=== PATIENT | female | born 1965 | race Asian ===

== ENCOUNTER 2017-05-22 21:17 | Emergency (ER) | payer OTHER ==
--- NOTE | 2017-05-22 21:28 | PDOC ---
History of Present Illness <Silvia Negro - Last Filed: 05/23/17 00:03> - General History Source: Patient Exam Limitations: No Limitations - History of Present Illness Initial Comments: 05/22/17 22:01 51-year-old female with history of recurrent cervical cancer, status post ADIS/ BSO, status post partial colectomy with colostomy and urostomy presents to the ER with severe, constant, nonradiating, left-sided abdominal pain for the past several hours, 10 of 10, without alleviating or exacerbating factors, with several episodes of nonbloody, nonbilious vomiting. Patient reports decreased output via a colostomy. Normal output here urostomy. Patient denies fever/chills /melena/bright red blood per colostomy. REVIEW OF SYSTEMS CONSTITUTIONAL: No fever, no chills, no fatigue EYES: No visual changes ENT: No ear pain, no sore throat CARDIOVASCULAR: No chest pain, no palpitations RESPIRATORY: No cough, no SOB GI: + abdominal pain, no nausea, + vomiting, no constipation, no diarrhea GENITOURINARY: No dysuria, no frequency, no hematuria MUSKULOSKELETAL: No backpain, no joint pain, no myalgias SKIN: No rash NEURO: No headache EXAMINATION CONSTITUTIONAL: Awake and alert, in moderate distress HEAD: Normocephalic; atraumatic EYES: PERRL; EOM intact; no scleral icterus ENMT: External appears normal; mm-dry NECK: Supple; non-tender; no cervical lymphadenopathy CARD: Normal S1, S2; no murmurs, rubs, or gallops RESP: Normal chest excursion with respiration; breath sounds clear and equal bilaterally; no wheezes, rhonchi, or rales ABD: Soft, distended; tympanitic, + mild to moderate tender to palpation within the left lower quadrant; left lower quadrant colostomy is noted; right lower quadrant and urostomy is noted; no palpable organomegaly, no palpable hernias no CVA tenderness bilaterally;; EXT: Normal ROM in all four extremities; non-tender to palpation; distal pulses intact SKIN: Warm, dry, no rash NEURO: No focal neurological deficiencies. <Natan Terrazas - Last Filed: 05/23/17 00:40> <Daniela Godinez - Last Filed: 05/23/17 04:03> - General Stated Complaint: STOMACH PAIN Past History <Silvia Negro - Last Filed: 05/23/17 00:03> - Past Medical History Anemia: Yes Asthma: No Cancer: Yes (cervical, vaginal) Cardiac Disorders: No CVA: No COPD: No CHF: No Dementia: No Diabetes: No GI Disorders: No Disorders: No HTN: Yes Hypercholesterolemia: No Liver Disease: No Seizures: No Thyroid Disease: No - Surgical History Abdominal Surgery: Yes (hysterectomy 2014) Appendectomy: Yes Cardiac Surgery: No Cholecystectomy: No Lung Surgery: No Neurologic Surgery: No - Suicide/Smoking/Psychosocial Hx Smoking History: Never smoked Hx Alcohol Use: No Drug/Substance Use Hx: No Substance Use Type: None Hx Substance Use Treatment: No <Natan Terrazas - Last Filed: 05/23/17 00:40> <Daniela Godinez - Last Filed: 05/23/17 04:03> - Past Medical History Allergies/Adverse Reactions: Allergies Allergy/AdvReac Type Severity Reaction Status Date / Time cisplatin Allergy Severe rash and Verified 05/23/17 00:06 chest pain Home Medications: Ambulatory Orders Amlodipine Besylate [Norvasc -] 5 mg PO DAILY 03/05/16 Cetirizine HCl [Zyrtec -] 10 mg PO DAILY 03/05/16 Magnesium Oxide 800 mg PO BID 03/05/16 *Physical Exam - Vital Signs Last Vital Signs Temp Pulse Resp BP Pulse Ox 98.2 F 78 18 143/110 98 05/22/17 21:37 05/22/17 21:37 05/22/17 21:37 05/22/17 21:37 05/22/17 21:37 <Silvia Negro - Last Filed: 05/23/17 00:03> - Vital Signs Last Vital Signs Temp Pulse Resp BP Pulse Ox 98.2 F 78 18 143/110 98 05/22/17 21:37 05/22/17 21:37 05/22/17 21:37 05/22/17 21:37 05/22/17 21:37 <Daniela Godinez - Last Filed: 05/23/17 04:03> ED Treatment Course - LABORATORY CBC & Chemistry Diagram: 05/22/17 22:36 05/22/17 22:36 - ADDITIONAL ORDERS Additional order review: Laboratory Results 05/22/17 05/22/17 22:36 22:36 PT with INR 11.20 INR 0.99 Sodium Cancelled Potassium Cancelled Chloride Cancelled Carbon Dioxide Cancelled Anion Gap Cancelled BUN Cancelled Creatinine Cancelled Creat Clearance w eGFR Cancelled Random Glucose Cancelled Calcium Cancelled Total Bilirubin Cancelled AST Cancelled ALT Cancelled Alkaline Phosphatase Cancelled Total Protein Cancelled Albumin Cancelled 05/22/17 22:36 RBC 3.60 MCV 92.5 MCHC 33.7 RDW 12.9 D MPV 8.2 Neutrophils % 81.0 Lymphocytes % 11.2 Monocytes % 5.4 Eosinophils % 2.0 D Basophils % 0.4 - Medications Given in the ED: ED Medications Discontinued Medications Generic Name Dose Route Start Last Admin Trade Name Freq PRN Reason Stop Dose Admin Hydromorphone HCl 2 mg 05/22/17 21:41 05/22/17 22:35 Dilaudid Injection - IVPB 05/22/17 21:42 2 mg ONCE ONE Administration Sodium Chloride 500 mls @ 500 mls/hr 05/22/17 21:41 05/22/17 22:35 Normal Saline - IV 05/22/17 22:40 500 mls/hr ASDIR STA Administration Ondansetron HCl 8 mg 05/22/17 21:41 05/22/17 22:35 Zofran Injection IVPB 05/22/17 21:42 8 mg ONCE ONE Administration <Silvia Negro - Last Filed: 05/23/17 00:03> - LABORATORY CBC & Chemistry Diagram: 05/22/17 22:36 05/22/17 22:36 <Natan Terrazas - Last Filed: 05/23/17 00:40> - LABORATORY CBC & Chemistry Diagram: 05/22/17 22:36 05/23/17 00:02 - ADDITIONAL ORDERS Additional order review: Laboratory Results 05/23/17 05/23/17 05/22/17 00:02 00:02 22:36 PT with INR INR Sodium 142 Cancelled Potassium 3.4 L Cancelled Chloride 102 Cancelled Carbon Dioxide 27 Cancelled Anion Gap 13 Cancelled BUN 15 D Cancelled Creatinine 0.7 Cancelled Creat Clearance w eGFR > 60 Cancelled Random Glucose 137 H D Cancelled Calcium 8.4 L Cancelled Total Bilirubin 0.7 D Cancelled AST 28 D Cancelled ALT 61 D Cancelled Alkaline Phosphatase 65 D Cancelled Total Protein 7.6 D Cancelled Albumin 3.9 D Cancelled Blood Type O POSITIVE Antibody Screen Negative 05/22/17 22:36 PT with INR 11.20 INR 0.99 Sodium Potassium Chloride Carbon Dioxide Anion Gap BUN Creatinine Creat Clearance w eGFR Random Glucose Calcium Total Bilirubin AST ALT Alkaline Phosphatase Total Protein Albumin Blood Type Antibody Screen 05/22/17 22:36 RBC 3.60 MCV 92.5 MCHC 33.7 RDW 12.9 D MPV 8.2 Neutrophils % 81.0 Lymphocytes % 11.2 Monocytes % 5.4 Eosinophils % 2.0 D Basophils % 0.4 - Medications Given in the ED: ED Medications Discontinued Medications Generic Name Dose Route Start Last Admin Trade Name Freq PRN Reason Stop Dose Admin Hydromorphone HCl 2 mg 05/22/17 21:41 05/22/17 22:35 Dilaudid Injection - IVPB 05/22/17 21:42 2 mg ONCE ONE Administration Hydromorphone HCl 2 mg 05/23/17 01:41 05/23/17 01:42 Dilaudid Injection - IVPB 05/23/17 01:42 2 mg ONCE ONE Administration Sodium Chloride 500 mls @ 500 mls/hr 05/22/17 21:41 05/22/17 22:35 Normal Saline - IV 05/22/17 22:40 500 mls/hr ASDIR STA Administration Ondansetron HCl 8 mg 05/22/17 21:41 05/22/17 22:35 Zofran Injection IVPB 05/22/17 21:42 8 mg ONCE ONE Administration <Daniela Godinez - Last Filed: 05/23/17 04:03> Medical Decision Making - Medical Decision Making 05/22/17 23:41 EXAM: X-ray abdomen supine and erect view FINDINGS: Nonspecific bowel gas pattern. There is stool and gas throughout colon. There are some bowel loops with air-fluid levels in the pelvis. This is nonspecific for small bowel obstruction. If there is suspicion of bowel obstruction then CT is recommended. No appreciable free intraperitoneal air. Scoliosis. Read by: Troy Kimball MD 05/23/17 00:03 EXAM: XR CHEST FINDINGS: Tip of the right central venous line overlies the distal SVC. Heart size is normal. Lungs are clear. No pleural effusion. IMPRESSION: No acute pathology. Read by: Juan Jose Kincaid MD <Silvia Negro - Last Filed: 05/23/17 00:03> - Medical Decision Making 05/23/17 00:43 Patient is a 51-year-old female with history of locally invasive cervical cancer , status post ADIS/BSO, status post partial colectomy with colostomy and urostomy presents with atraumatic left-sided abdominal pain associated with nausea and vomiting. I suspect SBO. Abdominal series x-ray reveals large amount of retained stool and several air-fluid levels in the pelvis. Will obtain CT with by mouth contrast to rule out SBO. <Natan Terrazas - Last Filed: 05/23/17 00:40> - Medical Decision Making 05/23/17 04:03 Pt feels great and wants to go home. Belly is soft and NT ND. <Daniela Godinez - Last Filed: 05/23/17 04:03> *DC/Admit/Observation/Transfer - Attestations Scribe Attestion: 05/22/17 23:42 Documentation prepared by Silvia Negro, acting as medical charge entry specialist for Natan Terrazas MD. <Silvia Negro - Last Filed: 05/23/17 00:03> <Natan Terrazas - Last Filed: 05/23/17 00:40> - Discharge Dispostion Admit: No <Daniela Godinez - Last Filed: 05/23/17 04:03> Diagnosis at time of Disposition: Gas pain - Discharge Dispostion Disposition: HOME Condition at time of disposition: Stable - Referrals Referrals: Cipriano Parikh MD [Primary Care Provider] - - Patient Instructions
[2017-05-22] MEDS ORDERED: SODIUM CHLORIDE 500 ML IV STA (21:41)
[2017-05-22] MEDS ORDERED: HYDROmorphone HCL CARPU-JECT 2 MG/1 ML DISP.SYRIN IVPB ONE (21:41)
[2017-05-22] MEDS ORDERED: ONDANSETRON 4 MG/2 ML VIAL IVPB ONE (21:41)
[2017-05-22 21:43] VITALS: BP 143/110; PULSE 78; TEMP 98.2; BMI 32.9
[2017-05-22] MEDS ORDERED: ONDANSETRON 4 MG/2 ML VIAL ONE (22:11)
[2017-05-22] MEDS ORDERED: HYDROmorphone HCL CARPU-JECT 2 MG/1 ML DISP.SYRIN ONE (22:11)
[2017-05-22 22:44] LABS: BASO % 0.4 % (0-2.0); HEMATOCRIT 33.3 % (32.4-45.2); HEMOGLOBIN 11.2 GM/dL (10.7-15.3); LYMPH % 11.2 % (8-40); MCH 31.2 pg (25.7-33.7); MCHC 33.7 g/dl (32.0-36.0); MEAN CELL VOLUME 92.5 fl (80-96); MEAN PLT VOLUME 8.2 fl (7.5-11.1); MONO % 5.4 % (3.8-10.2); PLATELET COUNT 297 K/MM3 (134-434); RDW 12.9 % (11.6-15.6); WHITE BLOOD COUNT 7.5 K/mm3 (4.0-10.0)
[2017-05-22 23:01] LABS: INR 0.99 (0.82-1.09); PROTHROMBIN TIME (PATIENT) 11.2 SEC (9.98-11.88)
[2017-05-23 00:39] LABS: ALBUMIN 3.9 g/dl (3.4-5.0); ANION GAP 13 (8-16); BILIRUBIN,TOTAL 0.7 mg/dL (0.2-1.0); BLOOD UREA NITROGEN 15 mg/dL (7-18); CALCIUM 8.4 mg/dL (8.5-10.1); CHLORIDE 102 mmol/L (98-107); CO2 27 mmol/L (21-32); CREATININE 0.7 mg/dL (0.55-1.02); GLUCOSE,RANDOM 137 mg/dL (74-106); POTASSIUM 3.4 mmol/L (3.5-5.1); SGOT/AST 28 U/L (15-37); SGPT/ALT 61 U/L (12-78); SODIUM 142 mmol/L (136-145); TOT PROT 7.6 g/dl (6.4-8.2)
[2017-05-23 00:40] LABS: ALK PHOS 65 U/L (45-117)
[2017-05-23] MEDS ORDERED: HYDROmorphone HCL CARPU-JECT 2 MG/1 ML DISP.SYRIN ONE (00:52)
[2017-05-23] MEDS ORDERED: HYDROmorphone HCL CARPU-JECT 2 MG/1 ML DISP.SYRIN IVPB ONE (01:41)
== END 2017-05-23 04:12 | disposition home or self-care (01) ==
LOC: JER 21:17
PROC: 3E033NZ Introduction of Analgesics, Hypnotics, Sedatives into Peripheral Vein, Percutaneous Approach (ICD-10-PCS; principal; 2017-05-22)
PROC: 3E033NZ Introduction of Analgesics, Hypnotics, Sedatives into Peripheral Vein, Percutaneous Approach (ICD-10-PCS; 2017-05-22)
PROC: 3E033GC Introduction of Other Therapeutic Substance into Peripheral Vein, Percutaneous Approach (ICD-10-PCS; 2017-05-22)
DX: R14.1 Gas pain (principal); Z85.41 Personal history of malignant neoplasm of cervix uteri; Z93.3 Colostomy status; Z93.6 Other artificial openings of urinary tract status
CPT/HCPCS: 36415; 71010-TC; 74176-TC; 74190-TC; 80053; 85025; 85610; 86850; 86900; 86901; 99283-25

== ENCOUNTER 2017-06-12 14:16 | Emergency (ER) | payer OTHER ==
[2017-06-12 14:22] VITALS: BMI 33.5
--- NOTE | 2017-06-12 14:52 | PDOC ---
History of Present Illness - General History Source: Patient Exam Limitations: No Limitations - History of Present Illness Initial Comments: 06/12/17 16:41 Patient is a 52 year old female with a significant past medical history of HTN, Anxiety, cervical adenocarcinoma diagnosed 11/2014 after hysterectomy for vaginal bleeding , s/p chemo and radiation Rx, s/p multiple pelvic surgeries ( the latest 10/2015 in [place]), s/p VAC (removed 02/2016) who presents to the ED with complaints of left sided abdominal pain that began yesterday. Patient reports going to see PCP for constipation and was prescribed laxatives which she states she has not taken for 2 days. She reports experiencing left sided abdominal pain that she states is similar to the pain she experienced in April when she was constipated. She describes it as cramping in nature. Patient reports experiencing nausea and vomiting secondary to left sided abdominal pain. She states the last episode of vomiting was this afternoon at 1 :30pm. Patient states she has a colostomy bag and was last changed yesterday evening. She reports her last chemo treatment was February 20, which was her 13th treatment. She states she passed some gas this morning. Denies chest pain, SOB. Denies fevers, chills. Denies change in appetite. Denies contact with sick individuals, out of state travelling. Denies any other symptoms. Allergies: Cisplatin Social history: Lives with spouse. No smoking. No alcohol. No illicit drugs. Surgical history: Colectomy, Colostomy, Hysterectomy, Oophorectomy PMD: Dr. Parikh <Brent Chilel - Last Filed: 06/12/17 16:41> <Sánchez Thomas - Last Filed: 06/12/17 17:23> - General Chief Complaint: Pain Stated Complaint: SBO/ CA PT , ABDOMINAL PAIN Time Seen by Provider: 06/12/17 14:35 Past History <Brent Chilel - Last Filed: 06/12/17 16:41> - Past Medical History Anemia: Yes Asthma: No Cancer: Yes (cervical, vaginal) Cardiac Disorders: No CVA: No COPD: No CHF: No DVT: No Dementia: No Diabetes: No GI Disorders: Yes (SBO) Disorders: No HTN: Yes Hypercholesterolemia: No Liver Disease: No Seizures: No Thyroid Disease: No - Surgical History Abdominal Surgery: Yes (hysterectomy 2014) Appendectomy: Yes Cardiac Surgery: No Cholecystectomy: No Lung Surgery: No Neurologic Surgery: No - Suicide/Smoking/Psychosocial Hx Smoking History: Never smoked Information on smoking cessation initiated: No Hx Alcohol Use: No Drug/Substance Use Hx: No Substance Use Type: None Hx Substance Use Treatment: No <Sánchez Thomas - Last Filed: 06/12/17 17:23> - Past Medical History Allergies/Adverse Reactions: Allergies Allergy/AdvReac Type Severity Reaction Status Date / Time cisplatin Allergy Severe rash and Verified 06/12/17 14:18 chest pain Home Medications: Ambulatory Orders Amlodipine Besylate [Norvasc -] 5 mg PO DAILY 03/05/16 Cetirizine HCl [Zyrtec -] 10 mg PO DAILY 03/05/16 Magnesium Oxide 800 mg PO BID 03/05/16 Review of Systems - Review of Systems Able to Perform ROS?: Yes Comments:: 06/12/17 16:42 CONSTITUTIONAL: No reported: Fever, Chills, Diaphoresis, Generalized Weakness, Malaise, Loss of Appetite HEENT: No reported: Rhinorrhea, Nasal Congestion, Throat Pain, Throat Swelling, Difficulty Swallowing, Mouth Swelling, Ear Pain, Eye Pain, Visual Changes CARDIOVASCULAR: No reported: Chest Pain, Syncope, Palpitations, Irregular Heart Rate, Lightheadedness, Peripheral Edema RESPIRATORY: No reported: Cough, Shortness of Breath, SOB with Exertion, Orthopnea, Wheezing , Stridor, Hemoptysis GASTROINTESTINAL: +Left sided abdominal pain. +Nausea. +Vomiting. No reported: Abdominal pain, Abdominal Distension, Nausea, Vomiting, Diarrhea, Constipation, Melena, Hematochezia GENITOURINARY: No reported: Dysuria, Frequency, Urgency, Hesitancy, Flank Pain, Genital Pain MUSCULOSKELETAL: No reported: Myalgia, Arthralgia, Joint Swelling, Back pain, Neck Pain SKIN: No reported: Rash, Itching, Pallor HEMATOLOGIC/IMMUNOLOGIC: No reported: Easy Bleeding, Easy Bruising, Lymphadenopathy, Frequent infections ENDOCRINE: No reported: Unexplained Weight Gain, Unexplained Weight Loss, Heat Intolerance , Cold Intolerance NEUROLOGIC: No reported: Headache, Focal Weakness, Paresthesias, Vertigo, Lightheadedness, Unsteady Gait, Seizure, Mental Status Changes, Incontinence PSYCHIATRIC: No reported: Anxiety, Depression All Other Systems: Reviewed and Negative <Brent Chilel - Last Filed: 06/12/17 16:41> *Physical Exam - Vital Signs Last Vital Signs Temp Pulse Resp BP Pulse Ox 98.3 F 84 18 149/96 100 06/12/17 14:18 06/12/17 14:18 06/12/17 14:18 06/12/17 14:18 06/12/17 14:18 - Physical Exam Comments: 06/12/17 16:42 GENERAL: The patient is awake, alert, and fully oriented, Nontoxic - in no acute distress. HEAD: Normocephalic, atraumatic. EYES: extraocular movements intact, sclera anicteric, conjunctiva clear. ENT: Normal voice, Moist mucous membranes. NECK: Normal range of motion, supple LUNGS: Breath sounds equal, clear to auscultation bilaterally. No wheezes, no rhonchi, no rales. HEART: Regular rate and rhythm, normal S1 and S2 without murmur, rub or gallop. ABDOMEN: mild tenderness in the L abdomen, colostomy bag in place, urostomy bag in the RL abd , no rebound/guarding EXTREMITIES: Normal range of motion, no edema. No clubbing or cyanosis. No cords, erythema, or tenderness. NEUROLOGICAL: No facial assymetry, Normal speech, PSYCH: Normal mood, normal affect. SKIN: Warm, Dry, normal turgor, <Brent Chilel - Last Filed: 06/12/17 16:41> - Vital Signs Last Vital Signs Temp Pulse Resp BP Pulse Ox 98.3 F 84 18 149/96 100 06/12/17 14:18 06/12/17 14:18 06/12/17 14:18 06/12/17 14:18 06/12/17 14:18 <Sánchez Thomas - Last Filed: 06/12/17 17:23> ED Treatment Course - LABORATORY CBC & Chemistry Diagram: 06/12/17 15:20 06/12/17 15:20 - ADDITIONAL ORDERS Additional order review: Laboratory Results 06/12/17 06/12/17 06/12/17 15:20 15:20 15:20 PT with INR 11.60 INR 1.03 Sodium Potassium Chloride Carbon Dioxide Anion Gap BUN Creatinine Creat Clearance w eGFR Random Glucose Lactic Acid 0.9 Calcium Total Bilirubin AST ALT Alkaline Phosphatase Total Protein Albumin Blood Type O POSITIVE Antibody Screen Negative 06/12/17 15:20 PT with INR INR Sodium 150 H Potassium 3.4 L Chloride 110 H Carbon Dioxide 27 Anion Gap 13 BUN 27 H Creatinine 1.5 H Creat Clearance w eGFR 36.76 Random Glucose 100 Lactic Acid Calcium 8.1 L Total Bilirubin 0.8 AST 22 ALT 47 Alkaline Phosphatase 61 Total Protein 8.0 Albumin 4.4 Blood Type Antibody Screen 06/12/17 15:20 RBC 3.38 L MCV 90.5 MCHC 33.4 RDW 13.0 MPV 7.8 Neutrophils % 81.0 Lymphocytes % 12.2 Monocytes % 5.5 Eosinophils % 1.1 Basophils % 0.2 - Medications Given in the ED: ED Medications Discontinued Medications Generic Name Dose Route Start Last Admin Trade Name Estebanq PRN Reason Stop Dose Admin Hydromorphone HCl 0.5 mg 06/12/17 14:53 06/12/17 16:30 Dilaudid Injection - IVPUSH 06/12/17 14:54 0.5 mg ONCE ONE Administration Ondansetron HCl 4 mg 06/12/17 14:53 06/12/17 16:30 Zofran Injection IVPB 06/12/17 14:54 4 mg ONCE ONE Administration <Brent Chilel - Last Filed: 06/12/17 16:41> - LABORATORY CBC & Chemistry Diagram: 06/12/17 15:20 06/12/17 15:20 <Sánchez Thomas - Last Filed: 06/12/17 17:23> Medical Decision Making - Medical Decision Making 06/12/17 14:53 52y F hx of htn, ADIS/BSO, with complaint of L sideda bominal pain. Pain is crampy in nature, Pt complaints of vomiting, decreased bowel movements/output in her colostomy for the past day. No associated fever/chills. concern for obstction will start with abd xray as pt has had multiple CTs in the past month if suggestive of obstruction may need a CT will give subhashfran, pain meds 06/12/17 17:22 abd xry noted for gas, no signs of air fliud levels will give the pt some mag citrate pt signed out to dr. dee to reasess the patient anticipate dc after she feels better <Sánchez Thomas - Last Filed: 06/12/17 17:23> *DC/Admit/Observation/Transfer - Attestations Scribe Attestion: 06/12/17 16:42 Documentation prepared by Brent Chilel, acting as medical services manager for Sánchez Thomas MD, /DO. <Brent Chilel - Last Filed: 06/12/17 16:41> <Sánchez Thomas - Last Filed: 06/12/17 17:23> - Referrals Referrals: Cipriano Parikh MD [Primary Care Provider] - - Patient Instructions - Post Discharge Activity
[2017-06-12] MEDS ORDERED: HYDROmorphone HCL CARPU-JECT 2 MG/1 ML DISP.SYRIN IVPUSH ONE (14:53)
[2017-06-12] MEDS ORDERED: ONDANSETRON 4 MG/2 ML VIAL IVPB ONE (14:53)
[2017-06-12 15:42] LABS: BASO % 0.2 % (0-2.0); EOS % 1.1 % (0-4.5); HEMATOCRIT 30.6 % (32.4-45.2); HEMOGLOBIN 10.2 GM/dL (10.7-15.3); LYMPH % 12.2 % (8-40); MCH 30.2 pg (25.7-33.7); MCHC 33.4 g/dl (32.0-36.0); MEAN CELL VOLUME 90.5 fl (80-96); MEAN PLT VOLUME 7.8 fl (7.5-11.1); MONO % 5.5 % (3.8-10.2); PLATELET COUNT 296 K/MM3 (134-434); RBC 3.38 M/mm3 (3.60-5.2); WHITE BLOOD COUNT 4.7 K/mm3 (4.0-10.0)
[2017-06-12 15:54] LABS: INR 1.03 (0.82-1.09); PROTHROMBIN TIME (PATIENT) 11.6 SEC (9.98-11.88)
[2017-06-12 16:11] LABS: ALBUMIN 4.4 g/dl (3.4-5.0); ALK PHOS 61 U/L (45-117); ANION GAP 13 (8-16); BILIRUBIN,TOTAL 0.8 mg/dL (0.2-1.0); BLOOD UREA NITROGEN 27 mg/dL (7-18); CALCIUM 8.1 mg/dL (8.5-10.1); CHLORIDE 110 mmol/L (98-107); CO2 27 mmol/L (21-32); CREATININE 1.5 mg/dL (0.55-1.02); GLUCOSE,RANDOM 100 mg/dL (74-106); POTASSIUM 3.4 mmol/L (3.5-5.1); SGOT/AST 22 U/L (15-37); SGPT/ALT 47 U/L (12-78); SODIUM 150 mmol/L (136-145)
[2017-06-12] MEDS ORDERED: SODIUM CHLORIDE 1,000 ML IV ONE (16:13)
[2017-06-12] MEDS ORDERED: HYDROmorphone HCL CARPU-JECT 2 MG/1 ML DISP.SYRIN ONE (16:27)
[2017-06-12] MEDS ORDERED: ONDANSETRON 4 MG/2 ML VIAL ONE (16:27)
[2017-06-12 16:33] LABS: URINE APPEARANCE SLCLOUDY; URINE BILIRUBIN NEGATIVE (NEGATIVE); URINE BLOOD NEGATIVE (NEGATIVE); URINE COLOR YELLOW; URINE GLUCOSE (UA) NEGATIVE (NEGATIVE); URINE KETONE NEGATIVE (NEGATIVE); URINE LEUK ESTERASE TRACE (NEGATIVE); URINE NITRITE POSITIVE (NEGATIVE); URINE UROBILINOGEN NEGATIVE mg/dL (0.2-1.0)
[2017-06-12] MEDS ORDERED: MAGNESIUM CITRATE 300 ML BOTTLE PO ONE (16:42)
[2017-06-12 16:57] LABS: URINE PROTEIN 1+ (NEGATIVE)
[2017-06-12 16:58] LABS: URINE BACTERIA RARE /hpf (NONE SEEN); URINE MUCUS RARE
[2017-06-12] MEDS ORDERED: MAGNESIUM CITRATE 300 ML BOTTLE ONE (17:02)
--- NOTE | 2017-06-12 18:25 | PDOC ---
*Physical Exam - Vital Signs Last Vital Signs Temp Pulse Resp BP Pulse Ox 98.3 F 84 18 149/96 100 06/12/17 14:18 06/12/17 14:18 06/12/17 14:18 06/12/17 14:18 06/12/17 14:18 ED Treatment Course - LABORATORY CBC & Chemistry Diagram: 06/12/17 15:20 06/12/17 15:20 - ADDITIONAL ORDERS Additional order review: Laboratory Results 06/12/17 06/12/17 06/12/17 16:20 15:20 15:20 PT with INR 11.60 INR 1.03 Sodium Potassium Chloride Carbon Dioxide Anion Gap BUN Creatinine Creat Clearance w eGFR Random Glucose Lactic Acid Calcium Total Bilirubin AST ALT Alkaline Phosphatase Total Protein Albumin Urine Color Yellow Urine Appearance Slcloudy Urine pH 6.0 Ur Specific [place] 1.011 Urine Protein 1+ H Urine Glucose (UA) Negative Urine Ketones Negative Urine Blood Negative Urine Nitrite Positive Urine Bilirubin Negative Urine Urobilinogen Negative Ur Leukocyte Esterase Trace Urine WBC (Auto) 17 Urine RBC (Auto) 1 Urine Bacteria Rare Urine Mucus Rare Blood Type O POSITIVE Antibody Screen Negative 06/12/17 06/12/17 15:20 15:20 PT with INR INR Sodium 150 H Potassium 3.4 L Chloride 110 H Carbon Dioxide 27 Anion Gap 13 BUN 27 H Creatinine 1.5 H Creat Clearance w eGFR 36.76 Random Glucose 100 Lactic Acid 0.9 Calcium 8.1 L Total Bilirubin 0.8 AST 22 ALT 47 Alkaline Phosphatase 61 Total Protein 8.0 Albumin 4.4 Urine Color Urine Appearance Urine pH Ur Specific [place] Urine Protein Urine Glucose (UA) Urine Ketones Urine Blood Urine Nitrite Urine Bilirubin Urine Urobilinogen Ur Leukocyte Esterase Urine WBC (Auto) Urine RBC (Auto) Urine Bacteria Urine Mucus Blood Type Antibody Screen 06/12/17 15:20 RBC 3.38 L MCV 90.5 MCHC 33.4 RDW 13.0 MPV 7.8 Neutrophils % 81.0 Lymphocytes % 12.2 Monocytes % 5.5 Eosinophils % 1.1 Basophils % 0.2 - Medications Given in the ED: ED Medications Discontinued Medications Generic Name Dose Route Start Last Admin Trade Name Freq PRN Reason Stop Dose Admin Hydromorphone HCl 0.5 mg 06/12/17 14:53 06/12/17 16:30 Dilaudid Injection - IVPUSH 06/12/17 14:54 0.5 mg ONCE ONE Administration Sodium Chloride 1,000 mls @ 1,000 mls/hr 06/12/17 16:13 06/12/17 16:00 Normal Saline - IV 06/12/17 17:12 1,000 mls/hr .Q1H ONE Administration Magnesium Citrate 300 ml 06/12/17 16:42 06/12/17 17:10 Citroma - PO 06/12/17 16:43 300 ml ONCE ONE Administration Ondansetron HCl 4 mg 06/12/17 14:53 06/12/17 16:30 Zofran Injection IVPB 06/12/17 14:54 4 mg ONCE ONE Administration Medical Decision Making - Medical Decision Making 06/12/17 18:19 Sign-out received from outgoing Emergency Physician Dr. Thomas Pt interviewed and examined Ancillary studies reviewed Case discussed in detail with oncoming Emergency Physician including history, physical exam and ancillary studies. Vital Signs Temp Pulse Resp BP Pulse Ox 98.3 F 84 18 149/96 100 06/12/17 14:18 06/12/17 14:18 06/12/17 14:18 06/12/17 14:18 06/12/17 14:18 Abdominal radiograph on my review demonstrates gas and stool. No obstruction. Pt given magnesium citrate by Dr. Thomas. Pt now reports feeling significantly better. Likely constipation. Will d/c home with instructions to make miralax. Pt will go home with family. Pt has positive nitrates but pt reports that this wasn't a clean catch and that the urine often shows positive for urostomy. Pt informed of the results. Will hold off on antibiotics. I discussed the physical exam findings, ancillary test results and final diagnoses with the patient. I answered all of the patient's questions. The patient was satisfied with the care received and felt comfortable with the discharge plan and treatment plan. The patient will call their primary care physician within 24 hours to arrange follow-up and will return to the Emergency Department with any new, persistant or worsening symptoms. 06/12/17 18:26 *DC/Admit/Observation/Transfer Diagnosis at time of Disposition: Constipation Qualifiers: Constipation type: unspecified constipation type Qualified Code(s): K59.00 - Constipation, unspecified - Discharge Dispostion Disposition: HOME Condition at time of disposition: Improved Admit: No - Referrals Referrals: Cipriano Parikh MD [Primary Care Provider] - - Patient Instructions Printed Discharge Instructions: DI for Constipation Additional Instructions: Take 1 capful (17 grams) of miralax daily for 7 days. Drink plenty of fluids and rest. Follow up with your doctor. - Post Discharge Activity
[2017-06-12 18:57] VITALS: BP 131/90; PULSE 81; TEMP 98
== END 2017-06-12 18:57 | disposition home or self-care (01) ==
LOC: JER 14:16
PROC: 3E0337Z Introduction of Electrolytic and Water Balance Substance into Peripheral Vein, Percutaneous Approach (ICD-10-PCS; principal; 2017-06-12)
PROC: 3E033GC Introduction of Other Therapeutic Substance into Peripheral Vein, Percutaneous Approach (ICD-10-PCS; 2017-06-12)
PROC: 3E033NZ Introduction of Analgesics, Hypnotics, Sedatives into Peripheral Vein, Percutaneous Approach (ICD-10-PCS; 2017-06-12)
DX: K59.00 Constipation, unspecified (principal); I10 Essential (primary) hypertension; F41.9 Anxiety disorder, unspecified; Z93.3 Colostomy status; Z93.6 Other artificial openings of urinary tract status; Z85.41 Personal history of malignant neoplasm of cervix uteri; Z90.710 Acquired absence of both cervix and uterus
CPT/HCPCS: 36415; 74019-TC; 80053; 81003; 81015; 83605; 85025; 85610; 86850; 86900; 86901; 99283-25

== ENCOUNTER 2017-06-14 17:11 | Inpatient (IN) | payer OTHER ==
[2017-06-14] MEDS ORDERED: DEXTROSE 5%-0.45% SALINE 1,000 ML IV SCH (17:30)
--- NOTE | 2017-06-14 17:31 | HP ---
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 Cardiovascular: Yes: HTN Gastrointestinal: Yes: Other Heme/Onc: Yes: Anemia Psych: Yes: Anxiety - Past Surgical History Past Surgical History: Yes: Colectomy, Colostomy, Hysterectomy, Oopherectomy - Smoking History Smoking history: Never smoked - Alcohol/Substance Use Hx Alcohol Use: No - Social History History of Recent Travel: Yes (within [facility] ([place])) <Cipriano Parikh - Last Filed: 06/14/17 17:39> Home Medications <Cipriano Parikh - Last Filed: 06/14/17 17:39> <Evert Medina - Last Filed: 06/14/17 21:10> - Allergies Allergies/Adverse Reactions: Allergies Allergy/AdvReac Type Severity Reaction Status Date / Time cisplatin Allergy Severe rash and Verified 06/12/17 14:18 chest pain - Home Medications Home Medications: Ambulatory Orders Amlodipine Besylate [Norvasc -] 5 mg PO DAILY 03/05/16 Cetirizine HCl [Zyrtec -] 10 mg PO DAILY 03/05/16 Cetirizine HCl [Zyrtec -] 10 mg PO DAILY 06/14/17 Review of Systems - Review of Systems Eyes: reports: No Symptoms HENT: reports: No Symptoms Neck: reports: No Symptoms Cardiovascular: reports: No Symptoms <Cipriano Parikh - Last Filed: 06/14/17 17:39> Physical Examination Vital Signs: Vital Signs Temperature 98.6 F 06/14/17 17:33 Pulse Rate 72 06/14/17 17:33 Respiratory Rate 16 06/14/17 17:33 Blood Pressure 146/93 06/14/17 17:33 O2 Sat by Pulse Oximetry (%) 99 06/14/17 17:33 Labs: CBC, BMP 06/14/17 18:13 06/14/17 18:13 <Evert Medina - Last Filed: 06/14/17 21:10> Problem List - Problems (1) Constipation Code(s): K59.00 - CONSTIPATION, UNSPECIFIED QualifierTitle: Constipation type: unspecified constipation type Qualified Code(s): K59.00 - Constipation, unspecified (2) Gas pain Code(s): R14.1 - GAS PAIN (3) Status post chemotherapy Code(s): Z92.21 - PERSONAL HISTORY OF ANTINEOPLASTIC CHEMOTHERAPY (4) Small bowel obstruction due to adhesions Code(s): K56.50 - INTESTNL ADHESIONS, UNSP TO PARTIAL VERSUS COMPLETE OBST <Cipriano Parikh - Last Filed: 06/14/17 17:39> Assessment/Plan IMP- SMALL BOWEL OBSTRUCTION ACUTE KIDNEY INJURY/AZOTEMIA HYPERNATREMIA Na+ 150 HYPOKALEMIA 2/2 VOMITING AND DECREASED INTAKE PMHX H/O PELVIC CA, S/P SURGERY/CHEMO/RT, S/P PELVIC EXENTERATION L COLOSTOMY R ILEAL CONDUIT <Cipriano Parikh - Last Filed: 06/14/17 17:39>
[2017-06-14 18:18] VITALS: BMI 33.5
[2017-06-14] MEDS ORDERED: PORTA CATH FLUSH 10 ML IVPUSH ONE (18:51)
[2017-06-14 19:02] LABS: HEMATOCRIT 27.5 % (32.4-45.2); MCH 30.1 pg (25.7-33.7); MCHC 32.9 g/dl (32.0-36.0); MEAN CELL VOLUME 91.5 fl (80-96); MEAN PLT VOLUME 8.7 fl (7.5-11.1); PLATELET COUNT 279 K/MM3 (134-434); RBC 3.01 M/mm3 (3.60-5.2); RDW 12.1 % (11.6-15.6); WHITE BLOOD COUNT 3.3 K/mm3 (4.0-10.8)
[2017-06-14 19:08] LABS: ACTIVATED PTT 34.6 SECONDS (24.0-38.9)
[2017-06-14 19:12] LABS: ALBUMIN 4.2 g/dl (3.5-5.0); ALK PHOS 42 U/L (32-92); ANION GAP 11 (8-16); BILIRUBIN,TOTAL 0.8 mg/dl (0.2-1.0); BLOOD UREA NITROGEN 21 mg/dl (7-18); CALCIUM 8.5 mg/dl (8.4-10.2); CHLORIDE 94 mmol/L (98-107); CO2 33 mmol/L (22-28); CREATININE 1.2 mg/dl (0.6-1.3); GLUCOSE,RANDOM 94 mg/dl (74-106); INR 1.02 (0.82-1.09); PROTHROMBIN TIME (PATIENT) 11.4 SEC (10.2-13.0); SGOT/AST 25 U/L (10-42); SGPT/ALT 30 U/L (10-40); SODIUM 138 mmol/L (136-145); TOT PROT 6.9 g/dl (6.4-8.3)
[2017-06-14] MEDS: D5-1/2NS+20 MEQ KCL - 20 MEQ/1,000 ML INFUS.BAG IV SCH (19:16)
[2017-06-14 19:17] LABS: POTASSIUM 2.7 mmol/L (3.5-5.1)
[2017-06-14] MEDS: ONDANSETRON 4 MG/2 ML VIAL IVPB PRN (19:38)
[2017-06-14] MEDS: HYDROmorphone HCL CARPU-JECT 2 MG/1 ML DISP.SYRIN IVPB PRN (19:38)
[2017-06-14] MEDS: KCL 10 MEQ IVPB 10 MEQ/100 ML INFUS.BAG IVPB SCH ×3 (20:49→23:05)
[2017-06-14] MEDS: PANTOPRAZOLE SODIUM 40 MG VIAL IVPUSH SCH (20:49)
[2017-06-14 21:33] LABS: PH,URINE 7.5 (4.5-8); URINE APPEARANCE Clear; URINE BILIRUBIN Negative (NEGATIVE); URINE GLUCOSE (UA) Negative (NEGATIVE); URINE KETONE 1+ (NEGATIVE); URINE NITRITE Negative (NEGATIVE); URINE UROBILINOGEN 0.2 (0.2-1.0)
[2017-06-14 21:35] LABS: URINE BLOOD Trace-intact (NEGATIVE); URINE COLOR YELLOW; URINE PROTEIN 1+ (NEGATIVE)
[2017-06-14 21:44] LABS: URINE BACTERIA FEW /hpf (NEGATIVE)
[2017-06-14] MEDS ORDERED: KCL 20 MEQ PREMIX BAG 100 ML IVPB SCH (21:45)
[2017-06-14] MEDS ORDERED: POTASSIUM CHLORIDE TABS 20 MEQ TABLET.ER (FP) PO SCH (22:00)
[2017-06-14] MEDS: HEPARIN NA (PORCINE) 5,000 UNITS/ML 1ML VIAL SQ SCH (22:28)
[2017-06-14] MEDS: POTASSIUM CHLORIDE 10 MEQ in SODIUM CHLORIDE 100 ML IVPB SCH ×2 (22:46→23:51)
[2017-06-14] MEDS: POLYETHYLENE GLYCOL 3350 119 GM BTL PO SCH (22:46)
[2017-06-15] MEDS: POTASSIUM CHLORIDE 10 MEQ in SODIUM CHLORIDE 100 ML IVPB SCH ×2 (00:45→01:45)
[2017-06-15] MEDS: HYDROmorphone HCL CARPU-JECT 2 MG/1 ML DISP.SYRIN IVPB PRN ×2 (05:58→22:36)
--- NOTE | 2017-06-15 06:25 | CON.CARD ---
Consult Consult Specialty:: cardiology Reason for Consultation:: hypokalemia; dehydration; HTN - History of Present Illness History of Present Illness: h/o multiple abdominal surgeries; CA; HTN; now with vomiting and decreased PO intake x 2+ weeks assoc with moderate to severe abd pain and decreased bowel movements was seen in er 2 days ago and was given 1 bag of ivf, released from er same day. 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 Cardio/Vascular: Yes: HTN Gastrointestinal: Yes: Other Reproductive: Yes: Other (s/p hysterectomy, oophorectomy) ...LMP: 06/14/14 ...: No Heme/Onc: Yes: Anemia Psych: Yes: Anxiety - Past Surgical History Past Surgical History: Yes: Colectomy, Colostomy, Hysterectomy, Oopherectomy - Alcohol/Substance Use Hx Alcohol Use: No - Smoking History Smoking history: Never smoked Have you smoked in the past 12 months: No Aproximately how many cigarettes per day: 0 - Social History Usual Living Arrangement: With Spouse History of Recent Travel: Yes (within [facility] ([place])) Home Medications - Allergies Allergies/Adverse Reactions: Allergies Allergy/AdvReac Type Severity Reaction Status Date / Time cisplatin Allergy Severe rash and Verified 06/12/17 14:18 chest pain - Home Medications Home Medications: Ambulatory Orders RX: Amlodipine Besylate [Norvasc -] 5 mg PO DAILY 03/05/16 RX: Cetirizine HCl [Zyrtec -] 10 mg PO DAILY 03/05/16 Cetirizine HCl [Zyrtec -] 10 mg PO DAILY 06/14/17 Family Disease History - Family Disease History Family History: Denies Review of Systems - Review of Systems Constitutional: reports: Loss of Appetite Eyes: reports: No Symptoms HENT: reports: No Symptoms Neck: reports: No Symptoms Cardiovascular: denies: Chest Pain, Palpitations Respiratory: reports: No Symptoms Gastrointestinal: reports: Abdominal Pain, Bloating, Indigestion, Nausea, Vomiting Genitourinary: reports: No Symptoms Breasts: reports: No Symptoms Reported Musculoskeletal: reports: No Symptoms Integumentary: reports: No Symptoms Neurological: reports: No Symptoms Endocrine: reports: Increased Thirst Hematology/Lymphatic: reports: No Symptoms Psychiatric: reports: Anxiety - Risk Factors Known Risk Factors: Yes: Age, Other (hysterectomy/oophorectomy) Vital Signs: Vital Signs Temperature 98.6 F 06/15/17 04:00 Pulse Rate 72 06/15/17 04:00 Respiratory Rate 20 06/15/17 04:00 Blood Pressure 118/76 06/15/17 04:00 O2 Sat by Pulse Oximetry (%) 97 06/15/17 00:14 Constitutional: Yes: Anxious Eyes: Yes: WNL HENT: Yes: WNL Neck: Yes: WNL Respiratory: Yes: WNL Gastrointestinal: Yes: Soft, Other (colostomy bag site without pain/erythema/ discharge) Cardiovascular: Yes: Regular Rate and Rhythm JVD: No Carotid Bruit: No PMI: Non-Displaced Heart Sounds: Yes: S1, S2 Murmur: Yes: Systolic Murmur, Grade 1 Musculoskeletal: Yes: WNL Extremities: Yes: WNL Edema: No Peripheral Pulses WNL: Yes Integumentary: Yes: WNL Neurological: Yes: WNL ...Motor Strength: WNL Psychiatric: Yes: Other (anxiety) - Other Data Labs, Other Data: CBC, BMP 06/14/17 18:13 06/14/17 18:13 INR, PTT INR 1.02 (0.82-1.09) 06/14/17 18:13 Abnormal Lab Results 06/14/17 06/14/17 06/14/17 17:17 18:13 18:13 WBC 3.3 L RBC 3.01 L Hgb 9.0 L Hct 27.5 L Potassium 2.7 L* Chloride 94 L Carbon Dioxide 33 H BUN 21 H Urine Protein 1+ H Urine Ketones 1+ H Urine Blood Trace-intact H Ur Leukocyte Esterase Trace H Ejection Fraction %: LVEF > or = 40 % (2016 ECHO) Imaging - Results X-ray: Image Reviewed (abdominal xray: ?SBO) Ultrasound: Report Reviewed (ECHO 2016: normal LVEF; mild TR and MR) EKG: Image Reviewed (NSR; nonspecific T wave changes) Problem List - Problems (1) Hypokalemia Assessment/Plan: replete; follow all electrolytes (Mg level ordered). Code(s): E87.6 - HYPOKALEMIA (2) Small bowel obstruction due to adhesions Assessment/Plan: Abdominal Xray: possible small bowel obstruction. FLuids; f/u CT abdomen. Code(s): K56.50 - INTESTNL ADHESIONS, UNSP TO PARTIAL VERSUS COMPLETE OBST (3) Constipation Code(s): K59.00 - CONSTIPATION, UNSPECIFIED Qualifiers: Constipation type: unspecified constipation type Qualified Code(s): K59.00 - Constipation, unspecified (4) Gas pain Code(s): R14.1 - GAS PAIN (5) Status post chemotherapy Assessment/Plan: f/u with oncologist. Code(s): Z92.21 - PERSONAL HISTORY OF ANTINEOPLASTIC CHEMOTHERAPY (6) Chronic anemia Assessment/Plan: F/u Hb after fluid repletion. Code(s): D64.9 - ANEMIA, UNSPECIFIED
[2017-06-15 08:29] LABS: ALBUMIN 3.9 g/dl (3.5-5.0); ALK PHOS 40 U/L (32-92); ANION GAP 10 (8-16); BILIRUBIN,TOTAL 0.7 mg/dl (0.2-1.0); BLOOD UREA NITROGEN 19 mg/dl (7-18); CALCIUM 8.5 mg/dl (8.4-10.2); CHLORIDE 100 mmol/L (98-107); CO2 30 mmol/L (22-28); CREATININE 1.3 mg/dl (0.6-1.3); GLUCOSE,RANDOM 107 mg/dl (74-106); MAGNESIUM 2.1 mg/dL (1.8-2.4); POTASSIUM 3.4 mmol/L (3.5-5.1); SGOT/AST 25 U/L (10-42); SGPT/ALT 31 U/L (10-40); SODIUM 140 mmol/L (136-145); TOT PROT 6.5 g/dl (6.4-8.3)
[2017-06-15] MEDS ORDERED: PATIENT'S OWN MEDICATION (NON-FORMULARY) (Cetirizine Hcl 10 MG) PO SCH (10:00)
[2017-06-15] MEDS: amLODIPine BESYLATE 5 MG TABLET (FP) PO SCH (10:15)
[2017-06-15] MEDS: ESCITALOPRAM OXALATE 10 MG TABLET (FP) PO SCH (10:15)
[2017-06-15] MEDS: LORATADINE 10 MG TABLET PO SCH (10:15)
[2017-06-15] MEDS: HEPARIN NA (PORCINE) 5,000 UNITS/ML 1ML VIAL SQ SCH ×2 (10:16→22:35)
[2017-06-15] MEDS: PANTOPRAZOLE SODIUM 40 MG VIAL IVPUSH SCH (10:16)
[2017-06-15] MEDS: POLYETHYLENE GLYCOL 3350 119 GM BTL PO SCH ×2 (10:16→22:12)
[2017-06-15] MEDS: POTASSIUM CHLORIDE 20 MEQ PREMIX IVPB 100 ML IVPB SCH ×3 (12:05→16:56)
[2017-06-15] MEDS ORDERED: SODIUM PHOSPHATE/NA BIPHOS 133 ML ENEMA PR ONE (15:42)
--- NOTE | 2017-06-15 18:57 | EKG ---
Test Reason : Blood Pressure : / mmHG Vent. Rate : 077 BPM Atrial Rate : 077 BPM P-R Int : 172 ms QRS Dur : 080 ms QT Int : 402 ms P-R-T Axes : 036 -01 -30 degrees QTc Int : 454 ms NORMAL SINUS RHYTHM NONSPECIFIC ST AND T WAVE ABNORMALITY WHEN COMPARED WITH ECG OF 06-MAR-2016 08:46, NONSPECIFIC T WAVE ABNORMALITY NOW EVIDENT IN LATERAL LEADS Confirmed by ILDEFONSO BROWN, ALPA ([id number]) on 06/15/2017 6:57:07 PM Referred By: Cipriano Parikh Confirmed By:ALPA FREGOSO MD
[2017-06-15] MEDS: D5-1/2NS+20 MEQ KCL - 20 MEQ/1,000 ML INFUS.BAG IV SCH (19:00)
[2017-06-15] MEDS: ONDANSETRON 4 MG/2 ML VIAL IVPB PRN (22:10)
--- NOTE | 2017-06-15 22:53 | PN ---
Progress Note (short form) - Note Progress Note: recurrent vomiting recurrent partial small bowel obstruction h/o abd/intestinal surgeries Probable adhesions h/o pelvic/cervical ca HTN allergic rhinitis Current Medications Amlodipine Besylate (Norvasc -) [address] [facility] Last Admin: 06/15/17 10:15 Dose: 5 mg Escitalopram Oxalate (Lexapro -) [address] [facility] Last Admin: 06/15/17 10:15 Dose: 10 mg Heparin Sodium (Porcine) (Heparin -) 5,[address] [facility] Last Admin: 06/15/17 22:35 Dose: 5,000 unit Heparin Sodium (Porcine) (Hep-Lock -) 5 ml IVPUSH PRN PRN PRN Reason: WHEN NOT IN USE Hydromorphone HCl (Dilaudid Injection -) 2 mg IVPB Q4H PRN PRN Reason: MODERATE PAIN Last Admin: 06/15/17 22:36 Dose: 2 mg Potassium Chloride/Dextrose/Sod Cl (D5-1/2ns+20 Meq Kcl -) 20 meq in 1,000 mls @ 100 mls/hr IV ASDIR [facility] Last Admin: 06/14/17 19:16 Dose: 100 mls/hr Loratadine (Claritin -) [address] [facility] Last Admin: 06/15/17 10:15 Dose: 10 mg Ondansetron HCl (Zofran Injection) 8 mg IVPB Q8H PRN PRN Reason: NAUSEA Last Admin: 06/15/17 22:10 Dose: 8 mg Pantoprazole Sodium (Protonix Iv) [address] [facility] Last Admin: 06/15/17 10:16 Dose: 40 mg Polyethylene Glycol (Miralax (For Daily Use) -) [address] [facility] Last Admin: 06/15/17 22:12 Dose: Not Given Last Vital Signs Temp Pulse Resp BP Pulse Ox 98.6 F 72 20 118/76 97 06/15/17 12:00 06/15/17 12:00 06/15/17 17:00 06/15/17 12:00 06/15/17 17:00 CBC, BMP 06/14/17 18:13 06/15/17 07:45 IMP Hypokalemia 2/2 vomiting and poor intake Partial small bowel obstruction +/- ileus 2/2 pain and hypokalemia HTN- BPs low Anemia Leukopenia Prerenal azotemia Plan- hold amlodipine for low BP check orthostatic BPs and pulse Problem List - Problems (1) Constipation Code(s): K59.00 - CONSTIPATION, UNSPECIFIED Qualifiers: Constipation type: unspecified constipation type Qualified Code(s): K59.00 - Constipation, unspecified (2) Gas pain Code(s): R14.1 - GAS PAIN (3) Status post chemotherapy Code(s): Z92.21 - PERSONAL HISTORY OF ANTINEOPLASTIC CHEMOTHERAPY (4) Small bowel obstruction due to adhesions Code(s): K56.50 - INTESTNL ADHESIONS, UNSP TO PARTIAL VERSUS COMPLETE OBST
--- NOTE | 2017-06-16 01:12 | PN ---
Progress Note, Physician - Current Medication List Current Medications: Active Medications Amlodipine Besylate (Norvasc -) 5 mg PO DAILY [facility] Last Admin: 06/15/17 10:15 Dose: 5 mg Escitalopram Oxalate (Lexapro -) 10 mg PO DAILY [facility] Last Admin: 06/15/17 10:15 Dose: 10 mg Heparin Sodium (Porcine) (Heparin -) 5,000 unit SQ BID [facility] Last Admin: 06/15/17 22:35 Dose: 5,000 unit Heparin Sodium (Porcine) (Hep-Lock -) 5 ml IVPUSH PRN PRN PRN Reason: WHEN NOT IN USE Hydromorphone HCl (Dilaudid Injection -) 2 mg IVPB Q4H PRN PRN Reason: MODERATE PAIN Last Admin: 06/15/17 22:36 Dose: 2 mg Potassium Chloride/Dextrose/Sod Cl (D5-1/2ns+20 Meq Kcl -) 20 meq in 1,000 mls @ 100 mls/hr IV ASDIR [facility] Last Admin: 06/14/17 19:16 Dose: 100 mls/hr Loratadine (Claritin -) 10 mg PO DAILY [facility] Last Admin: 06/15/17 10:15 Dose: 10 mg Ondansetron HCl (Zofran Injection) 8 mg IVPB Q8H PRN PRN Reason: NAUSEA Last Admin: 06/15/17 22:10 Dose: 8 mg Pantoprazole Sodium (Protonix Iv) 40 mg IVPUSH DAILY [facility] Last Admin: 06/15/17 10:16 Dose: 40 mg Polyethylene Glycol (Miralax (For Daily Use) -) 17 gm PO BID [facility] Last Admin: 06/15/17 22:12 Dose: Not Given - Objective Vital Signs: Vital Signs Temperature 98.7 F 06/15/17 22:49 Pulse Rate 72 06/15/17 22:49 Respiratory Rate 18 06/15/17 22:49 Blood Pressure 139/88 06/15/17 22:49 O2 Sat by Pulse Oximetry (%) 98 06/15/17 22:50 Labs: CBC, BMP 06/14/17 18:13 06/15/17 07:45 INR, PTT INR 1.02 (0.82-1.09) 06/14/17 18:13 Problem List - Problems (1) Hypokalemia Assessment/Plan: repleted; f/u all electrolytes (Mg and Na+ normal). Code(s): E87.6 - HYPOKALEMIA (2) Small bowel obstruction due to adhesions Assessment/Plan: Abdominal Xray: possible small bowel obstruction. FLuids; f/u CT abdomen. Addendum: CT notes partial SBO, possible malignancy; enlarged lymph node; bilateral mod-severe hydronephrosis. For GI and oncology involvement. Code(s): K56.50 - INTESTNL ADHESIONS, UNSP TO PARTIAL VERSUS COMPLETE OBST (3) Constipation Code(s): K59.00 - CONSTIPATION, UNSPECIFIED Qualifiers: Constipation type: unspecified constipation type Qualified Code(s): K59.00 - Constipation, unspecified (4) Status post chemotherapy Assessment/Plan: f/u with oncologist. Code(s): Z92.21 - PERSONAL HISTORY OF ANTINEOPLASTIC CHEMOTHERAPY (5) Gas pain Code(s): R14.1 - GAS PAIN (6) Chronic anemia Assessment/Plan: F/u Hb after fluid repletion. Code(s): D64.9 - ANEMIA, UNSPECIFIED (7) Hypertension Assessment/Plan: On amlodipine. F/u orthostatic VS. Code(s): I10 - ESSENTIAL (PRIMARY) HYPERTENSION
[2017-06-16] MEDS ORDERED: PANTOPRAZOLE SODIUM 40 MG VIAL IVPUSH ONE (01:18)
[2017-06-16 06:57] LABS: BASO % 0.3 % (0-2.0); EOS % 2.9 % (0-4.5); HEMATOCRIT 24.2 % (32.4-45.2); LYMPH % 19.1 % (8-40); MCH 30.4 pg (25.7-33.7); MCHC 33.3 g/dl (32.0-36.0); MEAN CELL VOLUME 91.3 fl (80-96); MEAN PLT VOLUME 8.4 fl (7.5-11.1); MONO % 13.1 % (3.8-10.2); NEUT % 64.6 % (42.8-82.8); PLATELET COUNT 239 K/MM3 (134-434); RBC 2.65 M/mm3 (3.60-5.2); RDW 12.6 % (11.6-15.6); WHITE BLOOD COUNT 3.1 K/mm3 (4.0-10.0)
[2017-06-16 07:45] LABS: ALBUMIN 3.4 g/dl (3.4-5.0); ALK PHOS 50 U/L (45-117); ANION GAP 5 (8-16); BILIRUBIN,TOTAL 0.6 mg/dL (0.2-1.0); BLOOD UREA NITROGEN 12 mg/dL (7-18); CALCIUM 8.2 mg/dL (8.5-10.1); CHLORIDE 105 mmol/L (98-107); CO2 33 mmol/L (21-32); CREATININE 1.5 mg/dL (0.55-1.02); GLUCOSE,RANDOM 115 mg/dL (74-106); POTASSIUM 3.4 mmol/L (3.5-5.1); SGOT/AST 18 U/L (15-37); SGPT/ALT 38 U/L (12-78); SODIUM 143 mmol/L (136-145); TOT PROT 6.4 g/dl (6.4-8.2)
--- NOTE | 2017-06-16 08:02 | CONSULT ---
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 s/p hyster for fibroids and reportedly adenoCA detected. 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 s/p pelvic exenteration, colostomy. ileal conduit. s/p carbo/taxotere ([facility] [place]) thru 02/07. There is local recurrence and genomic results for directed tx is pend. Adm w partial SBO. Notes some flatus. No emesis for past 2d. Has mild anemia. Notes chronic anemia; h/o iron def in past w uterine bleeding. Transfused at time of pelvic surgery only. 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 Cardio/Vascular: Yes: HTN Gastrointestinal: Yes: Other ...LMP: 06/14/14 ...: No Psych: Yes: Anxiety - Past Surgical History Past Surgical History: Yes: Colectomy, Colostomy, Hysterectomy, Oopherectomy - Alcohol/Substance Use Hx Alcohol Use: No - Smoking History Smoking history: Never smoked Have you smoked in the past 12 months: No Aproximately how many cigarettes per day: 0 - Social History Usual Living Arrangement: With Spouse History of Recent Travel: Yes (within [facility] ([place])) Home Medications - Allergies Allergies/Adverse Reactions: Allergies Allergy/AdvReac Type Severity Reaction Status Date / Time cisplatin Allergy Severe rash and Verified 06/12/17 14:18 chest pain - Home Medications Home Medications: Ambulatory Orders Amlodipine Besylate [Norvasc -] 5 mg PO DAILY 03/05/16 Cetirizine HCl [Zyrtec -] 10 mg PO DAILY 03/05/16 Cetirizine HCl [Zyrtec -] 10 mg PO DAILY 06/14/17 Physical Exam Vital Signs: Vital Signs Temperature 97.9 F 06/16/17 06:44 Pulse Rate 65 06/16/17 06:44 Respiratory Rate 20 06/16/17 06:44 Blood Pressure 159/91 06/16/17 06:44 O2 Sat by Pulse Oximetry (%) 98 06/16/17 06:44 Constitutional: Yes: No Distress, Calm Eyes: Yes: WNL HENT: Yes: WNL Neck: Yes: Supple Cardiovascular: Yes: Regular Rate and Rhythm Respiratory: Yes: CTA Bilaterally Gastrointestinal: Yes: Other (mild distension; mild LQ tenderness; absent BS, soft, no stool in bag) Extremities: Yes: WNL Edema: No Labs: CBC, BMP 06/16/17 06:00 06/16/17 06:00 Assessment/Plan locally adv physical trainer malig adm w pSBO Chronic anemia in setting of malig, h/o chemotx, pelvic RT, poor intake Would send iron studies, B12, TFTs Monitor cbc would obtain GI eval
[2017-06-16] MEDS: ESCITALOPRAM OXALATE 10 MG TABLET (FP) PO SCH (09:24)
[2017-06-16] MEDS: HEPARIN NA (PORCINE) 5,000 UNITS/ML 1ML VIAL SQ SCH ×2 (09:24→21:57)
[2017-06-16] MEDS: PANTOPRAZOLE SODIUM 40 MG VIAL IVPUSH SCH (09:24)
[2017-06-16] MEDS: LORATADINE 10 MG TABLET PO SCH (09:24)
[2017-06-16] MEDS: amLODIPine BESYLATE 5 MG TABLET (FP) PO SCH (09:24)
[2017-06-16] MEDS: POLYETHYLENE GLYCOL 3350 119 GM BTL PO SCH ×2 (09:25→21:58)
--- NOTE | 2017-06-16 10:15 | PN ---
Progress Note (short form) - Note Progress Note: Patient seen and consult dictated. Patient with possible partial SBO (due to prior surgeries/RT) and worsened by low serum K/ Feels better today and is tolerating some PO liquids; states her abdominal distention is also improved. Will follow as needed; if further distention, N/V may need NG for decompression.
--- NOTE | 2017-06-16 10:32 | PN ---
Progress Note, Physician History of Present Illness: h/o multiple abdominal surgeries; CA; HTN; now with vomiting and decreased PO intake x 2+ weeks assoc with moderate to severe abd pain and decreased bowel movements was seen in er 2 days ago and was given 1 bag of ivf, released from er same day. labs in er showed azotemia, hypokalemia, hypernatremia abd xray shows early pattern of intestinal obstruction - Current Medication List Current Medications: Active Medications Amlodipine Besylate (Norvasc -) 5 mg PO DAILY [facility] Last Admin: 06/16/17 09:24 Dose: 5 mg Escitalopram Oxalate (Lexapro -) 10 mg PO DAILY [facility] Last Admin: 06/16/17 09:24 Dose: 10 mg Heparin Sodium (Porcine) (Heparin -) 5,000 unit SQ BID [facility] Last Admin: 06/16/17 09:24 Dose: 5,000 unit Heparin Sodium (Porcine) (Hep-Lock -) 5 ml IVPUSH PRN PRN PRN Reason: WHEN NOT IN USE Hydromorphone HCl (Dilaudid Injection -) 2 mg IVPB Q4H PRN PRN Reason: MODERATE PAIN Last Admin: 06/15/17 22:36 Dose: 2 mg Potassium Chloride/Dextrose/Sod Cl (D5-1/2ns+20 Meq Kcl -) 20 meq in 1,000 mls @ 100 mls/hr IV ASDIR [facility] Last Admin: 06/15/17 19:00 Dose: 100 mls/hr Loratadine (Claritin -) 10 mg PO DAILY [facility] Last Admin: 06/16/17 09:24 Dose: 10 mg Ondansetron HCl (Zofran Injection) 8 mg IVPB Q8H PRN PRN Reason: NAUSEA Last Admin: 06/15/17 22:10 Dose: 8 mg Pantoprazole Sodium (Protonix Iv) 40 mg IVPUSH DAILY [facility] Last Admin: 06/16/17 09:24 Dose: 40 mg Polyethylene Glycol (Miralax (For Daily Use) -) 17 gm PO BID [facility] Last Admin: 06/16/17 09:25 Dose: 17 gm - Objective Vital Signs: Vital Signs Temperature 97.9 F 06/16/17 06:44 Pulse Rate 65 06/16/17 06:44 Respiratory Rate 16 06/16/17 07:53 Blood Pressure 159/91 06/16/17 06:44 O2 Sat by Pulse Oximetry (%) 98 06/16/17 07:53 Eyes: Yes: WNL, Conjunctiva Clear, EOM Intact HENT: Yes: WNL, Atraumatic, Normocephalic Neck: Yes: WNL, Supple, Trachea Midline Cardiovascular: Yes: WNL, Regular Rate and Rhythm Respiratory: Yes: WNL, Regular, CTA Bilaterally Gastrointestinal: Yes: WNL, Normal Bowel Sounds Genitourinary: Yes: WNL Musculoskeletal: Yes: WNL Extremities: Yes: WNL Edema: No Integumentary: Yes: WNL Neurological: Yes: WNL, Alert, Oriented ...Motor Strength: WNL Psychiatric: Yes: WNL Labs: CBC, BMP 06/16/17 06:00 06/16/17 06:00 INR, PTT INR 1.02 (0.82-1.09) 06/14/17 18:13 Assessment/Plan Assessment/Plan: repleted; f/u all electrolytes (Mg and Na+ normal). Code(s): E87.6 - HYPOKALEMIA (2) Small bowel obstruction due to adhesions Assessment/Plan: Abdominal Xray: possible small bowel obstruction. FLuids; f/u CT abdomen. Addendum: CT notes partial SBO, possible malignancy; enlarged lymph node; bilateral mod-severe hydronephrosis. For GI and oncology involvement. Code(s): K56.50 - INTESTNL ADHESIONS, UNSP TO PARTIAL VERSUS COMPLETE OBST (3) Constipation Code(s): K59.00 - CONSTIPATION, UNSPECIFIED Qualifiers: Constipation type: unspecified constipation type Qualified Code(s): K59.00 - Constipation, unspecified (4) Status post chemotherapy Assessment/Plan: f/u with oncologist. Code(s): Z92.21 - PERSONAL HISTORY OF ANTINEOPLASTIC CHEMOTHERAPY (5) Gas pain Code(s): R14.1 - GAS PAIN (6) Chronic anemia Assessment/Plan: F/u Hb after fluid repletion. Code(s): D64.9 - ANEMIA, UNSPECIFIED (7) Hypertension Assessment/Plan: On amlodipine. F/u orthostatic VS. Code(s): I10 - ESSENTIAL (PRIMARY) HYPERTENSION
[2017-06-16] MEDS: HYDROmorphone HCL CARPU-JECT 2 MG/1 ML DISP.SYRIN IVPB PRN ×2 (11:43→19:38)
--- NOTE | 2017-06-16 13:32 | CONS ---
DATE OF CONSULTATION: 06/16/2017 Asked to evaluate this 52-year-old female with small bowel obstruction. Patient is a 52-year-old with adenocarcinoma of FIELD PRODUCER origin. The patient has been followed at [facility] and was initially found to have adenocarcinoma, after a hysterectomy for fibroids. She has had radiation therapy, vaginal cuff recurrence, surgery with pelvic exenteration and a subsequent colostomy, as well as ileal conduit. She has received chemotherapy and is currently being evaluated for local recurrence. The patient has recent complaints of nausea, vomiting, abdominal pain and was admitted with x-rays consistent with a partial small bowel obstruction. The patient is status post oophorectomy, hysterectomy, as well as the ileostomy and left-sided colostomy. Currently, she is resting in bed and is tolerating some p.o. liquids and states her abdominal distention has improved. She denies any prior history of small bowel obstruction. PHYSICAL EXAMINATION: General: On exam, the patient is a well-developed, well-nourished female alert and comfortable. Lungs: She has clear lungs. Cardiac: Regular rate and rhythm. Abdomen: Slightly distended, bowel sounds are present. There is slight fluid in the ileal conduit and no output in the ostomy currently. Her CAT scan of the abdomen and pelvis done yesterday shows dilated loops of small bowel in the left upper and left lower quadrants consistent with partial small bowel obstruction. There were several transition points as noted. Repeat x-ray today has not been done to-date. The abdominal x-ray from yesterday, June 15, was consistent with a partial small bowel obstruction. Her laboratory tests include a white count of 3.1, hemoglobin 8.0, hematocrit 24.2 and her chemistries are normal with the exception of a potassium of 3.4, which on admission was 2.7. Patient with possible recent partial small bowel obstruction and/or possible ileus, possibly related to her hypokalemia. Currently, patient feels better and is tolerating some p.o. liquids. No GI intervention recommended at the present time, but would follow clinically. JAVAD PHAN M.D. [id number]
--- NOTE | 2017-06-16 16:24 | PN ---
Progress Note (short form) - Note Progress Note: recurrent vomiting recurrent partial small bowel obstruction h/o abd/intestinal surgeries Probable adhesions h/o pelvic/cervical ca HTN allergic rhinitis Current Medications Amlodipine Besylate (Norvasc -) 5 mg PO DAILY COUNT [facility]CLUDES [facility] Last Admin: 06/16/17 09:24 Dose: 5 mg Escitalopram Oxalate (Lexapro -) 10 mg PO DAILY COUNT [facility]CLUDES [facility] Last Admin: 06/16/17 09:24 Dose: 10 mg Heparin Sodium (Porcine) (Heparin -) 5,000 unit SQ BID COUNT [facility]CLUDES [facility] Last Admin: 06/16/17 09:24 Dose: 5,000 unit Heparin Sodium (Porcine) (Hep-Lock -) 5 ml IVPUSH PRN PRN PRN Reason: WHEN NOT IN USE Hydromorphone HCl (Dilaudid Injection -) 2 mg IVPB Q4H PRN PRN Reason: MODERATE PAIN Last Admin: 06/16/17 11:43 Dose: 2 mg Potassium Chloride/Dextrose/Sod Cl (D5-1/2ns+20 Meq Kcl -) 20 meq in 1,000 mls @ 100 mls/hr IV ASDIR COUNT INCLUDES [facility] Last Admin: 06/15/17 19:00 Dose: 100 mls/hr Loratadine (Claritin -) 10 mg PO DAILY [facility] Last Admin: 06/16/17 09:24 Dose: 10 mg Ondansetron HCl (Zofran Injection) 8 mg IVPB Q8H PRN PRN Reason: NAUSEA Last Admin: 06/15/17 22:10 Dose: 8 mg Pantoprazole Sodium (Protonix Iv) 40 mg IVPUSH DAILY [facility] Last Admin: 06/16/17 09:24 Dose: 40 mg Polyethylene Glycol (Miralax (For Daily Use) -) 17 gm PO BID COUNT [facility]CLUDES [facility] Last Admin: 06/16/17 09:25 Dose: 17 gm Potassium Chloride (Potassium Chloride 20 Meq Premix Ivpb -) 20 meq IVPB Q60M COUNT INCLUDES [facility] Stop: 06/16/17 18:31 Last Vital Signs Temp Pulse Resp BP Pulse Ox 98.1 F 69 17 119/79 94 L 06/16/17 14:10 06/16/17 14:10 06/16/17 14:10 06/16/17 14:10 06/16/17 14:10 CBC, BMP 06/16/17 06:00 06/16/17 06:00 IMP Hypokalemia 2/2 vomiting and poor intake Partial small bowel obstruction +/- ileus 2/2 pain and hypokalemia HTN- BPs low Anemia Leukopenia Prerenal azotemia Plan- hold amlodipine for low BP check orthostatic BPs and pulse Problem List - Problems (1) Constipation Code(s): K59.00 - CONSTIPATION, UNSPECIFIED Qualifiers: Constipation type: unspecified constipation type Qualified Code(s): K59.00 - Constipation, unspecified (2) Gas pain Code(s): R14.1 - GAS PAIN (3) Status post chemotherapy Code(s): Z92.21 - PERSONAL HISTORY OF ANTINEOPLASTIC CHEMOTHERAPY (4) Small bowel obstruction due to adhesions Code(s): K56.50 - INTESTNL ADHESIONS, UNSP TO PARTIAL VERSUS COMPLETE OBST
[2017-06-16] MEDS ORDERED: POTASSIUM CHLORIDE 20 MEQ PREMIX IVPB 100 ML IVPB SCH (16:30)
[2017-06-16] MEDS: POTASSIUM CHLORIDE 20 MEQ PREMIX IVPB 100 ML IVPB SCH ×4 (18:00→23:27)
[2017-06-16] MEDS: D5-1/2NS+20 MEQ KCL - 20 MEQ/1,000 ML INFUS.BAG IV SCH (19:07)
[2017-06-17] MEDS: HYDROmorphone HCL CARPU-JECT 2 MG/1 ML DISP.SYRIN IVPB PRN ×2 (06:31→13:02)
[2017-06-17 08:38] LABS: ALBUMIN 4.1 g/dl (3.5-5.0); ALK PHOS 46 U/L (32-92); ANION GAP 6 (8-16); BILIRUBIN,TOTAL 0.7 mg/dl (0.2-1.0); BLOOD UREA NITROGEN 10 mg/dl (7-18); CALCIUM 8.9 mg/dl (8.4-10.2); CHLORIDE 105 mmol/L (98-107); CO2 27 mmol/L (22-28); CREATININE 1.9 mg/dl (0.6-1.3); GLUCOSE,RANDOM 126 mg/dl (74-106); POTASSIUM 4.2 mmol/L (3.5-5.1); SGOT/AST 28 U/L (10-42); SGPT/ALT 34 U/L (10-40); SODIUM 138 mmol/L (136-145); TOT PROT 6.7 g/dl (6.4-8.3)
[2017-06-17] MEDS: PANTOPRAZOLE SODIUM 40 MG VIAL IVPUSH SCH (09:17)
[2017-06-17] MEDS: amLODIPine BESYLATE 5 MG TABLET (FP) PO SCH (09:17)
[2017-06-17] MEDS: ESCITALOPRAM OXALATE 10 MG TABLET (FP) PO SCH (09:18)
[2017-06-17] MEDS: HEPARIN NA (PORCINE) 5,000 UNITS/ML 1ML VIAL SQ SCH ×2 (09:18→21:47)
[2017-06-17] MEDS: LORATADINE 10 MG TABLET PO SCH (09:18)
[2017-06-17] MEDS: POLYETHYLENE GLYCOL 3350 119 GM BTL PO SCH ×2 (10:00→21:45)
--- NOTE | 2017-06-17 10:02 | PN ---
Progress Note (short form) - Note Progress Note: Patient appears comfortable but had some bilious vomiting earlier;also reports taking some PO liquids as well. No output from colostomy (ileal conduit functioning) Denies abdominal pain or cramps but has mild distention. May still have partial SBO (?adhesions) and would repeat AXR. Would request Surgery opinion if symptoms persist. Please recall if I can be of assistance.
--- NOTE | 2017-06-17 12:05 | PN ---
Progress Note, Physician Chief Complaint: Pt A&Ox3; still with occasional nausea and vomitin, especially about 2 hours after having liquids.No chest pain or dyspnea; slept well last night (after pain meds). History of Present Illness: h/o multiple abdominal surgeries; CA; HTN; now with vomiting and decreased PO intake x 2+ weeks assoc with moderate to severe abd pain and decreased bowel movements was seen in er 2 days ago and was given 1 bag of ivf, released from er same day. labs in er showed azotemia, hypokalemia, hypernatremia abd xray shows early pattern of intestinal obstruction - Current Medication List Current Medications: Active Medications Amlodipine Besylate (Norvasc -) 5 mg PO DAILY [facility] Last Admin: 06/17/17 09:17 Dose: 5 mg Escitalopram Oxalate (Lexapro -) 10 mg PO DAILY [facility] Last Admin: 06/17/17 09:18 Dose: 10 mg Heparin Sodium (Porcine) (Heparin -) 5,000 unit SQ BID [facility] Last Admin: 06/17/17 09:18 Dose: 5,000 unit Heparin Sodium (Porcine) (Hep-Lock -) 5 ml IVPUSH PRN PRN PRN Reason: WHEN NOT IN USE Hydromorphone HCl (Dilaudid Injection -) 2 mg IVPB Q4H PRN PRN Reason: MODERATE PAIN Last Admin: 06/17/17 06:31 Dose: 2 mg Potassium Chloride/Dextrose/Sod Cl (D5-1/2ns+20 Meq Kcl -) 20 meq in 1,000 mls @ 100 mls/hr IV ASDIR [facility] Last Admin: 06/16/17 19:07 Dose: 100 mls/hr Loratadine (Claritin -) 10 mg PO DAILY [facility] Last Admin: 06/17/17 09:18 Dose: 10 mg Ondansetron HCl (Zofran Injection) 8 mg IVPB Q8H PRN PRN Reason: NAUSEA Last Admin: 06/15/17 22:10 Dose: 8 mg Pantoprazole Sodium (Protonix Iv) 40 mg IVPUSH DAILY [facility] Last Admin: 06/17/17 09:17 Dose: 40 mg Polyethylene Glycol (Miralax (For Daily Use) -) 17 gm PO BID [facility] Last Admin: 06/17/17 10:00 Dose: 17 gm - Objective Vital Signs: Vital Signs Temperature 98.2 F 06/17/17 05:34 Pulse Rate 72 06/17/17 09:19 Respiratory Rate 18 06/17/17 09:19 Blood Pressure 116/91 06/17/17 09:19 O2 Sat by Pulse Oximetry (%) 99 06/17/17 09:19 Constitutional: Yes: Anxious Eyes: Yes: WNL HENT: Yes: WNL Neck: Yes: WNL Respiratory: Yes: WNL Gastrointestinal: Yes: Soft ...Rectal Exam: Yes: Other (colostomy) Genitourinary: No: Anuria Breast(s): Yes: WNL Musculoskeletal: Yes: Muscle Weakness Extremities: Yes: WNL Edema: No Peripheral Pulses WNL: Yes Integumentary: Yes: Other Neurological: Yes: WNL Psychiatric: Yes: WNL Labs: CBC, BMP 06/16/17 06:00 06/17/17 07:30 INR, PTT INR 1.02 (0.82-1.09) 06/14/17 18:13 Abnormal Lab Results 06/17/17 07:30 Anion Gap 6 L Creatinine 1.9 H D Random Glucose 126 H Problem List - Problems (1) Hypokalemia Assessment/Plan: repleted; f/u all electrolytes (Mg and Na+ normal). Code(s): E87.6 - HYPOKALEMIA (2) Small bowel obstruction due to adhesions Assessment/Plan: Continued intermittent nausea, vomiting, abdominal pain. CT abdomen: partial small bowel obstruction. Repeat abominal XRay pending. T notes partial SBO, possible malignancy; enlarged lymph node; bilateral mod- severe hydronephrosis. Worsening Cr. Low threshold for Gi surgical and urologic consults.Discussed with Dr. Parikh; will follow closely. Code(s): K56.50 - INTESTNL ADHESIONS, UNSP TO PARTIAL VERSUS COMPLETE OBST (3) Constipation Code(s): K59.00 - CONSTIPATION, UNSPECIFIED Qualifiers: Constipation type: unspecified constipation type Qualified Code(s): K59.00 - Constipation, unspecified (4) Status post chemotherapy Assessment/Plan: f/u with oncologist. Code(s): Z92.21 - PERSONAL HISTORY OF ANTINEOPLASTIC CHEMOTHERAPY (5) Chronic anemia Code(s): D64.9 - ANEMIA, UNSPECIFIED (6) Hypertension Assessment/Plan: On amlodipine. F/u orthostatic VS. Code(s): I10 - ESSENTIAL (PRIMARY) HYPERTENSION (7) Renal dysfunction Assessment/Plan: AbD CT: moderately severe hydronephrosis (increased on left). Increasing Cr to 1.9 (BUN 10).. Close f/u with nephology/urologist.. Code(s): N28.9 - DISORDER OF KIDNEY AND URETER, UNSPECIFIED
[2017-06-17] MEDS: ONDANSETRON 4 MG/2 ML VIAL IVPB PRN ×2 (13:02→21:47)
--- NOTE | 2017-06-17 21:02 | PN ---
Progress Note (short form) - Note Progress Note: feels about the same. Few episodes emesis after drinking clears No BM Ambulating PE NAD lungs - CTA CVS-reg S1S2 abd- +BS upper Q, soft, hypoactive lower Q ext-no edema Imp- pSBO, h/o pelvic malig, s/p extensive surg awaiting return of bowel fxn anemia - > progressive. NO obvious bleeding. Monitor h/h. f/u iron studies. May require xfusion if continues to worsen
--- NOTE | 2017-06-17 21:21 | PN ---
Progress Note (short form) - Note Progress Note: recurrent vomiting recurrent partial small bowel obstruction h/o abd/intestinal surgeries Probable adhesions h/o pelvic/cervical ca HTN allergic rhinitis Current Medications Amlodipine Besylate (Norvasc -) 5 mg PO DAILY [facility] Last Admin: 06/17/17 09:17 Dose: 5 mg Escitalopram Oxalate (Lexapro -) 10 mg PO DAILY [facility] Last Admin: 06/17/17 09:18 Dose: 10 mg Heparin Sodium (Porcine) (Heparin -) 5,000 unit SQ BID [facility] Last Admin: 06/17/17 09:18 Dose: 5,000 unit Heparin Sodium (Porcine) (Hep-Lock -) 5 ml IVPUSH PRN PRN PRN Reason: WHEN NOT IN USE Potassium Chloride/Dextrose/Sod Cl (D5-1/2ns+20 Meq Kcl -) 20 meq in 1,000 mls @ 100 mls/hr IV ASDIR [facility] Last Admin: 06/16/17 19:07 Dose: 100 mls/hr Loratadine (Claritin -) 10 mg PO DAILY [facility] Last Admin: 06/17/17 09:18 Dose: 10 mg Ondansetron HCl (Zofran Injection) 8 mg IVPB Q8H PRN PRN Reason: NAUSEA Last Admin: 06/17/17 13:02 Dose: 8 mg Pantoprazole Sodium (Protonix Iv) 40 mg IVPUSH DAILY [facility] Last Admin: 06/17/17 09:17 Dose: 40 mg Polyethylene Glycol (Miralax (For Daily Use) -) 17 gm PO BID [facility] Last Admin: 06/17/17 10:00 Dose: 17 gm Last Vital Signs Temp Pulse Resp BP Pulse Ox 98.2 F 74 18 135/79 99 06/17/17 05:34 06/17/17 14:54 06/17/17 16:00 06/17/17 14:54 06/17/17 16:00 CBC, BMP 06/16/17 06:00 06/17/17 07:30 06/14/17 06/15/17 06/16/17 18:13 07:45 06:00 WBC 3.3 L 3.1 L D Hgb 9.0 L 8.0 L D Hct 27.5 L 24.2 L D Sodium 140 Potassium 3.4 L D BUN 19 H Creatinine 1.3 06/16/17 06/17/17 06:00 07:30 WBC Hgb Hct Sodium 143 Potassium 3.4 L BUN 12 10 D Creatinine 1.5 H 1.9 H D IMP- acute renal failure probably from obstructive Hypokalemia resolved Partial small bowel obstruction +/- ileus 2/2 pain and hypokalemia which is resolving HTN- BPs low at times, not orthostatic Anemia - worsening, not evidence of bleeding, may be partly due to hemodilution (prerenal pattern and contraction alkalosis have resolved) Leukopenia Plan- renal scan with diuretic to eval laterality of obstructive uropathy -type and cross 2 units of prbc for possible transfusion -start PPN if not resolving tomorrow Problem List - Problems (1) Constipation Code(s): K59.00 - CONSTIPATION, UNSPECIFIED Qualifiers: Constipation type: unspecified constipation type Qualified Code(s): K59.00 - Constipation, unspecified (2) Status post chemotherapy Code(s): Z92.21 - PERSONAL HISTORY OF ANTINEOPLASTIC CHEMOTHERAPY (3) Small bowel obstruction due to adhesions Code(s): K56.50 - INTESTNL ADHESIONS, UNSP TO PARTIAL VERSUS COMPLETE OBST
[2017-06-17] MEDS ORDERED: DEXTROSE IV SCH (22:30)
[2017-06-17] MEDS ORDERED: AMINO ACIDS IV SCH (22:30)
[2017-06-17] MEDS ORDERED: MULTIVITAMIN IV SCH (22:30)
[2017-06-18 07:49] LABS: ALBUMIN 3.4 g/dl (3.5-5.0); ALK PHOS 39 U/L (32-92); ANION GAP 5 (8-16); BILIRUBIN,TOTAL 0.7 mg/dl (0.2-1.0); BLOOD UREA NITROGEN 11 mg/dl (7-18); CALCIUM 8.3 mg/dl (8.4-10.2); CHLORIDE 106 mmol/L (98-107); CO2 26 mmol/L (22-28); CREATININE 2.6 mg/dl (0.6-1.3); GLUCOSE,RANDOM 109 mg/dl (74-106); MAGNESIUM 1.5 mg/dL (1.8-2.4); PHOSPHOROUS 3.5 mg/dl (2.5-4.6); POTASSIUM 3.9 mmol/L (3.5-5.1); SGOT/AST 24 U/L (10-42); SGPT/ALT 28 U/L (10-40); SODIUM 137 mmol/L (136-145); TOT PROT 5.8 g/dl (6.4-8.3)
[2017-06-18 08:07] LABS: HEMATOCRIT 23.1 % (32.4-45.2); HEMOGLOBIN 7.8 GM/dl (10.7-15.3); MCHC 33.6 g/dl (32.0-36.0); MEAN CELL VOLUME 92.4 fl (80-96); MEAN PLT VOLUME 8.6 fl (7.5-11.1); PLATELET COUNT 250 K/MM3 (134-434); RBC 2.51 M/mm3 (3.60-5.2); RDW 12.2 % (11.6-15.6); WHITE BLOOD COUNT 3.7 K/mm3 (4.0-10.8)
[2017-06-18] MEDS: HYDROmorphone HCL CARPU-JECT 2 MG/1 ML DISP.SYRIN IVPB PRN ×2 (09:03→17:35)
[2017-06-18] MEDS: LORATADINE 10 MG TABLET PO SCH (09:08)
[2017-06-18] MEDS: PANTOPRAZOLE SODIUM 40 MG VIAL IVPUSH SCH (09:08)
[2017-06-18] MEDS: ESCITALOPRAM OXALATE 10 MG TABLET (FP) PO SCH (09:08)
[2017-06-18] MEDS: amLODIPine BESYLATE 5 MG TABLET (FP) PO SCH (09:08)
[2017-06-18] MEDS: HEPARIN NA (PORCINE) 5,000 UNITS/ML 1ML VIAL SQ SCH ×2 (09:09→21:37)
[2017-06-18] MEDS: POLYETHYLENE GLYCOL 3350 119 GM BTL PO SCH ×2 (09:10→22:00)
[2017-06-18] MEDS ORDERED: AMINO ACIDS 4.25%/D5W 1,000 ML with POTASSIUM CHLORIDE 20 MEQ IV SCH (12:00)
[2017-06-18] MEDS ORDERED: PORTA CATH FLUSH 10 ML IVPUSH ONE (12:20)
--- NOTE | 2017-06-18 14:50 | CON.GU ---
Consult Consult Specialty:: Referred by:: Jl Reason for Consultation:: Hydronephrosis and renal failure - History of Present Illness Chief Complaint: abdominal pain, nausea History of Present Illness: 52 year old female with a history of cervical cancer who underwent a total pelvic exenteration in 2016 at [facility]. Over the last few days she has been having pain and nausea and a rising creatinine. The creatinine has improved with hydration initally though it is now rising again to 2.6. She has had no problems with the conduit. CT scan shows suspicion for SBO and bilateral hydronephrosis. - History Source History Provided By: Patient, Medical Record Limitations to Obtaining History: No Limitations - Past Medical History [employer]: Yes: Other Cardio/Vascular: Yes: HTN Gastrointestinal: Yes: Other Renal/: Yes: Other (urinary diversion. ) Reproductive: Yes: Other (cervical cancer with pelvic exenteration in 2016 ) ...LMP: 06/14/14 ...: No Psych: Yes: Anxiety - Past Surgical History Past Surgical History: Yes: Colectomy, Colostomy, Hysterectomy, Oopherectomy - Alcohol/Substance Use Hx Alcohol Use: No - Smoking History Smoking history: Never smoked Have you smoked in the past 12 months: No Aproximately how many cigarettes per day: 0 - Social History Usual Living Arrangement: With Spouse History of Recent Travel: Yes (within [facility] Home Medications - Allergies Allergies/Adverse Reactions: Allergies Allergy/AdvReac Type Severity Reaction Status Date / Time cisplatin Allergy Severe rash and Verified 06/12/17 14:18 chest pain - Home Medications Home Medications: Ambulatory Orders Amlodipine Besylate [Norvasc -] 5 mg PO DAILY 03/05/16 Cetirizine HCl [Zyrtec -] 10 mg PO DAILY 03/05/16 Cetirizine HCl [Zyrtec -] 10 mg PO DAILY 06/14/17 Review of Systems - Review of Systems Constitutional: reports: Loss of Appetite, Malaise, Weakness. denies: Chills, Fever Gastrointestinal: reports: Abdominal Pain, Nausea, Vomiting Genitourinary: denies: Frequency, Hematuria, Incontinence Physical Exam- Vital Signs: Vital Signs Temperature 98.0 F 06/18/17 14:13 Pulse Rate 87 06/18/17 14:13 Respiratory Rate 20 06/18/17 14:13 Blood Pressure 155/85 06/18/17 14:13 O2 Sat by Pulse Oximetry (%) 98 06/18/17 08:00 Constitutional: Yes: Well Nourished, Calm Gastrointestinal: Yes: Soft, Other (ileal conduit draining clear urine and appears healthy on the right. colostomy healthy on the left) Labs: CBC, BMP 06/18/17 06:00 06/18/17 06:00 Imaging - Results Cat Scan: Report Reviewed Other: Other (nuclear renal scan done 4 hours ago. Awaiting reading. Radiology desk called three times.) Problem List - Problems (1) Hydronephrosis Assessment/Plan: 52 year old female with ileal conduit and hydronephrosis with SALVADOR. Hydronephrosis is typical after ileal conduit and may not be the result of obstruction and the SALVADOR may be related to prerenal causes, however a renal scan was ordered and any surgical management will be based on those findings. Code(s): N13.30 - UNSPECIFIED HYDRONEPHROSIS
[2017-06-18] MEDS: ONDANSETRON 4 MG/2 ML VIAL IVPB PRN (14:54)
[2017-06-18] MEDS: MULTIVIT INJ. ADULT COMBO WITH VIT K 1 COMBO 10 ML VIAL IV SCH (14:55)
--- NOTE | 2017-06-18 19:34 | PN ---
Progress Note (short form) - Note Progress Note: Renal scan results reviewed. Results likely most consistent with prerenal causes. complete obstruction not likely as patient is making good volumes of urine. Problem List - Problems (1) Hydronephrosis Code(s): N13.30 - UNSPECIFIED HYDRONEPHROSIS
--- NOTE | 2017-06-18 19:40 | PN ---
Progress Note, Physician Chief Complaint: Pt A&Ox3; had nausea and vomiting overnight. Pt has now been sent to [facility] for renal scan. 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 labs in er showed azotemia, hypokalemia, hypernatremia abd xray shows early pattern of intestinal obstruction - Current Medication List Current Medications: Active Medications Amlodipine Besylate (Norvasc -) 5 mg PO DAILY [facility] Last Admin: 06/18/17 09:08 Dose: 5 mg Escitalopram Oxalate (Lexapro -) 10 mg PO DAILY [facility] Last Admin: 06/18/17 09:08 Dose: 10 mg Heparin Sodium (Porcine) (Heparin -) 5,000 unit SQ BID [facility] Last Admin: 06/18/17 09:09 Dose: 5,000 unit Heparin Sodium (Porcine) (Hep-Lock -) 5 ml IVPUSH PRN PRN PRN Reason: WHEN NOT IN USE Hydromorphone HCl (Dilaudid Injection -) 2 mg IVPB Q4H PRN PRN Reason: PAIN Last Admin: 06/18/17 17:35 Dose: 2 mg Potassium Chloride 20 meq/ (Amino Acids) 1,010 mls @ 84 mls/hr IV Q12H [facility] Last Admin: 06/18/17 14:54 Dose: 84 mls/hr Loratadine (Claritin -) 10 mg PO DAILY [facility] Last Admin: 06/18/17 09:08 Dose: 10 mg Multivitamins/Minerals (Infuvite Adult -) 10 ml IV DAILY@1200 [facility] Last Admin: 06/18/17 14:55 Dose: 10 ml Ondansetron HCl (Zofran Injection) 8 mg IVPB Q8H PRN PRN Reason: NAUSEA Last Admin: 06/18/17 14:54 Dose: 8 mg Pantoprazole Sodium (Protonix Iv) 40 mg IVPUSH DAILY [facility] Last Admin: 06/18/17 09:08 Dose: 40 mg Polyethylene Glycol (Miralax (For Daily Use) -) 17 gm PO BID [facility] Last Admin: 06/18/17 09:10 Dose: 17 gm - Objective Vital Signs: Vital Signs Temperature 98.0 F 06/18/17 14:13 Pulse Rate 87 06/18/17 14:13 Respiratory Rate 20 06/18/17 16:00 Blood Pressure 155/85 06/18/17 14:13 O2 Sat by Pulse Oximetry (%) 98 06/18/17 16:00 Constitutional: Yes: Calm Eyes: Yes: WNL HENT: Yes: WNL Neck: Yes: WNL Cardiovascular: Yes: Regular Rate and Rhythm Respiratory: Yes: WNL Gastrointestinal: Yes: Soft, Hypoactive Bowel Sounds ...Rectal Exam: Yes: Other Genitourinary: No: Anuria Breast(s): Yes: WNL Musculoskeletal: Yes: WNL Extremities: Yes: WNL Edema: No Peripheral Pulses WNL: Yes Neurological: Yes: WNL Psychiatric: Yes: Other Labs: CBC, BMP 06/18/17 06:00 06/18/17 06:00 INR, PTT INR 1.02 (0.82-1.09) 06/14/17 18:13 Abnormal Lab Results 06/17/17 06/18/17 06/18/17 07:30 06:00 06:00 WBC 3.7 L RBC 2.51 L Hgb 7.8 L D Hct 23.1 L D Anion Gap 5 L Creatinine 2.6 H D Random Glucose 109 H Calcium 8.3 L Magnesium 1.5 L Total Protein 5.8 L Albumin 3.4 L Free T4 1.51 H - ....Imaging Other: Pending (renal scan) Problem List - Problems (1) Hypokalemia Assessment/Plan: repleted. Mg2+ is low today; keep 2-2.3. Code(s): E87.6 - HYPOKALEMIA (2) Small bowel obstruction due to adhesions Assessment/Plan: F/u with GI. Addendum: pt passed stool for the first time in several days this afternoon. Code(s): K56.50 - INTESTNL ADHESIONS, UNSP TO PARTIAL VERSUS COMPLETE OBST (3) Status post chemotherapy Assessment/Plan: f/u with hem/oncologist. Code(s): Z92.21 - PERSONAL HISTORY OF ANTINEOPLASTIC CHEMOTHERAPY (4) Chronic anemia Assessment/Plan: f/u for possible need of PRBCs. Code(s): D64.9 - ANEMIA, UNSPECIFIED (5) Hypertension Assessment/Plan: On amlodipine. No orthostatic changs. Serial checks (may be elevated partially due to continual stress). Code(s): I10 - ESSENTIAL (PRIMARY) HYPERTENSION (6) Renal dysfunction Assessment/Plan: AbD CT: moderately severe hydronephrosis (increased on left). Await results of renal scan; urology w/u in progress. Code(s): N28.9 - DISORDER OF KIDNEY AND URETER, UNSPECIFIED
[2017-06-18] MEDS ORDERED: MAGNESIUM SULF 50% (8.12 MEQ/2 ML-1 GM VIAL) IVPB ONE (20:14)
--- NOTE | 2017-06-18 21:28 | PN ---
Progress Note (short form) - Note Progress Note: recurrent vomiting recurrent partial small bowel obstruction h/o abd/intestinal surgeries Probable adhesions h/o pelvic/cervical ca HTN allergic rhinitis s/p vomiting last night less vomiting (x1) today she had a small amount of stool earlier she was able to consume some porridge from home earlier- no vomiting some abd pain when she vomits Current Medications Amlodipine Besylate (Norvasc -) 5 mg PO DAILY [facility] Last Admin: 06/18/17 09:08 Dose: 5 mg Escitalopram Oxalate (Lexapro -) 10 mg PO DAILY [facility] Last Admin: 06/18/17 09:08 Dose: 10 mg Heparin Sodium (Porcine) (Heparin -) 5,000 unit SQ BID [facility] Last Admin: 06/18/17 09:09 Dose: 5,000 unit Heparin Sodium (Porcine) (Hep-Lock -) 5 ml IVPUSH PRN PRN PRN Reason: WHEN NOT IN USE Hydromorphone HCl (Dilaudid Injection -) 2 mg IVPB Q4H PRN PRN Reason: PAIN Last Admin: 06/18/17 17:35 Dose: 2 mg Potassium Chloride 20 meq/ (Amino Acids) 1,010 mls @ 100 mls/hr IV Q12H [facility] Loratadine (Claritin -) 10 mg PO DAILY [facility] Last Admin: 06/18/17 09:08 Dose: 10 mg Multivitamins/Minerals (Infuvite Adult -) 10 ml IV DAILY@1200 [facility] Last Admin: 06/18/17 14:55 Dose: 10 ml Ondansetron HCl (Zofran Injection) 8 mg IVPB Q8H PRN PRN Reason: NAUSEA Last Admin: 06/18/17 14:54 Dose: 8 mg Pantoprazole Sodium (Protonix Iv) 40 mg IVPUSH DAILY [facility] Last Admin: 06/18/17 09:08 Dose: 40 mg Polyethylene Glycol (Miralax (For Daily Use) -) 17 gm PO BID [facility] Last Admin: 06/18/17 09:10 Dose: 17 gm Last Vital Signs Temp Pulse Resp BP Pulse Ox 98.0 F 87 20 155/85 98 06/18/17 14:13 06/18/17 14:13 06/18/17 16:00 06/18/17 14:13 06/18/17 16:00 Abd- bowel sounds present, more active today than in past 2 days afte one minute listening CBC, BMP 06/18/17 06:00 06/18/17 06:00 IMP- acute renal failure - ATN s/p renal scan- there is uptake of tracer in both kidneys, no appearance of tracer in the ureters c/w ATN vs complete bilateral ureteral obstruction however obstruction is less likely since she has good urine output Vital signs were reviewed and she has 2 or 3 brief documented episodes of relatively low BP 118/72 probably from obstructive she was started on PPI on admission but the is no evidence of AIN, will repeat U/A r/o wbcs Hypokalemia resolved, k being replaced and levels being monitored Partial small bowel obstruction +/- ileus 2/2 pain and hypokalemia which is very slowlresolving HTN- BPs low at times, not orthostatic now, will d/c furtther monitoring Anemia - worsening, not evidence of bleeding, may be partly due to hemodilution (prerenal pattern and contraction alkalosis have resolved) not dizzy on standing and walking Leukopenia stable Plan- hold off blood transfusion in view of asymptomatic course and possible hemodilution and her reticence to receive prbc continue PPN with k supplement replace magnesium monitor serum K and lytes increase PPN tp 100 cc per hour Problem List - Problems (1) Constipation Code(s): K59.00 - CONSTIPATION, UNSPECIFIED Qualifiers: Qualified Code(s): K59.00 - Constipation, unspecified (2) Status post chemotherapy Code(s): Z92.21 - PERSONAL HISTORY OF ANTINEOPLASTIC CHEMOTHERAPY (3) Small bowel obstruction due to adhesions Code(s): K56.50 - INTESTNL ADHESIONS, UNSP TO PARTIAL VERSUS COMPLETE OBST
[2017-06-18] MEDS: AMINO ACIDS 4.25%/D5W 1,000 ML with POTASSIUM CHLORIDE 20 MEQ IV SCH (21:37)
[2017-06-19 07:21] LABS: ANION GAP 8 (8-16); CALCIUM 8.7 mg/dl (8.4-10.2); CHLORIDE 100 mmol/L (98-107); CO2 26 mmol/L (22-28); GLUCOSE,RANDOM 112 mg/dl (74-106); POTASSIUM 3.9 mmol/L (3.5-5.1); SODIUM 134 mmol/L (136-145)
[2017-06-19 07:24] LABS: HEMATOCRIT 26.5 % (32.4-45.2); HEMOGLOBIN 8.7 GM/dl (10.7-15.3); MCH 30.4 pg (25.7-33.7); MCHC 32.7 g/dl (32.0-36.0); MEAN PLT VOLUME 8.4 fl (7.5-11.1); PLATELET COUNT 283 K/MM3 (134-434); RBC 2.85 M/mm3 (3.60-5.2); RDW 12.4 % (11.6-15.6); WHITE BLOOD COUNT 4.2 K/mm3 (4.0-10.8)
[2017-06-19] MEDS: HYDROmorphone HCL CARPU-JECT 2 MG/1 ML DISP.SYRIN IVPB PRN ×3 (07:53→21:39)
[2017-06-19] MEDS: ONDANSETRON 4 MG/2 ML VIAL IVPB PRN ×2 (07:53→20:15)
[2017-06-19 08:12] LABS: ALBUMIN 3.7 g/dl (3.5-5.0); ALK PHOS 47 U/L (32-92); BILIRUBIN,TOTAL 0.5 mg/dl (0.2-1.0); BLOOD UREA NITROGEN 24 mg/dl (7-18); CREATININE 3.8 mg/dl (0.6-1.3); MAGNESIUM 1.8 mg/dL (1.8-2.4); SGOT/AST 27 U/L (10-42); SGPT/ALT 31 U/L (10-40); TOT PROT 6.4 g/dl (6.4-8.3)
[2017-06-19 08:21] LABS: URINE BILIRUBIN Negative (NEGATIVE); URINE GLUCOSE (UA) Negative (NEGATIVE); URINE KETONE Negative (NEGATIVE); URINE LEUK ESTERASE Negative (NEGATIVE); URINE NITRITE Positive (NEGATIVE); URINE PROTEIN Negative (NEGATIVE); URINE UROBILINOGEN 0.2 (0.2-1.0)
[2017-06-19 08:22] LABS: URINE APPEARANCE SL CLOUDY; URINE BLOOD Trace-intact (NEGATIVE); URINE COLOR YELLOW
[2017-06-19 09:24] LABS: EPI CELLS FEW /HPF; URINE RBC 0-3 /hpf (0-3); URINE WBC 0-3 (0-5)
[2017-06-19 09:25] LABS: URINE BACTERIA MODERATE /hpf (NEGATIVE)
[2017-06-19] MEDS: LORATADINE 10 MG TABLET PO SCH (10:07)
[2017-06-19] MEDS: HEPARIN NA (PORCINE) 5,000 UNITS/ML 1ML VIAL SQ SCH ×2 (10:08→21:38)
[2017-06-19] MEDS: POLYETHYLENE GLYCOL 3350 119 GM BTL PO SCH ×2 (10:08→21:43)
[2017-06-19] MEDS: ESCITALOPRAM OXALATE 10 MG TABLET (FP) PO SCH (10:08)
[2017-06-19] MEDS: amLODIPine BESYLATE 5 MG TABLET (FP) PO SCH (10:08)
[2017-06-19] MEDS: PANTOPRAZOLE SODIUM 40 MG VIAL IVPUSH SCH (10:22)
[2017-06-19] MEDS: MULTIVIT INJ. ADULT COMBO WITH VIT K 1 COMBO 10 ML VIAL IV SCH (11:37)
[2017-06-19] MEDS: AMINO ACIDS 4.25%/D5W 1,000 ML with POTASSIUM CHLORIDE 20 MEQ IV SCH ×2 (11:37→21:38)
--- NOTE | 2017-06-19 13:58 | PN ---
Progress Note (short form) - Note Progress Note: Dehydration/Hypernatremia/SALVADOR r/o obstructive uropathy presented with recurrent vomiting persistent x 2 weeks 2/2 recurrent partial small bowel obstruction came to ER 06/12 whe serum Na 150 and s creatinine 1.5 was given IVF NS one liter and released admitted on 06/15 h/o abd/intestinal surgeries Probable adhesions h/o pelvic/cervical ca HTN allergic rhinitis Active Medications Amlodipine Besylate (Norvasc -) 5 mg PO DAILY [facility] Last Admin: 06/19/17 10:08 Dose: 5 mg Escitalopram Oxalate (Lexapro -) 10 mg PO DAILY [facility] Last Admin: 06/19/17 10:08 Dose: 10 mg Heparin Sodium (Porcine) (Heparin -) 5,000 unit SQ BID [facility] Last Admin: 06/19/17 10:08 Dose: 5,000 unit Heparin Sodium (Porcine) (Hep-Lock -) 5 ml IVPUSH PRN PRN PRN Reason: WHEN NOT IN USE Hydromorphone HCl (Dilaudid Injection -) 2 mg IVPB Q4H PRN PRN Reason: PAIN Last Admin: 06/19/17 07:53 Dose: 2 mg Potassium Chloride 20 meq/ (Amino Acids) 1,010 mls @ 100 mls/hr IV Q12H [facility] Last Admin: 06/19/17 11:37 Dose: 100 mls/hr Loratadine (Claritin -) 10 mg PO DAILY [facility] Last Admin: 06/19/17 10:07 Dose: 10 mg Multivitamins/Minerals (Infuvite Adult -) 10 ml IV DAILY@1200 [facility] Last Admin: 06/19/17 11:37 Dose: 10 ml Ondansetron HCl (Zofran Injection) 8 mg IVPB Q8H PRN PRN Reason: NAUSEA Last Admin: 06/19/17 07:53 Dose: 8 mg Pantoprazole Sodium (Protonix Iv) 40 mg IVPUSH DAILY [facility] Last Admin: 06/19/17 10:22 Dose: 40 mg Polyethylene Glycol (Miralax (For Daily Use) -) 17 gm PO BID [facility] Last Admin: 06/19/17 10:08 Dose: 17 gm Last Vital Signs Temp Pulse Resp BP Pulse Ox 97.9 F 82 20 145/98 97 06/19/17 07:47 06/19/17 07:47 06/19/17 07:47 06/19/17 07:47 06/19/17 07:44 Abd- bowel sounds present, more active today than in past 2 days afte one minute listening CBC, BMP 06/19/17 06:00 06/19/17 06:00 CBC, BMP 06/18/17 06:00 06/18/17 06:00 IMP- acute renal failure - ATN s creatinine did not plateau yet renal scan- there is uptake of tracer in both kidneys, no appearance of tracer in the ureters c/w ATN vs complete bilateral ureteral obstruction (unlikely since she has good urine output) SALVADOR 2/2 dehydration, hypotension (not all documented) PPI (pantoprazole) was given on admission but the is no evidence of AIN, U/A is completely clear Tendency to Hypokalemia- k being replaced and levels being monitored Partial small bowel obstruction +/- ileus 2/2 pain and hypokalemia which is very slowl resolving HTN- BPs low at times, not orthostatic now, will d/c furtther monitoring Anemia - improved h/h, may be partly due to hemodilution (prerenal pattern and contraction alkalosis have resolved) not dizzy on standing and walking Leukopenia stable Plan- hold off blood transfusion continue fluid and electrolyte replacement monitor and replace magnesium, serum K increase PPN tp 100 cc per hour Problem List - Problems (1) Status post chemotherapy Code(s): Z92.21 - PERSONAL HISTORY OF ANTINEOPLASTIC CHEMOTHERAPY (2) Small bowel obstruction due to adhesions Code(s): K56.50 - INTESTNL ADHESIONS, UNSP TO PARTIAL VERSUS COMPLETE OBST
[2017-06-20] MEDS: ONDANSETRON 4 MG/2 ML VIAL IVPB PRN ×2 (07:02→23:29)
[2017-06-20 08:59] LABS: HEMATOCRIT 29.3 % (32.4-45.2); HEMOGLOBIN 9.4 GM/dl (10.7-15.3); MCH 29.5 pg (25.7-33.7); MEAN CELL VOLUME 92.3 fl (80-96); MEAN PLT VOLUME 8.4 fl (7.5-11.1); PLATELET COUNT 325 K/MM3 (134-434); RBC 3.17 M/mm3 (3.60-5.2); RDW 12.5 % (11.6-15.6); WHITE BLOOD COUNT 5.4 K/mm3 (4.0-10.8)
[2017-06-20 09:16] LABS: BASO % 0.2 % (0-2.0); EOS % 2.3 % (0-4.5); LYMPH % 25.2 % (8-40); MONO % 9.4 % (3.8-10.2); NEUT % 62.9 % (42.8-82.8)
[2017-06-20] MEDS: ESCITALOPRAM OXALATE 10 MG TABLET (FP) PO SCH (09:18)
[2017-06-20] MEDS: HEPARIN NA (PORCINE) 5,000 UNITS/ML 1ML VIAL SQ SCH ×2 (09:18→23:34)
[2017-06-20] MEDS: AMINO ACIDS 4.25%/D5W 1,000 ML with POTASSIUM CHLORIDE 20 MEQ IV SCH (09:18)
[2017-06-20] MEDS: LORATADINE 10 MG TABLET PO SCH (09:18)
[2017-06-20] MEDS: amLODIPine BESYLATE 5 MG TABLET (FP) PO SCH (09:18)
[2017-06-20] MEDS: POLYETHYLENE GLYCOL 3350 119 GM BTL PO SCH ×2 (09:18→23:35)
[2017-06-20 10:12] LABS: ALBUMIN 4.1 g/dl (3.5-5.0); ALK PHOS 51 U/L (32-92); ANION GAP 13 (8-16); BLOOD UREA NITROGEN 51 mg/dl (7-18); CHLORIDE 96 mmol/L (98-107); CO2 21 mmol/L (22-28); CREATININE 4.3 mg/dl (0.6-1.3); GLUCOSE,RANDOM 94 mg/dl (74-106); MAGNESIUM 1.6 mg/dL (1.8-2.4); PHOSPHOROUS 4.1 mg/dl (2.5-4.6); POTASSIUM 3.5 mmol/L (3.5-5.1); SGOT/AST 25 U/L (10-42); SGPT/ALT 31 U/L (10-40); SODIUM 130 mmol/L (136-145); TOT PROT 7.1 g/dl (6.4-8.3)
[2017-06-20] MEDS ORDERED: MAGNESIUM SULF 50% (8.12 MEQ/2 ML-1 GM VIAL) IVPB ONE (10:50)
--- NOTE | 2017-06-20 10:50 | PN ---
Progress Note (short form) - Note Progress Note: Renal Follow up Coverage for Dr. Parikh Chart reviewed pt seen and examined at the bedside awake and alert continues to have mild abdominal discomfort no sob, chest pain on IVF making urine via ostomy no LE swelling no rash + NSAID use prior to admission Vital Signs Temperature 98.9 F 06/20/17 07:44 Pulse Rate 82 06/20/17 07:44 Respiratory Rate 20 06/20/17 07:44 Blood Pressure 153/92 06/20/17 07:44 O2 Sat by Pulse Oximetry (%) 98 06/20/17 07:40 Intake & Output 06/17/17 06/18/17 06/19/17 06/20/17 23:59 23:59 23:59 23:59 Intake Total 1920 1750 2465 450 Output Total 900 2100 2100 500 Balance 1020 -350 365 -50 Weight 80.371 kg 80.484 kg NAD awake and alert RRR + abd distension no LE edmea ostomies in place CBC, BMP 06/20/17 07:30 06/20/17 07:30 Current Medications Amlodipine Besylate (Norvasc -) 5 mg PO DAILY [facility] Last Admin: 06/20/17 09:18 Dose: 5 mg Escitalopram Oxalate (Lexapro -) 10 mg PO DAILY [facility] Last Admin: 06/20/17 09:18 Dose: 10 mg Heparin Sodium (Porcine) (Heparin -) 5,000 unit SQ BID [facility] Last Admin: 06/20/17 09:18 Dose: 5,000 unit Heparin Sodium (Porcine) (Hep-Lock -) 5 ml IVPUSH PRN PRN PRN Reason: WHEN NOT IN USE Hydromorphone HCl (Dilaudid Injection -) 2 mg IVPB Q4H PRN PRN Reason: PAIN Last Admin: 06/19/17 21:39 Dose: 2 mg Potassium Chloride 20 meq/ (Amino Acids) 1,010 mls @ 100 mls/hr IV Q12H [facility] Last Admin: 06/20/17 09:18 Dose: 100 mls/hr Loratadine (Claritin -) 10 mg PO DAILY [facility] Last Admin: 06/20/17 09:18 Dose: 10 mg Multivitamins/Minerals (Infuvite Adult -) 10 ml IV DAILY@1200 [facility] Last Admin: 06/19/17 11:37 Dose: 10 ml Ondansetron HCl (Zofran Injection) 8 mg IVPB Q8H PRN PRN Reason: NAUSEA Last Admin: 06/20/17 07:02 Dose: 8 mg Polyethylene Glycol (Miralax (For Daily Use) -) 17 gm PO BID [facility] Last Admin: 06/20/17 09:18 Dose: 17 gm This is a 52 year old woman with PMhx of FOAM FAB[employer]IC[employer] adenocarcinoma s/p pelvic exenteration who presented with N/V and abd distesnion with SALVADOR. #SALVADOR on CKD etiology appears to be obstruction vs. ATN Urine studies show high FeNa suggestive of tubular injury No eosinphila/rash to suggest AIN at this time UA, and UPCR w/o overt proteinuria or hematuria CT of Abd/Renal Us and renal scan reviewed in setting of progressive renal failure will plan for possible IR nephrostomy tube placement to alevaiate any obsturction if present if no improvement in renal function following nephrostomy likely etiology is ATN (pt was on ibuprofen prior to admission) continue continue gentle IVF dose all meds for CrCl less then 10 no acute inidication for [employer] if improvement in renal function seen tomorrow can consider deferment of nephrosotomy tube placement. Thank you Chase Meeks DO
[2017-06-20] MEDS: HYDROmorphone HCL CARPU-JECT 2 MG/1 ML DISP.SYRIN IVPB PRN ×2 (11:38→15:48)
--- NOTE | 2017-06-20 12:00 | PN ---
Progress Note, Physician Chief Complaint: Pt A&Ox3; no abdominal pain. Depressed regarding renal dysfunction. 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 labs in er showed azotemia, hypokalemia, hypernatremia abd xray shows early pattern of intestinal obstruction - Current Medication List Current Medications: Active Medications Amlodipine Besylate (Norvasc -) 5 mg PO DAILY [facility] Last Admin: 06/20/17 09:18 Dose: 5 mg Escitalopram Oxalate (Lexapro -) 10 mg PO DAILY [facility] Last Admin: 06/20/17 09:18 Dose: 10 mg Heparin Sodium (Porcine) (Heparin -) 5,000 unit SQ BID [facility] Last Admin: 06/20/17 09:18 Dose: 5,000 unit Heparin Sodium (Porcine) (Hep-Lock -) 5 ml IVPUSH PRN PRN PRN Reason: WHEN NOT IN USE Hydromorphone HCl (Dilaudid Injection -) 2 mg IVPB Q4H PRN PRN Reason: PAIN Last Admin: 06/20/17 11:38 Dose: 2 mg Potassium Chloride 20 meq/ (Amino Acids) 1,010 mls @ 100 mls/hr IV Q12H [facility] Last Admin: 06/20/17 09:18 Dose: 100 mls/hr Loratadine (Claritin -) 10 mg PO DAILY [facility] Last Admin: 06/20/17 09:18 Dose: 10 mg Multivitamins/Minerals (Infuvite Adult -) 10 ml IV DAILY@1200 [facility] Last Admin: 06/19/17 11:37 Dose: 10 ml Ondansetron HCl (Zofran Injection) 8 mg IVPB Q8H PRN PRN Reason: NAUSEA Last Admin: 06/20/17 07:02 Dose: 8 mg Polyethylene Glycol (Miralax (For Daily Use) -) 17 gm PO BID [facility] Last Admin: 06/20/17 09:18 Dose: 17 gm - Objective Vital Signs: Vital Signs Temperature 98.9 F 06/20/17 11:00 Pulse Rate 82 06/20/17 11:00 Respiratory Rate 20 06/20/17 11:00 Blood Pressure 128/74 06/20/17 11:00 O2 Sat by Pulse Oximetry (%) 98 06/20/17 07:40 Constitutional: Yes: Anxious, Mild Distress Eyes: Yes: WNL HENT: Yes: WNL Neck: Yes: WNL Cardiovascular: Yes: Regular Rate and Rhythm Respiratory: Yes: WNL Gastrointestinal: Yes: Soft Genitourinary: No: Anuria Musculoskeletal: Yes: Back Pain Extremities: Yes: WNL Edema: No Peripheral Pulses WNL: Yes Neurological: Yes: WNL Psychiatric: Yes: Other (anxeity) Labs: CBC, BMP 06/20/17 07:30 06/20/17 07:30 INR, PTT INR 1.02 (0.82-1.09) 06/14/17 18:13 Problem List - Problems (1) Hypokalemia Assessment/Plan: repleted. Mg2+ is low today; keep 2-2.3. Code(s): E87.6 - HYPOKALEMIA (2) Small bowel obstruction due to adhesions Assessment/Plan: F/u with GI. Addendum: pt passed stool for the first time in several days this afternoon. Code(s): K56.50 - INTESTNL ADHESIONS, UNSP TO PARTIAL VERSUS COMPLETE OBST (3) Status post chemotherapy Assessment/Plan: f/u with hem/oncologist. Code(s): Z92.21 - PERSONAL HISTORY OF ANTINEOPLASTIC CHEMOTHERAPY (4) Chronic anemia Assessment/Plan: f/u for possible need of PRBCs. Code(s): D64.9 - ANEMIA, UNSPECIFIED (5) Hypertension Assessment/Plan: On amlodipine. No orthostatic changs. Serial checks (may be elevated partially due to continual stress). Code(s): I10 - ESSENTIAL (PRIMARY) HYPERTENSION (6) Renal dysfunction Assessment/Plan: AbD CT: moderately severe hydronephrosis (increased on left). Renal scan: cannot r/o obstruction (vs ATN). For transfer to [facility]. As noted by environmental quality analyst. will likely require nephrostomies if renal function does not improve on its own. Code(s): N28.9 - DISORDER OF KIDNEY AND URETER, UNSPECIFIED
[2017-06-20] MEDS: MULTIVIT INJ. ADULT COMBO WITH VIT K 1 COMBO 10 ML VIAL IV SCH (14:35)
[2017-06-20] MEDS: D5-NS + 20 MEQ KCL - 20 MEQ/1,000 ML INFUS.BAG IV SCH (23:28)
[2017-06-21] MEDS: HYDROmorphone HCL CARPU-JECT 2 MG/1 ML DISP.SYRIN IVPB PRN ×4 (00:07→20:14)
[2017-06-21 08:13] LABS: BASO % 0.3 % (0-2.0); EOS % 1.5 % (0-4.5); HEMATOCRIT 26.5 % (32.4-45.2); HEMOGLOBIN 8.7 GM/dL (10.7-15.3); LYMPH % 21.8 % (8-40); MCH 29.9 pg (25.7-33.7); MEAN CELL VOLUME 90.5 fl (80-96); MEAN PLT VOLUME 7.9 fl (7.5-11.1); MONO % 9.8 % (3.8-10.2); NEUT % 66.6 % (42.8-82.8); PLATELET COUNT 288 K/MM3 (134-434); RBC 2.92 M/mm3 (3.60-5.2); RDW 13.1 % (11.6-15.6); WHITE BLOOD COUNT 4.5 K/mm3 (4.0-10.0)
[2017-06-21 08:14] LABS: INR 0.91 (0.82-1.09); PROTHROMBIN TIME (PATIENT) 10.3 SEC (9.98-11.88)
[2017-06-21 08:16] LABS: ACTIVATED PTT 40.1 SECONDS (26.9-34.4)
[2017-06-21 08:57] LABS: BLOOD UREA NITROGEN 56 mg/dl (7-18); CREATININE 4.7 mg/dl (0.6-1.3); GLUCOSE,RANDOM 117 mg/dl (74-106); SODIUM 136 mmol/L (136-145)
[2017-06-21 08:58] LABS: ANION GAP 12 (8-16); CALCIUM 8.4 mg/dl (8.4-10.2); CHLORIDE 104 mmol/L (98-107); CO2 20 mmol/L (22-28); PHOSPHOROUS 4.2 mg/dl (2.5-4.6); POTASSIUM 3.9 mmol/L (3.5-5.1)
[2017-06-21] MEDS: MULTIVIT INJ. ADULT COMBO WITH VIT K 1 COMBO 10 ML VIAL IV SCH (10:00)
[2017-06-21] MEDS: HEPARIN NA (PORCINE) 5,000 UNITS/ML 1ML VIAL SQ SCH ×2 (10:01→21:33)
[2017-06-21] MEDS: D5-NS + 20 MEQ KCL - 20 MEQ/1,000 ML INFUS.BAG IV SCH ×3 (10:10→21:33)
--- NOTE | 2017-06-21 12:31 | PN ---
Progress Note, Physician History of Present Illness: h/o multiple abdominal surgeries; CA; HTN; now with vomiting and decreased PO intake x 2+ weeks assoc with moderate to severe abd pain and decreased bowel movements was seen in er 2 days ago and was given 1 bag of ivf, released from er same day. labs in er showed azotemia, hypokalemia, hypernatremia abd xray shows early pattern of intestinal obstruction - Current Medication List Current Medications: Active Medications Amlodipine Besylate (Norvasc -) 5 mg PO DAILY [facility] Last Admin: 06/20/17 09:18 Dose: 5 mg Escitalopram Oxalate (Lexapro -) 10 mg PO DAILY [facility] Last Admin: 06/20/17 09:18 Dose: 10 mg Heparin Sodium (Porcine) (Hep-Lock -) 5 ml IVPUSH PRN PRN PRN Reason: WHEN NOT IN USE Heparin Sodium (Porcine) (Heparin -) 5,000 unit SQ BID [facility] Last Admin: 06/21/17 10:01 Dose: Not Given Hydromorphone HCl (Dilaudid Injection -) 2 mg IVPB Q4H PRN PRN Reason: PAIN Last Admin: 06/21/17 11:51 Dose: 2 mg Dextrose/Sodium Chloride (Dextrose 5%-Normal Saline+20 Meq Kcl -) 20 meq in 1, 000 mls @ 100 mls/hr IV ASDIR [facility] Last Admin: 06/21/17 10:10 Dose: 100 mls/hr Loratadine (Claritin -) 10 mg PO DAILY [facility] Last Admin: 06/20/17 09:18 Dose: 10 mg Multivitamins/Minerals (Infuvite Adult -) 10 ml IV DAILY [facility] Ondansetron HCl (Zofran Injection) 8 mg IVPB Q8H PRN PRN Reason: NAUSEA Last Admin: 06/20/17 23:29 Dose: 8 mg Polyethylene Glycol (Miralax (For Daily Use) -) 17 gm PO BID [facility] Last Admin: 06/20/17 23:35 Dose: 17 gm - Objective Vital Signs: Vital Signs Temperature 98 F 06/21/17 10:00 Pulse Rate 76 06/21/17 10:00 Respiratory Rate 20 06/21/17 10:00 Blood Pressure 142/91 06/21/17 10:00 O2 Sat by Pulse Oximetry (%) 98 06/21/17 04:00 Eyes: Yes: WNL, Conjunctiva Clear, EOM Intact HENT: Yes: WNL, Atraumatic, Normocephalic Neck: Yes: WNL, Supple, Trachea Midline Cardiovascular: Yes: WNL, Regular Rate and Rhythm Respiratory: Yes: WNL, Regular, CTA Bilaterally Gastrointestinal: Yes: WNL, Normal Bowel Sounds Genitourinary: Yes: WNL Musculoskeletal: Yes: WNL Extremities: Yes: WNL Edema: No Integumentary: Yes: WNL Neurological: Yes: WNL, Alert, Oriented ...Motor Strength: WNL Psychiatric: Yes: WNL Labs: CBC, BMP 06/21/17 06:00 06/21/17 06:00 INR, PTT INR 0.91 (0.82-1.09) 06/21/17 06:00 Assessment/Plan Assessment/Plan: repleted; f/u all electrolytes (Mg and Na+ normal). Code(s): E87.6 - HYPOKALEMIA arf cr up to 4.7 ? obstructive renal fx vs atn awaiting renal and f/u (2) Small bowel obstruction due to adhesions Assessment/Plan: Abdominal Xray: possible small bowel obstruction. FLuids; f/u CT abdomen. Addendum: CT notes partial SBO, possible malignancy; enlarged lymph node; bilateral mod-severe hydronephrosis. For GI and oncology involvement. Code(s): K56.50 - INTESTNL ADHESIONS, UNSP TO PARTIAL VERSUS COMPLETE OBST (3) Constipation Code(s): K59.00 - CONSTIPATION, UNSPECIFIED Qualifiers: Constipation type: unspecified constipation type Qualified Code(s): K59.00 - Constipation, unspecified (4) Status post chemotherapy Assessment/Plan: f/u with oncologist. Code(s): Z92.21 - PERSONAL HISTORY OF ANTINEOPLASTIC CHEMOTHERAPY (5) Gas pain Code(s): R14.1 - GAS PAIN (6) Chronic anemia Assessment/Plan: F/u Hb after fluid repletion. Code(s): D64.9 - ANEMIA, UNSPECIFIED (7) Hypertension Assessment/Plan: On amlodipine. F/u orthostatic VS. Code(s): I10 - ESSENTIAL (PRIMARY) HYPERTENSION
[2017-06-21] MEDS: LORATADINE 10 MG TABLET PO SCH (15:25)
[2017-06-21] MEDS: amLODIPine BESYLATE 5 MG TABLET (FP) PO SCH (15:26)
[2017-06-21] MEDS: ESCITALOPRAM OXALATE 10 MG TABLET (FP) PO SCH (15:26)
[2017-06-21] MEDS: POLYETHYLENE GLYCOL 3350 119 GM BTL PO SCH ×2 (18:58→21:28)
[2017-06-21 20:47] LABS: ANION GAP 10 (8-16); BLOOD UREA NITROGEN 46 mg/dL (7-18); CALCIUM 8.6 mg/dL (8.5-10.1); CHLORIDE 106 mmol/L (98-107); CO2 24 mmol/L (21-32); CREATININE 3.7 mg/dL (0.55-1.02); GLUCOSE,RANDOM 116 mg/dL (74-106); POTASSIUM 4.2 mmol/L (3.5-5.1); SODIUM 140 mmol/L (136-145)
[2017-06-21] MEDS: AMINO ACIDS 4.25%/D5W 1,000 ML with POTASSIUM CHLORIDE 20 MEQ IV SCH (20:57)
[2017-06-21] MEDS ORDERED: D5-NS + 20 MEQ KCL - 20 MEQ/1,000 ML INFUS.BAG IV SCH (22:34)
--- NOTE | 2017-06-21 22:42 | PN ---
Progress Note (short form) - Note Progress Note: Dehydration/Hypernatremia/SALVADOR r/o obstructive uropathy presented with recurrent vomiting persistent x 2 weeks 2/2 recurrent partial small bowel obstruction came to ER 06/12 whe serum Na 150 and s creatinine 1.5 was given IVF NS one liter and released admitted on 06/15 h/o abd/intestinal surgeries Probable adhesions h/o pelvic/cervical ca HTN allergic rhinitis s/p perc nephrostomy and diuresing profusely no nausea thirsty and drinking a lot no vomiting passing stool more consistently Current Medications Amlodipine Besylate (Norvasc -) 5 mg PO DAILY [facility] Last Admin: 06/21/17 15:26 Dose: 5 mg Escitalopram Oxalate (Lexapro -) 10 mg PO DAILY [facility] Last Admin: 06/21/17 15:26 Dose: 10 mg Heparin Sodium (Porcine) (Hep-Lock -) 5 ml IVPUSH PRN PRN PRN Reason: WHEN NOT IN USE Heparin Sodium (Porcine) (Heparin -) 5,000 unit SQ BID [facility] Last Admin: 06/21/17 21:33 Dose: 5,000 unit Hydromorphone HCl (Dilaudid Injection -) 2 mg IVPB Q4H PRN PRN Reason: PAIN Last Admin: 06/21/17 20:14 Dose: 2 mg Dextrose/Sodium Chloride (Dextrose 5%-Normal Saline+20 Meq Kcl -) 20 meq in 1, 000 mls @ 200 mls/hr IV ASDIR [facility] Loratadine (Claritin -) 10 mg PO DAILY [facility] Last Admin: 06/21/17 15:25 Dose: 10 mg Multivitamins/Minerals (Infuvite Adult -) 10 ml IV DAILY [facility] Last Admin: 06/21/17 10:00 Dose: 10 ml Ondansetron HCl (Zofran Injection) 8 mg IVPB Q8H PRN PRN Reason: NAUSEA Last Admin: 06/20/17 23:29 Dose: 8 mg Polyethylene Glycol (Miralax (For Daily Use) -) 17 gm PO BID [facility] Last Admin: 06/21/17 21:28 Dose: Not Given Last Vital Signs Temp Pulse Resp BP Pulse Ox 98.3 F 79 20 147/95 92 L 06/21/17 20:21 06/21/17 20:21 06/21/17 20:21 01/29/18 20:21 06/21/17 20:22 CBC, BMP 06/21/17 06:00 06/21/17 17:30 IMP- s/p padmini percutaneous nephrostomy appears to be effective, urinating profusely, probably now with post obstructive diuresis acute renal failure - renal scan- there is uptake of tracer in both kidneys, no appearance of tracer in the ureters per renal scan c/w ATN vs complete bilateral ureteral obstruction (unlikely since she has good urine output) SALVADOR 2/2 dehydration, hypotension (not all documented) PPI (pantoprazole) was given on admission but the is no evidence of AIN, U/A is completely clear Tendency to Hypokalemia- resolved partial small bowel obstruction +/- ileus 2/2 pain and hypokalemia which is very slowl resolving HTN- BPs low at times, not orthostatic now, will d/c furtther monitoring Anemia - improved h/h, may be partly due to hemodilution (prerenal pattern and contraction alkalosis have resolved) not dizzy on standing and walking Leukopenia stable Plan- INCREASE IVF TO 200CC PER HOUR FOR TWO HRS RE-EVAL IN TWO HRS Problem List - Problems (1) Status post chemotherapy Code(s): Z92.21 - PERSONAL HISTORY OF ANTINEOPLASTIC CHEMOTHERAPY (2) Small bowel obstruction due to adhesions Code(s): K56.50 - INTESTNL ADHESIONS, UNSP TO PARTIAL VERSUS COMPLETE OBST
[2017-06-22] MEDS: ONDANSETRON 4 MG/2 ML VIAL IVPB PRN ×3 (02:05→21:54)
[2017-06-22] MEDS: HYDROmorphone HCL CARPU-JECT 2 MG/1 ML DISP.SYRIN IVPB PRN ×3 (02:48→21:17)
[2017-06-22 07:47] LABS: HEMATOCRIT 23.9 % (32.4-45.2); HEMOGLOBIN 8.1 GM/dL (10.7-15.3); MCH 30.3 pg (25.7-33.7); MCHC 33.8 g/dl (32.0-36.0); MEAN CELL VOLUME 89.6 fl (80-96); PLATELET COUNT 276 K/MM3 (134-434); RBC 2.67 M/mm3 (3.60-5.2); RDW 13.2 % (11.6-15.6)
[2017-06-22] MEDS ORDERED: D5-NS + 20 MEQ KCL - 20 MEQ/1,000 ML INFUS.BAG IV SCH (08:00)
[2017-06-22 08:44] LABS: ALBUMIN 3.6 g/dl (3.4-5.0); ALK PHOS 55 U/L (45-117); ANION GAP 6 (8-16); BILIRUBIN,TOTAL 0.6 mg/dL (0.2-1.0); BLOOD UREA NITROGEN 33 mg/dL (7-18); CALCIUM 7.8 mg/dL (8.5-10.1); CHLORIDE 108 mmol/L (98-107); CO2 26 mmol/L (21-32); CREATININE 2.8 mg/dL (0.55-1.02); GLUCOSE,RANDOM 142 mg/dL (74-106); POTASSIUM 3.9 mmol/L (3.5-5.1); SGOT/AST 15 U/L (15-37); SGPT/ALT 37 U/L (12-78); SODIUM 140 mmol/L (136-145); TOT PROT 6.8 g/dl (6.4-8.2)
[2017-06-22] MEDS: ESCITALOPRAM OXALATE 10 MG TABLET (FP) PO SCH (11:39)
[2017-06-22] MEDS: HEPARIN NA (PORCINE) 5,000 UNITS/ML 1ML VIAL SQ SCH ×2 (11:39→21:16)
[2017-06-22] MEDS: LORATADINE 10 MG TABLET PO SCH (11:39)
[2017-06-22] MEDS: amLODIPine BESYLATE 5 MG TABLET (FP) PO SCH (11:39)
[2017-06-22] MEDS: POLYETHYLENE GLYCOL 3350 119 GM BTL PO SCH ×2 (11:40→23:07)
[2017-06-22] MEDS: LIDOCAINE 5% TOPICAL PATCH TP SCH (11:40)
--- NOTE | 2017-06-22 12:34 | PN ---
Progress Note (short form) - Note Progress Note: Dehydration/Hypernatremia/SALVADOR r/o obstructive uropathy presented with recurrent vomiting persistent x 2 weeks 2/2 recurrent partial small bowel obstruction came to ER 06/12 whe serum Na 150 and s creatinine 1.5 was given IVF NS one liter and released admitted on 06/15 h/o abd/intestinal surgeries Probable adhesions h/o pelvic/cervical ca HTN allergic rhinitis s/p perc nephrostomy and diuresing profusely no nausea thirsty and drinking a lot no vomiting passing stool more consistently Active Medications Amlodipine Besylate (Norvasc -) 5 mg PO DAILY [facility] Last Admin: 06/22/17 11:39 Dose: 5 mg Escitalopram Oxalate (Lexapro -) 10 mg PO DAILY [facility] Last Admin: 06/22/17 11:39 Dose: 10 mg Heparin Sodium (Porcine) (Hep-Lock -) 5 ml IVPUSH PRN PRN PRN Reason: WHEN NOT IN USE Heparin Sodium (Porcine) (Heparin -) 5,000 unit SQ BID [facility] Last Admin: 06/22/17 11:39 Dose: 5,000 unit Hydromorphone HCl (Dilaudid Injection -) 2 mg IVPB Q4H PRN PRN Reason: PAIN Last Admin: 06/22/17 02:48 Dose: 2 mg Dextrose/Sodium Chloride (Dextrose 5%-Normal Saline+20 Meq Kcl -) 20 meq in 1, 000 mls @ 100 mls/hr IV ASDIR [facility] Lidocaine (Lidoderm Patch -) 1 patch TP DAILY [facility] Last Admin: 06/22/17 11:40 Dose: 1 patch Loratadine (Claritin -) 10 mg PO DAILY [facility] Last Admin: 06/22/17 11:39 Dose: 10 mg Miscellaneous (Lidoderm Patch Removal) 1 each MC DAILY@2200 [facility] Multivitamins/Minerals (Infuvite Adult -) 10 ml IV DAILY [facility] Last Admin: 06/21/17 10:00 Dose: 10 ml Ondansetron HCl (Zofran Injection) 8 mg IVPB Q8H PRN PRN Reason: NAUSEA Last Admin: 06/22/17 11:41 Dose: 8 mg Polyethylene Glycol (Miralax (For Daily Use) -) 17 gm PO BID [facility] Last Admin: 06/22/17 11:40 Dose: 17 gm Last Vital Signs Temp Pulse Resp BP Pulse Ox 98.6 F 72 18 137/87 92 L 06/22/17 06:00 06/22/17 06:00 06/22/17 06:00 06/22/17 06:00 06/21/17 20:22 Intake & Output 06/21/17 06/22/17 06/22/17 23:59 07:59 15:59 Intake Total 240 900 Output Total 3350 1300 500 Balance -3110 -400 -500 Weight 175 lb 12.8 oz Intake: IV 900 DEXTROSE 5%-NORMAL SALINE 900 +20 MEQ KCL - 20 meq In 1 ,000 ml @ 200 mls/hr IV ASDIR [facility] Rx#:[id number] Oral 240 Output: Urine 3350 1300 500 Left Nephrostomy 1600 650 200 Right Nephrostomy 1750 650 300 Other: Voiding Method Ileal Conduit (Right) Ileal Conduit (Right) Bowel Movement No Weight Measurement Method Chair Scale CBC, BMP 06/22/17 06:00 06/22/17 06:00 CBC, BMP 06/21/17 06:00 06/21/17 17:30 IMP- discussed with IR, waiting for numbers to get better plan is for ureteral stents percutaneous still with nausea and vomiting hedache- no visual disturbance IVF 100cc s/p padmini percutaneous nephrostomy appears to be effective, urinating profusely, probably now with post obstructive diuresis acute renal failure - renal scan- there is uptake of tracer in both kidneys, no appearance of tracer in the ureters per renal scan c/w ATN vs complete bilateral ureteral obstruction (unlikely since she has good urine output) SALVADOR 2/2 dehydration, hypotension (not all documented) PPI (pantoprazole) was given on admission but the is no evidence of AIN, U/A is completely clear Tendency to Hypokalemia- resolved partial small bowel obstruction +/- ileus 2/2 pain and hypokalemia which is very slowl resolving HTN- BPs low at times, not orthostatic now, will d/c furtther monitoring Anemia - improved h/h, may be partly due to hemodilution (prerenal pattern and contraction alkalosis have resolved) not dizzy on standing and walking Leukopenia stable Plan- INCREASE IVF TO 200CC PER HOUR FOR TWO HRS RE-EVAL IN TWO HRS Problem List - Problems (1) Status post chemotherapy Code(s): Z92.21 - PERSONAL HISTORY OF ANTINEOPLASTIC CHEMOTHERAPY (2) Small bowel obstruction due to adhesions Code(s): K56.50 - INTESTNL ADHESIONS, UNSP TO PARTIAL VERSUS COMPLETE OBST
--- NOTE | 2017-06-22 12:37 | PN ---
Progress Note, Physician Chief Complaint: Pt A&Ox3; at bedside. Pt has intermittent nausea and abdominal pain, with renewed distention; now with headache. [place] ildly short of breath early this morning, which she attributes to anxiety. 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 labs in er showed azotemia, hypokalemia, hypernatremia abd xray shows early pattern of intestinal obstruction - Current Medication List Current Medications: Active Medications Amlodipine Besylate (Norvasc -) 5 mg PO DAILY [facility] Last Admin: 06/22/17 11:39 Dose: 5 mg Escitalopram Oxalate (Lexapro -) 10 mg PO DAILY [facility] Last Admin: 06/22/17 11:39 Dose: 10 mg Heparin Sodium (Porcine) (Hep-Lock -) 5 ml IVPUSH PRN PRN PRN Reason: WHEN NOT IN USE Heparin Sodium (Porcine) (Heparin -) 5,000 unit SQ BID [facility] Last Admin: 06/22/17 11:39 Dose: 5,000 unit Hydromorphone HCl (Dilaudid Injection -) 2 mg IVPB Q4H PRN PRN Reason: PAIN Last Admin: 06/22/17 02:48 Dose: 2 mg Dextrose/Sodium Chloride (Dextrose 5%-Normal Saline+20 Meq Kcl -) 20 meq in 1, 000 mls @ 100 mls/hr IV ASDIR [facility] Lidocaine (Lidoderm Patch -) 1 patch TP DAILY [facility] Last Admin: 06/22/17 11:40 Dose: 1 patch Loratadine (Claritin -) 10 mg PO DAILY [facility] Last Admin: 06/22/17 11:39 Dose: 10 mg Miscellaneous (Lidoderm Patch Removal) 1 each MC DAILY@2200 [facility] Multivitamins/Minerals (Infuvite Adult -) 10 ml IV DAILY [facility] Last Admin: 06/21/17 10:00 Dose: 10 ml Ondansetron HCl (Zofran Injection) 8 mg IVPB Q8H PRN PRN Reason: NAUSEA Last Admin: 01/30/18 11:41 Dose: 8 mg Polyethylene Glycol (Miralax (For Daily Use) -) 17 gm PO BID [facility] Last Admin: 06/22/17 11:40 Dose: 17 gm - Objective Vital Signs: Vital Signs Temperature 98.6 F 06/22/17 06:00 Pulse Rate 72 06/22/17 06:00 Respiratory Rate 18 06/22/17 06:00 Blood Pressure 137/87 06/22/17 06:00 O2 Sat by Pulse Oximetry (%) 92 L 06/21/17 20:22 Constitutional: Yes: Anxious Eyes: Yes: WNL HENT: Yes: WNL Neck: Yes: WNL Cardiovascular: Yes: WNL Respiratory: Yes: WNL Gastrointestinal: Yes: Soft, Distention (mild). No: Tenderness Genitourinary: No: Anuria Extremities: Yes: WNL Edema: No Peripheral Pulses WNL: Yes Integumentary: Yes: WNL Neurological: Yes: WNL Psychiatric: Yes: WNL Labs: CBC, BMP 06/22/17 06:00 06/22/17 06:00 INR, PTT INR 0.91 (0.82-1.09) 06/21/17 06:00 Abnormal Lab Results 06/21/17 06/22/17 06/22/17 17:30 06:00 06:00 RBC 2.67 L Hgb 8.1 L Hct 23.9 L Chloride 108 H Anion Gap 6 L BUN 46 H D 33 H Creatinine 3.7 H 2.8 H Random Glucose 116 H 142 H Calcium 7.8 L Problem List - Problems (1) Small bowel obstruction due to adhesions Assessment/Plan: Small BM today. Continue intermittent nausea, vomiting, abdominal distentio. F/u with GI. Code(s): K56.50 - INTESTNL ADHESIONS, UNSP TO PARTIAL VERSUS COMPLETE OBST (2) Status post chemotherapy Assessment/Plan: f/u with hem/oncologist. ECHO 02/2016: normal LVEF; mild MR and TR. Repeat ECHO for LVEF, chamber sizes, wall motion, valve status. Code(s): Z92.21 - PERSONAL HISTORY OF ANTINEOPLASTIC CHEMOTHERAPY (3) Chronic anemia Assessment/Plan: f/u with hem/onc. Code(s): D64.9 - ANEMIA, UNSPECIFIED (4) Hypertension Assessment/Plan: On amlodipine. No orthostatic changs. Code(s): I10 - ESSENTIAL (PRIMARY) HYPERTENSION (5) Renal dysfunction Assessment/Plan: AbD CT: moderately severe hydronephrosis (increased on left). Renal scan: cannot r/o obstruction (vs ATN. Improving Cr post-nephrostomy tubes. F/u Is and Os. F/u with nephrology/. May require ureteral stents. Code(s): N28.9 - DISORDER OF KIDNEY AND URETER, UNSPECIFIED (6) Cervical adenocarcinoma Assessment/Plan: Now with headache; occasional tingling in LE. (pt says this occurred before when undergoing chemotherapy). F/u with hem/oncologist. Code(s): C53.9 - MALIGNANT NEOPLASM OF CERVIX UTERI, UNSPECIFIED (7) Electrolyte abnormality Assessment/Plan: f/u Mg; keep 2-2.3. Keep PO4 2.5-3.5. Keep Na 135-145 Keep K 4-4.5. Code(s): E87.8 - OTH DISORDERS OF ELECTROLYTE AND FLUID BALANCE, NEC (8) Anxiety and depression Code(s): F41.8 - OTHER SPECIFIED ANXIETY DISORDERS
[2017-06-22] MEDS: MULTIVIT INJ. ADULT COMBO WITH VIT K 1 COMBO 10 ML VIAL IV SCH ×2 (13:07)
--- NOTE | 2017-06-22 13:51 | PN ---
Progress Note (short form) - Note Progress Note: serum creatinine is improving after nephrostomies. still with some nausea IMP: ATN vs. ureteral obstruction once creatinine has returned to normal recommend antegrade nephrostogram and antegrade ureteral stent placement. (Can be done as outpatient) Problem List - Problems (1) Hydronephrosis Code(s): N13.30 - UNSPECIFIED HYDRONEPHROSIS
[2017-06-22] MEDS: D5-NS + 20 MEQ KCL - 20 MEQ/1,000 ML INFUS.BAG IV SCH (16:15)
[2017-06-22 18:06] LABS: ANION GAP 9 (8-16); BLOOD UREA NITROGEN 27 mg/dL (7-18); CHLORIDE 106 mmol/L (98-107); CO2 24 mmol/L (21-32); CREATININE 2.5 mg/dL (0.55-1.02); GLUCOSE,RANDOM 119 mg/dL (74-106); POTASSIUM 3.8 mmol/L (3.5-5.1); SODIUM 139 mmol/L (136-145)
--- NOTE | 2017-06-22 18:14 | CON.GI ---
Consult Consult Specialty:: Gastroenterology Referred by:: Dr Parikh Reason for Consultation:: Bowel obstruction - History of Present Illness Chief Complaint: Abdominal pain, nausea, constipation. History of Present Illness: 5OF is admited with bloating, decerased colostomy output, colicky abdominal pain and renal failure. Her initial CT revealed several transition zones within the small bowel through which contrast did pass but loop segments dilated as much as 4.2cm and failure of the contrast to reach the colon. After MIralax and the CT contrast her colostomy output increased. She had a set back a day ago when she developed bilious vomiting but this coincided with worsening uremia in the face of bilateral hydronephrosis. Her vomiting has subsided in association with improvement of renal function after bilateral nephrostomy insertions yesterday. She has no pain, bloating or nausea today and she had a large colostomy output yesterday however she remains anorectic. She was discovered to have a non-HPV associated adenocarcinoma of the cervix after TAHBSO for vaginal bleeding at [facility] in 2014. She underwent a course of RT and cisplatinum at [facility]. Despite this and a negative PET scan she was found to have residual tumor at her vaginal cuff. A pelvic exenteration was advised. She sought a 2nd opinion at [facility] where they suggested the same but gave a course of Taxol when she opted against surgery. When this failed she underwent pelvic exenteration at [facility] in 11/06 with LLQ colostomy and ileal conduit creations. She spent the rest of the year using a wound vac and bariatric after wound dehiscence. She had a robotic exploration that revealed recurrence in the left pelvis during this time. She underwent chemotherapy ending in 02/07. She is awaiting to hear whether or not she is a candidate for immunotherapy. She last had a colonoscopy on 11/15/07 with ky which revealed only hemorrhoids. Her father of colon cancer. Her sister and mother have HPV related cervical cancers. EGD on 11/22/07 revealed NERD. 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 ) ...LMP: 06/14/14 ...: No Heme/Onc: Yes: Cancer (advanced aggressive non-HPV cervical adenocarcinoma s/p surgeries, RT and chemorx) Psych: Yes: Anxiety - Past Surgical History Past Surgical History: Yes: Appendectomy (during pelvic exenteration 11/06), Colectomy, Colonoscopy, Colostomy, , Cystectomy, Hysterectomy (TAHBSO 2014 revealing adenocarcinoma of cervix), Ileal Conduit, Oopherectomy, Upper Endoscopy Additional Surgical History: Pelvic exenteration including appendectomy, ileal conduit and LLQ colostomy creations - Alcohol/Substance Use Hx Alcohol Use: Yes (rare) - Smoking History Smoking history: Never smoked Have you smoked in the past 12 months: No Aproximately how many cigarettes per day: 0 - Social History Usual Living Arrangement: With Spouse ADL: Family Assistance 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 (year[place] age 24 History of Recent Travel: Yes ([place] 05/09) Home Medications - Allergies Allergies/Adverse Reactions: Allergies Allergy/AdvReac Type Severity Reaction Status Date / Time cisplatin Allergy Severe rash and Verified 06/12/17 14:18 chest pain - Home Medications Home Medications: Ambulatory Orders Amlodipine Besylate [Norvasc -] 5 mg PO DAILY 03/05/16 Cetirizine HCl [Zyrtec -] 10 mg PO DAILY 03/05/16 Cetirizine HCl [Zyrtec -] 10 mg PO DAILY 06/14/17 Family Disease History - Family Disease History Family Disease History: CA: Father ( colon cancer age 62), Mother (HPV cervical cancer survivor ), Sister (HPV cervical cancer survivor ) Review of Systems - Review of Systems Constitutional: reports: Loss of Appetite, Unintentional Wgt. Loss Eyes: reports: No Symptoms HENT: reports: No Symptoms Neck: reports: No Symptoms Cardiovascular: reports: No Symptoms Respiratory: reports: No Symptoms Gastrointestinal: reports: Abdominal Pain, Bloating, Constipation Genitourinary: reports: Other (obstruction requiring bilateral nephrostomies) Neurological: reports: Numbness, Parasthesia Physical Exam-GI Vital Signs: Vital Signs Temperature 98.6 F 06/22/17 14:01 Pulse Rate 79 06/22/17 14:01 Respiratory Rate 18 06/22/17 14:01 Blood Pressure 140/85 06/22/17 14:01 O2 Sat by Pulse Oximetry (%) 92 L 06/21/17 20:22 CBC,CMP WBC 4.0 K/mm3 (4.0-10.0) 06/22/17 06:00 RBC 2.67 M/mm3 (3.60-5.2) L 06/22/17 06:00 Hgb 8.1 GM/dL (10.7-15.3) L 06/22/17 06:00 Hct 23.9 % (32.4-45.2) L 06/22/17 06:00 MCV 89.6 fl (80-96) 06/22/17 06:00 MCH 30.3 pg (25.7-33.7) 06/22/17 06:00 MCHC 33.8 g/dl (32.0-36.0) 06/22/17 06:00 RDW 13.2 % (11.6-15.6) 06/22/17 06:00 Plt Count 276 K/MM3 (134-434) 06/22/17 06:00 MPV 8.0 fl (7.5-11.1) 06/22/17 06:00 Neutrophils % 66.6 % (42.8-82.8) 06/21/17 06:00 Lymphocytes % 21.8 % (8-40) 06/21/17 06:00 Monocytes % 9.8 % (3.8-10.2) 06/21/17 06:00 Eosinophils % 1.5 % (0-4.5) 06/21/17 06:00 Basophils % 0.3 % (0-2.0) 06/21/17 06:00 Sodium 139 mmol/L (136-145) 06/22/17 16:00 Potassium 3.8 mmol/L (3.5-5.1) 06/22/17 16:00 Chloride 106 mmol/L (98-107) 06/22/17 16:00 Carbon Dioxide 24 mmol/L (21-32) 06/22/17 16:00 Anion Gap 9 (8-16) 06/22/17 16:00 BUN 27 mg/dL (7-18) H 06/22/17 16:00 Creatinine 2.5 mg/dL (0.55-1.02) H 06/22/17 16:00 Creat Clearance w eGFR 17.89 (>60) 06/22/17 06:00 Random Glucose 119 mg/dL (74-106) H 06/22/17 16:00 Calcium 8.0 mg/dL (8.5-10.1) L 06/22/17 16:00 Phosphorus 5.0 mg/dL (2.5-4.9) H 06/22/17 16:00 Magnesium 2.0 mg/dL (1.8-2.4) 06/21/17 06:00 Iron 41 ug/dL (27-159) 06/17/17 07:30 Ferritin 314.600 ng/ml (6.9-282.5) H 06/18/17 06:00 Total Bilirubin 0.6 mg/dL (0.2-1.0) 06/22/17 06:00 AST 15 U/L (15-37) 06/22/17 06:00 ALT 37 U/L (12-78) 06/22/17 06:00 Alkaline Phosphatase 55 U/L (45-117) 06/22/17 06:00 Total Protein 6.8 g/dl (6.4-8.2) 06/22/17 06:00 Albumin 3.6 g/dl (3.4-5.0) 06/22/17 06:00 Vitamin B12 1298 pg/ml (180-914) H 06/21/17 06:00 Serum Folate 16 ng/ml (3.1-17.5) 06/21/17 06:00 TSH 1.95 uIU/ml (0.358-3.74) 06/17/17 07:30 Free T4 1.51 ng/dl (0.76-1.46) H 06/17/17 07:30 Free T3 2.5 pg/ml (2.0-4.4) 06/17/17 07:30 Current Medications Generic Name Dose Route Start Last Admin Trade Name Freq PRN Reason Stop Dose Admin Amlodipine Besylate 5 mg 06/15/17 10:00 06/22/17 11:39 Norvasc - PO 5 mg DAILY [facility] Administration Escitalopram Oxalate 10 mg 06/15/17 10:00 06/22/17 11:39 Lexapro - PO 10 mg DAILY [facility] Administration Heparin Sodium (Porcine) 5 ml 06/14/17 18:13 Hep-Lock - IVPUSH PRN PRN WHEN NOT IN USE Heparin Sodium (Porcine) 5,000 unit 06/20/17 22:00 06/22/17 11:39 Heparin - SQ 5,000 unit BID [facility] Administration Hydromorphone HCl 2 mg 06/17/17 21:46 06/22/17 13:07 Dilaudid Injection - IVPB 2 mg Q4H PRN Administration PAIN Dextrose/Sodium Chloride 20 meq in 1,000 mls @ 150 mls/hr 06/22/17 13:13 16:15 Dextrose 5%-Normal Saline+20 Meq Kcl - IV 150 mls/hr ASDIR [facility] Administration Lidocaine 1 patch 06/22/17 10:00 06/22/17 11:40 Lidoderm Patch - TP 1 patch DAILY [facility] Administration Loratadine 10 mg 06/15/17 10:00 06/22/17 11:39 Claritin - PO 10 mg DAILY [facility] Administration Miscellaneous 1 each 06/22/17 22:00 Lidoderm Patch Removal MC DAILY@2200 [facility] Multivitamins/Minerals 10 ml 06/21/17 10:00 06/22/17 13:07 Infuvite Adult - IV 10 ml DAILY [facility] Administration Ondansetron HCl 8 mg 06/14/17 18:00 06/22/17 11:41 Zofran Injection IVPB 8 mg Q8H PRN Administration NAUSEA Polyethylene Glycol 17 gm 06/14/17 22:00 06/22/17 11:40 Miralax (For Daily Use) - PO 17 gm BID [facility] Administration Constitutional: Yes: Calm Eyes: Yes: Conjunctiva Clear HENT: Yes: Atraumatic Neck: Yes: Supple Cardiovascular: Yes: Regular Rate and Rhythm, Other (right chest chemo port) Respiratory: Yes: CTA Bilaterally Gastrointestinal Inspection: Yes: Scars, Other (deformed vertical suprapubic and Pfannensteil incisions, laparoscopic incisions functioning RLQ ileal conduit and LLQ colostomy) ...Auscultate: Yes: Hypoactive Bowel Sounds ...Palpate: Yes: Soft, Other (nontender) ...Rectal Exam: Yes: Deferred (closed) Labs: CBC, BMP 06/22/17 06:00 INR, PTT INR 0.91 (0.82-1.09) 06/21/17 06:00 Imaging - Results Cat Scan: Report Reviewed (Riya Laws Name: [facility] DEPARTMENT OF RADIOLOGY Phys: Natan Terrazas MD : 1965 Age: 51 Sex: F [facility] Acct: [id number] Loc: [address] Exam Date: 05/23/17 Status: [place] [address] Unit Number: [id number] EXAM#: TYPE/EXAM: RESULT: [id number] CT/ABDOMEN PELVIS CT W/O CONTR HISTORY PROVIDED: Rule out small bowel obstruction TECHNIQUE: Sequential axial images were obtained from the domes of the diaphragm through the symphysis pubis following the administration of oral contrast material. The study is limited without the use of intravenous contrast. The lung bases are clear. There are interstitial changes most marked within the left lower lobe. These most likely are chronic in nature. The patient is S/P hysterectomy, partial colectomy and cystectomy. There is a colostomy within the left lower quadrant and ileostomy within the right lower quadrant. There is a ventral hernia within the lower anterior abdominal wall. There are dilated small bowel loops in this location suggesting a partial SBO. Air and stool is noted within the colon. The liver is normal in size. There is a faint hyperdensity within the posterior segment of the right lobe. This could represent a metastatic lesion, however, that these of intravenous contrast this cannot be accurately determined. There is moderate, bilateral hydronephrosis. This could be related to the ileal conduit. Clinical correlation is advised. The spleen, pancreas and adrenal glands demonstrate no significant abnormalities. The gallbladder is clear. There is no evidence of pneumoperitoneum, bowel obstruction or intra-abdominal abscess. There is no evidence of bony metastases or acute abnormalities. IMPRESSION: 1. S/P hysterectomy, partial colectomy and cystectomy. 2. Ventral hernia lower anterior abdominal wall containing dilated small bowel loops. Low-grade partial SBO suggested. 3. Hypodense mass within the right lobe of the liver, possible metastatic lesion. Limited study as described above. Reported By: Freddy Conway MD 05/23/17835 Natan Terrazas Technologist: Mireya Cruz Transcribed Date/Time: 05/23/17835 Hot Die Press Feeder: Freddy Conway Printed Date/Time: By: Signed by: Freddy Conway Signed on: 23-May-2017 08:37) Problem List - Problems (1) Small bowel obstruction due to adhesions Assessment/Plan: [place] GI symptoms appear to be the result of multiple foci of small bowel obstructions likely related to adhesions as well as decreased motility related to radiation and chemotherapy related bowel injury and mesenteric neuropathy. Would therefore continue miralax indefinitely. The obstruction appears relieved at present and her recent set back was more likely uremia induced vomiting than the obstruction. NO GI diagnostic or other interventions called for at present. Will add dietary supplements to increase her caloric intake. Code(s): K56.50 - INTESTNL ADHESIONS, UNSP TO PARTIAL VERSUS COMPLETE OBST (2) Cervical adenocarcinoma Code(s): C53.9 - MALIGNANT NEOPLASM OF CERVIX UTERI, UNSPECIFIED (3) History of ileal conduit Code(s): Z98.890 - OTHER SPECIFIED POSTPROCEDURAL STATES (4) Colostomy in place Code(s): Z93.3 - COLOSTOMY STATUS (6) Peripheral neuropathy due to chemotherapy Code(s): G62.0 - DRUG-INDUCED POLYNEUROPATHY; T45.1X5A - ADVERSE EFFECT OF ANTINEOPLASTIC AND IMMUNOSUP DRUGS, INIT (7) Family history of colon cancer in father Code(s): Z80.0 - FAMILY HISTORY OF MALIGNANT NEOPLASM OF DIGESTIVE ORGANS (8) Family history of cervical cancer Code(s): Z80.49 - FAMILY HISTORY OF MALIGNANT NEOPLASM OF OTHER GENITAL ORGANS (9) Radiation enteritis Code(s): K52.0 - GASTROENTERITIS AND COLITIS DUE TO RADIATION (10) Constipation by delayed colonic transit Code(s): K59.01 - SLOW TRANSIT CONSTIPATION (11) Hydronephrosis Code(s): N13.30 - UNSPECIFIED HYDRONEPHROSIS Assessment/Plan Continue Miralax Ensure Case discussed iw Dr Guillen.
--- NOTE | 2017-06-22 19:08 | PN ---
Progress Note (short form) - Note Progress Note: Patient is seen and examined. Feels better by the day. Constitutional: Yes: No Distress, Calm Eyes: Yes: WNL HENT: Yes: WNL Neck: Yes: Supple Cardiovascular: Yes: Regular Rate and Rhythm Respiratory: Yes: CTA Bilaterally Gastrointestinal: Yes: Other +stool in bag Extremities: Yes: WNL Edema: No Last Vital Signs Temp Pulse Resp BP Pulse Ox 98.4 F 77 18 146/94 92 L 06/22/17 18:29 06/22/17 18:29 06/22/17 18:29 06/22/17 18:29 06/21/17 20:22 CBC, BMP 06/22/17 06:00 06/22/17 16:00 Current Medications Generic Name Dose Route Start Last Admin Trade Name Freq PRN Reason Stop Dose Admin Amlodipine Besylate 5 mg 06/15/17 10:00 06/22/17 11:39 Norvasc - PO 5 mg DAILY [facility] Administration Escitalopram Oxalate 10 mg 06/15/17 10:00 06/22/17 11:39 Lexapro - PO 10 mg DAILY [facility] Administration Heparin Sodium (Porcine) 5 ml 06/14/17 18:13 Hep-Lock - IVPUSH PRN PRN WHEN NOT IN USE Heparin Sodium (Porcine) 5,000 unit 06/20/17 22:00 06/22/17 11:39 Heparin - SQ 5,000 unit BID [facility] Administration Hydromorphone HCl 2 mg 06/17/17 21:46 06/22/17 13:07 Dilaudid Injection - IVPB 2 mg Q4H PRN Administration PAIN Dextrose/Sodium Chloride 20 meq in 1,000 mls @ 150 mls/hr 06/22/17 13:13 16:15 Dextrose 5%-Normal Saline+20 Meq Kcl - IV 150 mls/hr ASDIR [facility] Administration Lactobacillus Acidophilus 1 tab 06/23/17 10:00 Bacid - PO DAILY [facility] Lidocaine 1 patch 06/22/17 10:00 06/22/17 11:40 Lidoderm Patch - TP 1 patch DAILY [facility] Administration Loratadine 10 mg 06/15/17 10:00 06/22/17 11:39 Claritin - PO 10 mg DAILY [facility] Administration Miscellaneous 1 each 06/22/17 22:00 Lidoderm Patch Removal MC DAILY@2200 [facility] Multivitamins/Minerals 10 ml 06/21/17 10:00 06/22/17 13:07 Infuvite Adult - IV 10 ml DAILY [facility] Administration Ondansetron HCl 8 mg 06/14/17 18:00 06/22/17 11:41 Zofran Injection IVPB 8 mg Q8H PRN Administration NAUSEA Pantoprazole Sodium 40 mg 06/23/17 10:00 Protonix - PO DAILY [facility] Polyethylene Glycol 17 gm 06/14/17 22:00 06/22/17 11:40 Miralax (For Daily Use) - PO 17 gm BID [facility] Administration Recurrent Cervical ADENO carcinoma -Rx thus far over a period of two years: ADIS, Cis/RT, then recurrence, carbo/ taxol/avastin, pelvic exenteration, then carbo/taxotere. Now with new recent recurrence. -seeing now , awaiting NexGen sequencing. -encouraged her to follow up with once stabilized and discharged from here. Anemia: -ACD/ACI -monitor for now and transfuse prn SALVADOR: -new onset obstructive nephropathy -will need OP images,?malignant SBO -due to the past surgeries -now getting better -appreciate GI c/s , reviewed recs d/w pt in detail.
[2017-06-22] MEDS: LIDOCAINE PATCH REMOVAL MC SCH (21:16)
[2017-06-22] MEDS ORDERED: MAGNESIUM SULF 50% (8.12 MEQ/2 ML-1 GM VIAL) IVPB ONE (21:47)
[2017-06-23] MEDS: HYDROmorphone HCL CARPU-JECT 2 MG/1 ML DISP.SYRIN IVPB PRN ×3 (05:20→16:46)
[2017-06-23 07:32] LABS: HEMATOCRIT 23.7 % (32.4-45.2); MCH 30.3 pg (25.7-33.7); MCHC 33.7 g/dl (32.0-36.0); MEAN CELL VOLUME 89.9 fl (80-96); MEAN PLT VOLUME 7.5 fl (7.5-11.1); PLATELET COUNT 284 K/MM3 (134-434); RBC 2.63 M/mm3 (3.60-5.2); RDW 13.3 % (11.6-15.6)
[2017-06-23 08:30] LABS: CHLORIDE 103 mmol/L (98-107); POTASSIUM 3.3 mmol/L (3.5-5.1); SODIUM 139 mmol/L (136-145)
[2017-06-23 08:52] LABS: ALBUMIN 3.6 g/dl (3.4-5.0); ALK PHOS 62 U/L (45-117); ANION GAP 11 (8-16); BILIRUBIN,TOTAL 0.8 mg/dL (0.2-1.0); BLOOD UREA NITROGEN 19 mg/dL (7-18); CALCIUM 7.9 mg/dL (8.5-10.1); CO2 25 mmol/L (21-32); GLUCOSE,RANDOM 115 mg/dL (74-106); MAGNESIUM 1.9 mg/dL (1.8-2.4); PHOSPHOROUS 4.3 mg/dL (2.5-4.9); SGOT/AST 24 U/L (15-37); SGPT/ALT 46 U/L (12-78); TOT PROT 7.1 g/dl (6.4-8.2)
[2017-06-23] MEDS ORDERED: PT OWN MED DRAWER 7, Y5N ONE (09:21)
[2017-06-23] MEDS: D5-NS + 20 MEQ KCL - 20 MEQ/1,000 ML INFUS.BAG IV SCH ×3 (09:24→16:46)
[2017-06-23] MEDS: MULTIVIT INJ. ADULT COMBO WITH VIT K 1 COMBO 10 ML VIAL IV SCH (09:25)
[2017-06-23] MEDS: PANTOPRAZOLE 40 MG TABLET (FP) PO SCH (09:25)
[2017-06-23] MEDS: ESCITALOPRAM OXALATE 10 MG TABLET (FP) PO SCH (09:25)
[2017-06-23] MEDS: HEPARIN NA (PORCINE) 5,000 UNITS/ML 1ML VIAL SQ SCH ×2 (09:25→21:45)
[2017-06-23] MEDS: LACTOBACILLUS ACIDOPHILUS 1 EACH TAB (FP) PO SCH (09:25)
[2017-06-23] MEDS: LORATADINE 10 MG TABLET PO SCH (09:25)
[2017-06-23] MEDS: amLODIPine BESYLATE 5 MG TABLET (FP) PO SCH (09:25)
[2017-06-23] MEDS: POLYETHYLENE GLYCOL 3350 119 GM BTL PO SCH ×2 (09:26→21:45)
[2017-06-23] MEDS: LIDOCAINE 5% TOPICAL PATCH TP SCH (09:26)
[2017-06-23] MEDS: ONDANSETRON 4 MG/2 ML VIAL IVPB PRN (11:28)
--- NOTE | 2017-06-23 13:23 | PN ---
Progress Note (short form) - Note Progress Note: problems: Dehydration/Hypernatremia/SALVADOR - obstructive uropathy presented with recurrent vomiting persistent x 2 weeks 2/2 recurrent partial small bowel obstruction came to ER 06/12 whe serum Na 150 and s creatinine 1.5 was given IVF NS one liter and released admitted on 06/15 h/o abd/intestinal surgeries Probable adhesions h/o pelvic/cervical ca HTN allergic rhinitis s/p perc nephrostomy and diuresing profusely no nausea thirsty and drinking a lot no vomiting passing stool more consistently Current Medications Amlodipine Besylate (Norvasc -) 5 mg PO DAILY [facility] Last Admin: 06/23/17 09:25 Dose: 5 mg Escitalopram Oxalate (Lexapro -) 10 mg PO DAILY [facility] Last Admin: 06/23/17 09:25 Dose: 10 mg Heparin Sodium (Porcine) (Hep-Lock -) 5 ml IVPUSH PRN PRN PRN Reason: WHEN NOT IN USE Heparin Sodium (Porcine) (Heparin -) 5,000 unit SQ BID [facility] Last Admin: 06/23/17 09:25 Dose: 5,000 unit Hydromorphone HCl (Dilaudid Injection -) 2 mg IVPB Q4H PRN PRN Reason: PAIN Last Admin: 06/23/17 11:28 Dose: 2 mg Dextrose/Sodium Chloride (Dextrose 5%-Normal Saline+20 Meq Kcl -) 20 meq in 1, 000 mls @ 150 mls/hr IV ASDIR [facility] Last Admin: 06/23/17 09:24 Dose: 150 mls/hr Lactobacillus Acidophilus (Bacid -) 1 tab PO DAILY [facility] Last Admin: 06/23/17 09:25 Dose: 1 tab Lidocaine (Lidoderm Patch -) 1 patch TP DAILY [facility] Last Admin: 06/23/17 09:26 Dose: 1 patch Loratadine (Claritin -) 10 mg PO DAILY [facility] Last Admin: 06/23/17 09:25 Dose: 10 mg Miscellaneous (Lidoderm Patch Removal) 1 each MC DAILY@2200 [facility] Last Admin: 06/22/17 21:16 Dose: 1 each Multivitamins/Minerals (Infuvite Adult -) 10 ml IV DAILY [facility] Last Admin: 06/23/17 09:25 Dose: 10 ml Ondansetron HCl (Zofran Injection) 8 mg IVPB Q8H PRN PRN Reason: NAUSEA Last Admin: 06/23/17 11:28 Dose: 8 mg Pantoprazole Sodium (Protonix -) 40 mg PO DAILY [facility] Last Admin: 06/23/17 09:25 Dose: 40 mg Polyethylene Glycol (Miralax (For Daily Use) -) 17 gm PO BID [facility] Last Admin: 06/23/17 09:26 Dose: 17 gm Last Vital Signs Temp Pulse Resp BP Pulse Ox 98.4 F 88 20 135/90 97 06/23/17 10:00 06/23/17 10:00 06/23/17 10:00 06/23/17 10:00 06/23/17 10:00 Intake & Output 06/20/17 06/21/17 06/22/17 06/23/17 23:59 23:59 23:59 23:59 Intake Total 436 1379 170 3462 Output Total 1800 6250 3500 1600 Balance -1364 -4780 -2600 -50 Weight 177 lb 7 oz 179 lb 4.8 oz 175 lb 12.8 oz 176 lb 06/22/17 06/22/17 06/23/17 16:00 16:00 06:00 Potassium 3.8 3.3 L BUN 27 H 19 H Creatinine 2.5 H 2.0 H Magnesium 1.2 L 1.9 CBC, BMP 06/22/17 06:00 06/22/17 06:00 CBC, BMP 06/21/17 06:00 06/21/17 17:30 IMP- discussed with IR, waiting for numbers to get better plan is for ureteral stents percutaneous still with nausea and vomiting hedache- no visual disturbance IVF 100cc s/p padmini percutaneous nephrostomy appears to be effective, urinating profusely, probably now with post obstructive diuresis acute renal failure - renal scan- there is uptake of tracer in both kidneys, no appearance of tracer in the ureters per renal scan c/w ATN vs complete bilateral ureteral obstruction (unlikely since she has good urine output) SALVADOR 2/2 dehydration, hypotension (not all documented) PPI (pantoprazole) was given on admission but the is no evidence of AIN, U/A is completely clear Tendency to Hypokalemia- hypocalcemia- corrected calcium 8.2 partial small bowel obstruction +/- ileus 2/2 pain and hypokalemia which is very slowl resolving HTN- BPs low at times, not orthostatic now, will d/c furtther monitoring Anemia - improved h/h, may be partly due to hemodilution (prerenal pattern and contraction alkalosis have resolved) not dizzy on standing and walking Leukopenia stable Plan- INCREASE IVF TO 200CC PER HOUR FOR TWO HRS RE-EVAL IN TWO HRS Problem List - Problems (1) Status post chemotherapy Code(s): Z92.21 - PERSONAL HISTORY OF ANTINEOPLASTIC CHEMOTHERAPY (2) Small bowel obstruction due to adhesions Code(s): K56.50 - INTESTNL ADHESIONS, UNSP TO PARTIAL VERSUS COMPLETE OBST
[2017-06-23] MEDS ORDERED: CALCIUM GLUCONATE 10% - 1,000 MG/10 ML VIAL IVPB ONE (14:45)
[2017-06-23] MEDS ORDERED: SODIUM CHLORIDE 100 ML with POTASSIUM CHLORIDE 10 MEQ IVPB SCH (16:30)
[2017-06-23] MEDS: POTASSIUM CHLORIDE 20 MEQ PREMIX IVPB 100 ML IVPB SCH (16:57)
[2017-06-23] MEDS: POTASSIUM CHLORIDE 10 MEQ in SODIUM CHLORIDE 100 ML IVPB SCH ×4 (18:20→23:05)
[2017-06-23] MEDS: ONDANSETRON 4 MG/2 ML VIAL IVPUSH PRN ×2 (18:27→23:04)
[2017-06-23] MEDS: POTASSIUM CHLORIDE 10 MEQ in SODIUM CHLORIDE 100 ML IVPB ONE ×2 (19:30→23:08)
[2017-06-23] MEDS: LIDOCAINE PATCH REMOVAL MC SCH (21:45)
[2017-06-24] MEDS: HYDROmorphone HCL CARPU-JECT 2 MG/1 ML DISP.SYRIN IVPB PRN ×4 (00:03→17:38)
[2017-06-24 02:35] LABS: ANION GAP 10 (8-16); BLOOD UREA NITROGEN 12 mg/dL (7-18); CHLORIDE 101 mmol/L (98-107); CO2 29 mmol/L (21-32); CREATININE 1.7 mg/dL (0.55-1.02); GLUCOSE,RANDOM 134 mg/dL (74-106); POTASSIUM 3.4 mmol/L (3.5-5.1); SODIUM 140 mmol/L (136-145)
[2017-06-24] MEDS: D5-NS + 20 MEQ KCL - 20 MEQ/1,000 ML INFUS.BAG IV SCH ×2 (06:35→10:21)
[2017-06-24 07:35] LABS: HEMATOCRIT 25.2 % (32.4-45.2); HEMOGLOBIN 8.4 GM/dL (10.7-15.3); MCH 30.1 pg (25.7-33.7); MCHC 33.3 g/dl (32.0-36.0); MEAN CELL VOLUME 90.4 fl (80-96); PLATELET COUNT 327 K/MM3 (134-434); RBC 2.79 M/mm3 (3.60-5.2); RDW 13.1 % (11.6-15.6); WHITE BLOOD COUNT 5.7 K/mm3 (4.0-10.0)
--- NOTE | 2017-06-24 08:43 | PN ---
Progress Note, Physician Chief Complaint: Pt A&Ox3; still with abdominal discomfort. 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 labs in er showed azotemia, hypokalemia, hypernatremia abd xray shows early pattern of intestinal obstruction - Current Medication List Current Medications: Active Medications Amlodipine Besylate (Norvasc -) 5 mg PO DAILY [facility] Last Admin: 06/23/17 09:25 Dose: 5 mg Escitalopram Oxalate (Lexapro -) 10 mg PO DAILY [facility] Last Admin: 06/23/17 09:25 Dose: 10 mg Heparin Sodium (Porcine) (Hep-Lock -) 5 ml IVPUSH PRN PRN PRN Reason: WHEN NOT IN USE Heparin Sodium (Porcine) (Heparin -) 5,000 unit SQ BID [facility] Last Admin: 06/23/17 21:45 Dose: 5,000 unit Hydromorphone HCl (Dilaudid Injection -) 2 mg IVPB Q4H PRN PRN Reason: PAIN Last Admin: 06/24/17 05:36 Dose: 2 mg Dextrose/Sodium Chloride (Dextrose 5%-Normal Saline+20 Meq Kcl -) 20 meq in 1, 000 mls @ 150 mls/hr IV ASDIR [facility] Last Admin: 06/24/17 06:35 Dose: 150 mls/hr Lactobacillus Acidophilus (Bacid -) 1 tab PO DAILY [facility] Last Admin: 06/23/17 09:25 Dose: 1 tab Lidocaine (Lidoderm Patch -) 1 patch TP DAILY [facility] Last Admin: 06/23/17 09:26 Dose: 1 patch Loratadine (Claritin -) 10 mg PO DAILY [facility] Last Admin: 06/23/17 09:25 Dose: 10 mg Miscellaneous (Lidoderm Patch Removal) 1 each MC DAILY@2200 [facility] Last Admin: 06/23/17 21:45 Dose: 1 each Multivitamins/Minerals (Infuvite Adult -) 10 ml IV DAILY [facility] Last Admin: 06/23/17 09:25 Dose: 10 ml Ondansetron HCl (Zofran Injection) 8 mg IVPUSH Q4H PRN PRN Reason: NAUSEA Last Admin: 06/23/17 23:04 Dose: 8 mg Pantoprazole Sodium (Protonix -) 40 mg PO DAILY [facility] Last Admin: 06/23/17 09:25 Dose: 40 mg Polyethylene Glycol (Miralax (For Daily Use) -) 17 gm PO BID [facility] Last Admin: 06/23/17 21:45 Dose: Not Given - Objective Vital Signs: Vital Signs Temperature 98.7 F 06/24/17 07:00 Pulse Rate 79 06/24/17 07:00 Respiratory Rate 20 06/24/17 07:00 Blood Pressure 125/90 06/24/17 07:00 O2 Sat by Pulse Oximetry (%) 98 06/23/17 23:28 Constitutional: Yes: Anxious Eyes: Yes: WNL HENT: Yes: WNL Neck: Yes: WNL Cardiovascular: Yes: Regular Rate and Rhythm Respiratory: Yes: WNL Gastrointestinal: Yes: Soft, Distention Genitourinary: No: Anuria Breast(s): Yes: WNL Musculoskeletal: Yes: Back Pain Extremities: Yes: WNL Edema: No Peripheral Pulses WNL: Yes Integumentary: Yes: WNL Neurological: Yes: WNL Psychiatric: Yes: WNL Labs: CBC, BMP 06/24/17 06:00 06/24/17 02:00 INR, PTT INR 0.91 (0.82-1.09) 06/21/17 06:00 Problem List - Problems (1) Small bowel obstruction due to adhesions Assessment/Plan: F/u with GI. Code(s): K56.50 - INTESTNL ADHESIONS, UNSP TO PARTIAL VERSUS COMPLETE OBST (2) Status post chemotherapy Assessment/Plan: f/u with hem/oncologist. ECHO 02/2016: normal LVEF; mild MR and TR. Repeat ECHO for LVEF, chamber sizes, wall motion, valve status. Code(s): Z92.21 - PERSONAL HISTORY OF ANTINEOPLASTIC CHEMOTHERAPY (3) Chronic anemia Assessment/Plan: f/u with hem/onc. Code(s): D64.9 - ANEMIA, UNSPECIFIED (4) Hypertension Assessment/Plan: On amlodipine. No orthostatic changes. Code(s): I10 - ESSENTIAL (PRIMARY) HYPERTENSION (5) Renal dysfunction Assessment/Plan: AbD CT: moderately severe hydronephrosis (increased on left). Renal scan: cannot r/o obstruction (vs ATN. Improving Cr post-nephrostomy tubes. F/u Is and Os. F/u with nephrology/. May require ureteral stents as outpatient. Code(s): N28.9 - DISORDER OF KIDNEY AND URETER, UNSPECIFIED (6) Cervical adenocarcinoma Assessment/Plan: Now with headache; occasional tingling in LE. (pt says this occurred before when undergoing chemotherapy). F/u with hem/oncologist. For CT of head. Code(s): C53.9 - MALIGNANT NEOPLASM OF CERVIX UTERI, UNSPECIFIED (7) Electrolyte abnormality Code(s): E87.8 - OTH DISORDERS OF ELECTROLYTE AND FLUID BALANCE, NEC (8) Anxiety and depression Code(s): F41.8 - OTHER SPECIFIED ANXIETY DISORDERS
[2017-06-24] MEDS ORDERED: FUROSEMIDE 40 MG/4 ML INJECTABLE VIAL IVPUSH ONE (10:00)
[2017-06-24] MEDS ORDERED: KCL 10 MEQ IVPB 10 MEQ/100 ML INFUS.BAG IVPB SCH ×2 (10:15→21:15)
[2017-06-24] MEDS: LORATADINE 10 MG TABLET PO SCH (10:21)
[2017-06-24] MEDS: PANTOPRAZOLE 40 MG TABLET (FP) PO SCH (10:21)
[2017-06-24] MEDS: amLODIPine BESYLATE 5 MG TABLET (FP) PO SCH (10:21)
[2017-06-24] MEDS: LACTOBACILLUS ACIDOPHILUS 1 EACH TAB (FP) PO SCH (10:21)
[2017-06-24] MEDS: ESCITALOPRAM OXALATE 10 MG TABLET (FP) PO SCH (10:21)
[2017-06-24] MEDS: LIDOCAINE 5% TOPICAL PATCH TP SCH (10:21)
[2017-06-24] MEDS: HEPARIN NA (PORCINE) 5,000 UNITS/ML 1ML VIAL SQ SCH ×2 (10:22→22:17)
[2017-06-24] MEDS: MULTIVIT INJ. ADULT COMBO WITH VIT K 1 COMBO 10 ML VIAL IV SCH (10:22)
[2017-06-24] MEDS: POLYETHYLENE GLYCOL 3350 119 GM BTL PO SCH ×2 (10:22→22:20)
[2017-06-24] MEDS: ONDANSETRON 4 MG/2 ML VIAL IVPUSH PRN (10:39)
--- NOTE | 2017-06-24 12:14 | PN ---
Progress Note (short form) - Note Progress Note: Patient is seen and examined. Feels n/v on and off headache Constitutional: Yes: No Distress, Calm Eyes: Yes: WNL HENT: Yes: WNL Neck: Yes: Supple Cardiovascular: Yes: Regular Rate and Rhythm Respiratory: Yes: CTA Bilaterally Gastrointestinal: Yes: Other +stool in bag Extremities: Yes: WNL Edema: No Last Vital Signs Temp Pulse Resp BP Pulse Ox 98.4 F 77 18 146/94 92 L 06/22/17 18:29 06/22/17 18:29 06/22/17 18:29 06/22/17 18:29 06/21/17 20:22 CBC, BMP 06/22/17 06:00 06/22/17 16:00 Current Medications Generic Name Dose Route Start Last Admin Trade Name Freq PRN Reason Stop Dose Admin Amlodipine Besylate 5 mg 06/15/17 10:00 06/22/17 11:39 Norvasc - PO 5 mg DAILY [facility] Administration Escitalopram Oxalate 10 mg 06/15/17 10:00 06/22/17 11:39 Lexapro - PO 10 mg DAILY [facility] Administration Heparin Sodium (Porcine) 5 ml 06/14/17 18:13 Hep-Lock - IVPUSH PRN PRN WHEN NOT IN USE Heparin Sodium (Porcine) 5,000 unit 06/20/17 22:00 06/22/17 11:39 Heparin - SQ 5,000 unit BID [facility] Administration Hydromorphone HCl 2 mg 06/17/17 21:46 06/22/17 13:07 Dilaudid Injection - IVPB 2 mg Q4H PRN Administration PAIN Dextrose/Sodium Chloride 20 meq in 1,000 mls @ 150 mls/hr 06/22/17 13:13 16:15 Dextrose 5%-Normal Saline+20 Meq Kcl - IV 150 mls/hr ASDIR [facility] Administration Lactobacillus Acidophilus 1 tab 06/23/17 10:00 Bacid - PO DAILY [facility] Lidocaine 1 patch 06/22/17 10:00 06/22/17 11:40 Lidoderm Patch - TP 1 patch DAILY [facility] Administration Loratadine 10 mg 06/15/17 10:00 06/22/17 11:39 Claritin - PO 10 mg DAILY [facility] Administration Miscellaneous 1 each 06/22/17 22:00 Lidoderm Patch Removal MC DAILY@2200 [facility] Multivitamins/Minerals 10 ml 06/21/17 10:00 06/22/17 13:07 Infuvite Adult - IV 10 ml DAILY [facility] Administration Ondansetron HCl 8 mg 06/14/17 18:00 06/22/17 11:41 Zofran Injection IVPB 8 mg Q8H PRN Administration NAUSEA Pantoprazole Sodium 40 mg 06/23/17 10:00 Protonix - PO DAILY [facility] Polyethylene Glycol 17 gm 06/14/17 22:00 06/22/17 11:40 Miralax (For Daily Use) - PO 17 gm BID [facility] Administration Recurrent Cervical ADENO carcinoma -Rx thus far over a period of two years: ADIS, Cis/RT, then recurrence, carbo/ taxol/avastin, pelvic exenteration, then carbo/taxotere. Now with new recent recurrence. -seeing now , awaiting NexGen sequencing. -encouraged her to follow up with once stabilized and discharged from here. Anemia: -ACD/ACI -monitor for now and transfuse prn SALVADOR: -improving SBO -due to the past surgeries -now getting better -appreciate GI c/s , reviewed recs Headache intermittent/N/V CTH
[2017-06-24] MEDS: POTASSIUM CHLORIDE 10 MEQ in SODIUM CHLORIDE 100 ML IVPB SCH ×6 (12:32→23:21)
--- NOTE | 2017-06-24 14:17 | PN ---
Progress Note (short form) - Note Progress Note: continues to have vomiting during the day yesterday and overnight she has abd pain when she vomits she has continuous nausea headache is resolved no visual disturbance unable to tolerate IVF at 150 cc s/p one dose of lasix earlier problems: Dehydration/Hypernatremia/SALVADOR - obstructive uropathy presented with recurrent vomiting persistent x 2 weeks 2/2 recurrent partial small bowel obstruction came to ER 06/12 whe serum Na 150 and s creatinine 1.5 was given IVF NS one liter and released admitted on 06/15 h/o abd/intestinal surgeries Probable adhesions h/o pelvic/cervical ca HTN allergic rhinitis s/p perc nephrostomy and diuresing profusely no nausea thirsty and drinking a lot no vomiting passing stool more consistently Current Medications Amlodipine Besylate (Norvasc -) 5 mg PO DAILY [facility] Last Admin: 06/24/17 10:21 Dose: 5 mg Escitalopram Oxalate (Lexapro -) 10 mg PO DAILY [facility] Last Admin: 06/24/17 10:21 Dose: 10 mg Heparin Sodium (Porcine) (Hep-Lock -) 5 ml IVPUSH PRN PRN PRN Reason: WHEN NOT IN USE Heparin Sodium (Porcine) (Heparin -) 5,000 unit SQ BID [facility] Last Admin: 06/24/17 10:22 Dose: 5,000 unit Hydromorphone HCl (Dilaudid Injection -) 2 mg IVPB Q4H PRN PRN Reason: PAIN Last Admin: 06/24/17 11:09 Dose: 2 mg Dextrose/Sodium Chloride (Dextrose 5%-Normal Saline+20 Meq Kcl -) 20 meq in 1, 000 mls @ 100 mls/hr IV ASDIR [facility] Last Admin: 06/24/17 10:21 Dose: 100 mls/hr Potassium Chloride 10 meq/ (Sodium Chloride) 105 mls @ 105 mls/hr IVPB Q1H [facility] Stop: 06/24/17 15:44 Last Admin: 06/24/17 13:44 Dose: 105 mls/hr Lactobacillus Acidophilus (Bacid -) 1 tab PO DAILY [facility] Last Admin: 06/24/17 10:21 Dose: 1 tab Lidocaine (Lidoderm Patch -) 1 patch TP DAILY [facility] Last Admin: 06/24/17 10:21 Dose: 1 patch Loratadine (Claritin -) 10 mg PO DAILY [facility] Last Admin: 06/24/17 10:21 Dose: 10 mg Miscellaneous (Lidoderm Patch Removal) 1 each MC DAILY@2200 [facility] Last Admin: 06/23/17 21:45 Dose: 1 each Multivitamins/Minerals (Infuvite Adult -) 10 ml IV DAILY [facility] Last Admin: 06/24/17 10:22 Dose: 10 ml Ondansetron HCl (Zofran Injection) 8 mg IVPUSH Q4H PRN PRN Reason: NAUSEA Last Admin: 06/24/17 10:39 Dose: 8 mg Pantoprazole Sodium (Protonix -) 40 mg PO DAILY [facility] Last Admin: 06/24/17 10:21 Dose: 40 mg Polyethylene Glycol (Miralax (For Daily Use) -) 17 gm PO BID [facility] Last Admin: 06/24/17 10:22 Dose: 17 gm Last Vital Signs Temp Pulse Resp BP Pulse Ox 98.4 F 90 20 139/93 95 06/24/17 09:00 06/24/17 09:00 06/24/17 09:00 06/24/17 09:00 06/24/17 09:00 CBC, BMP 06/24/17 06:00 06/24/17 02:00 CBC, BMP 06/22/17 06:00 06/22/17 06:00 CBC, BMP 06/21/17 06:00 06/21/17 17:30 IMP- discussed with IR, waiting for numbers to get better plan is for ureteral stents percutaneous if she can be discharged, follow up with IR will be arranged as outpatient Persistent nausea and vomiting s/p hedache- no visual disturbance IVF 100cc Obstructive Uropathy s/p padmini percutaneous nephrostomy urinating profusely, s/p acute renal failure - renal scan- there is uptake of tracer in both kidneys, no appearance of tracer in the ureters per renal scan c/w ATN vs complete bilateral ureteral obstruction (unlikely since she has good urine output) SALVADOR 2/2 dehydration, hypotension (not all documented) PPI (pantoprazole) was given on admission but the is no evidence of AIN, U/A is completely clear Perisitent Hypokalemia- persistent hypocalcemia- corrected calcium 8.2 , s/p replacement (of K and Mag) will f/u today partial small bowel obstruction +/- ileus 2/2 pain and hypokalemia which is very slowl resolving HTN- BPs low at times, not orthostatic now, routine monitoring Anemia - improved h/h, may be partly due to hemodilution (prerenal pattern and contraction alkalosis have resolved) not dizzy on standing and walking Leukopenia stable Plan- IVF 100 per hour plus piggyback riders Problem List - Problems (1) Status post chemotherapy Code(s): Z92.21 - PERSONAL HISTORY OF ANTINEOPLASTIC CHEMOTHERAPY (2) Small bowel obstruction due to adhesions Code(s): K56.50 - INTESTNL ADHESIONS, UNSP TO PARTIAL VERSUS COMPLETE OBST
[2017-06-24 18:55] LABS: ALBUMIN 3.8 g/dl (3.4-5.0); ANION GAP 6 (8-16); BLOOD UREA NITROGEN 10 mg/dL (7-18); CALCIUM 7.8 mg/dL (8.5-10.1); CHLORIDE 98 mmol/L (98-107); CO2 33 mmol/L (21-32); CREATININE 1.7 mg/dL (0.55-1.02); GLUCOSE,RANDOM 111 mg/dL (74-106); POTASSIUM 3.4 mmol/L (3.5-5.1); SGOT/AST 30 U/L (15-37); SGPT/ALT 67 U/L (12-78); SODIUM 137 mmol/L (136-145)
[2017-06-24 18:57] LABS: ALK PHOS 77 U/L (45-117); BILIRUBIN,TOTAL 0.9 mg/dL (0.2-1.0); TOT PROT 7.4 g/dl (6.4-8.2)
[2017-06-24] MEDS ORDERED: SODIUM CHLORIDE 100 ML with POTASSIUM CHLORIDE 10 MEQ IVPB SCH (21:30)
[2017-06-24] MEDS: LIDOCAINE PATCH REMOVAL MC SCH (22:18)
[2017-06-25] MEDS: POTASSIUM CHLORIDE 10 MEQ in SODIUM CHLORIDE 100 ML IVPB SCH ×3 (00:12→04:18)
[2017-06-25] MEDS: HYDROmorphone HCL CARPU-JECT 2 MG/1 ML DISP.SYRIN IVPB PRN ×3 (00:37→18:56)
[2017-06-25] MEDS: D5-NS + 20 MEQ KCL - 20 MEQ/1,000 ML INFUS.BAG IV SCH ×3 (05:18→14:35)
[2017-06-25 08:02] LABS: ALBUMIN 3.5 g/dl (3.4-5.0); ANION GAP 9 (8-16); BLOOD UREA NITROGEN 12 mg/dL (7-18); CALCIUM 7.8 mg/dL (8.5-10.1); CHLORIDE 99 mmol/L (98-107); CO2 32 mmol/L (21-32); GLUCOSE,RANDOM 111 mg/dL (74-106); POTASSIUM 3.6 mmol/L (3.5-5.1); SODIUM 140 mmol/L (136-145)
[2017-06-25 08:07] LABS: ALK PHOS 72 U/L (45-117); BILIRUBIN,TOTAL 0.7 mg/dL (0.2-1.0); CREATININE 1.5 mg/dL (0.55-1.02); PHOSPHOROUS 3.5 mg/dL (2.5-4.9); SGOT/AST 27 U/L (15-37); SGPT/ALT 62 U/L (12-78); TOT PROT 7.1 g/dl (6.4-8.2)
[2017-06-25] MEDS ORDERED: METOCLOPRAMIDE HCL INJECTION 10 MG/2 ML VIAL IVPUSH ONE (08:15)
[2017-06-25] MEDS: MULTIVIT INJ. ADULT COMBO WITH VIT K 1 COMBO 10 ML VIAL IV SCH (10:00)
[2017-06-25] MEDS: LORATADINE 10 MG TABLET PO SCH (10:09)
[2017-06-25] MEDS: POLYETHYLENE GLYCOL 3350 119 GM BTL PO SCH ×2 (10:09→21:53)
[2017-06-25] MEDS: LIDOCAINE 5% TOPICAL PATCH TP SCH (10:09)
[2017-06-25] MEDS: HEPARIN NA (PORCINE) 5,000 UNITS/ML 1ML VIAL SQ SCH ×2 (10:09→21:53)
[2017-06-25] MEDS: PANTOPRAZOLE 40 MG TABLET (FP) PO SCH (10:09)
[2017-06-25] MEDS: LACTOBACILLUS ACIDOPHILUS 1 EACH TAB (FP) PO SCH (10:09)
[2017-06-25] MEDS: ESCITALOPRAM OXALATE 10 MG TABLET (FP) PO SCH (10:09)
[2017-06-25] MEDS: amLODIPine BESYLATE 5 MG TABLET (FP) PO SCH (10:09)
[2017-06-25] MEDS ORDERED: MAGNESIUM 4GM/H20 - 4 GM/100 ML IVPB IVPB ONE (10:34)
--- NOTE | 2017-06-25 11:59 | PN ---
Progress Note (short form) - Note Progress Note: Patient is seen and examined. feels better than yesterday. CTH negative. Able to tolerate Constitutional: Yes: No Distress, Calm Eyes: Yes: WNL HENT: Yes: WNL Neck: Yes: Supple Cardiovascular: Yes: Regular Rate and Rhythm Respiratory: Yes: CTA Bilaterally Gastrointestinal: Yes: Other +stool in bag Extremities: Yes: WNL Edema: No Last Vital Signs Temp Pulse Resp BP Pulse Ox 98.1 F 83 16 122/81 95 06/25/17 09:26 06/25/17 09:26 06/25/17 09:26 06/25/17 09:26 06/25/17 09:00 CBC, BMP 06/24/17 06:00 06/25/17 06:30 Current Medications Generic Name Dose Route Start Last Admin Trade Name Freq PRN Reason Stop Dose Admin Amlodipine Besylate 5 mg 06/15/17 10:00 06/25/17 10:09 Norvasc - PO 5 mg DAILY [facility] Administration Escitalopram Oxalate 10 mg 06/15/17 10:00 06/25/17 10:09 Lexapro - PO 10 mg DAILY [facility] Administration Heparin Sodium (Porcine) 5 ml 06/14/17 18:13 Hep-Lock - IVPUSH PRN PRN WHEN NOT IN USE Heparin Sodium (Porcine) 5,000 unit 06/20/17 22:00 06/25/17 10:09 Heparin - SQ 5,000 unit BID [facility] Administration Hydromorphone HCl 2 mg 06/17/17 21:46 06/25/17 07:08 Dilaudid Injection - IVPB 2 mg Q4H PRN Administration PAIN Dextrose/Sodium Chloride 20 meq in 1,000 mls @ 100 mls/hr 06/24/17 10:15 07/11 10:19 Dextrose 5%-Normal Saline+20 Meq Kcl - IV Not Given ASDIR [facility] Lactobacillus Acidophilus 1 tab 06/23/17 10:00 06/25/17 10:09 Bacid - PO 1 tab DAILY [facility] Administration Lidocaine 1 patch 06/22/17 10:00 06/25/17 10:09 Lidoderm Patch - TP 1 patch DAILY [facility] Administration Loratadine 10 mg 06/15/17 10:00 06/25/17 10:09 Claritin - PO 10 mg DAILY [facility] Administration Metoclopramide HCl 5 mg 06/25/17 13:24 Reglan Injection - IVPUSH Q6H PRN NAUSEA AND/OR VOMITING Miscellaneous 1 each 06/22/17 22:00 06/24/17 22:18 Lidoderm Patch Removal MC 1 each DAILY@2200 [facility] Administration Multivitamins/Minerals 10 ml 06/21/17 10:00 06/25/17 10:00 Infuvite Adult - IV 10 ml DAILY [facility] Administration Ondansetron HCl 8 mg 06/23/17 18:24 06/24/17 10:39 Zofran Injection IVPUSH 8 mg Q4H PRN Administration NAUSEA Pantoprazole Sodium 40 mg 06/23/17 10:00 06/25/17 10:09 Protonix - PO 40 mg DAILY [facility] Administration Polyethylene Glycol 17 gm 06/14/17 22:00 06/25/17 10:09 Miralax (For Daily Use) - PO 17 gm BID [facility] Administration Recurrent Cervical ADENO carcinoma -Rx thus far over a period of two years: ADIS, Cis/RT, then recurrence, carbo/ taxol/avastin, pelvic exenteration, then carbo/taxotere. Now with new recent recurrence. -seeing now , foundation one reviewed ( was sent by her G[facility]NONC at [place], [place]-- MS status not determined, advised her to follow-up on this. -encouraged her to follow up with once stabilized and discharged from here. Anemia: -ACD/ACI -monitor for now and transfuse prn SALVADOR: -improving SBO -resolved N/V Symptomatic management Headache resolved, CTH negative
[2017-06-25] MEDS ORDERED: MAGNESIUM SULF 50% (8.12 MEQ/2 ML-1 GM VIAL) IVPB ONE (12:38)
--- NOTE | 2017-06-25 12:51 | PN ---
Progress Note (short form) - Note Progress Note: s/p vomiting 700 cc earlier this morning serum K 3.6 serum mag 1.0- being replaced trying reglan instead of zofran She had good response using it in the past problems: Dehydration/Hypernatremia/SALVADOR - obstructive uropathy presented with recurrent vomiting persistent x 2 weeks 2/2 recurrent partial small bowel obstruction came to ER 06/12 whe serum Na 150 and s creatinine 1.5 was given IVF NS one liter and released admitted on 06/15 h/o abd/intestinal surgeries Probable adhesions h/o pelvic/cervical ca HTN allergic rhinitis s/p perc nephrostomy and diuresing profusely no nausea thirsty and drinking a lot no vomiting passing stool more consistently Last Vital Signs Temp Pulse Resp BP Pulse Ox 98.1 F 83 16 122/81 95 06/25/17 09:26 06/25/17 09:26 06/25/17 09:26 06/25/17 09:26 06/24/17 20:50 she was examined at bedside CBC, BMP 06/24/17 06:00 06/25/17 06:30 CBC, BMP 06/24/17 06:00 06/24/17 02:00 CBC, BMP 06/22/17 06:00 06/22/17 06:00 IMP- discussed with IR, waiting for numbers to get better plan is for ureteral stents percutaneous if she can be discharged, follow up with IR will be arranged as outpatient Persistent nausea and vomiting s/p hedache- no visual disturbance IVF 100cc Obstructive Uropathy s/p padmini percutaneous nephrostomy urinating profusely, s/p acute renal failure - renal scan- there is uptake of tracer in both kidneys, no appearance of tracer in the ureters per renal scan c/w ATN vs complete bilateral ureteral obstruction (unlikely since she has good urine output) SALVADOR 2/2 dehydration, hypotension (not all documented) PPI (pantoprazole) was given on admission but the is no evidence of AIN, U/A is completely clear Perisitent Hypokalemia- persistent hypocalcemia- corrected calcium 8.2 , s/p replacement (of K and Mag) will f/u today partial small bowel obstruction +/- ileus 2/2 pain and hypokalemia which is very slowl resolving HTN- BPs low at times, not orthostatic now, routine monitoring Anemia - improved h/h, may be partly due to hemodilution (prerenal pattern and contraction alkalosis have resolved) not dizzy on standing and walking Leukopenia stable Plan- IVF 100 per hour plus piggyback riders Problem List - Problems (1) Status post chemotherapy Code(s): Z92.21 - PERSONAL HISTORY OF ANTINEOPLASTIC CHEMOTHERAPY (2) Small bowel obstruction due to adhesions Code(s): K56.50 - INTESTNL ADHESIONS, UNSP TO PARTIAL VERSUS COMPLETE OBST
[2017-06-25] MEDS ORDERED: METOCLOPRAMIDE HCL INJECTION 10 MG/2 ML VIAL IVPUSH PRN (13:24)
--- NOTE | 2017-06-25 16:54 | PN ---
GI Progress Note Subjective: GI NOte: Still vomiting daily and eating minimally. Had 2 episodes of vomiting crankcase oil type contents reaching about a liter in volume. No vomiting in th past 2 hours. Has no nausea or bloating at present. No colicky pain. - Objective Vital Signs: Vital Signs Temperature 97.9 F 06/25/17 14:32 Pulse Rate 79 06/25/17 14:32 Respiratory Rate 20 06/25/17 14:32 Blood Pressure 140/97 06/25/17 14:32 O2 Sat by Pulse Oximetry (%) 95 06/25/17 09:00 Laboratory Tests 06/20/17 06/21/17 06/22/17 07:30 06:00 06:00 Hgb Potassium BUN 51 H D 33 H Creatinine 4.3 H 2.8 H Total Bilirubin 0.6 AST 15 ALT 37 Alkaline Phosphatase 55 Albumin 3.6 Vitamin B12 1298 H Serum Folate 16 06/24/17 06/25/17 06:00 06:30 Hgb 8.4 L Potassium 3.6 BUN 12 Creatinine 1.5 H Total Bilirubin AST ALT Alkaline Phosphatase Albumin Vitamin B12 Serum Folate Constitutional: Calm Gastrointestinal Inspection: Yes: Distention ...Auscultate: Yes: Hypoactive Bowel Sounds ...Palpate: Yes: Soft, Other (nontender) Labs: CBC, BMP 06/24/17 06:00 06/25/17 06:30 INR, PTT INR 0.91 (0.82-1.09) 06/21/17 06:00 Problem List - Problems (1) Small bowel obstruction due to adhesions Assessment/Plan: The bowel sounds are more suggestive of ileus than bowel obstruction but believe that she has a component of both with uremia playing a role. I will order an FUA for the AM. I will increase the Reglan to 10mg q6h. Continue miralax. Dr Valencia will be covering this weekend. 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
[2017-06-25] MEDS: METOCLOPRAMIDE HCL INJECTION 10 MG/2 ML VIAL IVPUSH SCH ×2 (17:29→22:00)
[2017-06-25] MEDS: LIDOCAINE PATCH REMOVAL MC SCH (21:53)
--- NOTE | 2017-06-26 01:03 | PN ---
Progress Note, Physician Chief Complaint: Pt A&Ox3; felt better overnight, but then had projectile and copious vomiting in early am. Mg is very low; she feels as if she is back in the time when she had to undergo multiple surgeries: her electrolytes were "always up and down". 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 labs in er showed azotemia, hypokalemia, hypernatremia abd xray shows early pattern of intestinal obstruction - Current Medication List Current Medications: Active Medications Amlodipine Besylate (Norvasc -) 5 mg PO DAILY [facility] Last Admin: 06/25/17 10:09 Dose: 5 mg Escitalopram Oxalate (Lexapro -) 10 mg PO DAILY [facility] Last Admin: 06/25/17 10:09 Dose: 10 mg Heparin Sodium (Porcine) (Hep-Lock -) 5 ml IVPUSH PRN PRN PRN Reason: WHEN NOT IN USE Heparin Sodium (Porcine) (Heparin -) 5,000 unit SQ BID [facility] Last Admin: 06/25/17 21:53 Dose: 5,000 unit Hydromorphone HCl (Dilaudid Injection -) 2 mg IVPB Q4H PRN PRN Reason: PAIN Last Admin: 06/25/17 18:56 Dose: 2 mg Dextrose/Sodium Chloride (Dextrose 5%-Normal Saline+20 Meq Kcl -) 20 meq in 1, 000 mls @ 100 mls/hr IV ASDIR [facility] Last Admin: 06/25/17 14:35 Dose: 100 mls/hr Lactobacillus Acidophilus (Bacid -) 1 tab PO DAILY [facility] Last Admin: 06/25/17 10:09 Dose: 1 tab Lidocaine (Lidoderm Patch -) 1 patch TP DAILY [facility] Last Admin: 06/25/17 10:09 Dose: 1 patch Loratadine (Claritin -) 10 mg PO DAILY [facility] Last Admin: 06/25/17 10:09 Dose: 10 mg Metoclopramide HCl (Reglan Injection -) 10 mg IVPUSH Q6H [facility] Last Admin: 06/25/17 22:00 Dose: 10 mg Miscellaneous (Lidoderm Patch Removal) 1 each MC DAILY@2200 [facility] Last Admin: 06/25/17 21:53 Dose: 1 each Multivitamins/Minerals (Infuvite Adult -) 10 ml IV DAILY [facility] Last Admin: 06/25/17 10:00 Dose: 10 ml Ondansetron HCl (Zofran Injection) 8 mg IVPUSH Q4H PRN PRN Reason: NAUSEA Last Admin: 06/24/17 10:39 Dose: 8 mg Pantoprazole Sodium (Protonix -) 40 mg PO DAILY [facility] Last Admin: 06/25/17 10:09 Dose: 40 mg Polyethylene Glycol (Miralax (For Daily Use) -) 17 gm PO BID [facility] Last Admin: 06/25/17 21:53 Dose: 17 gm - Objective Vital Signs: Vital Signs Temperature 98.3 F 06/25/17 22:00 Pulse Rate 75 06/25/17 22:00 Respiratory Rate 20 06/25/17 22:00 Blood Pressure 130/89 06/25/17 22:00 O2 Sat by Pulse Oximetry (%) 96 06/25/17 21:00 Constitutional: Yes: Anxious Eyes: Yes: WNL HENT: Yes: WNL, Pharyngeal Erythema Cardiovascular: Yes: WNL Respiratory: Yes: WNL Gastrointestinal: Yes: Soft, Distention Genitourinary: No: Anuria Breast(s): Yes: WNL Musculoskeletal: Yes: Muscle Weakness Extremities: Yes: WNL Edema: No Peripheral Pulses WNL: Yes Integumentary: Yes: WNL Neurological: Yes: WNL Psychiatric: Yes: WNL Labs: CBC, BMP 06/24/17 06:00 06/25/17 06:30 INR, PTT INR 0.91 (0.82-1.09) 06/21/17 06:00 Abnormal Lab Results 06/25/17 06/25/17 06:30 14:45 Creatinine 1.5 H Random Glucose 111 H Calcium 7.8 L Magnesium 1.0 L 2.8 H - ....Imaging Cat Scan: Image Reviewed (no acute IC pathology) Problem List - Problems (1) Small bowel obstruction due to adhesions Assessment/Plan: F/u with GI.May require further imaging studies. Code(s): K56.50 - INTESTNL ADHESIONS, UNSP TO PARTIAL VERSUS COMPLETE OBST (2) Status post chemotherapy Assessment/Plan: f/u with hem/oncologist. ECHO 06/23/2017: normal LVEF; normal chamber sizes. Code(s): Z92.21 - PERSONAL HISTORY OF ANTINEOPLASTIC CHEMOTHERAPY (3) Hypertension Assessment/Plan: On amlodipine. No orthostatic changes. Code(s): I10 - ESSENTIAL (PRIMARY) HYPERTENSION (4) Renal dysfunction Assessment/Plan: AbD CT: moderately severe hydronephrosis (increased on left). Renal scan: cannot r/o obstruction (vs ATN. Improving Cr post-nephrostomy tubes. Replete electrolytes. F/u Is and Os. F/u with nephrology/. May require ureteral stents as outpatient. Code(s): N28.9 - DISORDER OF KIDNEY AND URETER, UNSPECIFIED (5) Cervical adenocarcinoma Assessment/Plan: Now with headache; occasional tingling in LE. (pt says this occurred before when undergoing chemotherapy). CT head unremarkable; may have MRI to r/o metastases. Code(s): C53.9 - MALIGNANT NEOPLASM OF CERVIX UTERI, UNSPECIFIED (6) Electrolyte abnormality Assessment/Plan: Mg 1.0; will give 4 g Magnesium sulfate IVPB. Keep PO4 2.5-3.5. Keep Na 135-145 Keep K 4-4.5. Code(s): E87.8 - OTH DISORDERS OF ELECTROLYTE AND FLUID BALANCE, NEC (7) Anxiety and depression Code(s): F41.8 - OTHER SPECIFIED ANXIETY DISORDERS
[2017-06-26] MEDS: HYDROmorphone HCL CARPU-JECT 2 MG/1 ML DISP.SYRIN IVPB PRN ×3 (01:31→21:31)
[2017-06-26] MEDS: D5-NS + 20 MEQ KCL - 20 MEQ/1,000 ML INFUS.BAG IV SCH ×2 (01:35→10:41)
[2017-06-26] MEDS: METOCLOPRAMIDE HCL INJECTION 10 MG/2 ML VIAL IVPUSH SCH ×4 (05:38→23:32)
[2017-06-26 07:55] LABS: BASO % 0.4 % (0-2.0); EOS % 2.5 % (0-4.5); HEMATOCRIT 23.6 % (32.4-45.2); HEMOGLOBIN 7.9 GM/dL (10.7-15.3); LYMPH % 19.2 % (8-40); MCH 30.2 pg (25.7-33.7); MCHC 33.5 g/dl (32.0-36.0); MEAN CELL VOLUME 90.3 fl (80-96); MEAN PLT VOLUME 7.7 fl (7.5-11.1); MONO % 7.8 % (3.8-10.2); NEUT % 70.1 % (42.8-82.8); PLATELET COUNT 339 K/MM3 (134-434); RBC 2.61 M/mm3 (3.60-5.2); RDW 13.1 % (11.6-15.6); WHITE BLOOD COUNT 4.9 K/mm3 (4.0-10.0)
[2017-06-26 08:10] LABS: CHLORIDE 99 mmol/L (98-107); POTASSIUM 3.2 mmol/L (3.5-5.1); SODIUM 138 mmol/L (136-145)
[2017-06-26 08:15] LABS: ALBUMIN 3.6 g/dl (3.4-5.0); ALK PHOS 68 U/L (45-117); ANION GAP 4 (8-16); BILIRUBIN,TOTAL 0.9 mg/dL (0.2-1.0); BLOOD UREA NITROGEN 8 mg/dL (7-18); CALCIUM 7.7 mg/dL (8.5-10.1); CO2 35 mmol/L (21-32); CREATININE 1.1 mg/dL (0.55-1.02); GLUCOSE,RANDOM 95 mg/dL (74-106); MAGNESIUM 1.7 mg/dL (1.8-2.4); PHOSPHOROUS 3.4 mg/dL (2.5-4.9); SGOT/AST 29 U/L (15-37); SGPT/ALT 59 U/L (12-78); TOT PROT 6.9 g/dl (6.4-8.2)
[2017-06-26] MEDS: LACTOBACILLUS ACIDOPHILUS 1 EACH TAB (FP) PO SCH (09:57)
[2017-06-26] MEDS: PANTOPRAZOLE 40 MG TABLET (FP) PO SCH (09:57)
[2017-06-26] MEDS: ESCITALOPRAM OXALATE 10 MG TABLET (FP) PO SCH (09:57)
[2017-06-26] MEDS: MULTIVIT INJ. ADULT COMBO WITH VIT K 1 COMBO 10 ML VIAL IV SCH (09:57)
[2017-06-26] MEDS: HEPARIN NA (PORCINE) 5,000 UNITS/ML 1ML VIAL SQ SCH ×2 (09:57→21:30)
[2017-06-26] MEDS: LORATADINE 10 MG TABLET PO SCH (09:57)
[2017-06-26] MEDS: amLODIPine BESYLATE 5 MG TABLET (FP) PO SCH (09:57)
[2017-06-26] MEDS: LIDOCAINE 5% TOPICAL PATCH TP SCH (09:58)
[2017-06-26] MEDS: POLYETHYLENE GLYCOL 3350 119 GM BTL PO SCH ×2 (09:59→21:30)
[2017-06-26] MEDS ORDERED: POTASSIUM ACETATE 10 MEQ in SODIUM CHLORIDE 100 ML IVPB SCH (10:00)
[2017-06-26] MEDS: POTASSIUM CHLORIDE 10 MEQ in SODIUM CHLORIDE 100 ML IVPB SCH ×4 (10:39→13:44)
--- NOTE | 2017-06-26 12:12 | PN ---
Progress Note, Physician History of Present Illness: Covering for Dr. Renae, who will return on Wednesday Had an episode of colicky abdominal pain followed by vomiting ~ 600 cc this am. At the time of this encounter, asymptomatic, not in distress, or discomfort. States Reglan helps. Tolerating current diet. Has stool in colostomy. AXR negative for SBO, ileus. BUN, Cr better. Mild, mid-abd. tenderness w/o guarding on exam. - Current Medication List Current Medications: Active Medications Amlodipine Besylate (Norvasc -) 5 mg PO DAILY [facility] Last Admin: 06/26/17 09:57 Dose: 5 mg Escitalopram Oxalate (Lexapro -) 10 mg PO DAILY [facility] Last Admin: 06/26/17 09:57 Dose: 10 mg Heparin Sodium (Porcine) (Hep-Lock -) 5 ml IVPUSH PRN PRN PRN Reason: WHEN NOT IN USE Heparin Sodium (Porcine) (Heparin -) 5,000 unit SQ BID [facility] Last Admin: 06/26/17 09:57 Dose: 5,000 unit Hydromorphone HCl (Dilaudid Injection -) 2 mg IVPB Q4H PRN PRN Reason: PAIN Last Admin: 06/26/17 07:52 Dose: 2 mg Dextrose/Sodium Chloride (Dextrose 5%-Normal Saline+20 Meq Kcl -) 20 meq in 1, 000 mls @ 100 mls/hr IV ASDIR [facility] Last Admin: 06/26/17 10:41 Dose: Not Given Potassium Chloride 10 meq/ (Sodium Chloride) 105 mls @ 105 mls/hr IVPB Q1H [facility] Stop: 06/26/17 13:29 Last Admin: 06/26/17 11:40 Dose: 105 mls/hr Lactobacillus Acidophilus (Bacid -) 1 tab PO DAILY [facility] Last Admin: 06/26/17 09:57 Dose: 1 tab Lidocaine (Lidoderm Patch -) 1 patch TP DAILY [facility] Last Admin: 06/26/17 09:58 Dose: 1 patch Loratadine (Claritin -) 10 mg PO DAILY [facility] Last Admin: 06/26/17 09:57 Dose: 10 mg Metoclopramide HCl (Reglan Injection -) 10 mg IVPUSH Q6H [facility] Last Admin: 06/26/17 11:18 Dose: 10 mg Miscellaneous (Lidoderm Patch Removal) 1 each MC DAILY@2200 [facility] Last Admin: 06/25/17 21:53 Dose: 1 each Multivitamins/Minerals (Infuvite Adult -) 10 ml IV DAILY [facility] Last Admin: 06/26/17 09:57 Dose: 10 ml Ondansetron HCl (Zofran Injection) 8 mg IVPUSH Q4H PRN PRN Reason: NAUSEA Last Admin: 06/24/17 10:39 Dose: 8 mg Pantoprazole Sodium (Protonix -) 40 mg PO DAILY [facility] Last Admin: 06/26/17 09:57 Dose: 40 mg Polyethylene Glycol (Miralax (For Daily Use) -) 17 gm PO BID [facility] Last Admin: 06/26/17 09:59 Dose: Not Given - Objective Vital Signs: Vital Signs Temperature 98.1 F 06/26/17 05:59 Pulse Rate 74 06/26/17 05:59 Respiratory Rate 20 06/26/17 05:59 Blood Pressure 142/80 06/26/17 05:59 O2 Sat by Pulse Oximetry (%) 96 06/25/17 21:00 Labs: CBC, BMP 06/26/17 06:30 06/26/17 06:30 INR, PTT INR 0.91 (0.82-1.09) 06/21/17 06:00 Assessment/Plan Continue current management including diet Reglan 30 min ac meals discussed with the pt's nurse Trial of antispasmodic may be an option, if continues to experience spasmodic/ colicky abdominal pain, as long as there is no ileus, or bowel obstruction Will follow Dr. Renae will resume coverage Wednesday
[2017-06-26] MEDS ORDERED: MAGNESIUM SULF 50% (8.12 MEQ/2 ML-1 GM VIAL) IVPB ONE (14:33)
[2017-06-26] MEDS ORDERED: MAGNESIUM SULFATE IN WATER 2 GM/50 ML IVPB IVPB ONE (14:45)
[2017-06-26] MEDS ORDERED: HYDROmorphone HCL CARPU-JECT 2 MG/1 ML DISP.SYRIN IVPB ONE (16:15)
[2017-06-26 16:42] LABS: ALBUMIN 3.5 g/dl (3.4-5.0); ALK PHOS 64 U/L (45-117); ANION GAP 6 (8-16); BILIRUBIN,TOTAL 0.5 mg/dL (0.2-1.0); BLOOD UREA NITROGEN 8 mg/dL (7-18); CALCIUM 7.4 mg/dL (8.5-10.1); CHLORIDE 102 mmol/L (98-107); CO2 30 mmol/L (21-32); CREATININE 1.1 mg/dL (0.55-1.02); GLUCOSE,RANDOM 108 mg/dL (74-106); MAGNESIUM 1.3 mg/dL (1.8-2.4); POTASSIUM 3.5 mmol/L (3.5-5.1); SGOT/AST 25 U/L (15-37); SGPT/ALT 54 U/L (12-78); SODIUM 138 mmol/L (136-145); TOT PROT 6.6 g/dl (6.4-8.2)
--- NOTE | 2017-06-26 17:19 | PN ---
Progress Note (short form) - Note Progress Note: PAtient seen and examined Feels OK . Denies any complaints Last Vital Signs Temp Pulse Resp BP Pulse Ox 98.3 F 82 20 131/79 98 06/26/17 14:37 06/26/17 14:37 06/26/17 14:37 06/26/17 14:37 06/26/17 09:00 Cor: RSR, No murmurs, No gallops Lungs: Clear to P&A Abd: Soft, Normal bowel sounds,+ colostomy/ileal conduit, PCNs Ext:No significant edema Abnormal Lab Results 06/26/17 06/26/17 06/26/17 06:30 06:30 15:30 RBC 2.61 L Hgb 7.9 L Hct 23.6 L Potassium 3.2 L Carbon Dioxide 35 H Anion Gap 4 L 6 L Creatinine 1.1 H 1.1 H Random Glucose 108 H Calcium 7.7 L 7.4 L Magnesium 1.7 L 1.3 L Active Medications Generic Name Dose Route Start Last Admin Trade Name Freq PRN Reason Stop Dose Admin Amlodipine Besylate 5 mg 06/15/17 10:00 06/26/17 09:57 Norvasc - PO 5 mg DAILY [facility] Administration Escitalopram Oxalate 10 mg 06/15/17 10:00 06/26/17 09:57 Lexapro - PO 10 mg DAILY [facility] Administration Heparin Sodium (Porcine) 5 ml 06/14/17 18:13 Hep-Lock - IVPUSH PRN PRN WHEN NOT IN USE Heparin Sodium (Porcine) 5,000 unit 06/20/17 22:00 06/26/17 09:57 Heparin - SQ 5,000 unit BID [facility] Administration Dextrose/Sodium Chloride 20 meq in 1,000 mls @ 100 mls/hr 06/24/17 10:15 08/08 10:41 Dextrose 5%-Normal Saline+20 Meq Kcl - IV Not Given ASDIR [facility] Lactobacillus Acidophilus 1 tab 06/23/17 10:00 06/26/17 09:57 Bacid - PO 1 tab DAILY [facility] Administration Lidocaine 1 patch 06/22/17 10:00 06/26/17 09:58 Lidoderm Patch - TP 1 patch DAILY [facility] Administration Loratadine 10 mg 06/15/17 10:00 06/26/17 09:57 Claritin - PO 10 mg DAILY [facility] Administration Metoclopramide HCl 10 mg 06/25/17 17:00 06/26/17 16:58 Reglan Injection - IVPUSH 10 mg Q6H [facility] Administration Miscellaneous 1 each 06/22/17 22:00 06/25/17 21:53 Lidoderm Patch Removal MC 1 each DAILY@2200 [facility] Administration Multivitamins/Minerals 10 ml 06/21/17 10:00 06/26/17 09:57 Infuvite Adult - IV 10 ml DAILY [facility] Administration Ondansetron HCl 8 mg 06/23/17 18:24 06/24/17 10:39 Zofran Injection IVPUSH 8 mg Q4H PRN Administration NAUSEA Pantoprazole Sodium 40 mg 06/23/17 10:00 06/26/17 09:57 Protonix - PO 40 mg DAILY [facility] Administration Polyethylene Glycol 17 gm 06/14/17 22:00 06/26/17 09:59 Miralax (For Daily Use) - PO Not Given BID [facility] A/P 52 y/o patient with Recurrent Cervical ADENO carcinoma -Rx thus far over a period of two years: ADIS, Cis/RT, then recurrence, carbo/ taxol/avastin, pelvic exenteration, then carbo/taxotere. Now with new recent recurrence. Anemia: -ACD/ACI -monitor for now and transfuse if hgb <7 SALVADOR: -improving SBO -resolved N/V Symptomatic management Headache resolved, CTH negative
--- NOTE | 2017-06-26 19:54 | PN ---
Progress Note (short form) - Note Progress Note: vomited 600cc today rest of the day uneventful k 3.2 earlier, replaced mag 1.7 replacing problems: Dehydration/Hypernatremia/SALVADOR - obstructive uropathy presented with recurrent vomiting persistent x 2 weeks 2/2 recurrent partial small bowel obstruction came to ER 06/12 whe serum Na 150 and s creatinine 1.5 was given IVF NS one liter and released admitted on 06/15 h/o abd/intestinal surgeries Probable adhesions h/o pelvic/cervical ca HTN allergic rhinitis s/p perc nephrostomy and diuresing profusely no nausea thirsty and drinking a lot no vomiting still passing stool more consistently she was examined at bedside CBC, BMP 06/26/17 06:30 06/26/17 15:30 CBC, BMP 06/24/17 06:00 06/24/17 02:00 IMP- partial small bowel obstruction- vomiting on ivf constipation - passing stool anemia- holding off prbc transfusion electrolyte abnormalities (hypomagnesemia, hypokalemia) discussed with IR, waiting for numbers to get better plan is for ureteral stents percutaneous if she can be discharged, follow up with IR will be arranged as outpatient Persistent nausea and vomiting s/p hedache- no visual disturbance IVF 100cc Obstructive Uropathy s/p padmini percutaneous nephrostomy urinating profusely, s/p acute renal failure - renal scan- there is uptake of tracer in both kidneys, no appearance of tracer in the ureters per renal scan c/w ATN vs complete bilateral ureteral obstruction (unlikely since she has good urine output) SALVADOR 2/2 dehydration, hypotension (not all documented) PPI (pantoprazole) was given on admission but the is no evidence of AIN, U/A is completely clear Perisitent Hypokalemia- persistent hypocalcemia- corrected calcium 8.2 , s/p replacement (of K and Mag) will f/u today partial small bowel obstruction +/- ileus 2/2 pain and hypokalemia which is very slowl resolving HTN- BPs low at times, not orthostatic now, routine monitoring Anemia - improved h/h, may be partly due to hemodilution (prerenal pattern and contraction alkalosis have resolved) not dizzy on standing and walking Leukopenia stable Plan- IVF 100 per hour plus piggyback riders Problem List - Problems (1) Status post chemotherapy Code(s): Z92.21 - PERSONAL HISTORY OF ANTINEOPLASTIC CHEMOTHERAPY (2) Small bowel obstruction due to adhesions Code(s): K56.50 - INTESTNL ADHESIONS, UNSP TO PARTIAL VERSUS COMPLETE OBST
[2017-06-26] MEDS: LIDOCAINE PATCH REMOVAL MC SCH (21:30)
[2017-06-27] MEDS: HYDROmorphone HCL CARPU-JECT 2 MG/1 ML DISP.SYRIN IVPB PRN ×4 (04:07→23:34)
[2017-06-27] MEDS: METOCLOPRAMIDE HCL INJECTION 10 MG/2 ML VIAL IVPUSH SCH ×4 (05:45→22:50)
[2017-06-27] MEDS: D5-NS + 20 MEQ KCL - 20 MEQ/1,000 ML INFUS.BAG IV SCH ×3 (06:18→17:39)
[2017-06-27 08:01] LABS: BASO % 0.4 % (0-2.0); EOS % 1.4 % (0-4.5); HEMATOCRIT 22.9 % (32.4-45.2); HEMOGLOBIN 7.6 GM/dL (10.7-15.3); LYMPH % 13.7 % (8-40); MCH 29.9 pg (25.7-33.7); MCHC 33.1 g/dl (32.0-36.0); MEAN CELL VOLUME 90.3 fl (80-96); MEAN PLT VOLUME 7.9 fl (7.5-11.1); MONO % 7.1 % (3.8-10.2); NEUT % 77.4 % (42.8-82.8); PLATELET COUNT 329 K/MM3 (134-434); RBC 2.53 M/mm3 (3.60-5.2); RDW 13.1 % (11.6-15.6); WHITE BLOOD COUNT 5.5 K/mm3 (4.0-10.0)
[2017-06-27 08:05] LABS: CHLORIDE 102 mmol/L (98-107); POTASSIUM 4.1 mmol/L (3.5-5.1); SODIUM 140 mmol/L (136-145)
[2017-06-27 08:34] LABS: ALBUMIN 3.4 g/dl (3.4-5.0); ALK PHOS 67 U/L (45-117); ANION GAP 11 (8-16); BILIRUBIN,TOTAL 0.7 mg/dL (0.2-1.0); BLOOD UREA NITROGEN 5 mg/dL (7-18); CALCIUM 8.1 mg/dL (8.5-10.1); CO2 27 mmol/L (21-32); CREATININE 1.1 mg/dL (0.55-1.02); GLUCOSE,RANDOM 115 mg/dL (74-106); MAGNESIUM 1.6 mg/dL (1.8-2.4); PHOSPHOROUS 3.4 mg/dL (2.5-4.9); SGOT/AST 28 U/L (15-37); SGPT/ALT 56 U/L (12-78)
[2017-06-27] MEDS: MULTIVIT INJ. ADULT COMBO WITH VIT K 1 COMBO 10 ML VIAL IV SCH (10:03)
[2017-06-27] MEDS: PANTOPRAZOLE 40 MG TABLET (FP) PO SCH (10:03)
[2017-06-27] MEDS: LORATADINE 10 MG TABLET PO SCH (10:03)
[2017-06-27] MEDS: ESCITALOPRAM OXALATE 10 MG TABLET (FP) PO SCH (10:03)
[2017-06-27] MEDS: LACTOBACILLUS ACIDOPHILUS 1 EACH TAB (FP) PO SCH (10:03)
[2017-06-27] MEDS: amLODIPine BESYLATE 5 MG TABLET (FP) PO SCH (10:04)
[2017-06-27] MEDS: LIDOCAINE 5% TOPICAL PATCH TP SCH (10:04)
[2017-06-27] MEDS: POLYETHYLENE GLYCOL 3350 119 GM BTL PO SCH (10:04)
[2017-06-27] MEDS: HEPARIN NA (PORCINE) 5,000 UNITS/ML 1ML VIAL SQ SCH ×2 (10:04→22:50)
[2017-06-27] MEDS ORDERED: MAGNESIUM 2GM/50ML STERILE WATER IVPB IVPB ONE (12:15)
--- NOTE | 2017-06-27 13:35 | PN ---
Progress Note, Physician History of Present Illness: Covering for Dr. Renae, who will return on Wednesday Had an episode of postprandial vomiting this am. Mild nausea present. Tolerates diet with slow po intake - Current Medication List Current Medications: Active Medications Amlodipine Besylate (Norvasc -) 5 mg PO DAILY [facility] Last Admin: 06/27/17 10:04 Dose: 5 mg Escitalopram Oxalate (Lexapro -) 10 mg PO DAILY [facility] Last Admin: 06/27/17 10:03 Dose: 10 mg Heparin Sodium (Porcine) (Hep-Lock -) 5 ml IVPUSH PRN PRN PRN Reason: WHEN NOT IN USE Heparin Sodium (Porcine) (Heparin -) 5,000 unit SQ BID [facility] Last Admin: 06/27/17 10:04 Dose: 5,000 unit Hydromorphone HCl (Dilaudid Injection -) 2 mg IVPB Q4H PRN PRN Reason: PAIN Last Admin: 06/27/17 10:04 Dose: 2 mg Dextrose/Sodium Chloride (Dextrose 5%-Normal Saline+20 Meq Kcl -) 20 meq in 1, 000 mls @ 100 mls/hr IV ASDIR [facility] Last Admin: 06/27/17 10:53 Dose: Not Given Lactobacillus Acidophilus (Bacid -) 1 tab PO DAILY [facility] Last Admin: 06/27/17 10:03 Dose: 1 tab Lidocaine (Lidoderm Patch -) 1 patch TP DAILY [facility] Last Admin: 06/27/17 10:04 Dose: 1 patch Loratadine (Claritin -) 10 mg PO DAILY [facility] Last Admin: 06/27/17 10:03 Dose: 10 mg Metoclopramide HCl (Reglan Injection -) 10 mg IVPUSH Q6H [facility] Last Admin: 06/27/17 10:03 Dose: 10 mg Miscellaneous (Lidoderm Patch Removal) 1 each MC DAILY@2200 [facility] Last Admin: 06/26/17 21:30 Dose: 1 each Multivitamins/Minerals (Infuvite Adult -) 10 ml IV DAILY [facility] Last Admin: 06/27/17 10:03 Dose: 10 ml Ondansetron HCl (Zofran Injection) 8 mg IVPUSH Q4H PRN PRN Reason: NAUSEA Last Admin: 06/24/17 10:39 Dose: 8 mg Pantoprazole Sodium (Protonix -) 40 mg PO DAILY [facility] Last Admin: 06/27/17 10:03 Dose: 40 mg Polyethylene Glycol (Miralax (For Daily Use) -) 17 gm PO BID [facility] Last Admin: 06/27/17 10:04 Dose: 17 gm - Objective Vital Signs: Vital Signs Temperature 98.5 F 06/27/17 09:00 Pulse Rate 83 06/27/17 09:00 Respiratory Rate 18 06/27/17 09:00 Blood Pressure 143/89 06/27/17 09:00 O2 Sat by Pulse Oximetry (%) 96 06/27/17 09:00 Constitutional: Yes: No Distress, Calm Eyes: Yes: Conjunctiva Clear HENT: Yes: Atraumatic Neck: Yes: Supple Gastrointestinal: Yes: Soft Labs: CBC, BMP 06/27/17 06:25 06/27/17 06:25 INR, PTT INR 0.91 (0.82-1.09) 06/21/17 06:00 CBCD WBC 5.5 K/mm3 (4.0-10.0) 06/27/17 06:25 RBC 2.53 M/mm3 (3.60-5.2) L 06/27/17 06:25 Hgb 7.6 GM/dL (10.7-15.3) L 06/27/17 06:25 Hct 22.9 % (32.4-45.2) L 06/27/17 06:25 MCV 90.3 fl (80-96) 06/27/17 06:25 MCHC 33.1 g/dl (32.0-36.0) 06/27/17 06:25 RDW 13.1 % (11.6-15.6) 06/27/17 06:25 Plt Count 329 K/MM3 (134-434) 06/27/17 06:25 MPV 7.9 fl (7.5-11.1) 06/27/17 06:25 CMP Sodium 140 mmol/L (136-145) 06/27/17 06:25 Potassium 4.1 mmol/L (3.5-5.1) 06/27/17 06:25 Chloride 102 mmol/L (98-107) 06/27/17 06:25 Carbon Dioxide 27 mmol/L (21-32) 06/27/17 06:25 Anion Gap 11 (8-16) 06/27/17 06:25 BUN 5 mg/dL (7-18) L 06/27/17 06:25 Creatinine 1.1 mg/dL (0.55-1.02) H 06/27/17 06:25 Creat Clearance w eGFR 52.58 (>60) 06/27/17 06:25 Calcium 8.1 mg/dL (8.5-10.1) L 06/27/17 06:25 Total Bilirubin 0.7 mg/dL (0.2-1.0) D 06/27/17 06:25 AST 28 U/L (15-37) 06/27/17 06:25 ALT 56 U/L (12-78) 06/27/17 06:25 Alkaline Phosphatase 67 U/L (45-117) 06/27/17 06:25 Total Protein 7.0 g/dl (6.4-8.2) 06/27/17 06:25 Albumin 3.4 g/dl (3.4-5.0) 06/27/17 06:25 Problem List - Problems (1) Postprandial abdominal bloating Code(s): R14.0 - ABDOMINAL DISTENSION (GASEOUS) (2) Cervical adenocarcinoma Code(s): C53.9 - MALIGNANT NEOPLASM OF CERVIX UTERI, UNSPECIFIED (3) Colostomy in place Code(s): Z93.3 - COLOSTOMY STATUS (4) History of ileal conduit Code(s): Z98.890 - OTHER SPECIFIED POSTPROCEDURAL STATES Assessment/Plan Continue current management including the diet. Slow intake, small, frequent meals Reglan 30 min ac meals Trial of antispasmodic may be an option, if continues to experience spasmodic/ colicky abdominal pain, as long as there is no ileus, or bowel obstruction Will follow Dr. Renae will resume coverage Tomorrow
--- NOTE | 2017-06-27 14:22 | PN ---
Progress Note (short form) - Note Progress Note: s/p vomiting 700 cc this morning undigested food unclear if dialudid contributes to vomiting and nausea "I eat, then I get pain in abdomen (up to a level 8/10 ) then I vomit " labs reviewed and patient examined problems: Dehydration/Hypernatremia/SALVADOR - obstructive uropathy presented with recurrent vomiting persistent x 2 weeks 2/2 recurrent partial small bowel obstruction came to ER 06/12 whe serum Na 150 and s creatinine 1.5 was given IVF NS one liter and released admitted on 06/15 h/o abd/intestinal surgeries Probable adhesions h/o pelvic/cervical ca HTN allergic rhinitis s/p perc nephrostomy and diuresing profusely no nausea thirsty and drinking a lot no vomiting still passing stool more consistently Active Medications Amlodipine Besylate (Norvasc -) 5 mg PO DAILY [facility] Last Admin: 06/27/17 10:04 Dose: 5 mg Escitalopram Oxalate (Lexapro -) 10 mg PO DAILY [facility] Last Admin: 06/27/17 10:03 Dose: 10 mg Heparin Sodium (Porcine) (Hep-Lock -) 5 ml IVPUSH PRN PRN PRN Reason: WHEN NOT IN USE Heparin Sodium (Porcine) (Heparin -) 5,000 unit SQ BID [facility] Last Admin: 06/27/17 10:04 Dose: 5,000 unit Hydromorphone HCl (Dilaudid Injection -) 2 mg IVPB Q4H PRN PRN Reason: PAIN Last Admin: 06/27/17 10:04 Dose: 2 mg Dextrose/Sodium Chloride (Dextrose 5%-Normal Saline+20 Meq Kcl -) 20 meq in 1, 000 mls @ 100 mls/hr IV ASDIR [facility] Last Admin: 06/27/17 10:53 Dose: Not Given Lactobacillus Acidophilus (Bacid -) 1 tab PO DAILY [facility] Last Admin: 06/27/17 10:03 Dose: 1 tab Lidocaine (Lidoderm Patch -) 1 patch TP DAILY [facility] Last Admin: 06/27/17 10:04 Dose: 1 patch Loratadine (Claritin -) 10 mg PO DAILY [facility] Last Admin: 06/27/17 10:03 Dose: 10 mg Metoclopramide HCl (Reglan Injection -) 10 mg IVPUSH Q6H [facility] Last Admin: 06/27/17 10:03 Dose: 10 mg Miscellaneous (Lidoderm Patch Removal) 1 each MC DAILY@2200 [facility] Last Admin: 06/26/17 21:30 Dose: 1 each Multivitamins/Minerals (Infuvite Adult -) 10 ml IV DAILY [facility] Last Admin: 06/27/17 10:03 Dose: 10 ml Ondansetron HCl (Zofran Injection) 8 mg IVPUSH Q4H PRN PRN Reason: NAUSEA Last Admin: 06/24/17 10:39 Dose: 8 mg Pantoprazole Sodium (Protonix -) 40 mg PO DAILY [facility] Last Admin: 06/27/17 10:03 Dose: 40 mg Polyethylene Glycol (Miralax (For Daily Use) -) 17 gm PO BID [facility] Last Admin: 06/27/17 10:04 Dose: 17 gm Last Vital Signs Temp Pulse Resp BP Pulse Ox 98.5 F 83 18 143/89 96 06/27/17 09:00 06/27/17 09:00 06/27/17 09:00 06/27/17 09:00 06/27/17 09:00 she was examined at bedside More energetic Lungs clear Heart reg Abd soft Ext no edema CBC, BMP 06/27/17 06:25 06/27/17 06:25 CBC, BMP 06/26/17 06:30 06/26/17 15:30 CBC, BMP 06/24/17 06:00 06/24/17 02:00 IMP- Abd Pain after meals raises question of intestinal ischemia/angina? K is better but may come down from vomiting Mg++ was low- replaced anemia- no sob no lightheadedness, holding off transfusion for now, last week: discussed with IR, waiting for numbers to get better plan is for ureteral stents percutaneous if she can be discharged, follow up with IR will be arranged as outpatient Persistent nausea and vomiting s/p hedache- no visual disturbance Obstructive Uropathy s/p padmini percutaneous nephrostomy urinating profusely, s/p acute renal failure - renal scan- there is uptake of tracer in both kidneys, no appearance of tracer in the ureters per renal scan c/w ATN vs complete bilateral ureteral obstruction (unlikely since she has good urine output) SALVADOR 2/2 dehydration, hypotension (not all documented) PPI (pantoprazole) was given on admission but the is no evidence of AIN, U/A is completely clear Perisitent Hypokalemia- persistent hypocalcemia- corrected calcium 8.2 , s/p replacement (of K and Mag) will f/u today partial small bowel obstruction +/- ileus 2/2 pain and hypokalemia which is very slowl resolving HTN- BPs low at times, not orthostatic now, routine monitoring Anemia - improved h/h, may be partly due to hemodilution (prerenal pattern and contraction alkalosis have resolved) not dizzy on standing and walking Leukopenia stable Plan- decrease IVF to 75cc/hr follow up with IR tomorrow for antegrade stents check bmp and mag this evening to monitor levels Problem List - Problems (1) Status post chemotherapy Code(s): Z92.21 - PERSONAL HISTORY OF ANTINEOPLASTIC CHEMOTHERAPY (2) Small bowel obstruction due to adhesions Code(s): K56.50 - INTESTNL ADHESIONS, UNSP TO PARTIAL VERSUS COMPLETE OBST
[2017-06-27] MEDS ORDERED: ACETAMINOPHEN 1000 MG/100 ML VIAL (NON FORMULARY) IVPB PRN (17:28)
[2017-06-27 20:21] LABS: ANION GAP 6 (8-16); BLOOD UREA NITROGEN 5 mg/dL (7-18); CALCIUM 7.7 mg/dL (8.5-10.1); CHLORIDE 102 mmol/L (98-107); CO2 30 mmol/L (21-32); CREATININE 1.1 mg/dL (0.55-1.02); GLUCOSE,RANDOM 109 mg/dL (74-106); MAGNESIUM 1.8 mg/dL (1.8-2.4); POTASSIUM 3.6 mmol/L (3.5-5.1); SODIUM 138 mmol/L (136-145)
[2017-06-27] MEDS ORDERED: ACETAMINOPHEN 325 MG TABLET (FP) PO ONE (21:15)
[2017-06-27] MEDS ORDERED: oxyCODONE HCL 5 MG TABLET PO ONE (21:15)
[2017-06-27] MEDS: LIDOCAINE PATCH REMOVAL MC SCH (22:50)
[2017-06-28] MEDS: POLYETHYLENE GLYCOL 3350 119 GM BTL PO SCH ×3 (00:16→22:04)
[2017-06-28] MEDS: D5-NS + 20 MEQ KCL - 20 MEQ/1,000 ML INFUS.BAG IV SCH ×2 (05:34→20:42)
[2017-06-28] MEDS: METOCLOPRAMIDE HCL INJECTION 10 MG/2 ML VIAL IVPUSH SCH ×4 (05:34→22:05)
[2017-06-28 07:20] LABS: ALBUMIN 3.4 g/dl (3.4-5.0); ANION GAP 7 (8-16); BILIRUBIN,TOTAL 0.7 mg/dL (0.2-1.0); BLOOD UREA NITROGEN 6 mg/dL (7-18); CALCIUM 7.8 mg/dL (8.5-10.1); CHLORIDE 101 mmol/L (98-107); CO2 31 mmol/L (21-32); CREATININE 1.1 mg/dL (0.55-1.02); GLUCOSE,RANDOM 110 mg/dL (74-106); MAGNESIUM 1.3 mg/dL (1.8-2.4); PHOSPHOROUS 3.3 mg/dL (2.5-4.9); POTASSIUM 3.5 mmol/L (3.5-5.1); SGOT/AST 20 U/L (15-37); SGPT/ALT 47 U/L (12-78); SODIUM 139 mmol/L (136-145); TOT PROT 6.6 g/dl (6.4-8.2)
[2017-06-28 07:21] LABS: ALK PHOS 69 U/L (45-117)
[2017-06-28] MEDS: HYDROmorphone HCL CARPU-JECT 2 MG/1 ML DISP.SYRIN IVPB PRN (08:35)
[2017-06-28] MEDS: amLODIPine BESYLATE 5 MG TABLET (FP) PO SCH (10:17)
[2017-06-28] MEDS: LORATADINE 10 MG TABLET PO SCH (10:17)
[2017-06-28] MEDS: LIDOCAINE 5% TOPICAL PATCH TP SCH (10:17)
[2017-06-28] MEDS: LACTOBACILLUS ACIDOPHILUS 1 EACH TAB (FP) PO SCH (10:18)
[2017-06-28] MEDS: PANTOPRAZOLE 40 MG TABLET (FP) PO SCH (10:18)
[2017-06-28] MEDS: ESCITALOPRAM OXALATE 10 MG TABLET (FP) PO SCH (10:18)
[2017-06-28] MEDS: HEPARIN NA (PORCINE) 5,000 UNITS/ML 1ML VIAL SQ SCH ×2 (10:18→22:01)
--- NOTE | 2017-06-28 10:20 | PN ---
GI Progress Note Subjective: GI NOte: Continues to vomit postprandially. I have advised a CT enterography to assess the severity of foci of partial small bowel obstructions and for the need for surgery. Will try Relistor to block the GI effects of the narcotics. - Objective Vital Signs: Vital Signs Temperature 98.1 F 06/28/17 10:12 Pulse Rate 84 06/28/17 10:12 Respiratory Rate 18 06/28/17 10:12 Blood Pressure 151/88 06/28/17 10:12 O2 Sat by Pulse Oximetry (%) 97 06/27/17 21:00 Labs: CBC, BMP 06/27/17 06:25 06/28/17 06:30 INR, PTT INR 0.91 (0.82-1.09) 06/21/17 06:00 Assessment/Plan CT enterography Problem List - Problems (1) Small bowel obstruction due to adhesions Code(s): K56.50 - INTESTNL ADHESIONS, UNSP TO PARTIAL VERSUS COMPLETE OBST (2) Cervical adenocarcinoma Code(s): C53.9 - MALIGNANT NEOPLASM OF CERVIX UTERI, UNSPECIFIED (3) History of ileal conduit Code(s): Z98.890 - OTHER SPECIFIED POSTPROCEDURAL STATES (4) Colostomy in place Code(s): Z93.3 - COLOSTOMY STATUS (6) Peripheral neuropathy due to chemotherapy Code(s): G62.0 - DRUG-INDUCED POLYNEUROPATHY; T45.1X5A - ADVERSE EFFECT OF ANTINEOPLASTIC AND IMMUNOSUP DRUGS, INIT (7) Family history of colon cancer in father Code(s): Z80.0 - FAMILY HISTORY OF MALIGNANT NEOPLASM OF DIGESTIVE ORGANS (8) Family history of cervical cancer Code(s): Z80.49 - FAMILY HISTORY OF MALIGNANT NEOPLASM OF OTHER GENITAL ORGANS (9) Radiation enteritis Code(s): K52.0 - GASTROENTERITIS AND COLITIS DUE TO RADIATION (10) Constipation by delayed colonic transit Code(s): K59.01 - SLOW TRANSIT CONSTIPATION (11) Hydronephrosis Code(s): N13.30 - UNSPECIFIED HYDRONEPHROSIS
--- NOTE | 2017-06-28 11:53 | PN ---
Progress Note (short form) - Note Progress Note: s/p vomiting GI f/u appreciated relistor for blocking effects of narcotics pending ct scan enterography other problems: Dehydration/Hypernatremia/SALVADOR - obstructive uropathy presented with recurrent vomiting persistent x 2 weeks 2/2 recurrent partial small bowel obstruction came to ER 06/12 whe serum Na 150 and s creatinine 1.5 was given IVF NS one liter and released admitted on 06/15 h/o abd/intestinal surgeries Probable adhesions h/o pelvic/cervical ca HTN allergic rhinitis s/p perc nephrostomy and diuresing profusely no nausea thirsty and drinking a lot no vomiting still passing stool more consistently Active Medications Acetaminophen (Ofirmev Injection -) 1,000 mg IVPB Q6H PRN PRN Reason: PAIN Amlodipine Besylate (Norvasc -) 5 mg PO DAILY [facility] Last Admin: 06/28/17 10:17 Dose: 5 mg Escitalopram Oxalate (Lexapro -) 10 mg PO DAILY [facility] Last Admin: 06/28/17 10:18 Dose: 10 mg Heparin Sodium (Porcine) (Hep-Lock -) 5 ml IVPUSH PRN PRN PRN Reason: WHEN NOT IN USE Heparin Sodium (Porcine) (Heparin -) 5,000 unit SQ BID [facility] Last Admin: 06/28/17 22:01 Dose: 5,000 unit Hydromorphone HCl (Dilaudid Injection -) 2 mg IVPB Q4H PRN PRN Reason: PAIN Last Admin: 06/28/17 20:37 Dose: 2 mg Dextrose/Sodium Chloride (Dextrose 5%-Normal Saline+20 Meq Kcl -) 20 meq in 1, 000 mls @ 75 mls/hr IV ASDIR [facility] Last Admin: 06/28/17 20:42 Dose: 75 mls/hr Lactobacillus Acidophilus (Bacid -) 1 tab PO DAILY [facility] Last Admin: 06/28/17 10:18 Dose: 1 tab Lidocaine (Lidoderm Patch -) 1 patch TP DAILY [facility] Last Admin: 06/28/17 10:17 Dose: 1 patch Loratadine (Claritin -) 10 mg PO DAILY [facility] Last Admin: 06/28/17 10:17 Dose: 10 mg Methylnaltrexone [place] (Relistor -) 8 mg SQ DAILY [facility] Last Admin: 06/28/17 12:47 Dose: 8 mg Metoclopramide HCl (Reglan Injection -) 10 mg IVPUSH Q6H [facility] Last Admin: 06/28/17 22:05 Dose: 10 mg Miscellaneous (Lidoderm Patch Removal) 1 each MC DAILY@2200 [facility] Last Admin: 06/28/17 22:04 Dose: 1 each Multivitamins/Minerals (Infuvite Adult -) 10 ml IV DAILY [facility] Last Admin: 06/28/17 12:47 Dose: 10 ml Ondansetron HCl (Zofran Injection) 8 mg IVPUSH Q4H PRN PRN Reason: NAUSEA Last Admin: 06/24/17 10:39 Dose: 8 mg Pantoprazole Sodium (Protonix -) 40 mg PO DAILY [facility] Last Admin: 06/28/17 10:18 Dose: 40 mg Polyethylene Glycol (Miralax (For Daily Use) -) 17 gm PO BID [facility] Last Admin: 06/28/17 22:04 Dose: Not Given Last Vital Signs Temp Pulse Resp BP Pulse Ox 98.1 F 84 18 151/88 97 06/28/17 10:12 06/28/17 10:12 06/28/17 10:12 06/28/17 10:12 06/27/17 21:00 she was examined at bedside More energetic Lungs clear Heart reg Abd soft Ext no edema CBC, BMP 06/27/17 06:25 06/28/17 06:30 CBC, BMP 06/27/17 06:25 06/27/17 06:25 CBC, BMP 06/26/17 06:30 06/26/17 15:30 CBC, BMP 06/24/17 06:00 06/24/17 02:00 IMP- Left sciatica r/o malignant involvement of spinal nerve agree with ct scan enterography Abd Pain after meals raises question of intestinal ischemia/angina? K is better but may come down from vomiting Mg++ was low- replaced anemia- no sob no lightheadedness, holding off transfusion for now, today- discussed with IR, waiting for numbers to get better plan is for ureteral stents percutaneous if she can be discharged, follow up with IR will be arranged as outpatient Persistent nausea and vomiting s/p hedache- no visual disturbance head ct scan normal Obstructive Uropathy s/p padmini percutaneous nephrostomy draining urine profusely, s/p acute renal failure - renal scan- there is uptake of tracer in both kidneys, no appearance of tracer in the ureters per renal scan c/w ATN vs complete bilateral ureteral obstruction (unlikely since she has good urine output) SALVADOR 2/2 dehydration, hypotension (not all documented) PPI (pantoprazole) was given on admission but the is no evidence of AIN, U/A is completely clear Perisitent Hypokalemia- persistent hypocalcemia- corrected calcium 8.2 , s/p replacement (of K and Mag) will f/u today partial small bowel obstruction +/- ileus 2/2 pain and hypokalemia which is very slowl resolving HTN- BPs low at times, not orthostatic now, routine monitoring Anemia - improved h/h, may be partly due to hemodilution (prerenal pattern and contraction alkalosis have resolved) not dizzy on standing and walking Leukopenia stable Plan- decrease IVF to 75cc/hr follow up with IR tomorrow for antegrade stents check bmp and mag this evening to monitor levels Problem List - Problems (1) Status post chemotherapy Code(s): Z92.21 - PERSONAL HISTORY OF ANTINEOPLASTIC CHEMOTHERAPY (2) Small bowel obstruction due to adhesions Code(s): K56.50 - INTESTNL ADHESIONS, UNSP TO PARTIAL VERSUS COMPLETE OBST
[2017-06-28] MEDS ORDERED: MAGNESIUM SULF 50% (8.12 MEQ/2 ML-1 GM VIAL) IVPB ONE (12:29)
--- NOTE | 2017-06-28 12:37 | PN ---
Progress Note, Physician History of Present Illness: h/o multiple abdominal surgeries; CA; HTN; now with vomiting and decreased PO intake x 2+ weeks assoc with moderate to severe abd pain and decreased bowel movements was seen in er 2 days ago and was given 1 bag of ivf, released from er same day. labs in er showed azotemia, hypokalemia, hypernatremia abd xray shows early pattern of intestinal obstruction - Current Medication List Current Medications: Active Medications Acetaminophen (Ofirmev Injection -) 1,000 mg IVPB Q6H PRN PRN Reason: PAIN Amlodipine Besylate (Norvasc -) 5 mg PO DAILY [facility] Last Admin: 06/28/17 10:17 Dose: 5 mg Escitalopram Oxalate (Lexapro -) 10 mg PO DAILY [facility] Last Admin: 06/28/17 10:18 Dose: 10 mg Heparin Sodium (Porcine) (Hep-Lock -) 5 ml IVPUSH PRN PRN PRN Reason: WHEN NOT IN USE Heparin Sodium (Porcine) (Heparin -) 5,000 unit SQ BID [facility] Last Admin: 06/28/17 10:18 Dose: 5,000 unit Hydromorphone HCl (Dilaudid Injection -) 2 mg IVPB Q4H PRN PRN Reason: PAIN Last Admin: 06/28/17 08:35 Dose: 2 mg Dextrose/Sodium Chloride (Dextrose 5%-Normal Saline+20 Meq Kcl -) 20 meq in 1, 000 mls @ 75 mls/hr IV ASDIR [facility] Last Admin: 06/28/17 05:34 Dose: 75 mls/hr MAGNESIUM SULFATE IN WATER (Magnesium Sulf 2 G/50 Ml Bag) 2 gm in 50 mls @ 50 mls/hr IVPB ONCE ONE Stop: 06/28/17 13:59 Lactobacillus Acidophilus (Bacid -) 1 tab PO DAILY [facility] Last Admin: 06/28/17 10:18 Dose: 1 tab Lidocaine (Lidoderm Patch -) 1 patch TP DAILY [facility] Last Admin: 06/28/17 10:17 Dose: 1 patch Loratadine (Claritin -) 10 mg PO DAILY [facility] Last Admin: 06/28/17 10:17 Dose: 10 mg Methylnaltrexone [place] (Relistor -) 8 mg SQ DAILY [facility] Metoclopramide HCl (Reglan Injection -) 10 mg IVPUSH Q6H [facility] Last Admin: 06/28/17 10:55 Dose: 10 mg Miscellaneous (Lidoderm Patch Removal) 1 each MC DAILY@2200 [facility] Last Admin: 06/27/17 22:50 Dose: 1 each Multivitamins/Minerals (Infuvite Adult -) 10 ml IV DAILY [facility] Last Admin: 06/27/17 10:03 Dose: 10 ml Ondansetron HCl (Zofran Injection) 8 mg IVPUSH Q4H PRN PRN Reason: NAUSEA Last Admin: 06/24/17 10:39 Dose: 8 mg Pantoprazole Sodium (Protonix -) 40 mg PO DAILY [facility] Last Admin: 06/28/17 10:18 Dose: 40 mg Polyethylene Glycol (Miralax (For Daily Use) -) 17 gm PO BID [facility] Last Admin: 06/28/17 10:18 Dose: 17 gm - Objective Vital Signs: Vital Signs Temperature 98.1 F 06/28/17 10:12 Pulse Rate 84 06/28/17 10:12 Respiratory Rate 18 06/28/17 10:12 Blood Pressure 151/88 06/28/17 10:12 O2 Sat by Pulse Oximetry (%) 97 06/27/17 21:00 Eyes: Yes: WNL, Conjunctiva Clear, EOM Intact HENT: Yes: WNL, Atraumatic, Normocephalic Neck: Yes: WNL, Supple, Trachea Midline Cardiovascular: Yes: WNL, Regular Rate and Rhythm Respiratory: Yes: WNL, Regular, CTA Bilaterally Gastrointestinal: Yes: WNL, Normal Bowel Sounds Genitourinary: Yes: WNL Musculoskeletal: Yes: WNL Extremities: Yes: WNL Edema: No Integumentary: Yes: WNL Neurological: Yes: WNL, Alert, Oriented ...Motor Strength: WNL Psychiatric: Yes: WNL Labs: CBC, BMP 06/27/17 06:25 06/28/17 06:30 INR, PTT INR 0.91 (0.82-1.09) 06/21/17 06:00 Assessment/Plan - Problems (1) Small bowel obstruction due to adhesions Assessment/Plan: F/u with GI.May require further imaging studies. Code(s): K56.50 - INTESTNL ADHESIONS, UNSP TO PARTIAL VERSUS COMPLETE OBST (2) Status post chemotherapy Assessment/Plan: f/u with hem/oncologist. ECHO 06/23/2017: normal LVEF; normal chamber sizes. Code(s): Z92.21 - PERSONAL HISTORY OF ANTINEOPLASTIC CHEMOTHERAPY (3) Hypertension Assessment/Plan: On amlodipine. No orthostatic changes. Code(s): I10 - ESSENTIAL (PRIMARY) HYPERTENSION (4) Renal dysfunction Assessment/Plan: AbD CT: moderately severe hydronephrosis (increased on left). Renal scan: cannot r/o obstruction (vs ATN. Improving Cr post-nephrostomy tubes. Replete electrolytes. F/u Is and Os. F/u with nephrology/. May require ureteral stents as outpatient. Code(s): N28.9 - DISORDER OF KIDNEY AND URETER, UNSPECIFIED (5) Cervical adenocarcinoma Assessment/Plan: Now with headache; occasional tingling in LE. (pt says this occurred before when undergoing chemotherapy). CT head unremarkable; may have MRI to r/o metastases. Code(s): C53.9 - MALIGNANT NEOPLASM OF CERVIX UTERI, UNSPECIFIED (6) Electrolyte abnormality Assessment/Plan: Mg 1.0; will give 4 g Magnesium sulfate IVPB. Keep PO4 2.5-3.5. Keep Na 135-145 Keep K 4-4.5. Code(s): E87.8 - OTH DISORDERS OF ELECTROLYTE AND FLUID BALANCE, NEC (7) Anxiety and depression Code(s): F41.8 - OTHER SPECIFIED ANXIETY DISORDERS anemia - f/u hct transfuse as needed
[2017-06-28] MEDS: Methylnaltrexone Bromide 12 MG/0.6 ML KIT SQ SCH (12:47)
[2017-06-28] MEDS: MULTIVIT INJ. ADULT COMBO WITH VIT K 1 COMBO 10 ML VIAL IV SCH (12:47)
[2017-06-28] MEDS ORDERED: MAGNESIUM SULFATE IN WATER 2 GM/50 ML IVPB IVPB ONE (13:00)
[2017-06-28] MEDS: HYDROmorphone HCL CARPU-JECT 1 MG/1 ML DISP.SYRIN IVPB PRN ×2 (13:00→20:37)
[2017-06-28] MEDS ORDERED: MAGNESIUM SULF 50% (8.12 MEQ/2 ML-1 GM VIAL) ONE (13:41)
--- NOTE | 2017-06-28 17:22 | CON.NEURO ---
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 s/p hyster for fibroids and reportedly adenoCA detected. 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 s/p pelvic exenteration, colostomy. ileal conduit. s/p carbo/taxotere ([facility] thru 02/07, + recurrent adenoaCa. developed ARF--found to have Obstructive Uropathy s/p padmini percutaneous nephrostomy, urinating profusely, pain in the left leg-- as per PMD , appear to be more than to be expected even with recent surgical interventions. She reports pain that radiates down the left leg to foot. HX of neuropathy and numbness of both feet. denies weakness. MRI pelvis -- 04/09 reviewed. 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 ) ...LMP: 06/14/14 ...: No Psych: Yes: Anxiety - Past Surgical History Past Surgical History: Yes: Appendectomy (during pelvic exenteration 11/06), Colectomy, Colonoscopy, Colostomy, , Cystectomy, Hysterectomy ([facility] 2014 revealing adenocarcinoma of cervix), Ileal Conduit, Oopherectomy, Upper Endoscopy Additional Surgical History: Pelvic exenteration including appendectomy, ileal conduit and LLQ colostomy creations - Alcohol/Substance Use Hx Alcohol Use: Yes (rare) - Smoking History Smoking history: Never smoked Have you smoked in the past 12 months: No Aproximately how many cigarettes per day: 0 - Social History Usual Living Arrangement: With Spouse ADL: Family Assistance 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 History of Recent Travel: Yes ([place] 05/09) Home Medications - Allergies Allergies/Adverse Reactions: Allergies Allergy/AdvReac Type Severity Reaction Status Date / Time cisplatin Allergy Severe rash and Verified 06/12/17 14:18 chest pain - Home Medications Home Medications: Ambulatory Orders Amlodipine Besylate [Norvasc -] 5 mg PO DAILY 03/05/16 Cetirizine HCl [Zyrtec -] 10 mg PO DAILY 03/05/16 Cetirizine HCl [Zyrtec -] 10 mg PO DAILY 06/14/17 Family Disease History - Family Disease History Family Disease History: CA: Father ( colon cancer age 62), Mother (HPV cervical cancer survivor ), Sister (HPV cervical cancer survivor ) Physical Exam-Neuro Vital Signs: Vital Signs Temperature 98.2 F 06/28/17 14:21 Pulse Rate 85 06/28/17 14:21 Respiratory Rate 20 06/28/17 14:21 Blood Pressure 144/83 06/28/17 14:21 O2 Sat by Pulse Oximetry (%) 97 06/28/17 09:00 Constitutional: Yes: Well Nourished Labs: CBC, BMP 06/27/17 06:25 06/28/17 06:30 INR, PTT INR 0.91 (0.82-1.09) 06/21/17 06:00 - Neuro Exam Level Of Consciousness: Yes: Alert, Oriented to Person, Oriented to Place Eyes: Yes: PERRLA Cranial Nerves II-XII Intact: Yes DTR's: 1+ Left Achilles, 1+ Right Achilles Babinski: Absent (5/5 UE and LE strength (includes L TA, ham, quad, IP inversion /eversion, SLR + 45 degrees L, Achilles 1+ , patellar 3+ , UE 2+3, no level) Motor Strength: 5/5: Left Arm, Right Arm, Left Leg, Right Leg Imaging - Results MRI: Report Reviewed, Image Reviewed Problem List - Problems (1) Obstructive uropathy Code(s): N13.9 - OBSTRUCTIVE AND REFLUX UROPATHY, UNSPECIFIED (2) Sciatica of left side Code(s): M54.32 - SCIATICA, LEFT SIDE (3) Cervical adenocarcinoma Code(s): C53.9 - MALIGNANT NEOPLASM OF CERVIX UTERI, UNSPECIFIED (4) Colostomy in place Code(s): Z93.3 - COLOSTOMY STATUS Assessment/Plan 52 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 s/p hyster for fibroids and reportedly adenoCA detected. 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 s/p pelvic exenteration, colostomy. ileal conduit. s/p carbo/taxotere ([facility]) thru 02/07, + recurrent adenoaCa. developed ARF--found to have Obstructive Uropathy s/p padmini percutaneous nephrostomy, urinating profusely, pain in the left leg-- as per PMD , appear to be more than to be expected even with recent surgical interventions. She reports pain that radiates down the left leg to foot. HX of neuropathy and numbness of both feet. denies weakness. MRI pelvis -- 04/09 reviewed. possible exacerbation of underlying radiculopathy, though priro scans suggest reoccuring soft tissue malignancy ion th left pelvic wall-- r/o infiltrative lesion S1 check MRI LS SPINE with DORYS if possible if no enhancing infiltrative pathology, consider epidural left S1 when she is more stable she defers starting any new rx for pain Dr Clay
--- NOTE | 2017-06-28 18:57 | ED.PROV ---
Physicial Exam I saw and examined the patient. This is a transfer note written on a progress noted on 06/20/2016 at 1250. Asked to see patient s/p fall. Patient feels fine No SOB, CPor LOC. - Vital Signs Last Vital Signs Temp Pulse Resp BP Pulse Ox 98.2 F 85 20 144/83 97 06/28/17 14:21 06/28/17 14:21 06/28/17 14:21 06/28/17 14:21 06/28/17 09:00 06/28/17 18:52 VS stable - Physical Exam Reason for Response: 06/28/17 18:56 Pt was being transported to another hospital for a procedure and slipped. Asked to see patient before transfer. Patient denied headache, LOC, dizziness. Feels fine. Exam WNL. Recommend to continue monitoring and neuro checks. Pt in agreement with plan. General Appearance: Yes: Nourished HEENT: positive: EOMI, [place], Normal ENT Inspection, Pale Conjunctivae Neck: positive: Trachea midline, Normal Thyroid, Supple (no spinous process tenderness, full ROM) Respiratory/Chest: positive: Lungs Clear, Normal Breath Sounds. negative: Crackles, Rales, Wheezing Cardiovascular: positive: Regular Rhythm, Regular Rate, S1, S2. negative: Murmur Vascular Pulses: Femoral (R): 4+, Femoral (L): 4+, Carotid (R): 4+, Carotid (L) : 4+, Dorsalis-Pedis (R): 4+, Doralis-Pedis (L): 4+ Gastrointestinal/Abdominal: positive: Normal Bowel Sounds, Flat, Soft, Other ( whalen in place). negative: Organomegaly Lymphatic: negative: Adenopathy, Tenderness, Other Musculoskeletal: positive: Normal Inspection. negative: CVA Tenderness Extremity: positive: Normal Capillary Refill, Normal Inspection, Normal Range of Motion, Pelvis Stable. negative: Tender, Pedal Edema, Calf Tenderness Integumentary: positive: Normal Color, Dry, Warm. negative: Erythema, Ecchymosis Neurologic: positive: fireperson II-XII NML intact, Fully Oriented, Alert, Normal Mood/ Affect, Normal Response, Motor Strength 5/5
--- NOTE | 2017-06-28 21:01 | PN ---
Progress Note (short form) - Note Progress Note: PAtient seen and examined Had an episode of emesis today feels weak/tired Last Vital Signs Temp Pulse Resp BP Pulse Ox 98.5 F 84 18 117/75 97 06/28/17 19:09 06/28/17 19:09 06/28/17 19:09 06/28/17 19:09 06/28/17 09:00 Cor: RSR, No murmurs, No gallops Lungs: Clear to P&A Abd: Soft, Normal bowel sounds,+ colostomy/ileal conduit, PCNs Ext:No significant edema Abnormal Lab Results 06/28/17 06:30 Anion Gap 7 L BUN 6 L Creatinine 1.1 H Random Glucose 110 H Calcium 7.8 L Magnesium 1.3 L Active Medications Acetaminophen (Ofirmev Injection -) 1,000 mg IVPB Q6H PRN PRN Reason: PAIN Amlodipine Besylate (Norvasc -) 5 mg PO DAILY [facility] Last Admin: 06/28/17 10:17 Dose: 5 mg Escitalopram Oxalate (Lexapro -) 10 mg PO DAILY [facility] Last Admin: 06/28/17 10:18 Dose: 10 mg Heparin Sodium (Porcine) (Hep-Lock -) 5 ml IVPUSH PRN PRN PRN Reason: WHEN NOT IN USE Heparin Sodium (Porcine) (Heparin -) 5,000 unit SQ BID [facility] Last Admin: 06/28/17 10:18 Dose: 5,000 unit Hydromorphone HCl (Dilaudid Injection -) 2 mg IVPB Q4H PRN PRN Reason: PAIN Last Admin: 06/28/17 20:37 Dose: 2 mg Dextrose/Sodium Chloride (Dextrose 5%-Normal Saline+20 Meq Kcl -) 20 meq in 1, 000 mls @ 75 mls/hr IV ASDIR [facility] Last Admin: 06/28/17 20:42 Dose: 75 mls/hr Lactobacillus Acidophilus (Bacid -) 1 tab PO DAILY [facility] Last Admin: 06/28/17 10:18 Dose: 1 tab Lidocaine (Lidoderm Patch -) 1 patch TP DAILY [facility] Last Admin: 06/28/17 10:17 Dose: 1 patch Loratadine (Claritin -) 10 mg PO DAILY [facility] Last Admin: 06/28/17 10:17 Dose: 10 mg Methylnaltrexone [place] (Relistor -) 8 mg SQ DAILY [facility] Last Admin: 02/05/18 12:47 Dose: 8 mg Metoclopramide HCl (Reglan Injection -) 10 mg IVPUSH Q6H [facility] Last Admin: 06/28/17 17:18 Dose: 10 mg Miscellaneous (Lidoderm Patch Removal) 1 each MC DAILY@2200 [facility] Last Admin: 06/27/17 22:50 Dose: 1 each Multivitamins/Minerals (Infuvite Adult -) 10 ml IV DAILY [facility] Last Admin: 06/28/17 12:47 Dose: 10 ml Ondansetron HCl (Zofran Injection) 8 mg IVPUSH Q4H PRN PRN Reason: NAUSEA Last Admin: 06/24/17 10:39 Dose: 8 mg Pantoprazole Sodium (Protonix -) 40 mg PO DAILY [facility] Last Admin: 06/28/17 10:18 Dose: 40 mg Polyethylene Glycol (Miralax (For Daily Use) -) 17 gm PO BID [facility] Last Admin: 06/28/17 10:18 Dose: 17 gm A/P 52 y/o patient with Recurrent Cervical ADENO carcinoma -Rx thus far over a period of two years: ADIS, Cis/RT, then recurrence, carbo/ taxol/avastin, pelvic exenteration, then carbo/taxotere. Now with new recent recurrence. Anemia: -ACD/ACI transfuse 1 unit PRBCs SALVADOR: -improving SBO --for CT enterography today --to f/u s/p relistor S1 radiculopathy--? check MRI LS spine
[2017-06-28] MEDS: LIDOCAINE PATCH REMOVAL MC SCH (22:04)
[2017-06-29] MEDS: METOCLOPRAMIDE HCL INJECTION 10 MG/2 ML VIAL IVPUSH SCH ×2 (05:40→12:23)
[2017-06-29] MEDS: HYDROmorphone HCL CARPU-JECT 1 MG/1 ML DISP.SYRIN IVPB PRN ×3 (05:42→20:31)
[2017-06-29 07:50] LABS: ALBUMIN 3.6 g/dl (3.4-5.0); ANION GAP 8 (8-16); BLOOD UREA NITROGEN 7 mg/dL (7-18); CALCIUM 8.1 mg/dL (8.5-10.1); CHLORIDE 97 mmol/L (98-107); CO2 31 mmol/L (21-32); GLUCOSE,RANDOM 107 mg/dL (74-106); MAGNESIUM 1.4 mg/dL (1.8-2.4); PHOSPHOROUS 3.9 mg/dL (2.5-4.9); POTASSIUM 3.7 mmol/L (3.5-5.1); SODIUM 136 mmol/L (136-145)
[2017-06-29 07:52] LABS: ALK PHOS 67 U/L (45-117); BILIRUBIN,TOTAL 0.9 mg/dL (0.2-1.0); CREATININE 1.1 mg/dL (0.55-1.02); SGOT/AST 21 U/L (15-37); SGPT/ALT 43 U/L (12-78); TOT PROT 6.8 g/dl (6.4-8.2)
[2017-06-29 08:10] LABS: HEMATOCRIT 24.8 % (32.4-45.2); HEMOGLOBIN 8.6 GM/dL (10.7-15.3); MCH 30.9 pg (25.7-33.7); MCHC 34.5 g/dl (32.0-36.0); MEAN CELL VOLUME 89.5 fl (80-96); MEAN PLT VOLUME 8.1 fl (7.5-11.1); PLATELET COUNT 333 K/MM3 (134-434); RBC 2.77 M/mm3 (3.60-5.2); RDW 13.3 % (11.6-15.6); WHITE BLOOD COUNT 5.8 K/mm3 (4.0-10.0)
[2017-06-29] MEDS: HEPARIN NA (PORCINE) 5,000 UNITS/ML 1ML VIAL SQ SCH ×2 (09:59→21:37)
[2017-06-29] MEDS: LIDOCAINE 5% TOPICAL PATCH TP SCH (10:00)
[2017-06-29] MEDS: Methylnaltrexone Bromide 12 MG/0.6 ML KIT SQ SCH ×2 (10:00→10:06)
[2017-06-29] MEDS: MULTIVIT INJ. ADULT COMBO WITH VIT K 1 COMBO 10 ML VIAL IV SCH (10:00)
[2017-06-29] MEDS: ESCITALOPRAM OXALATE 10 MG TABLET (FP) PO SCH (10:13)
[2017-06-29] MEDS: amLODIPine BESYLATE 5 MG TABLET (FP) PO SCH (10:13)
[2017-06-29] MEDS: LACTOBACILLUS ACIDOPHILUS 1 EACH TAB (FP) PO SCH (10:13)
[2017-06-29] MEDS: LORATADINE 10 MG TABLET PO SCH (10:13)
[2017-06-29] MEDS: POLYETHYLENE GLYCOL 3350 119 GM BTL PO SCH (10:13)
[2017-06-29] MEDS: PANTOPRAZOLE 40 MG TABLET (FP) PO SCH (10:14)
--- NOTE | 2017-06-29 11:00 | PN ---
<Michael Rodriguez - Last Filed: 06/29/17 15:49> Physical Exam: SUBJECTIVE: Patient seen and examined at bedside. No overnight events. No new complaints. No vomiting. Abdominal pain well controlled. NPO for now. Denies CP, ALVARADO, SOB, palpitations, fever, N/V. OBJECTIVE: Vital Signs Period Temp Pulse Resp BP Sys/Rosa Pulse Ox Last 24 Hr 98.1 F-98.5 F 84-87 16-20 117-144/66-87 96 GENERAL: AAOx3, NAD ENT: moist mucous membranes. LUNGS: CTAB, No wheezing or rales. HEART: RRR, NL S1S2, No M/G/R ABDOMEN: Soft, NT, mildly distended. Colostomy with ileal conduit. EXTREMITIES: no edema. Laboratory Results - last 24 hr 06/26/17 06/29/17 06/29/17 15:30 06:45 06:45 WBC 5.8 RBC 2.77 L Hgb 8.6 L D Hct 24.8 L MCV 89.5 MCH 30.9 MCHC 34.5 RDW 13.3 Plt Count 333 MPV 8.1 Sodium 136 Potassium 3.7 Chloride 97 L Carbon Dioxide 31 Anion Gap 8 BUN 7 Creatinine 1.1 H Creat Clearance w eGFR 52.58 Random Glucose 107 H Calcium 8.1 L Phosphorus 3.9 Magnesium 1.4 L Total Bilirubin 0.9 D AST 21 ALT 43 Alkaline Phosphatase 67 Total Protein 6.8 Albumin 3.6 Blood Type O POSITIVE Antibody Screen Negative Crossmatch See Detail Active Medications Generic Name Dose Route Start Last Admin Trade Name Freq PRN Reason Stop Dose Admin Acetaminophen 1,000 mg 06/27/17 17:28 Ofirmev Injection - IVPB Q6H PRN PAIN Amlodipine Besylate 5 mg 06/15/17 10:00 06/29/17 10:13 Norvasc - PO Not Given DAILY LINNETTE Escitalopram Oxalate 10 mg 06/15/17 10:00 06/29/17 10:13 Lexapro - PO Not Given DAILY [facility] Heparin Sodium (Porcine) 5 ml 06/14/17 18:13 Hep-Lock - IVPUSH PRN PRN WHEN NOT IN USE Heparin Sodium (Porcine) 5,000 unit 06/20/17 22:00 06/29/17 09:59 Heparin - SQ 5,000 unit BID [facility]NETTE Administration Hydromorphone HCl 2 mg 06/28/17 12:51 06/29/17 05:42 Dilaudid Injection - IVPB 2 mg Q4H PRN Administration PAIN Dextrose/Sodium Chloride 20 meq in 1,000 mls @ 75 mls/hr 06/27/17 17:26 06/28 20:42 Dextrose 5%-Normal Saline+20 Meq Kcl - IV 75 mls/hr ASDIR [facility] Administration Lactobacillus Acidophilus 1 tab 06/23/17 10:00 06/29/17 10:13 Bacid - PO Not Given DAILY [facility] Lidocaine 1 patch 06/22/17 10:00 06/29/17 10:00 Lidoderm Patch - TP 1 patch DAILY [facility] Administration Loratadine 10 mg 06/15/17 10:00 06/29/17 10:13 Claritin - PO Not Given DAILY [facility] Methylnaltrexone [place] 8 mg 06/28/17 11:00 06/29/17 10:06 Relistor - SQ Not Given DAILY [facility] Metoclopramide HCl 10 mg 06/25/17 17:00 06/29/17 05:40 Reglan Injection - IVPUSH Not Given Q6H LINNETTE Miscellaneous 1 each 06/22/17 22:00 06/28/17 22:04 Lidoderm Patch Removal MC 1 each DAILY@2200 [facility] Administration Multivitamins/Minerals 10 ml 06/21/17 10:00 06/29/17 10:00 Infuvite Adult - IV 10 ml DAILY [facility] Administration Ondansetron HCl 8 mg 06/23/17 18:24 06/24/17 10:39 Zofran Injection IVPUSH 8 mg Q4H PRN Administration NAUSEA Pantoprazole Sodium 40 mg 06/23/17 10:00 06/29/17 10:14 Protonix - PO Not Given DAILY [facility] Polyethylene Glycol 17 gm 06/14/17 22:00 06/29/17 10:13 Miralax (For Daily Use) - PO Not Given BID LINNET[facility] ASSESSMENT: 52 yo F h/o of metastatic cervical cancer s/p colostomy and b/l nephrostomy with worsening SBO. PLAN: * Will send for FUA this morning to f/u SBO * NG tube PRN for nausea or distention. * NPO for now . * Primary team to set up transfer to [facility] for possible surgery. * continue miralax and reglan. Visit type - Emergency Visit Emergency Visit: Yes ED Registration Date: 06/15/17 Care time: The patient presented to the Emergency Department on the above date and was hospitalized for further evaluation of their emergent condition. - New Patient This patient is new to me today: Yes Date on this admission: 06/29/17 - Critical Care Critical Care patient: No <Kathryn Renae - Last Filed: 06/29/17 16:04> Physical Exam: SUBJECTIVE: Patient seen and examined OBJECTIVE: Vital Signs Period Temp Pulse Resp BP Sys/Rosa Pulse Ox Last 24 Hr 98.1 F-98.7 F 81-87 16-20 117-143/66-87 96 GENERAL: The patient is awake, alert, and fully oriented, in no acute distress. HEAD: Normal with no signs of trauma. EYES: PERRL, extraocular movements intact, sclera anicteric, conjunctiva clear. No ptosis. ENT: Ears normal, nares patent, oropharynx clear without exudates, moist mucous membranes. NECK: Trachea midline, full range of motion, supple. LUNGS: Breath sounds equal, clear to auscultation bilaterally, no wheezes, no crackles, no accessory muscle use. HEART: Regular rate and rhythm, S1, S2 without murmur, rub or gallop. ABDOMEN: Soft, nontender, nondistended, normoactive bowel sounds, no guarding, no rebound, no hepatosplenomegaly, no masses. EXTREMITIES: 2+ pulses, warm, well-perfused, no edema. NEUROLOGICAL: Cranial nerves II through XII grossly intact. Normal speech, gait not observed. PSYCH: Normal mood, normal affect. SKIN: Warm, dry, normal turgor, no rashes or lesions noted Laboratory Results - last 24 hr 06/26/17 06/29/17 06/29/17 15:30 06:45 06:45 WBC 5.8 RBC 2.77 L Hgb 8.6 L D Hct 24.8 L MCV 89.5 MCH 30.9 MCHC 34.5 RDW 13.3 Plt Count 333 MPV 8.1 Sodium 136 Potassium 3.7 Chloride 97 L Carbon Dioxide 31 Anion Gap 8 BUN 7 Creatinine 1.1 H Creat Clearance w eGFR 52.58 Random Glucose 107 H Calcium 8.1 L Phosphorus 3.9 Magnesium 1.4 L Total Bilirubin 0.9 D AST 21 ALT 43 Alkaline Phosphatase 67 Total Protein 6.8 Albumin 3.6 Blood Type O POSITIVE Antibody Screen Negative Crossmatch See Detail Active Medications Generic Name Dose Route Start Last Admin Trade Name Freq PRN Reason Stop Dose Admin Acetaminophen 1,000 mg 06/27/17 17:28 Ofirmev Injection - IVPB Q6H PRN PAIN Amlodipine Besylate 5 mg 06/15/17 10:00 06/29/17 10:13 Norvasc - PO Not Given DAILY [facility] Escitalopram Oxalate 10 mg 06/15/17 10:00 06/29/17 10:13 Lexapro - PO Not Given DAILY [facility] Heparin Sodium (Porcine) 5 ml 06/14/17 18:13 Hep-Lock - IVPUSH PRN PRN WHEN NOT IN USE Heparin Sodium (Porcine) 5,000 unit 06/20/17 22:00 06/29/17 09:59 Heparin - SQ 5,000 unit BID [facility] Administration Hydromorphone HCl 2 mg 06/28/17 12:51 06/29/17 14:08 Dilaudid Injection - IVPB 2 mg Q4H PRN Administration PAIN Dextrose/Sodium Chloride 20 meq in 1,000 mls @ 75 mls/hr 06/27/17 17:26 06/28 20:42 Dextrose 5%-Normal Saline+20 Meq Kcl - IV 75 mls/hr ASDIR [facility] Administration Lactobacillus Acidophilus 1 tab 06/23/17 10:00 06/29/17 10:13 Bacid - PO Not Given DAILY [facility] Lidocaine 1 patch 06/22/17 10:00 06/29/17 10:00 Lidoderm Patch - TP 1 patch DAILY [facility] Administration Loratadine 10 mg 06/15/17 10:00 06/29/17 10:13 Claritin - PO Not Given DAILY [facility] Methylnaltrexone [place] 8 mg 06/28/17 11:00 06/29/17 10:06 Relistor - SQ Not Given DAILY [facility] Miscellaneous 1 each 06/22/17 22:00 06/28/17 22:04 Lidoderm Patch Removal MC 1 each DAILY@2200 [facility] Administration Multivitamins/Minerals 10 ml 06/21/17 10:00 06/29/17 10:00 Infuvite Adult - IV 10 ml DAILY [facility] Administration Ondansetron HCl 8 mg 06/23/17 18:24 06/24/17 10:39 Zofran Injection IVPUSH 8 mg Q4H PRN Administration NAUSEA Pantoprazole Sodium 40 mg 06/23/17 10:00 06/29/17 10:14 Protonix - PO Not Given DAILY [facility] Polyethylene Glycol 17 gm 06/30/17 10:00 Miralax (For Daily Use) - PO DAILY [facility] ASSESSMENT/PLAN: Please see my separate progress note. Case discussed and reviewed with . Problem List - Problems (1) Small bowel obstruction due to adhesions Code(s): K56.50 - INTESTNL ADHESIONS, UNSP TO PARTIAL VERSUS COMPLETE OBST (2) Cervical adenocarcinoma Code(s): C53.9 - MALIGNANT NEOPLASM OF CERVIX UTERI, UNSPECIFIED (3) History of ileal conduit Code(s): Z98.890 - OTHER SPECIFIED POSTPROCEDURAL STATES (4) Colostomy in place Code(s): Z93.3 - COLOSTOMY STATUS (6) Peripheral neuropathy due to chemotherapy Code(s): G62.0 - DRUG-INDUCED POLYNEUROPATHY; T45.1X5A - ADVERSE EFFECT OF ANTINEOPLASTIC AND IMMUNOSUP DRUGS, INIT (7) Family history of colon cancer in father Code(s): Z80.0 - FAMILY HISTORY OF MALIGNANT NEOPLASM OF DIGESTIVE ORGANS (8) Family history of cervical cancer Code(s): Z80.49 - FAMILY HISTORY OF MALIGNANT NEOPLASM OF OTHER GENITAL ORGANS (9) Radiation enteritis Code(s): K52.0 - GASTROENTERITIS AND COLITIS DUE TO RADIATION (10) Constipation by delayed colonic transit Code(s): K59.01 - SLOW TRANSIT CONSTIPATION (11) Hydronephrosis Code(s): N13.30 - UNSPECIFIED HYDRONEPHROSIS
--- NOTE | 2017-06-29 11:25 | PN ---
Progress Note, Physician Chief Complaint: Pt A&Ox3; since being NPO, pt has had no abdominal discomfort. She felt weak and "very pale", but feels better since receiving PRBCs for anemia. Pt's daughter, Shelley, is at bedside. 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 labs in er showed azotemia, hypokalemia, hypernatremia abd xray shows early pattern of intestinal obstruction - Current Medication List Current Medications: Active Medications Acetaminophen (Ofirmev Injection -) 1,000 mg IVPB Q6H PRN PRN Reason: PAIN Amlodipine Besylate (Norvasc -) 5 mg PO DAILY [facility] Last Admin: 06/29/17 10:13 Dose: Not Given Escitalopram Oxalate (Lexapro -) 10 mg PO DAILY [facility] Last Admin: 06/29/17 10:13 Dose: Not Given Heparin Sodium (Porcine) (Hep-Lock -) 5 ml IVPUSH PRN PRN PRN Reason: WHEN NOT IN USE Heparin Sodium (Porcine) (Heparin -) 5,000 unit SQ BID [facility] Last Admin: 06/29/17 09:59 Dose: 5,000 unit Hydromorphone HCl (Dilaudid Injection -) 2 mg IVPB Q4H PRN PRN Reason: PAIN Last Admin: 06/29/17 05:42 Dose: 2 mg Dextrose/Sodium Chloride (Dextrose 5%-Normal Saline+20 Meq Kcl -) 20 meq in 1, 000 mls @ 75 mls/hr IV ASDIR [facility] Last Admin: 06/28/17 20:42 Dose: 75 mls/hr Lactobacillus Acidophilus (Bacid -) 1 tab PO DAILY [facility] Last Admin: 06/29/17 10:13 Dose: Not Given Lidocaine (Lidoderm Patch -) 1 patch TP DAILY [facility] Last Admin: 06/29/17 10:00 Dose: 1 patch Loratadine (Claritin -) 10 mg PO DAILY [facility] Last Admin: 06/29/17 10:13 Dose: Not Given Methylnaltrexone [place] (Relistor -) 8 mg SQ DAILY [facility] Last Admin: 06/29/17 10:06 Dose: Not Given Metoclopramide HCl (Reglan Injection -) 10 mg IVPUSH Q6H [facility] Last Admin: 06/29/17 05:40 Dose: Not Given Miscellaneous (Lidoderm Patch Removal) 1 each MC DAILY@2200 [facility] Last Admin: 06/28/17 22:04 Dose: 1 each Multivitamins/Minerals (Infuvite Adult -) 10 ml IV DAILY [facility] Last Admin: 06/29/17 10:00 Dose: 10 ml Ondansetron HCl (Zofran Injection) 8 mg IVPUSH Q4H PRN PRN Reason: NAUSEA Last Admin: 06/24/17 10:39 Dose: 8 mg Pantoprazole Sodium (Protonix -) 40 mg PO DAILY [facility] Last Admin: 06/29/17 10:14 Dose: Not Given Polyethylene Glycol (Miralax (For Daily Use) -) 17 gm PO BID [facility] Last Admin: 06/29/17 10:13 Dose: Not Given - Objective Vital Signs: Vital Signs Temperature 98.5 F 06/29/17 10:00 Pulse Rate 84 06/29/17 10:00 Respiratory Rate 16 06/29/17 10:00 Blood Pressure 117/66 06/29/17 10:00 O2 Sat by Pulse Oximetry (%) 96 06/28/17 21:00 Constitutional: Yes: Calm Eyes: Yes: WNL Labs: CBC, BMP 06/29/17 06:45 06/29/17 06:45 INR, PTT INR 0.91 (0.82-1.09) 06/21/17 06:00 Problem List - Problems (1) Small bowel obstruction due to adhesions Assessment/Plan: ?worsening of obstruction. For surgical consult; planning for transfer to [facility] ([facility]). Code(s): K56.50 - INTESTNL ADHESIONS, UNSP TO PARTIAL VERSUS COMPLETE OBST (2) Status post chemotherapy Assessment/Plan: f/u with hem/oncologist. ECHO 06/23/2017: normal LVEF; normal chamber sizes. Code(s): Z92.21 - PERSONAL HISTORY OF ANTINEOPLASTIC CHEMOTHERAPY (3) Hypertension Assessment/Plan: On amlodipine. No orthostatic changes. Code(s): I10 - ESSENTIAL (PRIMARY) HYPERTENSION (4) Renal dysfunction Assessment/Plan: Great improvement since undergoing nephrostomies. . Code(s): N28.9 - DISORDER OF KIDNEY AND URETER, UNSPECIFIED (5) Cervical adenocarcinoma Assessment/Plan: Now with headache; occasional tingling in LE. (pt says this occurred before when undergoing chemotherapy). CT head unremarkable; may have MRI to r/o metastases. Code(s): C53.9 - MALIGNANT NEOPLASM OF CERVIX UTERI, UNSPECIFIED (6) Electrolyte abnormality Assessment/Plan: Mg again low; will give 2 g Magnesium sulfate IVPB. Keep PO4 2.5-3.5. Keep Na 135-145 Keep K 4-4.5. Code(s): E87.8 - OTH DISORDERS OF ELECTROLYTE AND FLUID BALANCE, NEC (7) Anxiety and depression Code(s): F41.8 - OTHER SPECIFIED ANXIETY DISORDERS
[2017-06-29] MEDS ORDERED: MAGNESIUM 2GM/50ML STERILE WATER IVPB IVPB ONE (11:27)
--- NOTE | 2017-06-29 13:24 | PN ---
Progress Note (short form) - Note Progress Note: Patient is seen and examined. events noted now back to NPO CT reviewed Neuro consulted and note reviewed LE numbness persists. Constitutional: Yes: No Distress, Calm Eyes: Yes: WNL HENT: Yes: WNL Neck: Yes: Supple Cardiovascular: Yes: Regular Rate and Rhythm Respiratory: Yes: CTA Bilaterally Gastrointestinal: Yes: Other +stool in bag Extremities: Yes: WNL Edema: No Last Vital Signs Temp Pulse Resp BP Pulse Ox 98.5 F 84 16 117/66 96 06/29/17 10:00 06/29/17 10:00 06/29/17 10:00 06/29/17 10:00 06/28/17 21:00 CBC, BMP 06/29/17 06:45 06/29/17 06:45 Current Medications Generic Name Dose Route Start Last Admin Trade Name Freq PRN Reason Stop Dose Admin Acetaminophen 1,000 mg 06/27/17 17:28 Ofirmev Injection - IVPB Q6H PRN PAIN Amlodipine Besylate 5 mg 06/15/17 10:00 06/29/17 10:13 Norvasc - PO Not Given DAILY [facility] Escitalopram Oxalate 10 mg 06/15/17 10:00 06/29/17 10:13 Lexapro - PO Not Given DAILY [facility] Heparin Sodium (Porcine) 5 ml 06/14/17 18:13 Hep-Lock - IVPUSH PRN PRN WHEN NOT IN USE Heparin Sodium (Porcine) 5,000 unit 06/20/17 22:00 06/29/17 09:59 Heparin - SQ 5,000 unit BID [facility] Administration Hydromorphone HCl 2 mg 06/28/17 12:51 06/29/17 05:42 Dilaudid Injection - IVPB 2 mg Q4H PRN Administration PAIN Dextrose/Sodium Chloride 20 meq in 1,000 mls @ 75 mls/hr 06/27/17 17:26 06/28 20:42 Dextrose 5%-Normal Saline+20 Meq Kcl - IV 75 mls/hr ASDIR [facility] Administration Lactobacillus Acidophilus 1 tab 06/23/17 10:00 06/29/17 10:13 Bacid - PO Not Given DAILY [facility] Lidocaine 1 patch 06/22/17 10:00 06/29/17 10:00 Lidoderm Patch - TP 1 patch DAILY [facility] Administration Loratadine 10 mg 06/15/17 10:00 06/29/17 10:13 Claritin - PO Not Given DAILY [facility] Methylnaltrexone [place] 8 mg 06/28/17 11:00 06/29/17 10:06 Relistor - SQ Not Given DAILY [facility] Metoclopramide HCl 10 mg 06/25/17 17:00 06/29/17 12:23 Reglan Injection - IVPUSH Not Given Q6H [facility] Miscellaneous 1 each 06/22/17 22:00 06/28/17 22:04 Lidoderm Patch Removal MC 1 each DAILY@2200 [facility] Administration Multivitamins/Minerals 10 ml 06/21/17 10:00 06/29/17 10:00 Infuvite Adult - IV 10 ml DAILY [facility] Administration Ondansetron HCl 8 mg 06/23/17 18:24 06/24/17 10:39 Zofran Injection IVPUSH 8 mg Q4H PRN Administration NAUSEA Pantoprazole Sodium 40 mg 06/23/17 10:00 06/29/17 10:14 Protonix - PO Not Given DAILY [facility] Polyethylene Glycol 17 gm 06/14/17 22:00 06/29/17 10:13 Miralax (For Daily Use) - PO Not Given BID [facility] Recurrent Cervical ADENO carcinoma -Rx thus far over a period of two years: ADIS, Cis/RT, then recurrence, carbo/ taxol/avastin, pelvic exenteration, then carbo/taxotere. Now with new recent recurrence. -for OP f/u with her GYNONC/MedOnc Anemia: -ACD/ACI -feels better post PRBCs SALVADOR: -obstructive uropathy -improved SBO -recurrent -as per pt for ,teritiary care eval -GI f.u appreciated N/V Symptomatic management
--- NOTE | 2017-06-29 15:59 | PN ---
GI Progress Note Subjective: GI NOte: Notified by Dr Hughes last night that Mica's SBO has progressed significantly with loops now dilated to 6cm. The obstructive focus appears to be in the ileum. She feels better since being kept NPO. Communicated with DR Parikh this morning who is making arrangements for transfer to [facility]. - Objective Vital Signs: Vital Signs Temperature 98.7 F 06/29/17 14:22 Pulse Rate 81 06/29/17 14:22 Respiratory Rate 20 06/29/17 14:22 Blood Pressure 131/81 06/29/17 14:22 O2 Sat by Pulse Oximetry (%) 96 06/28/17 21:00 Constitutional: No Distress ...Auscultate: Yes: Normoactive Bowel Sounds ...Palpate: Yes: Soft, Other (nontender) Labs: CBC, BMP 06/29/17 06:45 06/29/17 06:45 INR, PTT INR 0.91 (0.82-1.09) 06/21/17 06:00 Problem List - Problems (1) Small bowel obstruction due to adhesions Assessment/Plan: CT enterography reveals progressing SBO. Will stop Reglan. Await transfer to [facility]. 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
[2017-06-29] MEDS: D5-NS + 20 MEQ KCL - 20 MEQ/1,000 ML INFUS.BAG IV SCH ×2 (17:47→20:33)
--- NOTE | 2017-06-29 20:10 | PN ---
Progress Note (short form) - Note Progress Note: ct enterography shows high grade obstruction arranging transfer to [facility] at patient's request for surgical eval and further management npo today no vomiting so far waiting for mri of s spine she feels thirsty GI f/u appreciated relistor for blocking effects of narcotics pending ct scan enterography other problems: Dehydration/Hypernatremia/SALVADOR - obstructive uropathy presented with recurrent vomiting persistent x 2 weeks 2/2 recurrent partial small bowel obstruction came to ER 06/12 whe serum Na 150 and s creatinine 1.5 was given IVF NS one liter and released admitted on 06/15 h/o abd/intestinal surgeries Probable adhesions h/o pelvic/cervical ca HTN allergic rhinitis s/p perc nephrostomy and diuresing profusely no nausea thirsty and drinking a lot no vomiting still passing stool more consistently Current Medications Acetaminophen (Ofirmev Injection -) 1,000 mg IVPB Q6H PRN PRN Reason: PAIN Amlodipine Besylate (Norvasc -) 5 mg PO DAILY [facility] Last Admin: 06/29/17 10:13 Dose: Not Given Escitalopram Oxalate (Lexapro -) 10 mg PO DAILY [facility] Last Admin: 06/29/17 10:13 Dose: Not Given Heparin Sodium (Porcine) (Hep-Lock -) 5 ml IVPUSH PRN PRN PRN Reason: WHEN NOT IN USE Heparin Sodium (Porcine) (Heparin -) 5,000 unit SQ BID [facility] Last Admin: 06/29/17 09:59 Dose: 5,000 unit Hydromorphone HCl (Dilaudid Injection -) 2 mg IVPB Q4H PRN PRN Reason: PAIN Last Admin: 06/29/17 14:08 Dose: 2 mg Dextrose/Sodium Chloride (Dextrose 5%-Normal Saline+20 Meq Kcl -) 20 meq in 1, 000 mls @ 75 mls/hr IV ASDIR [facility] Last Admin: 06/29/17 17:47 Dose: 75 mls/hr Lactobacillus Acidophilus (Bacid -) 1 tab PO DAILY [facility] Last Admin: 06/29/17 10:13 Dose: Not Given Lidocaine (Lidoderm Patch -) 1 patch TP DAILY [facility] Last Admin: 06/29/17 10:00 Dose: 1 patch Loratadine (Claritin -) 10 mg PO DAILY [facility] Last Admin: 06/29/17 10:13 Dose: Not Given Methylnaltrexone [place] (Relistor -) 8 mg SQ DAILY [facility] Last Admin: 06/29/17 10:06 Dose: Not Given Miscellaneous (Lidoderm Patch Removal) 1 each MC DAILY@2200 [facility] Last Admin: 06/28/17 22:04 Dose: 1 each Multivitamins/Minerals (Infuvite Adult -) 10 ml IV DAILY [facility] Last Admin: 06/29/17 10:00 Dose: 10 ml Ondansetron HCl (Zofran Injection) 8 mg IVPUSH Q4H PRN PRN Reason: NAUSEA Last Admin: 06/24/17 10:39 Dose: 8 mg Pantoprazole Sodium (Protonix -) 40 mg PO DAILY [facility] Last Admin: 06/29/17 10:14 Dose: Not Given Polyethylene Glycol (Miralax (For Daily Use) -) 17 gm PO DAILY [facility] Last Vital Signs Temp Pulse Resp BP Pulse Ox 98.2 F 78 20 118/82 96 06/29/17 17:45 06/29/17 17:45 06/29/17 17:45 06/29/17 17:45 06/29/17 09:00 she was examined at bedside More energetic after blood transfusion Lungs clear Heart reg Abd soft Ext no edema CBC, BMP 06/29/17 06:45 06/29/17 06:45 CBC, BMP 06/28/17 06:30 CBC, BMP 06/27/17 06:25 06/27/17 06:25 CBC, BMP 06/26/17 06:30 06/26/17 15:30 CBC, BMP 06/24/17 06:00 06/24/17 02:00 IMP- Left sciatica r/o malignant involvement of spinal nerve agree with ct scan enterography Abd Pain after meals raises question of intestinal ischemia/angina? K is better but may come down from vomiting Mg++ was low- replaced anemia- no sob no lightheadedness, holding off transfusion for now, today- discussed with IR, waiting for numbers to get better plan is for ureteral stents percutaneous if she can be discharged, follow up with IR will be arranged as outpatient Persistent nausea and vomiting s/p hedache- no visual disturbance head ct scan normal Obstructive Uropathy s/p padmini percutaneous nephrostomy draining urine profusely, s/p acute renal failure - renal scan- there is uptake of tracer in both kidneys, no appearance of tracer in the ureters per renal scan c/w ATN vs complete bilateral ureteral obstruction (unlikely since she has good urine output) SALVADOR 2/2 dehydration, hypotension (not all documented) PPI (pantoprazole) was given on admission but the is no evidence of AIN, U/A is completely clear Perisitent Hypokalemia- persistent hypocalcemia- corrected calcium 8.2 , s/p replacement (of K and Mag) will f/u today partial small bowel obstruction +/- ileus 2/2 pain and hypokalemia which is very slowl resolving HTN- BPs low at times, not orthostatic now, routine monitoring Anemia - improved h/h, may be partly due to hemodilution (prerenal pattern and contraction alkalosis have resolved) not dizzy on standing and walking Leukopenia stable Plan- decrease IVF to 75cc/hr follow up with IR tomorrow for antegrade stents check bmp and mag this evening to monitor levels Problem List - Problems (1) Status post chemotherapy Code(s): Z92.21 - PERSONAL HISTORY OF ANTINEOPLASTIC CHEMOTHERAPY (2) Small bowel obstruction due to adhesions Code(s): K56.50 - INTESTNL ADHESIONS, UNSP TO PARTIAL VERSUS COMPLETE OBST
[2017-06-29] MEDS: LIDOCAINE PATCH REMOVAL MC SCH (21:37)
[2017-06-30] MEDS: HYDROmorphone HCL CARPU-JECT 1 MG/1 ML DISP.SYRIN IVPB PRN ×4 (01:13→20:46)
[2017-06-30] MEDS: D5-NS + 20 MEQ KCL - 20 MEQ/1,000 ML INFUS.BAG IV SCH ×3 (05:16→19:00)
[2017-06-30 08:18] LABS: HEMOGLOBIN 8.3 GM/dL (10.7-15.3); MCHC 33.4 g/dl (32.0-36.0); MEAN CELL VOLUME 89.8 fl (80-96); MEAN PLT VOLUME 7.8 fl (7.5-11.1); PLATELET COUNT 326 K/MM3 (134-434); RBC 2.78 M/mm3 (3.60-5.2); RDW 13.5 % (11.6-15.6); WHITE BLOOD COUNT 4.8 K/mm3 (4.0-10.0)
[2017-06-30 08:21] LABS: CHLORIDE 102 mmol/L (98-107); SODIUM 140 mmol/L (136-145)
[2017-06-30 08:29] LABS: ALBUMIN 3.4 g/dl (3.4-5.0); ALK PHOS 63 U/L (45-117); ANION GAP 7 (8-16); BILIRUBIN,TOTAL 0.9 mg/dL (0.2-1.0); BLOOD UREA NITROGEN 9 mg/dL (7-18); CALCIUM 8.5 mg/dL (8.5-10.1); CO2 31 mmol/L (21-32); CREATININE 1.1 mg/dL (0.55-1.02); GLUCOSE,RANDOM 101 mg/dL (74-106); MAGNESIUM 1.6 mg/dL (1.8-2.4); PHOSPHOROUS 3.8 mg/dL (2.5-4.9); SGOT/AST 21 U/L (15-37); SGPT/ALT 41 U/L (12-78); TOT PROT 6.7 g/dl (6.4-8.2)
[2017-06-30] MEDS: ESCITALOPRAM OXALATE 10 MG TABLET (FP) PO SCH (09:32)
[2017-06-30] MEDS: LACTOBACILLUS ACIDOPHILUS 1 EACH TAB (FP) PO SCH (09:32)
[2017-06-30] MEDS: LORATADINE 10 MG TABLET PO SCH (09:32)
[2017-06-30] MEDS: PANTOPRAZOLE 40 MG TABLET (FP) PO SCH (09:33)
[2017-06-30] MEDS: amLODIPine BESYLATE 5 MG TABLET (FP) PO SCH (09:33)
--- NOTE | 2017-06-30 09:59 | PN ---
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 s/p hyster for fibroids and reportedly adenoCA detected. 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 s/p pelvic exenteration, colostomy. ileal conduit. s/p carbo/taxotere ([facility] [place]) thru 02/07, + recurrent adenoaCa. developed ARF--found to have Obstructive Uropathy s/p padmini percutaneous nephrostomy, urinating profusely, pain in the left leg-- as per PMD , appear to be more than to be expected even with recent surgical interventions. She reports pain that radiates down the left leg to foot. HX of neuropathy and numbness of both feet. denies weakness. MRI pelvis -- 04/09 reviewed. 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 ) ...LMP: 06/14/14 ...: No Psych: Yes: Anxiety - Past Surgical History Past Surgical History: Yes: Appendectomy (during pelvic exenteration 11/06), Colectomy, Colonoscopy, Colostomy, , Cystectomy, Hysterectomy (TAHBSO 2014 revealing adenocarcinoma of cervix), Ileal Conduit, Oopherectomy, Upper Endoscopy Additional Surgical History: Pelvic exenteration including appendectomy, ileal conduit and LLQ colostomy creations - Alcohol/Substance Use Hx Alcohol Use: Yes (rare) - Smoking History Smoking history: Never smoked Have you smoked in the past 12 months: No Aproximately how many cigarettes per day: 0 - Social History Usual Living Arrangement: With Spouse ADL: Family Assistance 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 History of Recent Travel: Yes ([place] 05/09) Home Medications - Allergies Allergies/Adverse Reactions: Allergies Allergy/AdvReac Type Severity Reaction Status Date / Time cisplatin Allergy Severe rash and Verified 06/12/17 14:18 chest pain - Home Medications Home Medications: Ambulatory Orders Amlodipine Besylate [Norvasc -] 5 mg PO DAILY 03/05/16 Cetirizine HCl [Zyrtec -] 10 mg PO DAILY 03/05/16 Cetirizine HCl [Zyrtec -] 10 mg PO DAILY 06/14/17 Family Disease History - Family Disease History Family Disease History: CA: Father ( colon cancer age 62), Mother (HPV cervical cancer survivor ), Sister (HPV cervical cancer survivor ) Physical Exam-Neuro Vital Signs: Vital Signs Temperature 98.1 F 06/30/17 05:00 Pulse Rate 81 06/30/17 05:00 Respiratory Rate 20 06/30/17 05:00 Blood Pressure 135/79 06/30/17 05:00 O2 Sat by Pulse Oximetry (%) 97 06/29/17 21:00 Constitutional: Yes: Well Nourished Labs: CBCD WBC 4.8 K/mm3 (4.0-10.0) 06/30/17 06:00 RBC 2.78 M/mm3 (3.60-5.2) L 06/30/17 06:00 Hgb 8.3 GM/dL (10.7-15.3) L 06/30/17 06:00 Hct 25.0 % (32.4-45.2) L 06/30/17 06:00 MCV 89.8 fl (80-96) 06/30/17 06:00 MCHC 33.4 g/dl (32.0-36.0) 06/30/17 06:00 RDW 13.5 % (11.6-15.6) 06/30/17 06:00 Plt Count 326 K/MM3 (134-434) 06/30/17 06:00 MPV 7.8 fl (7.5-11.1) 06/30/17 06:00 CMP Sodium 140 mmol/L (136-145) 06/30/17 06:00 Potassium 4.0 mmol/L (3.5-5.1) 06/30/17 06:00 Chloride 102 mmol/L (98-107) 06/30/17 06:00 Carbon Dioxide 31 mmol/L (21-32) 06/30/17 06:00 Anion Gap 7 (8-16) L 06/30/17 06:00 BUN 9 mg/dL (7-18) 06/30/17 06:00 Creatinine 1.1 mg/dL (0.55-1.02) H 06/30/17 06:00 Creat Clearance w eGFR 52.58 (>60) 06/30/17 06:00 Calcium 8.5 mg/dL (8.5-10.1) 06/30/17 06:00 Total Bilirubin 0.9 mg/dL (0.2-1.0) 06/30/17 06:00 AST 21 U/L (15-37) 06/30/17 06:00 ALT 41 U/L (12-78) 06/30/17 06:00 Alkaline Phosphatase 63 U/L (45-117) 06/30/17 06:00 Total Protein 6.7 g/dl (6.4-8.2) 06/30/17 06:00 Albumin 3.4 g/dl (3.4-5.0) 06/30/17 06:00 - Neuro Exam Level Of Consciousness: Yes: Alert, Oriented to Person, Oriented to Place Eyes: Yes: PERRLA Cranial Nerves II-XII Intact: Yes DTR's: 1+ Left Achilles, 1+ Right Achilles Babinski: Absent (5/5 UE and LE strength (includes L TA, ham, quad, IP inversion /eversion, SLR + 45 degrees L, Achilles 1+ , patellar 3+ , UE 2+3, no level) Motor Strength: 5/5: Left Arm, Right Arm, Left Leg, Right Leg Imaging - Results MRI: Report Reviewed, Image Reviewed Problem List - Problems (1) Obstructive uropathy Code(s): N13.9 - OBSTRUCTIVE AND REFLUX UROPATHY, UNSPECIFIED (2) Sciatica of left side Code(s): M54.32 - SCIATICA, LEFT SIDE (3) Cervical adenocarcinoma Code(s): C53.9 - MALIGNANT NEOPLASM OF CERVIX UTERI, UNSPECIFIED (4) Colostomy in place Code(s): Z93.3 - COLOSTOMY STATUS Assessment/Plan 52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 s/p hyster for fibroids and reportedly adenoCA detected. 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 s/p pelvic exenteration, colostomy. ileal conduit. s/p carbo/taxotere ([facility] [place]) thru 02/07, + recurrent adenoaCa. developed ARF--found to have Obstructive Uropathy s/p padmini percutaneous nephrostomy, urinating profusely, pain in the left leg-- as per PMD , appear to be more than to be expected even with recent surgical interventions. She reports pain that radiates down the left leg to foot. HX of neuropathy and numbness of both feet. denies weakness. MRI pelvis -- 04/09 reviewed. possible exacerbation of underlying radiculopathy, though priro scans suggest reoccuring soft tissue malignancy ion th left pelvic wall-- r/o infiltrative lesion S1 check MRI LS SPINE with DORYS if possible if no enhancing infiltrative pathology, consider epidural left S1 when she is more stable she defers starting any new rx for pain Dr Clay Problem List - Problems (1) Obstructive uropathy Code(s): N13.9 - OBSTRUCTIVE AND REFLUX UROPATHY, UNSPECIFIED (2) Sciatica of left side Code(s): M54.32 - SCIATICA, LEFT SIDE (3) Cervical adenocarcinoma Code(s): C53.9 - MALIGNANT NEOPLASM OF CERVIX UTERI, UNSPECIFIED (4) Colostomy in place Code(s): Z93.3 - COLOSTOMY STATUS
[2017-06-30] MEDS ORDERED: POLYETHYLENE GLYCOL 3350 119 GM BTL PO SCH (10:00)
--- NOTE | 2017-06-30 12:18 | PN ---
Progress Note, Physician History of Present Illness: h/o multiple abdominal surgeries; CA; HTN; now with vomiting and decreased PO intake x 2+ weeks assoc with moderate to severe abd pain and decreased bowel movements was seen in er 2 days ago and was given 1 bag of ivf, released from er same day. labs in er showed azotemia, hypokalemia, hypernatremia abd xray shows early pattern of intestinal obstruction - Current Medication List Current Medications: Active Medications Acetaminophen (Ofirmev Injection -) 1,000 mg IVPB Q6H PRN PRN Reason: PAIN Amlodipine Besylate (Norvasc -) 5 mg PO DAILY [facility] Last Admin: 06/30/17 09:33 Dose: Not Given Escitalopram Oxalate (Lexapro -) 10 mg PO DAILY [facility] Last Admin: 06/30/17 09:32 Dose: Not Given Heparin Sodium (Porcine) (Hep-Lock -) 5 ml IVPUSH PRN PRN PRN Reason: WHEN NOT IN USE Heparin Sodium (Porcine) (Heparin -) 5,000 unit SQ BID [facility] Last Admin: 06/29/17 21:37 Dose: 5,000 unit Hydromorphone HCl (Dilaudid Injection -) 2 mg IVPB Q4H PRN PRN Reason: PAIN Last Admin: 06/30/17 09:46 Dose: 2 mg Dextrose/Sodium Chloride (Dextrose 5%-Normal Saline+20 Meq Kcl -) 20 meq in 1, 000 mls @ 100 mls/hr IV ASDIR [facility] Last Admin: 06/30/17 05:16 Dose: 100 mls/hr Lactobacillus Acidophilus (Bacid -) 1 tab PO DAILY [facility] Last Admin: 06/30/17 09:32 Dose: Not Given Lidocaine (Lidoderm Patch -) 1 patch TP DAILY [facility] Last Admin: 06/29/17 10:00 Dose: 1 patch Loratadine (Claritin -) 10 mg PO DAILY [facility] Last Admin: 06/30/17 09:32 Dose: Not Given Methylnaltrexone [place] (Relistor -) 8 mg SQ DAILY [facility] Last Admin: 06/29/17 10:06 Dose: Not Given Miscellaneous (Lidoderm Patch Removal) 1 each MC DAILY@2200 [facility] Last Admin: 06/29/17 21:37 Dose: 1 each Multivitamins/Minerals (Infuvite Adult -) 10 ml IV DAILY [facility] Last Admin: 06/29/17 10:00 Dose: 10 ml Ondansetron HCl (Zofran Injection) 8 mg IVPUSH Q4H PRN PRN Reason: NAUSEA Last Admin: 06/24/17 10:39 Dose: 8 mg Pantoprazole Sodium (Protonix -) 40 mg PO DAILY [facility] Last Admin: 06/30/17 09:33 Dose: Not Given Polyethylene Glycol (Miralax (For Daily Use) -) 17 gm PO DAILY [facility] Last Admin: 06/30/17 09:33 Dose: Not Given - Objective Vital Signs: Vital Signs Temperature 98.1 F 06/30/17 05:00 Pulse Rate 81 06/30/17 05:00 Respiratory Rate 20 06/30/17 05:00 Blood Pressure 135/79 06/30/17 05:00 O2 Sat by Pulse Oximetry (%) 97 06/29/17 21:00 Eyes: Yes: WNL, Conjunctiva Clear, EOM Intact HENT: Yes: WNL, Atraumatic, Normocephalic Neck: Yes: WNL, Supple, Trachea Midline Cardiovascular: Yes: WNL, Regular Rate and Rhythm Respiratory: Yes: WNL, Regular, CTA Bilaterally Gastrointestinal: Yes: WNL, Normal Bowel Sounds Genitourinary: Yes: WNL Musculoskeletal: Yes: WNL Extremities: Yes: WNL Edema: No Integumentary: Yes: WNL Neurological: Yes: WNL, Alert, Oriented ...Motor Strength: WNL Psychiatric: Yes: WNL Labs: CBC, BMP 06/30/17 06:00 06/30/17 06:00 INR, PTT INR 0.91 (0.82-1.09) 06/21/17 06:00 Assessment/Plan - Problems (1) Small bowel obstruction due to adhesions Assessment/Plan: ?worsening of obstruction. For surgical consult; planning for transfer to tertiary center ([facility]) . Code(s): K56.50 - INTESTNL ADHESIONS, UNSP TO PARTIAL VERSUS COMPLETE OBST (2) Status post chemotherapy Assessment/Plan: f/u with hem/oncologist. ECHO 06/23/2017: normal LVEF; normal chamber sizes. Code(s): Z92.21 - PERSONAL HISTORY OF ANTINEOPLASTIC CHEMOTHERAPY (3) Hypertension Assessment/Plan: On amlodipine. No orthostatic changes. Code(s): I10 - ESSENTIAL (PRIMARY) HYPERTENSION (4) Renal dysfunction Assessment/Plan: Great improvement since undergoing nephrostomies. . Code(s): N28.9 - DISORDER OF KIDNEY AND URETER, UNSPECIFIED (5) Cervical adenocarcinoma Assessment/Plan: Now with headache; occasional tingling in LE. (pt says this occurred before when undergoing chemotherapy). CT head unremarkable; may have MRI to r/o metastases. Code(s): C53.9 - MALIGNANT NEOPLASM OF CERVIX UTERI, UNSPECIFIED (6) Electrolyte abnormality Assessment/Plan: Mg again low; will give 2 g Magnesium sulfate IVPB. Keep PO4 2.5-3.5. Keep Na 135-145 Keep K 4-4.5. Code(s): E87.8 - OTH DISORDERS OF ELECTROLYTE AND FLUID BALANCE, NEC (7) Anxiety and depression Code(s): F41.8 - OTHER SPECIFIED ANXIETY DISORDERS neurologic input appreciated
[2017-06-30] MEDS ORDERED: MAGNESIUM SULF 50% (8.12 MEQ/2 ML-1 GM VIAL) IVPB ONE (13:13)
[2017-06-30] MEDS: HEPARIN NA (PORCINE) 5,000 UNITS/ML 1ML VIAL SQ SCH ×2 (13:13→21:57)
--- NOTE | 2017-06-30 13:13 | PN ---
Progress Note (short form) - Note Progress Note: s/p mri of spine ct enterography shows high grade obstruction arranging [place] [facility] [place]'s [place] for surgical eval and further management npo today no vomiting so far waiting for mri of s spine she feels thirsty GI f/u appreciated relistor for blocking effects of narcotics pending ct scan enterography other problems: Dehydration/Hypernatremia/SALVADOR - obstructive uropathy presented with recurrent vomiting persistent x 2 weeks 2/2 recurrent partial small bowel obstruction came to ER 06/12 whe serum Na 150 and s creatinine 1.5 was given IVF NS one liter and released admitted on 06/15 h/o abd/intestinal surgeries Probable adhesions h/o pelvic/cervical ca HTN allergic rhinitis s/p perc nephrostomy and diuresing profusely no nausea thirsty and drinking a lot no vomiting still passing stool more consistently Current Medications Acetaminophen (Ofirmev Injection -) 1,000 mg IVPB Q6H PRN PRN Reason: PAIN Amlodipine Besylate (Norvasc -) 5 mg PO DAILY [facility] Last Admin: 06/30/17 09:33 Dose: Not Given Escitalopram Oxalate (Lexapro -) 10 mg PO DAILY [facility] Last Admin: 06/30/17 09:32 Dose: Not Given Heparin Sodium (Porcine) (Hep-Lock -) 5 ml IVPUSH PRN PRN PRN Reason: WHEN NOT IN USE Heparin Sodium (Porcine) (Heparin -) 5,000 unit SQ BID [facility] Last Admin: 06/29/17 21:37 Dose: 5,000 unit Hydromorphone HCl (Dilaudid Injection -) 2 mg IVPB Q4H PRN PRN Reason: PAIN Last Admin: 06/30/17 09:46 Dose: 2 mg Dextrose/Sodium Chloride (Dextrose 5%-Normal Saline+20 Meq Kcl -) 20 meq in 1, 000 mls @ 100 mls/hr IV ASDIR [facility] Last Admin: 06/30/17 05:16 Dose: 100 mls/hr Lactobacillus Acidophilus (Bacid -) 1 tab PO DAILY [facility] Last Admin: 06/30/17 09:32 Dose: Not Given Lidocaine (Lidoderm Patch -) 1 patch TP DAILY [facility] Last Admin: 06/29/17 10:00 Dose: 1 patch Loratadine (Claritin -) 10 mg PO DAILY [facility] Last Admin: 06/30/17 09:32 Dose: Not Given Methylnaltrexone [place] (Relistor -) 8 mg SQ DAILY [facility] Last Admin: 06/29/17 10:06 Dose: Not Given Miscellaneous (Lidoderm Patch Removal) 1 each MC DAILY@2200 [facility] Last Admin: 06/29/17 21:37 Dose: 1 each Multivitamins/Minerals (Infuvite Adult -) 10 ml IV DAILY [facility] Last Admin: 06/29/17 10:00 Dose: 10 ml Ondansetron HCl (Zofran Injection) 8 mg IVPUSH Q4H PRN PRN Reason: NAUSEA Last Admin: 06/24/17 10:39 Dose: 8 mg Pantoprazole Sodium (Protonix -) 40 mg PO DAILY [facility] Last Admin: 06/30/17 09:33 Dose: Not Given Polyethylene Glycol (Miralax (For Daily Use) -) 17 gm PO DAILY [facility] Last Admin: 06/30/17 09:33 Dose: Not Given Last Vital Signs Temp Pulse Resp BP Pulse Ox 98.1 F 81 20 135/79 97 06/30/17 05:00 06/30/17 05:00 06/30/17 05:00 06/30/17 05:00 06/29/17 21:00 she was examined at bedside More energetic after blood transfusion Lungs clear Heart reg Abd soft Ext no edema CBC, [facility] 06/30/17 06:00 06/30/17 06:00 CBC, BMP 06/29/17 06:45 06/29/17 06:45 CBC, [facility] 06/28/17 06:30 IMP- Left sciatica r/o malignant involvement of spinal nerve agree with ct scan enterography Abd Pain after meals raises question of intestinal ischemia/angina? K is better but may come down from vomiting Mg++ was low- replaced anemia- no sob no lightheadedness, holding off transfusion for now, today- discussed with IR, waiting for numbers to get better plan is for ureteral stents percutaneous if she can be discharged, follow up with IR will be arranged as outpatient Persistent nausea and vomiting s/p hedache- no visual disturbance head ct scan normal Obstructive Uropathy s/p padmini percutaneous nephrostomy draining urine profusely, s/p acute renal failure - renal scan- there is uptake of tracer in both kidneys, no appearance of tracer in the ureters per renal scan c/w ATN vs complete bilateral ureteral obstruction (unlikely since she has good urine output) SALVADOR 2/2 dehydration, hypotension (not all documented) PPI (pantoprazole) was given on admission but the is no evidence of AIN, U/A is completely clear Perisitent Hypokalemia- persistent hypocalcemia- corrected calcium 8.2 , s/p replacement (of K and Mag) will f/u today partial small bowel obstruction +/- ileus 2/2 pain and hypokalemia which is very slowl resolving HTN- BPs low at times, not orthostatic now, routine monitoring Anemia - improved h/h, may be partly due to hemodilution (prerenal pattern and contraction alkalosis have resolved) not dizzy on standing and walking Leukopenia stable Plan- decrease IVF to 75cc/hr follow up with IR tomorrow for antegrade stents check bmp and mag this evening to monitor levels Problem List - Problems (1) Status post chemotherapy Code(s): Z92.21 - PERSONAL HISTORY OF ANTINEOPLASTIC CHEMOTHERAPY (2) Small bowel obstruction due to adhesions Code(s): K56.50 - INTESTNL ADHESIONS, UNSP TO PARTIAL VERSUS COMPLETE OBST
[2017-06-30] MEDS ORDERED: PT OWN MED DRAWER 7, Y5N ONE (14:26)
[2017-06-30] MEDS: Methylnaltrexone Bromide 12 MG/0.6 ML KIT SQ SCH (14:30)
[2017-06-30] MEDS: LIDOCAINE 5% TOPICAL PATCH TP SCH (14:31)
[2017-06-30] MEDS ORDERED: MAGNESIUM SULFATE IN WATER 2 GM/50 ML IVPB IVPB ONE (15:00)
[2017-06-30] MEDS: MULTIVIT INJ. ADULT COMBO WITH VIT K 1 COMBO 10 ML VIAL IV SCH (18:59)
[2017-06-30] MEDS: LIDOCAINE PATCH REMOVAL MC SCH (21:58)
[2017-07-01 00:23] VITALS: BP 132/89; PULSE 88; TEMP 98.8
== END 2017-07-01 01:06 | disposition short-term general hospital (02) | DRG 388 ==
LOC: FM/S 17:11 → OBSVTOIN 06-15 14:17 → J7W 06-20 14:10
PROVIDERS: ADMIT Internal Medicine Nephrology; ATTEND Internal Medicine Nephrology
PROC: 0T9330Z Drainage of Right Kidney Pelvis with Drainage Device, Percutaneous Approach (ICD-10-PCS; principal; 2017-06-21)
PROC: 0T9430Z Drainage of Left Kidney Pelvis with Drainage Device, Percutaneous Approach (ICD-10-PCS; 2017-06-21)
PROC: BT04YZZ Plain Radiography of Kidneys, Ureters and Bladder using Other Contrast (ICD-10-PCS; 2017-06-21)
PROC: 30233N1 Transfusion of Nonautologous Red Blood Cells into Peripheral Vein, Percutaneous Approach (ICD-10-PCS; 2017-06-28)
DX: K56.50 Intestinal adhesions [bands], unspecified as to partial versus complete obstruction (principal); N17.0 Acute kidney failure with tubular necrosis; E87.0 Hyperosmolality and hypernatremia; N13.39 Other hydronephrosis; N13.8 Other obstructive and reflux uropathy; K52.0 Gastroenteritis and colitis due to radiation; E87.6 Hypokalemia; R14.1 Gas pain; C53.9 Malignant neoplasm of cervix uteri, unspecified; E87.8 Other disorders of electrolyte and fluid balance, not elsewhere classified; D64.9 Anemia, unspecified; I10 Essential (primary) hypertension; D72.818 Other decreased white blood cell count; J31.0 Chronic rhinitis; E86.0 Dehydration; G62.89 Other specified polyneuropathies; K76.0 Fatty (change of) liver, not elsewhere classified; N28.9 Disorder of kidney and ureter, unspecified; K59.01 Slow transit constipation; R51 Headache; M54.32 Sciatica, left side; R11.2 Nausea with vomiting, unspecified; E83.51 Hypocalcemia; G62.0 Drug-induced polyneuropathy; T45.1X5A Adverse effect of antineoplastic and immunosuppressive drugs, initial encounter; Z93.3 Colostomy status; Z98.890 Other specified postprocedural states; Z92.21 Personal history of antineoplastic chemotherapy; Z80.0 Family history of malignant neoplasm of digestive organs
CPT/HCPCS: 36415; 36430; 50432; 70450-TC; 72149-TC; 74018-TC-FY; 74019-TC-FY; 74021-TC-FY; 74176-TC; 74177-TC; 76000-TC-FY; 76098-TC-FY; 76775-TC; 76998-TC; 78708-TC; 80048; 80053; 81003; 81015; 82570; 82607; 82728; 82746; 83540; 83735; 84100; 84156; 84300; 84439; 84443; 84481; 84540; 85025; 85027; 85610; 85730; 86850; 86900; 86901; 86922; 87086; 87899; 93005; 93306-TC; 94010; A4358; A9562; C1729; C1769; C1887; G0378; J1644; P9038; P9058

== ENCOUNTER → 2017-08-25 | Day surgery (SDC) | payer OTHER | END | disposition home or self-care (01) | LOC: JRADIR 09:14 | PROVIDERS: ATTEND Internal Medicine Nephrology | PROC: 0T25X0Z Change Drainage Device in Kidney, External Approach (ICD-10-PCS; principal; 2017-08-25) | DX: Z43.6 Encounter for attention to other artificial openings of urinary tract (principal); C53.9 Malignant neoplasm of cervix uteri, unspecified; N28.89 Other specified disorders of kidney and ureter | CPT/HCPCS: 50435; 75984-TC-RT-FY; A4358; C1729; C1769 ==

== ENCOUNTER 2017-09-09 16:10 | Inpatient (IN) | payer OTHER ==
--- NOTE | 2017-09-09 16:17 | PDOC ---
Rapid Medical Evaluation Time Seen by Provider: 09/09/17 16:15 Medical Evaluation: Allergies Allergy/AdvReac Type Severity Reaction Status Date / Time cisplatin Allergy Severe rash and Verified 06/12/17 14:18 chest pain 09/09/17 16:15 I have performed a brief in-person evaluation of this patient. The patient presents with a chief complaint of: SBO in may, "didn't really resolve", last BM a week ago, vomited 6x today, had chemo two days ago for cervical cancer Pertinent physical exam findings: pale, uncomfortable appearing,tachy to 114, tenderness to LLQ I have ordered the following: labs, x-ray The patient will proceed to the ED for further evaluation. Discharge Disposition - Diagnosis Abdominal pain - Referrals - Patient Instructions - Post Discharge Activity
--- NOTE | 2017-09-09 16:27 | PDOC ---
History of Present Illness - General Chief Complaint: Pain Stated Complaint: NAUSEA/VOMITING Time Seen by Provider: 09/09/17 16:15 - History of Present Illness Initial Comments: 09/09/17 18:31 The patient is a 52 year old female with a history of HTN, Cervical Cancer s/o multiple pelvic surgeries, SBO who presents for evaluation of abdominal pain, nausea, vomiting. The patient reports a 1 week history of worsening abdominal pain and distension associated with nausea and multiple episodes of bilious vomiting with 6 episodes of vomiting today prompting her presentation to the ED for evaluation. She states that she has not noted any stool in her colostomy bag for 1 week as well. She otherwise denies fevers, chills, SOB, or chest pain. Past History - Past Medical History Allergies/Adverse Reactions: Allergies Allergy/AdvReac Type Severity Reaction Status Date / Time cisplatin Allergy Severe rash and Verified 09/09/17 16:21 chest pain trastuzumab [From Herceptin] AdvReac Severe Verified 09/10/17 14:21 Home Medications: Ambulatory Orders Amlodipine Besylate [Norvasc -] 5 mg PO DAILY 03/05/16 Cetirizine HCl [Zyrtec -] 10 mg PO DAILY 03/05/16 Cetirizine HCl [Zyrtec -] 10 mg PO DAILY 06/14/17 Anemia: Yes Asthma: No Cancer: Yes (cervical, vaginal) Cardiac Disorders: No CVA: No COPD: No CHF: No DVT: No Dementia: No Diabetes: No GI Disorders: Yes (SBO) Disorders: No HTN: Yes Hypercholesterolemia: No Liver Disease: No Seizures: No Thyroid Disease: No - Surgical History Abdominal Surgery: Yes (hysterectomy 2014,Total Pelvic Exent.) Appendectomy: Yes Cardiac Surgery: No Cholecystectomy: No Lung Surgery: No Neurologic Surgery: No - Suicide/Smoking/Psychosocial Hx Smoking History: Never smoked Have you smoked in the past 12 months: No Number of Cigarettes Smoked Daily: 0 Information on smoking cessation initiated: No Hx Alcohol Use: No Drug/Substance Use Hx: No Substance Use Type: None Hx Substance Use Treatment: No Review of Systems - Review of Systems Comments:: 09/09/17 18:37 Constitutional: No fevers, chills, fatigue, malaise HEENT: No Rhinorrhea, nasal congestion, visual changes Cardiovascular: No chest pain, syncope, palpitations, lightheadedness Respiratory: No Cough, SOB, Hemoptysis, Gastrointestinal: Abdominal pain, nausea, vomiting. No Diarrhea, Melena Genitourinary: No Dysuria, Frequency, Urgency, Hesitancy, Hematuria, Flank pain Musculoskeletal: No Myalgia, arthralgia Skin: No rashes, itching, bruising, Neurologic: No Headache, Dizziness, Numbness, Weakness, or Tingling Psychiatric: No Hallucinations. No SI or HI *Physical Exam - Vital Signs Last Vital Signs Temp Pulse Resp BP Pulse Ox 98.1 F 114 H 18 127/98 97 09/09/17 16:16 09/09/17 16:16 09/09/17 16:16 09/09/17 16:16 09/09/17 16:16 - Physical Exam Comments: 09/09/17 18:45 General Appearance: Nourished. In Moderate Apparent Distress HEENT: EOMI, [place]. No Pharyngeal Erythema, Tonsillar Exudate, Tonsillar Erythema Neck: No Cervical Lymphadenopathy Respiratory/Chest: Lungs Clear, Normal Breath Sounds. No Crackles, Rales, Rhonchi, Wheezing Cardiovascular: Regular Rhythm, Regular Rate. No Murmur, Gallops, Rubs Gastrointestinal/Abdominal: Hypoactive bowel sounds. Distended abdomen with diffuse tenderness to palpation. Colostomy bag in place. No Guarding, Rebound, Musculoskeletal: No CVA Tenderness Extremity: Normal Capillary Refill Integumentary: Pallor noted on exam. Normal Dry, Warm Neurologic: Fully Oriented, Alert, Normal Mood/Affect, Normal Response, 09/09/17 19:04 ED Treatment Course - LABORATORY CBC & Chemistry Diagram: 09/11/17 06:00 09/11/17 06:00 Medical Decision Making - Medical Decision Making 09/09/17 18:47 The patient is a 52 year old female with a history of HTN, Cervical Cancer s/o multiple pelvic surgeries, SBO who presents for evaluation of abdominal pain, nausea, vomiting. Differential includes but is not limited to: Obstruction, Gastritis, Metastasis, infectious, metabolic derangement. Given the patient's history and physical exam, it is likely her symptoms are due to an obstruction. We will obtain a cbc, cmp, lipase, lactate and abdominal CT to evaluate further for possible etiologies. We will treat with iv fluids, zofran, and morphine in the meantime and continue to monitor and reassess. 09/09/17 20:27 CBC demonstrates an elevated wbc. CMP, lipase, lactate are unremarkable. Abdominal CT is consistent with a high grade SBO as read by our radiologist. The patient will require admission for further management of her symptoms. We have placed an NG tube with constant drainage of brown gastric contents since placement and patient relief. We will continue iv fluid hydration and keep the patient NPO. We discussed the case with Dr. Parikh who accepted the patient for admission. We discussed the case with Dr. Valencia who is aware of the patient's case and would like surgery consultation. The patient requests surgery consultation with Dr. Lynne. We discussed the case with Dr. Hinojosa who is covering for Dr. Lynne who has been made aware of the case. *DC/Admit/Observation/Transfer Diagnosis at time of Disposition: Abdominal pain Qualifiers: Abdominal location: left lower quadrant Qualified Code(s): R10.32 - Left lower quadrant pain - Referrals - Patient Instructions - Post Discharge Activity
[2017-09-09] MEDS ORDERED: morphine CARPU-JECT 4 MG/1 ML DISP.SYRIN IVPUSH ONE ×2 (16:46→20:36)
[2017-09-09] MEDS ORDERED: ONDANSETRON 4 MG/2 ML VIAL IVPUSH ONE ×2 (16:46→20:36)
[2017-09-09] MEDS ORDERED: SODIUM CHLORIDE 1,000 ML IV STA (16:46)
--- NOTE | 2017-09-09 16:55 | PDOC ---
Attending Attestation - HPI HPI: 09/09/17 19:47 The patient is 52 year old female with past medical history of HTN, SBO, Cervical cancer is brought to the emergency department complaining of abdominal pain. The patient states feeling nauseous all week but last night she vomited ( nonbloody or nonbilious). The patient states she had chemo 2 days ago and reports she had a adverse reaction to the medication, chills, shaking, SOB, mild fever and was given benadryl for the reaction.The patient states she hasn' t had a bowel movement for a week now. The patient reports the current pain is similar to the pain she had when she was obstructed. The patient reports she tries to drink fluids but ends up vomiting. Allergies: Cisplatin Surgical History: Hysterectomy (total pelvic extent) and appendectomy. Social History: None reported PCP: Dr. Stack 09/09/17 19:49 - Physicial Exam PE: 09/09/17 19:47 GENERAL: Awake, alert, and fully oriented, in no acute distress HEAD: No signs of trauma EYES: PERRLA, EOMI, sclera anicteric, conjunctiva clear ENT: Auricles normal inspection, hearing grossly normal, nares patent, oropharynx clear without exudates. Dry mucous membrane NECK: Normal ROM, supple, no lymphadenopathy, JVD, or masses LUNGS: Breath sounds equal, clear to auscultation bilaterally. No wheezes, and no crackles HEART: (+) Tachycardia.normal S1 and S2, no murmurs, rubs or gallops ABDOMEN: (+)Bilateral PCN (covered urostomy and colostomy) without drainage. Hypoactive bowel sounds. Soft, nontender. No guarding, no rebound. No masses EXTREMITIES: Normal range of motion, no edema. No clubbing or cyanosis. No cords, erythema, or tenderness NEUROLOGICAL: Cranial nerves II through XII grossly intact. Normal speech, normal gait SKIN: Warm, Dry, normal turgor, no rashes or lesions noted. - Medical Decision Making 09/09/17 19:49 Documentation prepared by Batool Jarquin, acting as remote medical coder for Shirin Koroma DO. <Batool Jarquin - Last Filed: 09/09/17 19:47> - Resident Resident Name: Marcus Brooks - ED Attending Attestation I have performed the following: I have examined & evaluated the patient, The case was reviewed & discussed with the resident, I agree w/resident's findings & plan, Exceptions are as noted - Medical Decision Making 09/09/17 16:55 I, Dr. Shirin Koroma, DO, attest that this document has been prepared under my direction and personally reviewed by me in its entirety. I further attest, that it accurately reflects all work, treatment, procedures and medical decision -making performed by me. 09/09/17 17:50 a/p: 52yo female with n/v - no flatus or bm x 1 week -increasing vomiting -now with brown vomitus - feels similar to when she was obstructed -last chemo 2 days ago -has a port in chest- dual chamber -no f/c. -decreased urine output from nephrostomy tubes, no use of urostomy at this time -dehydrated on exam -concern for obstruction, dehydration in active chemo patient -will obtain labs, cultures, ct abd/pelvis -will give ivf hydration, zofran, pain control 09/09/17 19:23 ct scan shows SBO - call placed to Dr. Cipriano Parikh - PMD recommends consult to dr. renae admission to oncology floor will place NGT 09/09/17 20:[address] Valencia (covering Dr. Renae) who agrees with NGT recommends surgical eval discussed with the patient who requests call to Dr. Lynne call placed to Dr. Lynne <Shirin Koroma - Last Filed: 09/09/17 21:35> Heart Score/ECG Review - ECG Intrepretation Comment:: 09/09/17 21:35 sinus tach at 104, low voltage ekg, nl axis, t wave inversions III which are nonspecific, q waves anterior that are age indeterminate, abnl ekg <Shirin Koroma - Last Filed: 09/09/17 21:35>
[2017-09-09] MEDS ORDERED: morphine SULFATE 4 MG/ML VIAL ONE ×3 (17:55→21:15)
[2017-09-09] MEDS ORDERED: ONDANSETRON 4 MG/2 ML VIAL ONE ×3 (17:55→21:15)
[2017-09-09 17:56] LABS: BASO % 0.3 % (0-2.0); EOS % 0.8 % (0-4.5); HEMATOCRIT 25.4 % (32.4-45.2); HEMOGLOBIN 8.8 GM/dL (10.7-15.3); LYMPH % 10.3 % (8-40); MCH 31.6 pg (25.7-33.7); MCHC 34.7 g/dl (32.0-36.0); MEAN PLT VOLUME 8.2 fl (7.5-11.1); MONO % 9.8 % (3.8-10.2); NEUT % 78.8 % (42.8-82.8); PLATELET COUNT 474 K/MM3 (134-434); RBC 2.79 M/mm3 (3.60-5.2); RDW 14.8 % (11.6-15.6); WHITE BLOOD COUNT 4.3 K/mm3 (4.0-10.0)
[2017-09-09 18:21] LABS: INR 1.11 (0.82-1.09); PROTHROMBIN TIME (PATIENT) 12.5 SEC (9.98-11.88)
[2017-09-09 18:32] LABS: URINE APPEARANCE CLOUDY; URINE BILIRUBIN NEGATIVE (<2.0 mg/dL); URINE BLOOD 1+ (NEGATIVE); URINE COLOR DKYELLOW; URINE GLUCOSE (UA) NEGATIVE (NEGATIVE); URINE KETONE 1+ (NEGATIVE); URINE NITRITE NEGATIVE (NEGATIVE)
[2017-09-09 18:34] LABS: URINE LEUK ESTERASE 3+ (NEGATIVE); URINE PROTEIN 2+ (NEGATIVE)
[2017-09-09 18:35] LABS: URINE BACTERIA RARE /hpf (NONE SEEN); URINE MUCUS RARE
[2017-09-09 18:46] LABS: ALBUMIN 2.7 g/dl (3.4-5.0); ALK PHOS 164 U/L (45-117); ANION GAP 11 (8-16); BILIRUBIN,TOTAL 0.7 mg/dL (0.2-1.0); BLOOD UREA NITROGEN 22 mg/dL (7-18); CALCIUM 8.4 mg/dL (8.5-10.1); CHLORIDE 97 mmol/L (98-107); CO2 27 mmol/L (21-32); CREATININE 0.6 mg/dL (0.55-1.02); GLUCOSE,RANDOM 100 mg/dL (74-106); POTASSIUM 3.5 mmol/L (3.5-5.1); SGOT/AST 28 U/L (15-37); SGPT/ALT 69 U/L (12-78); SODIUM 135 mmol/L (136-145)
[2017-09-09] MEDS ORDERED: LIDOCAINE HCL 1%, 10 MG/ML (50 mL VIAL) SQ ONE (20:13)
[2017-09-09] MEDS ORDERED: LIDOCAINE HCL 1%, 10 MG/ML (20ML VIAL) ONE (20:15)
[2017-09-09] MEDS ORDERED: CEFTRIAXONE 1 GM in DEXTROSE 5%-WATER - 100 ML IVPB ONE (20:31)
[2017-09-09] MEDS ORDERED: cefTRIAXone SODIUM 1 GM VIAL ONE (22:24)
[2017-09-09] MEDS ORDERED: DEXTROSE 5%-WATER - 100 ML IVPB ONE (22:24)
[2017-09-09] MEDS ORDERED: CEFTRIAXONE 1 GM in DEXTROSE 5%-WATER - 50 ML IVPB ONE (22:30)
--- NOTE | 2017-09-09 23:06 | HP ---
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 While in house pt given 2nd dose of herceptin chemotherapy. Her stay was remarkable overnight signficiant reaction to herceptin with tachycaridia to 130s and desaturations to 70s and infusion was discontinued. was doing well by morning. Remainder of her stay was uneventful except her colostomy remained without output. Enema was considerered. Access: R upper chest port - Past Medical History NANOSYSTEMS ENGINEER: Yes: Peripheral Neuropathy (related to cisplatinum), Other Cardiovascular: Yes: HTN Gastrointestinal: Yes: Other (normal colonoscopy 11/15/07, LLQ colostomy 11/06 with pelvic exenteration that included the appendix) Hepatobiliary: Yes: Other (fatty liver) Renal/: Yes: Renal Inusuff (obstructive, has ileal conduit), Other (urinary diversion. ) ...LMP: 06/14/14 Heme/Onc: Yes: Cancer (advanced aggressive non-HPV cervical adenocarcinoma s/p surgeries, RT and chemorx) Psych: Yes: Anxiety - Past Surgical History Past Surgical History: Yes: Appendectomy (during pelvic exenteration 11/06), Colectomy, Colonoscopy, Colostomy, , Cystectomy, 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 History of Recent Travel: Yes ([place] 05/09) Home Medications - Allergies Allergies/Adverse Reactions: Allergies Allergy/AdvReac Type Severity Reaction Status Date / Time cisplatin Allergy Severe rash and Verified 09/09/17 16:21 chest pain - Home Medications Home Medications: Ambulatory Orders Amlodipine Besylate [Norvasc -] 5 mg PO DAILY 03/05/16 Cetirizine HCl [Zyrtec -] 10 mg PO DAILY 03/05/16 Cetirizine HCl [Zyrtec -] 10 mg PO DAILY 06/14/17 Family Disease History - Family Disease History Family Disease History: CA: Father ( colon cancer age 62), Mother (HPV cervical cancer survivor ), Sister (HPV cervical cancer survivor ) Physical Examination Vital Signs: Vital Signs Temperature 98.1 F 09/09/17 16:16 Pulse Rate 114 H 09/09/17 16:16 Respiratory Rate 18 09/09/17 16:16 Blood Pressure 127/98 09/09/17 16:16 O2 Sat by Pulse Oximetry (%) 97 09/09/17 16:16 Constitutional: Yes: Pallor Eyes: Yes: WNL, Conjunctiva Clear, EOM Intact Neck: Yes: WNL, Supple, Trachea Midline Cardiovascular: Yes: WNL, Regular Rate and Rhythm Respiratory: Yes: WNL, Regular, CTA Bilaterally Gastrointestinal: Yes: Normal Bowel Sounds, Soft Musculoskeletal: Yes: WNL Extremities: Yes: WNL Edema: No Peripheral Pulses WNL: Yes Psychiatric: Yes: Alert, Oriented Labs: CBC, BMP 09/09/17 17:45 09/09/17 17:45 Assessment/Plan dehydration severe protein malnutrition anemia recurrent persistent vomiting high grade small bowel obstruction no flatus and no bowel movement recurrent cervical adenocarcinoma s/p chemotherapy with herceptin bilateral percutaneous nephrostomies bilateral hydronephrosis s/p ileal conduit s/p colostomy s/p ADIS/BSO and pelvic exenteration transfer to for her oncology care needs - chem port access, narcotics administration
[2017-09-10] MEDS: fentaNYL 50mcg/hr PATCH.TD72 TD SCH
[2017-09-10] MEDS: D5-NS + 20 MEQ KCL - 20 MEQ/1,000 ML INFUS.BAG IV SCH ×3 (00:02→22:17)
[2017-09-10] MEDS: HEPARIN NA (PORCINE) 5,000 UNITS/ML 1ML VIAL SQ SCH ×3 (00:03→22:22)
[2017-09-10] MEDS: ONDANSETRON 4 MG/2 ML VIAL IVPB PRN ×3 (00:03→17:39)
[2017-09-10] MEDS: morphine SULFATE 4 MG/ML VIAL IVPB PRN ×4 (00:43→21:31)
[2017-09-10 00:44] VITALS: BMI 33.6
[2017-09-10] MEDS ORDERED: PORTA CATH FLUSH 10 ML IVPUSH ONE (02:08)
[2017-09-10] MEDS ORDERED: morphine SULFATE 4 MG/ML VIAL IVPB ONE (05:15)
[2017-09-10] MEDS ORDERED: ONDANSETRON 4 MG/2 ML VIAL IVPB ONE (05:15)
[2017-09-10 08:05] LABS: HEMATOCRIT 23.5 % (32.4-45.2); HEMOGLOBIN 7.9 GM/dL (10.7-15.3); MCH 31.1 pg (25.7-33.7); MCHC 33.8 g/dl (32.0-36.0); MEAN CELL VOLUME 91.9 fl (80-96); MEAN PLT VOLUME 8.4 fl (7.5-11.1); PLATELET COUNT 410 K/MM3 (134-434); RBC 2.56 M/mm3 (3.60-5.2); RDW 14.7 % (11.6-15.6); WHITE BLOOD COUNT 3.7 K/mm3 (4.0-10.0)
[2017-09-10 08:16] LABS: ALBUMIN 2.3 g/dl (3.4-5.0); ANION GAP 7 (8-16); BLOOD UREA NITROGEN 20 mg/dL (7-18); CALCIUM 7.1 mg/dL (8.5-10.1); CHLORIDE 99 mmol/L (98-107); CO2 29 mmol/L (21-32); GLUCOSE,RANDOM 148 mg/dL (74-106); POTASSIUM 3.5 mmol/L (3.5-5.1); SGOT/AST 51 U/L (15-37); SGPT/ALT 74 U/L (12-78); SODIUM 135 mmol/L (136-145)
[2017-09-10 08:18] LABS: ALK PHOS 152 U/L (45-117); BILIRUBIN,TOTAL 0.4 mg/dL (0.2-1.0); CREATININE 0.7 mg/dL (0.55-1.02); MAGNESIUM 1.2 mg/dL (1.8-2.4); TOT PROT 6.1 g/dl (6.4-8.2)
--- NOTE | 2017-09-10 08:46 | CONSULT ---
Consultation: REQUESTING PROVIDER: CONSULT REQUEST: We have been asked to medically evaluate this patient for UTI. 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 Pt has had SBO in the past and was treated at [facility]. She recently travelled to [place] in Apr and states that after returning, she began to have slow progression of SBO symptoms beginning with mild nausea. She states her symptoms got worse in the past couple of days prompting her ED visit. She states her colostomy does not fill without an enema. 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 She has been told that this lesion could be the cause of her SBO. Pt states she has received several doses of Herceptin without event. However, on her most recent infusion, Tues, in the last 15 min of the infusion she developed rigors and chills with fever, SOB, and hypoxia. Infusion was stopped, she was given benadryl, and symptoms promptly resolved. Pt states she also has a history of Left sided pyelonephritis and sepsis. Some time after having her b/l nephrostomy tubes placed, her left kidney was found to be draining pus. She was admitted to the ICU for 5 days at [place] during which she thinks she was treated with Vanc + Genta -> Unasyn and d/c'ed with Levaquin. She believes the offending bacterium was Klebsiella. In ED pt had a UA done which revealed 2+ protein, ketones, blood, 2.0 urobili, 3 + LE, 107 WBCs, and rare bacteria. She received 1 dose of Rocephin. UCx and BCx are pending. Notably, pt denies vaginal burning/discomfort or back/abdominal pain. She denies any fever/chills or redness/pain at any wound site chemoport, nephrostomy tubes, surgical wound, though she does mention her surgical wound has not closed completely. REVIEW OF SYSTEMS: CONSTITUTIONAL: generalized weakness, malaise, loss of appetite Absent: fever, chills, diaphoresis, , weight change HEENT: Absent: rhinorrhea, nasal congestion, throat pain, throat swelling, difficulty swallowing, mouth swelling, ear pain, eye pain, visual changes CARDIOVASCULAR: Absent: chest pain, syncope, palpitations, irregular heart rate, lightheadedness , peripheral edema RESPIRATORY: Absent: cough, shortness of breath, dyspnea with exertion, orthopnea, wheezing, stridor, hemoptysis GASTROINTESTINAL:nausea, vomiting Absent: abdominal pain, abdominal distension, , diarrhea, constipation, melena, hematochezia GENITOURINARY: Absent: dysuria, frequency, urgency, hesitancy, hematuria, flank pain, genital pain MUSCULOSKELETAL: Absent: myalgia, arthralgia, joint swelling, back pain, neck pain SKIN: Absent: rash, itching, pallor HEMATOLOGIC/IMMUNOLOGIC: Absent: easy bleeding, easy bruising, lymphadenopathy, frequent infections ENDOCRINE: Absent: unexplained weight gain, unexplained weight loss, heat intolerance, cold intolerance NEUROLOGIC: Absent: headache, focal weakness or paresthesias, dizziness, unsteady gait, seizure, mental status changes, bladder or bowel incontinence PSYCHIATRIC: Absent: anxiety, depression, suicidal or homicidal ideation, hallucinations. PHYSICAL EXAMINATION Vital Signs - 24 hr 09/09/17 09/09/17 09/09/17 16:16 22:40 23:50 Temperature 98.1 F 98.5 F 98.4 F Pulse Rate 114 H 103 H 102 H Respiratory 18 18 20 Rate Blood Pressure 127/98 127/76 119/72 O2 Sat by Pulse 97 96 Oximetry (%) 09/10/17 09/10/17 09/10/17 02:33 05:54 06:03 Temperature 98.2 F 98.5 F Pulse Rate 96 H 94 H Respiratory 20 20 20 Rate Blood Pressure 106/73 120/79 O2 Sat by Pulse 98 Oximetry (%) GENERAL: Awake, alert, and fully oriented, in no acute distress. NG tube in place, R chest chemoport, b/l nephrostomy tubes, colostomy empty HEAD: Normal with no signs of trauma. EYES: extraocular movements intact, sclera anicteric, conjunctiva clear. No lid lag. EARS, NOSE, THROAT: oropharynx clear without exudates. Moist mucous membranes. NECK: Normal range of motion, supple without lymphadenopathy, JVD, or masses. LUNGS: Breath sounds equal, clear to auscultation bilaterally. No wheezes, and no crackles. No accessory muscle use. HEART: Regular rate and rhythm, normal S1 and S2 without murmur, rub or gallop. ABDOMEN: surgical dressing cdi, L colostomy empty, b/l nephrostomy without erythema/pain. Soft, nontender, not distended, normoactive bowel sounds, no guarding, no rebound, no masses. No hepatomegaly or splenomegaly. MUSCULOSKELETAL: Normal range of motion at all joints. No bony deformities or tenderness. No CVA tenderness. UPPER EXTREMITIES: 2+ pulses, warm, well-perfused. No cyanosis. No clubbing. Cap refill <2 seconds. No peripheral edema. LOWER EXTREMITIES: 2+ pulses, warm, well-perfused. No calf tenderness. No peripheral edema. NEUROLOGICAL: Cranial nerves II-XII intact. Normal speech. PSYCHIATRIC: Cooperative. Good eye contact. Appropriate mood and affect. SKIN: Warm, dry, normal turgor, no rashes or lesions noted. Laboratory Results - last 24 hr 09/09/17 09/09/17 09/09/17 17:45 17:45 17:45 WBC RBC Hgb Hct MCV MCH MCHC RDW Plt Count MPV Neutrophils % Lymphocytes % Monocytes % Eosinophils % Basophils % PT with INR 12.50 H INR 1.11 Sodium 135 L Potassium 3.5 Chloride 97 L Carbon Dioxide 27 Anion Gap 11 BUN 22 H Creatinine 0.6 Creat Clearance w eGFR > 60 Random Glucose 100 Lactic Acid 0.9 Calcium 8.4 L Magnesium Total Bilirubin 0.7 D AST 28 ALT 69 Alkaline Phosphatase 164 H Total Protein 7.0 Albumin 2.7 L Lipase Urine Color Urine Appearance Urine pH Ur Specific [place] Urine Protein Urine Glucose (UA) Urine Ketones Urine Blood Urine Nitrite Urine Bilirubin Urine Urobilinogen Ur Leukocyte Esterase Urine WBC (Auto) Urine RBC (Auto) Urine Bacteria Urine Mucus Blood Type Antibody Screen 09/09/17 09/09/17 09/09/17 17:45 17:45 17:45 WBC 4.3 RBC 2.79 L Hgb 8.8 L Hct 25.4 L MCV 91.0 MCH 31.6 MCHC 34.7 RDW 14.8 Plt Count 474 H D MPV 8.2 Neutrophils % 78.8 Lymphocytes % 10.3 D Monocytes % 9.8 Eosinophils % 0.8 Basophils % 0.3 PT with INR INR Sodium Potassium Chloride Carbon Dioxide Anion Gap BUN Creatinine Creat Clearance w eGFR Random Glucose Lactic Acid Calcium Magnesium Total Bilirubin AST ALT Alkaline Phosphatase Total Protein Albumin Lipase 273 Urine Color Urine Appearance Urine pH Ur Specific [place] Urine Protein Urine Glucose (UA) Urine Ketones Urine Blood Urine Nitrite Urine Bilirubin Urine Urobilinogen Ur Leukocyte Esterase Urine WBC (Auto) Urine RBC (Auto) Urine Bacteria Urine Mucus Blood Type O POSITIVE Antibody Screen Negative 09/09/17 09/10/17 09/10/17 18:20 06:30 06:30 WBC 3.7 L RBC 2.56 L Hgb 7.9 L D Hct 23.5 L MCV 91.9 MCH 31.1 MCHC 33.8 RDW 14.7 Plt Count 410 MPV 8.4 Neutrophils % Lymphocytes % Monocytes % Eosinophils % Basophils % PT with INR INR Sodium 135 L Potassium 3.5 Chloride 99 Carbon Dioxide 29 Anion Gap 7 L BUN 20 H Creatinine 0.7 Creat Clearance w eGFR > 60 Random Glucose 148 H Lactic Acid Calcium 7.1 L Magnesium 1.2 L Total Bilirubin 0.4 D AST 51 H ALT 74 Alkaline Phosphatase 152 H Total Protein 6.1 L Albumin 2.3 L Lipase Urine Color Dkyellow Urine Appearance Cloudy Urine pH 6.0 Ur Specific [place] 1.018 Urine Protein 2+ H Urine Glucose (UA) Negative Urine Ketones 1+ H Urine Blood 1+ H Urine Nitrite Negative Urine Bilirubin Negative Urine Urobilinogen 2.0 H Ur Leukocyte Esterase 3+ H Urine WBC (Auto) 107 Urine RBC (Auto) 12 Urine Bacteria Rare Urine Mucus Rare Blood Type Antibody Screen Active Medications Generic Name Dose Route Start Last Admin Trade Name Estebanq PRN Reason Stop Dose Admin Amlodipine Besylate 5 mg 09/10/17 10:00 Norvasc - PO DAILY LINNETTE Fentanyl 1 patch 09/09/17 23:45 09/10/17 00:00 Duragesic 50mcg Patch - TD 09/16/17 23:44 1 patch Q72H LINNETTE Administration Heparin Sodium (Porcine) 5,000 unit 09/09/17 23:15 09/10/17 00:03 Heparin - SQ 5,000 unit BID LINNETTE Administration Dextrose/Sodium Chloride 20 meq in 1,000 mls @ 100 mls/hr 09/09/17 23:00 00:02 Dextrose 5%-Normal Saline+20 Meq Kcl - IV 100 mls/hr ASDIR LINNETTE Administration Loratadine 10 mg 09/10/17 10:00 Claritin - PO DAILY LINNETTE Miscellaneous 1 each 09/09/17 23:23 Duragesic Patch Waste TD PRN PRN PAIN Morphine Sulfate 4 mg 09/10/17 00:35 09/10/17 00:43 Morphine Sulfate IVPB 4 mg Q6H PRN Administration PAIN LEVEL 6-10 Ondansetron HCl 4 mg 09/09/17 23:22 09/10/17 00:03 Zofran Injection IVPB 4 mg Q6H PRN Administration NAUSEA ASSESSMENT/PLAN: This is a pleasant, unfortunate 52 y/o lady with PMH adenoCA of the cervix and resultant extensive medical workup (described above) who presented to ED with nausea and vomiting. She was found to have SBO. Her UA revealed LE 3+ and 107 WBC with rare bacteria. #UTI -afebrile -no leukocytosis -asympotmatic -b/l nephrostomies without erythema/pain -got Rocephin in ED -UCx pending -BCx pending -in absence of fever or obstruction to urine flow, no indication for ABx at this time. Will f/u Cx. #SBO per primary team Iron Melnedrez MD PGY-1 ID Dispo: We will continue to follow the patient. Thank you for this consultative opportunity. Visit type - Emergency Visit Emergency Visit: Yes ED Registration Date: 09/10/17 Care time: The patient presented to the Emergency Department on the above date and was hospitalized for further evaluation of their emergent condition. - New Patient This patient is new to me today: Yes Date on this admission: 09/26/17 - Critical Care Critical Care patient: No
[2017-09-10] MEDS: amLODIPine BESYLATE 5 MG TABLET (FP) PO SCH (09:48)
[2017-09-10] MEDS: LORATADINE 10 MG TABLET PO SCH (09:48)
--- NOTE | 2017-09-10 09:55 | EKG ---
Test Reason : Blood Pressure : / mmHG Vent. Rate : 104 BPM Atrial Rate : 104 BPM P-R Int : 152 ms QRS Dur : 076 ms QT Int : 350 ms P-R-T Axes : 022 006 -05 degrees QTc Int : 460 ms SINUS TACHYCARDIA LOW VOLTAGE QRS CANNOT RULE OUT ANTERIOR INFARCT , AGE UNDETERMINED ABNORMAL ECG Confirmed by LAURYN LOPEZ MD ([id number]) on 09/10/2017 9:55:00 AM Referred By: Confirmed By:LAURYN LOPEZ MD
--- NOTE | 2017-09-10 10:06 | PN ---
Teaching Attending Note Name of Resident: Iron Melendrez ATTENDING PHYSICIAN STATEMENT I saw and evaluated the patient. I reviewed the resident's note and discussed the case with the resident. I agree with the resident's findings and plan as documented. SUBJECTIVE: no fevers or chills extensive history reviewed in detail with patient no fevers or chills symptoms all are vomiting and no ostomy output OBJECTIVE: Vital Signs Period Temp Pulse Resp BP Sys/Rosa Pulse Ox Last 24 Hr 98.1 F-98.7 F 78-114 18-20 106-127/64-98 96-98 cor-rrr lungs clear abd soft,t +bilateral nephrostomies ileal loop- no ouput open wound lower abd clean +colostomy ext no edema +port CBC, BMP 09/10/17 06:30 09/10/17 06:30 ASSESSMENT AND PLAN: no fevers nothig to suggest infection management of sbo per gi and surgery Problem List - Problems (1) Small bowel obstruction due to adhesions Code(s): K56.50 - INTESTNL ADHESIONS, UNSP TO PARTIAL VERSUS COMPLETE OBST (2) Obstructive uropathy Code(s): N13.9 - OBSTRUCTIVE AND REFLUX UROPATHY, UNSPECIFIED (3) Cervical adenocarcinoma Code(s): C53.9 - MALIGNANT NEOPLASM OF CERVIX UTERI, UNSPECIFIED
--- NOTE | 2017-09-10 11:13 | CON.GI ---
Consult Consult Specialty:: GI Reason for Consultation:: abdominal distention - History of Present Illness History of Present Illness: chart reviewed. Events noted. per EGD intake: The patient is 52 year old female with past medical history of HTN, SBO, Cervical cancer is brought to the emergency department complaining of abdominal pain. The patient states feeling nauseous all week but last night she vomited (nonbloody or nonbilious). The patient states she had chemo 2 days ago and reports she had a adverse reaction to the medication, chills, shaking, SOB, mild fever and was given benadryl for the reaction.The patient states she hasn' t had a bowel movement for a week now. The patient reports the current pain is similar to the pain she had when she was obstructed. The patient reports she tries to drink fluids but ends up vomiting. CAT scan of the abdomen and pelvis showed high-grade small bowel obstruction. At the time of this encounter, the patient is laying in bed comfortably. Not in distress, or pain. NG drains light, green colored fluid. Patient reports no nausea, abdominal pain, dyspepsia. the patient reports no hematochezia, hematemesis, dysphagia. Reports no fevers, or jaundice. On exam, the abdomen is soft, nontender. - Past Medical History BIRD SITTER: Yes: Peripheral Neuropathy (related to cisplatinum), Other Cardio/Vascular: Yes: HTN Gastrointestinal: Yes: Other (normal colonoscopy 11/15/07, LLQ colostomy 11/06 with pelvic exenteration that included the appendix) Hepatobiliary: Yes: Other (fatty liver) Renal/: Yes: Renal Inusuff (obstructive, has ileal conduit), Other (urinary diversion. 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 History of Recent Travel: Yes ([place] 05/09) Home Medications - Allergies Allergies/Adverse Reactions: Allergies Allergy/AdvReac Type Severity Reaction Status Date / Time cisplatin Allergy Severe rash and Verified 09/09/17 16:21 chest pain - Home Medications Home Medications: Ambulatory Orders Amlodipine Besylate [Norvasc -] 5 mg PO DAILY 03/05/16 Cetirizine HCl [Zyrtec -] 10 mg PO DAILY 03/05/16 Cetirizine HCl [Zyrtec -] 10 mg PO DAILY 06/14/17 Family Disease History - Family Disease History Family Disease History: CA: Father ( colon cancer age 62), Mother (HPV cervical cancer survivor ), Sister (HPV cervical cancer survivor ) Review of Systems Findings/Remarks: As per H&P and HPI Physical Exam-GI Vital Signs: Vital Signs Temperature 98.5 F 09/10/17 06:03 Pulse Rate 94 H 09/10/17 06:03 Respiratory Rate 20 09/10/17 06:03 Blood Pressure 120/79 09/10/17 06:03 O2 Sat by Pulse Oximetry (%) 98 09/10/17 05:54 Constitutional: Yes: No Distress, Calm Eyes: Yes: Conjunctiva Clear HENT: Yes: Atraumatic Neck: Yes: Supple Cardiovascular: Yes: Regular Rate and Rhythm Respiratory: Yes: Regular Gastrointestinal Inspection: Yes: Distention ...Palpate: Yes: Soft. No: Firm/Rigid, Guarding, Tenderness, Tenderness, Epigastium, Tenderness, Rebound Neurological: Yes: Alert, Oriented Labs: CBC, BMP 09/10/17 06:30 09/10/17 06:30 INR, PTT INR 1.11 (0.82-1.09) 09/09/17 17:45 Laboratory Tests 09/09/17 09/09/17 09/09/17 17:45 17:45 17:45 WBC RBC Hgb Hct MCV MCH MCHC RDW Plt Count MPV Neutrophils % Lymphocytes % Monocytes % Eosinophils % Basophils % PT with INR 12.50 H INR 1.11 Sodium 135 L Potassium 3.5 Chloride 97 L Carbon Dioxide 27 Anion Gap 11 BUN 22 H Creatinine 0.6 Creat Clearance w eGFR > 60 Random Glucose 100 Lactic Acid 0.9 Calcium 8.4 L Magnesium Total Bilirubin 0.7 D AST 28 ALT 69 Alkaline Phosphatase 164 H Total Protein 7.0 Albumin 2.7 L Lipase Urine Color Urine Appearance Urine pH Ur Specific [place] Urine Protein Urine Glucose (UA) Urine Ketones Urine Blood Urine Nitrite Urine Bilirubin Urine Urobilinogen Ur Leukocyte Esterase Urine WBC (Auto) Urine RBC (Auto) Urine Bacteria Urine Mucus Blood Type Antibody Screen 09/09/17 09/09/17 09/09/17 17:45 17:45 17:45 WBC 4.3 RBC 2.79 L Hgb 8.8 L Hct 25.4 L MCV 91.0 MCH 31.6 MCHC 34.7 RDW 14.8 Plt Count 474 H D MPV 8.2 Neutrophils % 78.8 Lymphocytes % 10.3 D Monocytes % 9.8 Eosinophils % 0.8 Basophils % 0.3 PT with INR INR Sodium Potassium Chloride Carbon Dioxide Anion Gap BUN Creatinine Creat Clearance w eGFR Random Glucose Lactic Acid Calcium Magnesium Total Bilirubin AST ALT Alkaline Phosphatase Total Protein Albumin Lipase 273 Urine Color Urine Appearance Urine pH Ur Specific [place] Urine Protein Urine Glucose (UA) Urine Ketones Urine Blood Urine Nitrite Urine Bilirubin Urine Urobilinogen Ur Leukocyte Esterase Urine WBC (Auto) Urine RBC (Auto) Urine Bacteria Urine Mucus Blood Type O POSITIVE Antibody Screen Negative 09/09/17 09/10/17 09/10/17 18:20 06:30 06:30 WBC 3.7 L RBC 2.56 L Hgb 7.9 L D Hct 23.5 L MCV 91.9 MCH 31.1 MCHC 33.8 RDW 14.7 Plt Count 410 MPV 8.4 Neutrophils % Lymphocytes % Monocytes % Eosinophils % Basophils % PT with INR INR Sodium 135 L Potassium 3.5 Chloride 99 Carbon Dioxide 29 Anion Gap 7 L BUN 20 H Creatinine 0.7 Creat Clearance w eGFR > 60 Random Glucose 148 H Lactic Acid Calcium 7.1 L Magnesium 1.2 L Total Bilirubin 0.4 D AST 51 H ALT 74 Alkaline Phosphatase 152 H Total Protein 6.1 L Albumin 2.3 L Lipase Urine Color Dkyellow Urine Appearance Cloudy Urine pH 6.0 Ur Specific [place] 1.018 Urine Protein 2+ H Urine Glucose (UA) Negative Urine Ketones 1+ H Urine Blood 1+ H Urine Nitrite Negative Urine Bilirubin Negative Urine Urobilinogen 2.0 H Ur Leukocyte Esterase 3+ H Urine WBC (Auto) 107 Urine RBC (Auto) 12 Urine Bacteria Rare Urine Mucus Rare Blood Type Antibody Screen Imaging - Results Cat Scan: Report Reviewed Problem List - Problems (1) Small bowel obstruction due to adhesions Code(s): K56.50 - INTESTNL ADHESIONS, UNSP TO PARTIAL VERSUS COMPLETE OBST Assessment/Plan 52-year-old female with recurrent cervical cancer, multiple abdominal surgeries presents with recurrent small bowel obstruction. Fairly asymptomatic with conservative management. No signs of surgical abdomen. Continue NG to low intermittent suction, IV fluids. Monitor and correct electrolytes as needed. Surgical consult.
[2017-09-10] MEDS ORDERED: MAGNESIUM SULF 50% (8.12 MEQ/2 ML-1 GM VIAL) IVPB ONE (12:46)
--- NOTE | 2017-09-10 12:57 | PN ---
Progress Note (short form) - Note Progress Note: ID and GI appreciated the situation was discussed in detail with Dr Renae GI and Dr Hinojosa Surgery history and prior management reviewed conservative management has not helped so far Active Medications Generic Name Dose Route Start Last Admin Trade Name Freq PRN Reason Stop Dose Admin Amlodipine Besylate 5 mg 09/10/17 10:00 09/10/17 09:48 Norvasc - PO Not Given DAILY LINNETTE Fentanyl 1 patch 09/09/17 23:45 09/10/17 00:00 Duragesic 50mcg Patch - TD 09/16/17 23:44 1 patch Q72H LINNETTE Administration Heparin Sodium (Porcine) 5,000 unit 09/09/17 23:15 09/10/17 09:45 Heparin - SQ 5,000 unit BID LINNETTE Administration Dextrose/Sodium Chloride 20 meq in 1,000 mls @ 100 mls/hr 09/09/17 23:00 11:19 Dextrose 5%-Normal Saline+20 Meq Kcl - IV 100 mls/hr ASDIR LINNETTE Administration Loratadine 10 mg 09/10/17 10:00 09/10/17 09:48 Claritin - PO Not Given DAILY LINNETTE Miscellaneous 1 each 09/09/17 23:23 Duragesic Patch Waste TD PRN PRN PAIN Morphine Sulfate 4 mg 09/10/17 20:26 Morphine Sulfate IVPB Q3H PRN PAIN LEVEL 6-10 Octreotide Acetate 500 mcg 09/10/17 14:30 09/10/17 17:28 Sandostatin - IVPUSH 500 mcg Q8H LINNETTE Administration Ondansetron HCl 4 mg 09/09/17 23:22 09/10/17 17:39 Zofran Injection IVPB 4 mg Q6H PRN Administration NAUSEA Last Vital Signs Temp Pulse Resp BP Pulse Ox 97.9 F 88 18 114/77 97 09/10/17 17:16 09/10/17 17:16 09/10/17 17:16 09/10/17 17:16 09/10/17 14:00 c/o pain in the right buttock/groin/sacral area Abd is soft, nontender to light palpation CBC, BMP 09/10/17 06:30 09/10/17 06:30 IMP- sbo anemia worse from dilution mag 1.2 will replace calcium low 2/2 albumin corrected ca 8.76 pain management continue fentanyl increase frequency of morphine morphine dose not equivalent to previous dilaudid dose Plan- continue low suction of ngt to decompress bowel replace fluids and lytes with dextrose for calories replace magnesium awaiting call back from her surgeon in [place]
[2017-09-10] MEDS ORDERED: MAGNESIUM 1GM/D5W - 1 GM/100 ML IVPB IVPB ONE (13:00)
[2017-09-10] MEDS: morphine CARPU-JECT 2 MG/1 ML DISP.SYRIN IVPB PRN ×2 (13:28→19:15)
--- NOTE | 2017-09-10 13:30 | PN ---
Progress Note (short form) - Note Progress Note: GI NOte: Dr. Valencia did this GI consultation in coverage. My team will assume gracie's care henceforth. She informs me that surgery was not undertaken at [facility] and she instead was sent home on TPN. She failed to tolerate a hormonal agent and no further oncologic interventions were planned. She contacted Dr. Enrique Vasquez at [facility] who did her major operations. He did offer to explore her surgically. I advised her to call him to see whether this is a viable option as he best understands her abdominal condition. She has not eaten anything substantial within 2018. She was able to get free of an NG tube when octreotide was being given at [facility] but now presented with feculent vomiting. Her CT enterography in 06/10 did reveal a distal ileal transition point which appeared more like adhesions than malignancy and may be amenable to lysis. I will discuss the situation with when he returns my call.
--- NOTE | 2017-09-10 14:21 | CONSULT ---
Consult Consult Specialty:: General Surgery Referred by:: Shirin Koroma Reason for Consultation:: SBO - History of Present Illness Chief Complaint: LLQ pain, N/V, no colostomy output History of Present Illness: Pt is a 52 y/o F with extensive PMH significant for mucinous adenoCA of cervix s /p resection in 2014 s/p chemo/xrt with extensive abdominal surgeries including pelvic exenteration with end colostomy, ileal conduit no longer in use, b/l nephrostomy tubes (pt does not urinate), right chest chemoport who came to ED because of increased nausea, vomiting, and LLQ abdominal pain. Pt has had SBO in the past and was treated at [facility]. Her original surgery was at [facility]. She recently travelled to [place] in Apr and states that after returning, she began to have slow progression of SBO symptoms beginning with mild nausea. She states her symptoms got worse in the past couple of days prompting her ED visit. She states her colostomy does not fill without an enema, though most of the Fleet's liquid does not manage to go into the stoma. 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 She got IV fluids overnight, then got 2nd dose of herceptin chemotherapy Wednesday, with signficant reaction including tachycardia to 130s and desaturations to 70s and infusion was discontinued. She got Benadryl and was doing well by morning. She was discharged Wednesday, but still had vomiting. At home, she continued to have N/ V with any attempt at po intake, and increased LLQ pain, prompting her to come to ER here. In ER, she had normal wbc, elevated Cr near her baseline, labs and urine consistent with dehydration, and CT without contrast showed high-grade SBO. She reports no output from colostomy since a week ago, when she last tried Fleet's, but even then, mostly she just gets brown-colored liquid back out. She was not given TPN while at [facility], so has missed her TPN since Wednesday night and was not able to resume at home Wed yet either, because her port was not accessed when she was discharged, and VNS did not come back yet. So she has missed IV hydration as well over the last few days prior to admission. The pain in her LLQ is better since placement of the NGT. She describes some LUQ bloating and increased bowel sounds after oral intake at home, followed by vomiting. She has had N/V persistently and intermittently since at least May ; this time, she was vomiting brown material. NG output has been brown but translucent as noted in tubing and canister, which has been changed at least once. There is 700ml in canister now, of which 400 is since 7am. Pt seen and examined in bed with daughter at bedside. They are about to redress her open abdominal wound and replace stoma bags. 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 ) Reproductive: Yes: Other (met cervical CA dx 2014) ...LMP: 06/14/14 ...: No Heme/Onc: Yes: Cancer (metastatic cervical), Current Chemotherapy (second dose Herceptin 09/08/17 but had adverse reaction and was stopped) Psych: Yes: Anxiety Musculoskeletal: Yes: Chronic low back pain ENT: Yes: Other (seasonal allergies) Dermatology: Yes: Other (chronic nonhealing lower midline surgical wound (since 11/06)) - Past Surgical History Past Surgical History: Yes: Appendectomy (during pelvic exenteration 11/06), Colectomy, Colonoscopy, Colostomy, , Cystectomy, Hysterectomy (TAHBSO 2014 revealing adenocarcinoma of cervix), Ileal Conduit, Oopherectomy, Upper Endoscopy Additional Surgical History: bilat perc nephrostomies - Alcohol/Substance Use Hx Alcohol Use: Yes (social, prior to current situation) History of Substance Use: reports: Marijuana (medical - uses 2-3x daily at home (both smoking and cannabis oil)) - Smoking History Smoking history: Never smoked Have you smoked in the past 12 months: No Aproximately how many cigarettes per day: 0 - Social History Usual Living Arrangement: With Spouse ADL: Family Assistance 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 History of Recent Travel: Yes ([place] 05/09) Home Medications - Allergies Allergies/Adverse Reactions: Allergies Allergy/AdvReac Type Severity Reaction Status Date / Time cisplatin Allergy Severe rash and Verified 09/09/17 16:21 chest pain trastuzumab [From Herceptin] AdvReac Severe Verified 09/10/17 14:21 - Home Medications Home Medications: Ambulatory Orders Amlodipine Besylate [Norvasc -] 5 mg PO DAILY 03/05/16 Cetirizine HCl [Zyrtec -] 10 mg PO DAILY 03/05/16 Cetirizine HCl [Zyrtec -] 10 mg PO DAILY 06/14/17 Home Medications (free text): per pt - NOT taking any antihypertensives now Family Disease History - Family Disease History Family Disease History: CA: Father ( colon cancer age 62), Mother (HPV cervical cancer survivor ), Sister (HPV cervical cancer survivor ) Review of Systems - Review of Systems Constitutional: reports: Other (minimal oral intake (has been on IVF and TPN), unable to tolerate anything last few days secondary to vomiting). denies: Chills, Fever Eyes: reports: Other (uses glasses). denies: Recent Change in Vision HENT: denies: Difficult Swallowing, Throat Pain Neck: denies: Swollen Glands, Tenderness Cardiovascular: denies: Chest Pain, Palpitations (tachycardia sometimes when dehydrated) Respiratory: denies: Cough, SOB Gastrointestinal: reports: Abdominal Pain (chronic but worse last couple days with hpi), Constipation (uses Fleet's enemas via colostomy sometimes but difficult to get fluid in, gets mostly brown colored fluid back out - been at least a week since any stoma output with last enema), Nausea, Vomiting. denies : Diarrhea, Vomiting Blood Genitourinary: reports: Other (bilat nephrostomy tubes - urine darker recently and less in volume) Musculoskeletal: reports: Back Pain (had low back issues even before CA diagnosis). denies: Joint Pain, Muscle Pain Integumentary: reports: Wound (chronic nonhealing surgical wound in lower abdominal midline) Neurological: reports: Dizziness (when getting up or standing sometimes, must go slowly or sit back down). denies: Headache Physical Exam Vital Signs: Vital Signs Temperature 98.7 F 09/10/17 11:00 Pulse Rate 78 09/10/17 11:00 Respiratory Rate 18 09/10/17 11:00 Blood Pressure 118/64 09/10/17 11:00 O2 Sat by Pulse Oximetry (%) 98 09/10/17 05:54 Constitutional: Yes: Well Nourished, No Distress, Calm Eyes: Yes: Conjunctiva Clear, EOM Intact HENT: Yes: Atraumatic, Normocephalic, Other (NGT in place with mckenzie brown output, 400ml since 7am, 50ml this hour) Cardiovascular: Yes: Regular Rate and Rhythm, Tachycardia (minimal). No: Murmur Respiratory: Yes: Regular, CTA Bilaterally, Diminished (slightly at right base) Gastrointestinal: Yes: Soft, Abdomen, Obese, Hypoactive Bowel Sounds, Tenderness (mild lower quadrants, L>R (per pt, better than yesterday)), Other ( chronic lower midline wound, red base, friable with adherent exudate on surface , firm, nontender; LLQ colostomy pink, stoma opening at lateral edge just above skin level, patent but with no output; RLQ ileal conduit stoma present with no output, pink) ...Rectal Exam: Yes: Deferred Renal/: Yes: Other (bilat nephrostomy tubes to bags, dressings intact, yellow urine). No: CVA Tenderness - Left, CVA Tenderness - Right, Hematuria Musculoskeletal: No: Joint Stiffness, Joint Swelling Extremities: No: Cool, Cyanosis Edema: No Peripheral Pulses WNL: Yes Integumentary: Yes: Other (few small pink round satellite lesions adjacent to midline wound). No: Jaundice Wound/Incision: Yes: Open to air, Bleeding (friable in spots, bleeds easily but stops quickly with pressure), Unapproximated (chronic open, skin-level, granular -based wound with adherent exudate), Other (pt usually uses Solosite wound gel for dressing - in process of changing dressing) Neurological: Yes: Alert, Oriented Psychiatric: Yes: Alert, Oriented. No: Agitated Labs: CBC, BMP 09/10/17 06:30 09/10/17 06:30 CMP Sodium 135 mmol/L (136-145) L 09/10/17 06:30 Potassium 3.5 mmol/L (3.5-5.1) 09/10/17 06:30 Chloride 99 mmol/L (98-107) 09/10/17 06:30 Carbon Dioxide 29 mmol/L (21-32) 09/10/17 06:30 Anion Gap 7 (8-16) L 09/10/17 06:30 BUN 20 mg/dL (7-18) H 09/10/17 06:30 Creatinine 0.7 mg/dL (0.55-1.02) 09/10/17 06:30 Creat Clearance w eGFR > 60 (>60) 09/10/17 06:30 Random Glucose 148 mg/dL (74-106) H 09/10/17 06:30 Lactic Acid 0.9 mmol/L (0.0-2.0) 09/09/17 17:45 Calcium 7.1 mg/dL (8.5-10.1) L 09/10/17 06:30 Magnesium 1.2 mg/dL (1.8-2.4) L 09/10/17 06:30 Total Bilirubin 0.4 mg/dL (0.2-1.0) D 09/10/17 06:30 AST 51 U/L (15-37) H 09/10/17 06:30 ALT 74 U/L (12-78) 09/10/17 06:30 Alkaline Phosphatase 152 U/L (45-117) H 09/10/17 06:30 Total Protein 6.1 g/dl (6.4-8.2) L 09/10/17 06:30 Albumin 2.3 g/dl (3.4-5.0) L 09/10/17 06:30 Lipase 273 U/L (73-393) 09/09/17 17:45 INR, PTT INR 1.11 (0.82-1.09) 09/09/17 17:45 Urine Test Results Urine Color Dkyellow 09/09/17 18:20 Urine Appearance Cloudy 09/09/17 18:20 Urine pH 6.0 (5.0-8.0) 09/09/17 18:20 Ur Specific [place] 1.018 (1.001-1.035) 09/09/17 18:20 Urine Protein 2+ (NEGATIVE) H 09/09/17 18:20 Urine Glucose (UA) Negative (NEGATIVE) 09/09/17 18:20 Urine Ketones 1+ (NEGATIVE) H 09/09/17 18:20 Urine Blood 1+ (NEGATIVE) H 09/09/17 18:20 Urine Nitrite Negative (NEGATIVE) 09/09/17 18:20 Urine Bilirubin Negative (<2.0 mg/dL) 09/09/17 18:20 Ur Leukocyte Esterase 3+ (NEGATIVE) H 09/09/17 18:20 Urine Bacteria Rare /hpf (NONE SEEN) 09/09/17 18:20 Urine Mucus Rare 09/09/17 18:20 Imaging - Results Chest X-ray: Report Reviewed, Image Reviewed (NGT in stomach) Cat Scan: Report Reviewed, Image Reviewed (images personally reviewed - SBO with difficulty identifying transition point in absence of oral or IV contrast; colon collapsed but with little air present, ascites in LUQ and pelvis) Problem List - Problems (1) Small bowel obstruction due to adhesions Assessment/Plan: recurrent/persistent SBO, high grade, at least in part likely secondary to adhesions though possibly complicated by malignancy agree with NPO/NGT/IVF will get serial AXR and follow exam without oral contrast to follow, may have to rely on AXR gas pattern, clinical exam, NG output and whether colostomy begins putting out gas and/or stool would continue TPN and IVF as at home while in hospital likely needs at least one peripheral IV if port accessed for TPN administration trend and replete lytes prn had long discussion with patient and daughter at bedside regarding risks/ potential benefits of surgical intervention given extensive abdominal surgical history and presence of chronic midline wound [with underlying bowel seen on CT (likely hernia) vs closed fascia - which means primary abdominal fascial closure also may not be possible], would agree that any surgical intervention to be undertaken should be done at tertiary center, preferably with her prior surgeon(s) Dr. Renae's note appreciated discussed with patient that in the long-term, if her SBO does not resolve with NGT, or if it does but keeps recurring, ultimately she will have to discuss surgical options with her previous surgeon, or make decisions about management without surgery, as NG is not a long-term option also informed patient that palliative care resources may be available at this or any other hospital or possibly outpatient setting, who may be able to offer significant assistance with coping with serious illness, identifying and addressing goals of care, managing symptoms and optimizing quality of life, and that their involvement does NOT mandate hospice, giving up treatments or care, or that end-of-life is very near... anticipate that patient will continue on home TPN and IVF, and that minimal po intake will continue on discharge would also agree [facility] Par[facility] Code(s): K56.50 - INTESTNL ADHESIONS, UNSP TO PARTIAL VERSUS COMPLETE OBST (2) Abdominal pain Code(s): R10.9 - UNSPECIFIED ABDOMINAL PAIN Qualifiers: Abdominal location: left lower quadrant Qualified Code(s): R10.32 - Left lower quadrant pain (3) Cervical adenocarcinoma Assessment/Plan: metastatic, s/p pelvic exenteration, chemoRT with progressive disease Code(s): C53.9 - MALIGNANT NEOPLASM OF CERVIX UTERI, UNSPECIFIED (4) Colostomy in place Assessment/Plan: continue ostomy care, keep bag on to follow for gas/stool production Code(s): Z93.3 - COLOSTOMY STATUS (5) Open wound of abdominal wall, anterior, complicated Assessment/Plan: continue local wound care Code(s): S31.109A - UNSP OPN WND ABD WALL, UNSP Q W/O PENET PERIT CAV, INIT Qualifiers: Encounter type: sequela Qualified Code(s): S31.109S - Unspecified open wound of abdominal wall, unspecified quadrant without penetration into peritoneal cavity, sequela (6) History of ileal conduit Code(s): Z98.890 - OTHER SPECIFIED POSTPROCEDURAL STATES (7) Nephrostomy status Code(s): Z93.6 - OTHER ARTIFICIAL OPENINGS OF URINARY TRACT STATUS (9) Peripheral neuropathy due to chemotherapy Code(s): G62.0 - DRUG-INDUCED POLYNEUROPATHY; T45.1X5A - ADVERSE EFFECT OF ANTINEOPLASTIC AND IMMUNOSUP DRUGS, INIT
[2017-09-10] MEDS: OCTREOTIDE ACETATE 500 MCG/1 ML - 1 ML VIAL IVPUSH SCH ×2 (17:28→22:22)
[2017-09-10] MEDS ORDERED: morphine CARPU-JECT 2 MG/1 ML DISP.SYRIN IVPB PRN (19:13)
[2017-09-11] MEDS: morphine SULFATE 4 MG/ML VIAL IVPB PRN ×7 (01:09→23:32)
[2017-09-11] MEDS: ONDANSETRON 4 MG/2 ML VIAL IVPB PRN ×2 (04:23→20:30)
[2017-09-11] MEDS: OCTREOTIDE ACETATE 500 MCG/1 ML - 1 ML VIAL IVPUSH SCH ×3 (06:41→23:19)
[2017-09-11 07:17] LABS: HEMATOCRIT 24.7 % (32.4-45.2); HEMOGLOBIN 8.4 GM/dL (10.7-15.3); MCH 31.2 pg (25.7-33.7); MCHC 33.9 g/dl (32.0-36.0); MEAN CELL VOLUME 92.1 fl (80-96); MEAN PLT VOLUME 8.1 fl (7.5-11.1); PLATELET COUNT 456 K/MM3 (134-434); RBC 2.68 M/mm3 (3.60-5.2); RDW 14.8 % (11.6-15.6); WHITE BLOOD COUNT 4.1 K/mm3 (4.0-10.0)
[2017-09-11 07:58] LABS: ALBUMIN 2.5 g/dl (3.4-5.0); ANION GAP 8 (8-16); BILIRUBIN,TOTAL 0.4 mg/dL (0.2-1.0); BLOOD UREA NITROGEN 13 mg/dL (7-18); CALCIUM 7.5 mg/dL (8.5-10.1); CHLORIDE 104 mmol/L (98-107); CO2 27 mmol/L (21-32); CREATININE 0.7 mg/dL (0.55-1.02); GLUCOSE,RANDOM 150 mg/dL (74-106); MAGNESIUM 1.5 mg/dL (1.8-2.4); PHOSPHOROUS 2.9 mg/dL (2.5-4.9); SGOT/AST 26 U/L (15-37); SGPT/ALT 63 U/L (12-78); SODIUM 139 mmol/L (136-145); TOT PROT 6.4 g/dl (6.4-8.2)
[2017-09-11 07:59] LABS: ALK PHOS 135 U/L (45-117)
[2017-09-11] MEDS: amLODIPine BESYLATE 5 MG TABLET (FP) PO SCH (10:30)
[2017-09-11] MEDS: LORATADINE 10 MG TABLET PO SCH (10:30)
[2017-09-11] MEDS: HEPARIN NA (PORCINE) 5,000 UNITS/ML 1ML VIAL SQ SCH ×2 (10:30→23:15)
--- NOTE | 2017-09-11 14:13 | PN ---
Progress Note (short form) - Note Progress Note: Pt with metastatic cervical cancer s/p pelvic exenteration with colostomy, dormant ileal conduit, bilateral nephrostomies and recurrent SBO, thought more likely due to adhesions or stricture than malignancy from imaging 2m ago. Pt seen and examined in bed, in room. She had AXR this morning, and has had 400ml NG output overnight (total 2100 yesterday). Feeling better in general , still with some LLQ discomfort and tenderness. No gas from colostomy yet. Urine output 1200 total yesterday. Dual port, singly accessed, not back on TPN yet. Vital Signs Period Temp Pulse Resp BP Sys/Rosa Pulse Ox Last 24 Hr 97.8 F-98.1 F 88-96 18-20 110-130/73-89 97 PE: A&O NG in place with light/brown/clear output, no distress no edema or cyanosis abdomen soft, obese, wound dressed, stoma appliances on, no gas in colostomy bag mildly tender LLQ, no R/G nephrostomies with yellow urine in bags moves well in bed CBC, BMP 09/11/17 06:00 09/11/17 06:00 Mg 1.5 up from 1.2 A/P: SBO secondary to adhesions, possibly with malignant element continue NPO/NGT would resume IVF and TPN regimen patient was on at home and dually access port replete lytes pt has been in touch with Dr. Vasquez, her surgeon at [facility], who will be away returning on 09/27 ideally, pt should be able to follow up with Dr. Vasquez on his return to discuss surgical options interim goals include adequate hydration, nutrition, and GI decompression if pt opens up enough for colostomy to put out gas and stool, may be able to get home on TPN/IVF until she can get to him will follow clinically and check AXR in 1-2 days pt understands and agrees with plan Problem List - Problems (1) Small bowel obstruction due to adhesions Code(s): K56.50 - INTESTNL ADHESIONS, UNSP TO PARTIAL VERSUS COMPLETE OBST (2) Abdominal pain Code(s): R10.9 - UNSPECIFIED ABDOMINAL PAIN Qualifiers: Abdominal location: left lower quadrant Qualified Code(s): R10.32 - Left lower quadrant pain (3) Cervical adenocarcinoma Code(s): C53.9 - MALIGNANT NEOPLASM OF CERVIX UTERI, UNSPECIFIED (4) Colostomy in place Code(s): Z93.3 - COLOSTOMY STATUS (5) Open wound of abdominal wall, anterior, complicated Code(s): S31.109A - UNSP OPN WND ABD WALL, UNSP Q W/O PENET PERIT CAV, INIT Qualifiers: Encounter type: sequela Qualified Code(s): S31.109S - Unspecified open wound of abdominal wall, unspecified quadrant without penetration into peritoneal cavity, sequela (6) History of ileal conduit Code(s): Z98.890 - OTHER SPECIFIED POSTPROCEDURAL STATES (7) Nephrostomy status Code(s): Z93.6 - OTHER ARTIFICIAL OPENINGS OF URINARY TRACT STATUS (9) Peripheral neuropathy due to chemotherapy Code(s): G62.0 - DRUG-INDUCED POLYNEUROPATHY; T45.1X5A - ADVERSE EFFECT OF ANTINEOPLASTIC AND IMMUNOSUP DRUGS, INIT
--- NOTE | 2017-09-11 14:39 | PN ---
GI Progress Note Subjective: GI F/U FOR DR MCKEON NO ACUTE CHANGES TODAY FEELS SYMPTOMATICALLY BETTER WITH PAION MEDS HOWEVER, SHE BELIEVES THE SANDOSTATIN IS MAKING HER NAUSEATED NO VOMITING-- PT HAS NGT DRAINED 1 L YESTERDAY 450CC'S TODAY NO F/C/S LESS ABD PAIN - Objective Vital Signs: Vital Signs Temperature 97.8 F 09/11/17 05:00 Pulse Rate 90 09/11/17 05:00 Respiratory Rate 20 09/11/17 05:00 Blood Pressure 128/89 09/11/17 05:00 O2 Sat by Pulse Oximetry (%) 97 09/10/17 22:00 Constitutional: No Distress, Calm Eyes: Yes: WNL (dIMINISHED bs/ FIRM/ NON-TENDER TO PALPATION MILDLY DISTENDED ILEAL CONDUITS) Labs: CBC, BMP 09/11/17 06:00 09/11/17 06:00 INR, PTT INR 1.11 (0.82-1.09) 09/09/17 17:45 Assessment/Plan 52F WITH PELVIC MALIGNANCY WITH EXTENSION, S/P EXENTERATION WITH ILEAL CONDUITS HX OF RECURRENT SBO NOW WITH HIGH GRADE SBO FOR POSSIBLE SURGICAL EXPLORATION AT [facility] IF EXTENSION OF METASTATIC DISEASE OR IF ADHESIVE DISEASE PT COMFORTABLE WITH SUPPORTIVE/NGT DECOMPRESSION AND PAIN MEDS SHE FEELS OCTREOTIDE IS MAKING HER NAUSEATED AND WOULD D/C THE MEDICATION AT THIS TIME SUPPORTIVE CARE MD KIRBY
[2017-09-11] MEDS ORDERED: MAGNESIUM SULF 50% (8.12 MEQ/2 ML-1 GM VIAL) IVPB ONE (14:49)
[2017-09-11] MEDS ORDERED: MAGNESIUM SULFATE IN WATER 2 GM/50 ML IVPB IVPB ONE (15:00)
[2017-09-11] MEDS ORDERED: CALCIUM GLUCONATE 10% - 1,000 MG/10 ML VIAL IVPB ONE (21:31)
--- NOTE | 2017-09-11 21:31 | PN ---
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 vs metastatic disease colostomy ileaostomy recurrent vomiting she cannot tolerate octreotide- unclear if it is helping she has generalized itching and underlying rhinitis cannot take her usual antihistamine pain better controlled Current Medications Amlodipine Besylate (Norvasc -) 5 mg PO DAILY [facility] Last Admin: 09/11/17 10:30 Dose: Not Given Fentanyl (Duragesic 50mcg Patch -) 1 patch TD Q72H [facility] Stop: 09/16/17 23:44 Last Admin: 09/10/17 00:00 Dose: 1 patch Heparin Sodium (Porcine) (Heparin -) 5,000 unit SQ BID [facility] Last Admin: 09/11/17 10:30 Dose: 5,000 unit Dextrose/Sodium Chloride (Dextrose 5%-Normal Saline+20 Meq Kcl -) 20 meq in 1, 000 mls @ 100 mls/hr IV ASDIR [facility] Last Admin: 09/10/17 22:17 Dose: 100 mls/hr Loratadine (Claritin -) 10 mg PO DAILY [facility] Last Admin: 09/11/17 10:30 Dose: Not Given Miscellaneous (Duragesic Patch Waste) 1 each TD PRN PRN PRN Reason: PAIN Morphine Sulfate (Morphine Sulfate) 4 mg IVPB Q3H PRN PRN Reason: PAIN LEVEL 6-10 Last Admin: 09/11/17 20:30 Dose: 4 mg Octreotide Acetate (Sandostatin -) 500 mcg IVPUSH Q8H [facility] Last Admin: 09/11/17 15:09 Dose: Not Given Ondansetron HCl (Zofran Injection) 4 mg IVPB Q6H PRN PRN Reason: NAUSEA Last Admin: 09/11/17 20:30 Dose: 4 mg Last Vital Signs Temp Pulse Resp BP Pulse Ox 97.8 F 90 20 133/78 98 09/11/17 20:40 09/11/17 20:40 09/11/17 20:40 09/11/17 20:40 09/11/17 20:47 pale Abd is soft, nontender to light palpation no edema CBC, BMP 09/11/17 06:00 09/11/17 06:00 Mg 1.5 IMP- sbo anemia is less Mag 1.2 will replace calcium low 2/2 albumin corrected ca 8.76 pain management better continue fentanyl increase frequency of morphine morphine dose not equivalent to previous dilaudid dose Plan- continue low suction of ngt to decompress bowel replace fluids and lytes with dextrose for calories replace magnesium consider TPN if her stay is prolonged. she gets TPN at home
[2017-09-11] MEDS: D5-NS + 20 MEQ KCL - 20 MEQ/1,000 ML INFUS.BAG IV SCH (23:32)
[2017-09-12] MEDS: morphine SULFATE 4 MG/ML VIAL IVPB PRN ×5 (02:52→22:07)
[2017-09-12] MEDS: OCTREOTIDE ACETATE 500 MCG/1 ML - 1 ML VIAL IVPUSH SCH ×2 (05:34→14:58)
[2017-09-12] MEDS: HEPARIN NA (PORCINE) 5,000 UNITS/ML 1ML VIAL SQ SCH ×2 (10:47→23:15)
[2017-09-12] MEDS: LORATADINE 10 MG TABLET PO SCH (10:47)
[2017-09-12] MEDS: amLODIPine BESYLATE 5 MG TABLET (FP) PO SCH (10:47)
--- NOTE | 2017-09-12 17:22 | PN ---
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 colostomy ileaostomy recurrent vomiting she cannot tolerate octreotide- unclear if it is helping she has generalized itching and underlying rhinitis cannot take her usual antihistamine pain better controlled Current Medications Amlodipine Besylate (Norvasc -) 5 mg PO DAILY [facility] Last Admin: 09/12/17 10:47 Dose: Not Given Diphenhydramine HCl (Benadryl Injection -) 25 mg IVPB Q4H PRN PRN Reason: FOR ITCHING Last Admin: 09/12/17 14:19 Dose: 25 mg Fentanyl (Duragesic 50mcg Patch -) 1 patch TD Q72H [facility] Stop: 09/16/17 23:44 Last Admin: 09/10/17 00:00 Dose: 1 patch Heparin Sodium (Porcine) (Heparin -) 5,000 unit SQ BID [facility] Last Admin: 09/12/17 10:47 Dose: 5,000 unit Dextrose/Sodium Chloride (Dextrose 5%-Normal Saline+20 Meq Kcl -) 20 meq in 1, 000 mls @ 100 mls/hr IV ASDIR [facility] Last Admin: 09/11/17 23:32 Dose: 100 mls/hr Loratadine (Claritin -) 10 mg PO DAILY [facility] Last Admin: 09/12/17 10:47 Dose: Not Given Miscellaneous (Duragesic Patch Waste) 1 each TD PRN PRN PRN Reason: PAIN Morphine Sulfate (Morphine Sulfate) 4 mg IVPB Q3H PRN PRN Reason: PAIN LEVEL 6-10 Last Admin: 09/12/17 14:59 Dose: 4 mg Ondansetron HCl (Zofran Injection) 4 mg IVPB Q6H PRN PRN Reason: NAUSEA Last Admin: 09/11/17 20:30 Dose: 4 mg pale in no distress lungs clear Abd is soft, nontender to light palpation no edema CBC, BMP 09/12/17 18:03 09/12/17 18:03 09/11/17 09/12/17 06:00 18:03 Calcium 7.9 L Phosphorus 2.9 Magnesium 1.4 L IMP- sbo anemia is less Mag 1.2 will replace calcium low 2/2 albumin corrected ca 8.76 pain management better continue fentanyl increase frequency of morphine morphine dose not equivalent to previous dilaudid dose Plan- continue low suction of ngt to decompress bowel replace fluids and lytes with dextrose for calories replace magnesium start TPN in am
[2017-09-12 18:19] LABS: HEMATOCRIT 24.4 % (32.4-45.2); HEMOGLOBIN 8.3 GM/dL (10.7-15.3); MCH 31.1 pg (25.7-33.7); MCHC 33.9 g/dl (32.0-36.0); MEAN CELL VOLUME 91.7 fl (80-96); MEAN PLT VOLUME 7.9 fl (7.5-11.1); PLATELET COUNT 497 K/MM3 (134-434); RBC 2.66 M/mm3 (3.60-5.2); RDW 14.9 % (11.6-15.6); WHITE BLOOD COUNT 4.7 K/mm3 (4.0-10.0)
[2017-09-12 19:07] LABS: ALBUMIN 2.5 g/dl (3.4-5.0); ALK PHOS 119 U/L (45-117); ANION GAP 10 (8-16); BILIRUBIN,TOTAL 0.5 mg/dL (0.2-1.0); BLOOD UREA NITROGEN 7 mg/dL (7-18); CALCIUM 7.9 mg/dL (8.5-10.1); CHLORIDE 103 mmol/L (98-107); CO2 26 mmol/L (21-32); CREATININE 0.6 mg/dL (0.55-1.02); GLUCOSE,RANDOM 113 mg/dL (74-106); MAGNESIUM 1.4 mg/dL (1.8-2.4); POTASSIUM 3.8 mmol/L (3.5-5.1); SGOT/AST 25 U/L (15-37); SGPT/ALT 54 U/L (12-78); SODIUM 139 mmol/L (136-145); TOT PROT 6.4 g/dl (6.4-8.2)
--- NOTE | 2017-09-12 19:34 | PN ---
Progress Note (short form) - Note Progress Note: Pt with metastatic cervical cancer s/p pelvic exenteration with colostomy, dormant ileal conduit, bilateral nephrostomies and recurrent SBO, thought more likely due to adhesions or stricture than malignancy from imaging 2m ago. Pt seen and examined in bed, in room. She has had 600ml NG output since last night. Feeling better in general, still with some LLQ discomfort and tenderness, mild gassiness, discomfort LUQ across middle but no gas from colostomy yet. Urine output 1200 total yesterday. Dual port, singly accessed, not back on TPN yet. Vital Signs Period Temp Pulse Resp BP Sys/Rosa Pulse Ox Last 24 Hr 97.8 F-98.1 F 86-95 20-20 115-138/78-93 98-98 PE: A&O NG in place with light/brown/clear output, no distress no edema or cyanosis abdomen soft, obese, wound dressed, stoma appliances on, no gas in colostomy bag mildly tender LLQ, LUQ, no R/G, not distended upper abdomen nephrostomies with yellow urine in bags moves well in bed CBC, BMP 09/12/17 18:03 09/12/17 18:03 Mg 1.4 A/P: SBO secondary to adhesions, possibly with malignant element continue NPO/NGT would resume IVF and TPN regimen patient was on at home and dually access port replete lytes pt has been in touch with Dr. Vasquez, her surgeon at [facility], who will be away returning on 09/27 ideally, pt should be able to follow up with Dr. Vasquez on his return to discuss surgical options interim goals include adequate hydration, nutrition, and GI decompression if pt opens up enough for colostomy to put out gas and stool, may be able to get home on TPN/IVF until she can get to him will follow clinically and check AXR in 1-2 days - not likely to show much difference unless ostomy opens up pt understands and agrees with plan Problem List - Problems (1) Small bowel obstruction due to adhesions Code(s): K56.50 - INTESTNL ADHESIONS, UNSP TO PARTIAL VERSUS COMPLETE OBST (2) Abdominal pain Code(s): R10.9 - UNSPECIFIED ABDOMINAL PAIN Qualifiers: Abdominal location: left lower quadrant Qualified Code(s): R10.32 - Left lower quadrant pain (3) Cervical adenocarcinoma Code(s): C53.9 - MALIGNANT NEOPLASM OF CERVIX UTERI, UNSPECIFIED (4) Colostomy in place Code(s): Z93.3 - COLOSTOMY STATUS (5) Open wound of abdominal wall, anterior, complicated Code(s): S31.109A - UNSP OPN WND ABD WALL, UNSP Q W/O PENET PERIT CAV, INIT Qualifiers: Encounter type: sequela Qualified Code(s): S31.109S - Unspecified open wound of abdominal wall, unspecified quadrant without penetration into peritoneal cavity, sequela (6) History of ileal conduit Code(s): Z98.890 - OTHER SPECIFIED POSTPROCEDURAL STATES (7) Nephrostomy status Code(s): Z93.6 - OTHER ARTIFICIAL OPENINGS OF URINARY TRACT STATUS (9) Peripheral neuropathy due to chemotherapy Code(s): G62.0 - DRUG-INDUCED POLYNEUROPATHY; T45.1X5A - ADVERSE EFFECT OF ANTINEOPLASTIC AND IMMUNOSUP DRUGS, INIT
[2017-09-12] MEDS: ONDANSETRON 4 MG/2 ML VIAL IVPB PRN (20:35)
[2017-09-12] MEDS: D5-NS + 20 MEQ KCL - 20 MEQ/1,000 ML INFUS.BAG IV SCH ×2 (20:41→23:16)
[2017-09-12] MEDS: FENTANYL PATCH WASTE TD PRN (23:14)
[2017-09-12] MEDS: fentaNYL 50mcg/hr PATCH.TD72 TD SCH (23:14)
[2017-09-13] MEDS: morphine SULFATE 4 MG/ML VIAL IVPB PRN ×6 (01:07→17:14)
[2017-09-13] MEDS: D5-NS + 20 MEQ KCL - 20 MEQ/1,000 ML INFUS.BAG IV SCH ×2 (06:43→23:15)
[2017-09-13] MEDS: ONDANSETRON 4 MG/2 ML VIAL IVPB PRN (07:48)
[2017-09-13 07:49] LABS: TRIGLYCERIDES 291 mg/dL (35-160)
[2017-09-13 08:18] LABS: ALBUMIN 2.6 g/dl (3.4-5.0); ANION GAP 5 (8-16); BILIRUBIN,TOTAL 0.5 mg/dL (0.2-1.0); BLOOD UREA NITROGEN 6 mg/dL (7-18); CALCIUM 7.6 mg/dL (8.5-10.1); CHLORIDE 105 mmol/L (98-107); CO2 28 mmol/L (21-32); CREATININE 0.8 mg/dL (0.55-1.02); GLUCOSE,RANDOM 116 mg/dL (74-106); MAGNESIUM 1.1 mg/dL (1.8-2.4); PHOSPHOROUS 3.5 mg/dL (2.5-4.9); POTASSIUM 4.1 mmol/L (3.5-5.1); SGOT/AST 26 U/L (15-37); SGPT/ALT 52 U/L (12-78); SODIUM 138 mmol/L (136-145); TOT PROT 6.7 g/dl (6.4-8.2)
[2017-09-13 08:19] LABS: ALK PHOS 122 U/L (45-117)
[2017-09-13 08:32] LABS: ALBUMIN 2.6 g/dl (3.4-5.0); BILIRUBIN,DIRECT < 0.2 mg/dL (0.0-0.2); SGOT/AST 24 U/L (15-37); SGPT/ALT 52 U/L (12-78)
[2017-09-13 08:33] LABS: ALK PHOS 116 U/L (45-117); BILIRUBIN,TOTAL 0.4 mg/dL (0.2-1.0); TOT PROT 6.6 g/dl (6.4-8.2)
[2017-09-13 09:07] LABS: HEMATOCRIT 26.7 % (32.4-45.2); MCH 31.3 pg (25.7-33.7); MCHC 33.8 g/dl (32.0-36.0); MEAN CELL VOLUME 92.7 fl (80-96); MEAN PLT VOLUME 8.2 fl (7.5-11.1); PLATELET COUNT 593 K/MM3 (134-434); RBC 2.88 M/mm3 (3.60-5.2); RDW 14.9 % (11.6-15.6); WHITE BLOOD COUNT 6.5 K/mm3 (4.0-10.0)
[2017-09-13] MEDS: HEPARIN NA (PORCINE) 5,000 UNITS/ML 1ML VIAL SQ SCH ×2 (11:10→22:57)
[2017-09-13] MEDS: LORATADINE 10 MG TABLET PO SCH (11:13)
[2017-09-13] MEDS: amLODIPine BESYLATE 5 MG TABLET (FP) PO SCH (11:13)
[2017-09-13] MEDS: CALCIUM GLUCONATE IVPB SCH (18:00)
[2017-09-13] MEDS: POTASSIUM CHLORIDE IVPB SCH (18:00)
[2017-09-13] MEDS: [UNRECOGNIZED DRUG - OTHER] IVPB SCH (18:00)
[2017-09-13] MEDS: MAGNESIUM SULFATE IVPB SCH (18:00)
[2017-09-13] MEDS ORDERED: morphine SULFATE 4 MG/ML VIAL IVPUSH ONE (21:00)
--- NOTE | 2017-09-13 21:42 | PN ---
Progress Note (short form) - Note Progress Note: recurrent pelvic devops malignancy sbo adhesive vs metastatic disease colostomy ileaostomy recurrent vomiting she cannot tolerate octreotide- unclear if it is helping she has generalized itching and underlying rhinitis cannot take her usual antihistamine pain better controlled Current Medications Amlodipine Besylate (Norvasc -) 5 mg PO DAILY [facility] Last Admin: 09/13/17 11:13 Dose: Not Given Diphenhydramine HCl (Benadryl Injection -) 25 mg IVPB Q4H PRN PRN Reason: FOR ITCHING Last Admin: 09/12/17 14:19 Dose: 25 mg Fentanyl (Duragesic 50mcg Patch -) 1 patch TD Q72H [facility] Stop: 09/16/17 23:44 Last Admin: 09/12/17 23:14 Dose: 1 patch Heparin Sodium (Porcine) (Heparin -) 5,000 unit SQ BID [facility] Last Admin: 09/13/17 11:10 Dose: 5,000 unit Dextrose/Sodium Chloride (Dextrose 5%-Normal Saline+20 Meq Kcl -) 20 meq in 1, 000 mls @ 100 mls/hr IV ASDIR [facility] Last Admin: 09/13/17 06:43 Dose: 100 mls/hr Potassium Chloride 20 meq/Magnesium Sulfate 1.2 gm/Calcium Gluconate 3,191 mg/ Multivitamins/Minerals 10 ml/Sterile Water/ Dextrose/ Amino Acids 2,000 mls @ 83.333 mls/hr IVPB DAILY@1600 [facility] Last Admin: 09/13/17 18:00 Dose: 83.333 mls/hr Fat Emulsion Intravenous (Intralipid -) 250 mls @ 20.833 mls/hr IV DAILY@2200 [facility] Loratadine (Claritin -) 10 mg PO DAILY [facility] Last Admin: 09/13/17 11:13 Dose: Not Given Miscellaneous (Duragesic Patch Waste) 1 each TD PRN PRN PRN Reason: PAIN Last Admin: 09/12/17 23:14 Dose: 1 each Morphine Sulfate (Morphine Sulfate) 4 mg IVPUSH Q3H PRN PRN Reason: PAIN LEVEL 6-10 Ondansetron HCl (Zofran Injection) 4 mg IVPB Q6H PRN PRN Reason: NAUSEA Last Admin: 09/13/17 07:48 Dose: 4 mg Last Vital Signs Temp Pulse Resp BP Pulse Ox 98.2 F 95 H 18 110/75 100 09/13/17 18:00 09/13/17 18:00 09/13/17 18:00 09/13/17 18:00 09/13/17 09:00 pale in no distress lungs clear Abd is soft, nontender to light palpation no edema CBC, BMP 09/13/17 06:40 09/13/17 06:40 Calcium 7.6 L Phosphorus 3.5 Magnesium 1.1 L IMP- sbo anemia is less calcium low 2/2 albumin pain management better continue fentanyl continue morphine Plan- continue low suction of ngt to decompress bowel started on TPN replace magnesium in TPN phosphorus level ok so far 09/13/17 06:40 Calcium 7.6 L Phosphorus 3.5 Magnesium 1.1 L
[2017-09-13] MEDS: FAT EMULSIONS 250 ML IV SCH (22:57)
[2017-09-14] MEDS: morphine SULFATE 4 MG/ML VIAL IVPUSH PRN ×7 (01:07→20:41)
[2017-09-14] MEDS: ONDANSETRON 4 MG/2 ML VIAL IVPB PRN ×3 (04:25→21:03)
[2017-09-14 07:25] LABS: HEMATOCRIT 25.4 % (32.4-45.2); HEMOGLOBIN 8.6 GM/dL (10.7-15.3); MCH 30.8 pg (25.7-33.7); MCHC 33.6 g/dl (32.0-36.0); MEAN CELL VOLUME 91.6 fl (80-96); PLATELET COUNT 506 K/MM3 (134-434); RBC 2.78 M/mm3 (3.60-5.2); RDW 14.7 % (11.6-15.6); WHITE BLOOD COUNT 7.2 K/mm3 (4.0-10.0)
[2017-09-14 08:20] LABS: ALBUMIN 2.3 g/dl (3.4-5.0); ALK PHOS 106 U/L (45-117); ANION GAP 8 (8-16); BILIRUBIN,TOTAL 0.4 mg/dL (0.2-1.0); BLOOD UREA NITROGEN 13 mg/dL (7-18); CALCIUM 7.6 mg/dL (8.5-10.1); CHLORIDE 102 mmol/L (98-107); CO2 26 mmol/L (21-32); CREATININE 0.6 mg/dL (0.55-1.02); GLUCOSE,RANDOM 173 mg/dL (74-106); MAGNESIUM 1.1 mg/dL (1.8-2.4); PHOSPHOROUS 3.7 mg/dL (2.5-4.9); POTASSIUM 3.6 mmol/L (3.5-5.1); SGOT/AST 22 U/L (15-37); SGPT/ALT 43 U/L (12-78); SODIUM 136 mmol/L (136-145); TOT PROT 6.3 g/dl (6.4-8.2)
[2017-09-14] MEDS: LORATADINE 10 MG TABLET PO SCH (09:54)
[2017-09-14] MEDS: amLODIPine BESYLATE 5 MG TABLET (FP) PO SCH (09:54)
[2017-09-14] MEDS: HEPARIN NA (PORCINE) 5,000 UNITS/ML 1ML VIAL SQ SCH ×2 (09:54→22:46)
[2017-09-14] MEDS ORDERED: MAGNESIUM SULF 50% (8.12 MEQ/2 ML-1 GM VIAL) IVPB ONE (11:08)
[2017-09-14] MEDS ORDERED: MAGNESIUM SULFATE IN WATER 2 GM/50 ML IVPB IVPB ONE (12:00)
--- NOTE | 2017-09-14 16:47 | PN ---
Progress Note (short form) - Note Progress Note: Pt with metastatic cervical cancer s/p pelvic exenteration with colostomy, dormant ileal conduit, bilateral nephrostomies and recurrent SBO, thought more likely due to adhesions or stricture than malignancy from imaging 2m ago. Pt seen and examined in bed, daughter in room. She has had 650ml NG output yesterday. Feeling better in general, still with some left-sided abdominal discomfort and tenderness. No gas from colostomy. Urine output 1250 total yesterday. Dual port, dually accessed, back on TPN. Vital Signs Period Temp Pulse Resp BP Sys/Rosa Pulse Ox Last 24 Hr 98 F-98.4 F 92-105 18-20 110-132/75-90 97-98 PE: A&O NG in place with clear output, no distress, minimal in canister now no edema or cyanosis abdomen soft, obese, wound and conduit dressed, stoma appliance with no gas in colostomy bag mildly tender LLQ, LUQ, no R/G nephrostomies with yellow urine in bags moves well in bed CBC, BMP 09/14/17 06:00 09/14/17 06:00 Mg 1.1 A/P: SBO secondary to adhesions, possibly with malignant element continue NPO/NGT back on TPN regimen replete lytes, Magnesium ordered today pt has been in touch with Dr. Vasquez, her surgeon at [facility], who will be away returning on 09/27 ideally, pt should be able to follow up with Dr. Vasquez on his return to discuss surgical options interim goals include adequate hydration, nutrition, and GI decompression if pt opens up enough for colostomy to put out gas and stool, may be able to get home on TPN/IVF until she can get to him continue to follow clinical exam and check AXR if there is clinical change - not likely to show much difference unless ostomy opens up Problem List - Problems (1) Small bowel obstruction due to adhesions Code(s): K56.50 - INTESTNL ADHESIONS, UNSP TO PARTIAL VERSUS COMPLETE OBST (2) Abdominal pain Code(s): R10.9 - UNSPECIFIED ABDOMINAL PAIN Qualifiers: Abdominal location: left lower quadrant Qualified Code(s): R10.32 - Left lower quadrant pain (3) Cervical adenocarcinoma Code(s): C53.9 - MALIGNANT NEOPLASM OF CERVIX UTERI, UNSPECIFIED (4) Colostomy in place Code(s): Z93.3 - COLOSTOMY STATUS (5) Open wound of abdominal wall, anterior, complicated Code(s): S31.109A - UNSP OPN WND ABD WALL, UNSP Q W/O PENET PERIT CAV, INIT Qualifiers: Encounter type: sequela Qualified Code(s): S31.109S - Unspecified open wound of abdominal wall, unspecified quadrant without penetration into peritoneal cavity, sequela (6) History of ileal conduit Code(s): Z98.890 - OTHER SPECIFIED POSTPROCEDURAL STATES (7) Nephrostomy status Code(s): Z93.6 - OTHER ARTIFICIAL OPENINGS OF URINARY TRACT STATUS (9) Peripheral neuropathy due to chemotherapy Code(s): G62.0 - DRUG-INDUCED POLYNEUROPATHY; T45.1X5A - ADVERSE EFFECT OF ANTINEOPLASTIC AND IMMUNOSUP DRUGS, INIT
--- NOTE | 2017-09-14 16:59 | PN ---
GI Progress Note Subjective: GI NOte: NG output about 2000cc. No colostomy output. No vomiting but is very thirsty. The surgeon at [facility], Dr. Vasquez who is willing to explore her will not return until 09/27/17. TPN is infusing. - Objective Vital Signs: Vital Signs Temperature 98.0 F 09/14/17 10:00 Pulse Rate 105 H 09/14/17 10:00 Respiratory Rate 18 09/14/17 10:00 Blood Pressure 132/90 09/14/17 10:00 O2 Sat by Pulse Oximetry (%) 97 09/14/17 09:00 Constitutional: Calm Gastrointestinal Inspection: Yes: Distention (soft) ...Auscultate: Yes: Hypoactive Bowel Sounds ...Palpate: Yes: Other (nontender) Labs: CBC, BMP 09/14/17 06:00 09/14/17 06:00 INR, PTT INR 1.11 (0.82-1.09) 09/09/17 17:45 Problem List - Problems (1) Small bowel obstruction due to adhesions Assessment/Plan: It is not clear whether Mica's obstruction is secondary to adhesions, an anastomotic stricture ( ileal conduit) or her malignancy but she deserves another surgical intervention to relieve her obstruction. This however should be done by someone familiar with her complex surgical history and conditions, ie. Dr Vasquez. The hope is stabilize Mica until he returns and that ideally her SBO resolves enough to permit a a discharge. Will allow liquids which the NG tube will resorb as a form of palliation of her dry mouth and thirst. Discussed case with Dr Hinojosa. Code(s): K56.50 - INTESTNL ADHESIONS, UNSP TO PARTIAL VERSUS COMPLETE OBST (2) Cervical adenocarcinoma Code(s): C53.9 - MALIGNANT NEOPLASM OF CERVIX UTERI, UNSPECIFIED
[2017-09-14] MEDS: MAGNESIUM SULFATE IVPB SCH (18:37)
[2017-09-14] MEDS: CALCIUM GLUCONATE IVPB SCH (18:37)
[2017-09-14] MEDS: POTASSIUM CHLORIDE IVPB SCH (18:37)
[2017-09-14] MEDS: [UNRECOGNIZED DRUG - OTHER] IVPB SCH (18:37)
--- NOTE | 2017-09-14 22:23 | PN ---
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 colostomy ileaostomy recurrent vomiting now with NGT she cannot tolerate octreotide- unclear if it was helping she has generalized itching and underlying rhinitis cannot take her usual antihistamine-npo pain better controlled Last Vital Signs Temp Pulse Resp BP Pulse Ox 97.8 F 101 H 18 140/90 97 09/14/17 18:00 09/14/17 18:00 09/14/17 18:00 09/14/17 18:00 09/14/17 09:00 pale in no distress lungs clear Abd is soft, nontender to light palpation no edema CBC, BMP 09/14/17 06:00 09/14/17 06:00 09/13/17 09/14/17 06:40 06:00 Calcium 7.6 L 7.6 L Phosphorus 3.5 3.7 Magnesium 1.1 L 1.1 L Albumin 2.3 L Corrected Ca 8.9 IMP- sbo anemia is less calcium low 2/2 albumin pain management better continue fentanyl continue morphine Plan- continue low suction of ngt to decompress bowel started on TPN replace magnesium in TPN phosphorus level ok so far
[2017-09-14] MEDS: FAT EMULSIONS 250 ML IV SCH (22:45)
[2017-09-15] MEDS: morphine SULFATE 4 MG/ML VIAL IVPUSH PRN ×6 (01:44→21:41)
[2017-09-15] MEDS: ONDANSETRON 4 MG/2 ML VIAL IVPB PRN ×4 (02:30→23:24)
[2017-09-15 07:51] LABS: HEMATOCRIT 24.7 % (32.4-45.2); HEMOGLOBIN 8.4 GM/dL (10.7-15.3); MCH 31.1 pg (25.7-33.7); MCHC 34.1 g/dl (32.0-36.0); MEAN PLT VOLUME 8.1 fl (7.5-11.1); PLATELET COUNT 496 K/MM3 (134-434); RBC 2.71 M/mm3 (3.60-5.2); WHITE BLOOD COUNT 6.7 K/mm3 (4.0-10.0)
[2017-09-15 08:55] LABS: ALBUMIN 2.3 g/dl (3.4-5.0); ANION GAP 8 (8-16); BILIRUBIN,DIRECT < 0.2 mg/dL (0.0-0.2); BLOOD UREA NITROGEN 21 mg/dL (7-18); CALCIUM 7.9 mg/dL (8.5-10.1); CHLORIDE 95 mmol/L (98-107); CO2 29 mmol/L (21-32); CREATININE 0.6 mg/dL (0.55-1.02); GLUCOSE,RANDOM 132 mg/dL (74-106); MAGNESIUM 1.2 mg/dL (1.8-2.4); PHOSPHOROUS 4.2 mg/dL (2.5-4.9); SGOT/AST 18 U/L (15-37); SGPT/ALT 37 U/L (12-78); SODIUM 132 mmol/L (136-145); TOT PROT 6.2 g/dl (6.4-8.2); TRIGLYCERIDES 262 mg/dL (35-160)
[2017-09-15 08:56] LABS: ALK PHOS 105 U/L (45-117); BILIRUBIN,TOTAL 0.4 mg/dL (0.2-1.0)
[2017-09-15] MEDS: amLODIPine BESYLATE 5 MG TABLET (FP) PO SCH (10:12)
[2017-09-15] MEDS: LORATADINE 10 MG TABLET PO SCH (10:12)
[2017-09-15] MEDS: HEPARIN NA (PORCINE) 5,000 UNITS/ML 1ML VIAL SQ SCH ×2 (10:15→21:40)
[2017-09-15] MEDS ORDERED: morphine SULFATE 4 MG/ML VIAL IVPUSH STA (11:43)
--- NOTE | 2017-09-15 13:28 | PN ---
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 colostomy ileaostomy recurrent vomiting now with NGT she cannot tolerate octreotide- unclear if it was helping she has generalized itching and underlying rhinitis cannot take her usual antihistamine-npo pain better controlled Current Medications Amlodipine Besylate (Norvasc -) 5 mg PO DAILY [facility] Last Admin: 09/15/17 10:12 Dose: Not Given Diphenhydramine HCl (Benadryl Injection -) 25 mg IVPB Q4H PRN PRN Reason: FOR ITCHING Last Admin: 09/14/17 21:04 Dose: 25 mg Fentanyl (Duragesic 50mcg Patch -) 1 patch TD Q72H [facility] Stop: 09/16/17 23:44 Last Admin: 09/12/17 23:14 Dose: 1 patch Heparin Sodium (Porcine) (Heparin -) 5,000 unit SQ BID [facility] Last Admin: 09/15/17 10:15 Dose: 5,000 unit Dextrose/Sodium Chloride (Dextrose 5%-Normal Saline+20 Meq Kcl -) 20 meq in 1, 000 mls @ 100 mls/hr IV ASDIR [facility] Last Admin: 09/13/17 23:15 Dose: Not Given Potassium Chloride 20 meq/Magnesium Sulfate 1.2 gm/Calcium Gluconate 3,191 mg/ Multivitamins/Minerals 10 ml/Sterile Water/ Dextrose/ Amino Acids 2,000 mls @ 83.333 mls/hr IVPB DAILY@1600 [facility] Last Admin: 09/14/17 18:37 Dose: 83.333 mls/hr Fat Emulsion Intravenous (Intralipid -) 250 mls @ 20.833 mls/hr IV DAILY@2200 [facility] Last Admin: 09/14/17 22:45 Dose: 20.833 mls/hr Loratadine (Claritin -) 10 mg PO DAILY [facility] Last Admin: 09/15/17 10:12 Dose: Not Given Miscellaneous (Duragesic Patch Waste) 1 each TD PRN PRN PRN Reason: PAIN Last Admin: 09/12/17 23:14 Dose: 1 each Morphine Sulfate (Morphine Sulfate) 4 mg IVPUSH Q3H PRN PRN Reason: PAIN LEVEL 6-10 Last Admin: 09/15/17 08:53 Dose: 4 mg Ondansetron HCl (Zofran Injection) 4 mg IVPB Q6H PRN PRN Reason: NAUSEA Last Admin: 09/15/17 10:15 Dose: 4 in no distress no edema Last Vital Signs Temp Pulse Resp BP Pulse Ox 98.3 F 100 H 20 126/80 95 09/15/17 06:00 09/15/17 06:00 09/15/17 06:00 09/15/17 06:00 09/14/17 21:00 CBC, BMP 09/15/17 08:00 09/15/17 07:00 IMP- hyponatremia hypokalemia mag and phos ok Trig elevated, dose postponed to after next labs TPN adjusted sbo- still on ngt suction, 400 cc reported aspirated anemia is less calcium low 2/2 albumin, corrected ca is good bacteriuria- no UTI- discussed dr Hudson ID, follow clinically for now pain management better continue fentanyl continue morphine Plan- continue low suction of ngt to decompress bowel
[2017-09-15] MEDS ORDERED: [UNRECOGNIZED DRUG - OTHER] IVPB SCH (16:00)
[2017-09-15] MEDS ORDERED: POTASSIUM CHLORIDE IVPB SCH (16:00)
[2017-09-15] MEDS ORDERED: MAGNESIUM SULFATE IVPB SCH (16:00)
[2017-09-15] MEDS ORDERED: SODIUM CHLORIDE IVPB SCH (16:00)
[2017-09-15] MEDS ORDERED: FENTANYL PATCH WASTE TD PRN (20:01)
[2017-09-15] MEDS ORDERED: POTASSIUM CHLORIDE 10 MEQ in SODIUM CHLORIDE 100 ML IVPB ONE (21:15)
[2017-09-15] MEDS: POTASSIUM CHLORIDE 10 MEQ in SODIUM CHLORIDE 100 ML IVPB ONE ×2 (21:37→21:39)
[2017-09-15] MEDS: FAT EMULSIONS 250 ML IV SCH (21:40)
[2017-09-15] MEDS: LIDOCAINE PATCH REMOVAL MC SCH (22:14)
[2017-09-15] MEDS: fentaNYL 75mcg/hr PATCH.TD72 TD SCH (23:20)
[2017-09-15] MEDS: FENTANYL PATCH WASTE TD PRN (23:25)
[2017-09-16] MEDS: morphine SULFATE 4 MG/ML VIAL IVPUSH PRN ×6 (01:00→21:59)
[2017-09-16 08:33] LABS: CHOLESTEROL 121 mg/dL (50-200); HDL CHOLESTEROL 28 mg/dL (40-60); TRIGLYCERIDES 283 mg/dL (35-160)
[2017-09-16 09:15] LABS: GLUCOSE,RANDOM 163 mg/dL (74-106)
[2017-09-16 09:16] LABS: ANION GAP 10 (8-16); BLOOD UREA NITROGEN 23 mg/dL (7-18); CALCIUM 7.4 mg/dL (8.5-10.1); CHLORIDE 94 mmol/L (98-107); CO2 29 mmol/L (21-32); CREATININE 0.7 mg/dL (0.55-1.02); MAGNESIUM 1.2 mg/dL (1.8-2.4); PHOSPHOROUS 3.8 mg/dL (2.5-4.9); POTASSIUM 3.3 mmol/L (3.5-5.1); SODIUM 133 mmol/L (136-145); TOT PROT 6.2 g/dl (6.4-8.2)
[2017-09-16 09:17] LABS: ALBUMIN 2.3 g/dl (3.4-5.0); ALK PHOS 117 U/L (45-117); BILIRUBIN,TOTAL 0.4 mg/dL (0.2-1.0); SGOT/AST 27 U/L (15-37); SGPT/ALT 41 U/L (12-78)
[2017-09-16] MEDS: LORATADINE 10 MG TABLET PO SCH (10:16)
[2017-09-16] MEDS: amLODIPine BESYLATE 5 MG TABLET (FP) PO SCH (10:16)
[2017-09-16] MEDS: HEPARIN NA (PORCINE) 5,000 UNITS/ML 1ML VIAL SQ SCH ×2 (10:24→21:44)
[2017-09-16] MEDS: LIDOCAINE 5% TOPICAL PATCH TP SCH (10:24)
[2017-09-16] MEDS: ONDANSETRON 4 MG/2 ML VIAL IVPB PRN ×2 (11:13→18:11)
--- NOTE | 2017-09-16 12:24 | PN ---
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 colostomy ileaostomy recurrent vomiting now with NGT she cannot tolerate octreotide- unclear if it was helping she has generalized itching and underlying rhinitis cannot take her usual antihistamine-npo pain better controlled Current Medications Amlodipine Besylate (Norvasc -) 5 mg PO DAILY [facility] Last Admin: 09/16/17 10:16 Dose: Not Given Diphenhydramine HCl (Benadryl Injection -) 25 mg IVPB Q4H PRN PRN Reason: FOR ITCHING Last Admin: 09/14/17 21:04 Dose: 25 mg Fentanyl (Duragesic 75mcg Patch -) 1 patch TD Q72H [facility] Last Admin: 09/15/17 23:20 Dose: 1 patch Heparin Sodium (Porcine) (Heparin -) 5,000 unit SQ BID [facility] Last Admin: 09/16/17 10:24 Dose: 5,000 unit Fat Emulsion Intravenous (Intralipid -) 250 mls @ 20.833 mls/hr IV DAILY@2200 [facility] Last Admin: 09/15/17 21:40 Dose: 20.833 mls/hr Potassium Chloride 40 meq/Magnesium Sulfate 2 gm/ Sodium Chloride 40 meq/ Multivitamins/Minerals 10 ml/Sterile Water/ Dextrose/ Amino Acids 2,000 mls @ 83.333 mls/hr IVPB DAILY@1600 [facility] Last Admin: 09/15/17 17:12 Dose: 83.333 mls/hr Lidocaine (Lidoderm Patch -) 1 patch TP DAILY [facility] Last Admin: 09/16/17 10:24 Dose: 1 patch Loratadine (Claritin -) 10 mg PO DAILY [facility] Last Admin: 09/16/17 10:16 Dose: Not Given Miscellaneous (Duragesic Patch Waste) 1 each TD PRN PRN PRN Reason: PAIN Last Admin: 09/15/17 23:25 Dose: 1 each Miscellaneous (Duragesic Patch Waste) 1 each TD PRN PRN PRN Reason: MISC Miscellaneous (Lidoderm Patch Removal) 1 each MC DAILY@2200 [facility] Last Admin: 09/15/17 22:14 Dose: Not Given Morphine Sulfate (Morphine Sulfate) 4 mg IVPUSH Q3H PRN PRN Reason: PAIN LEVEL 6-10 Last Admin: 09/16/17 11:13 Dose: 4 mg Ondansetron HCl (Zofran Injection) 4 mg IVPB Q6H PRN PRN Reason: NAUSEA Last Admin: 09/16/17 11:13 Dose: 4 mg Pantoprazole Sodium (Protonix Iv) 40 mg IVPUSH DAILY [facility] in no distress no edema Last Vital Signs Temp Pulse Resp BP Pulse Ox 98.0 F 107 H 20 140/92 98 09/16/17 05:00 09/16/17 05:00 09/16/17 05:00 09/16/17 05:00 09/15/17 21:00 CBC, BMP 09/15/17 08:00 09/16/17 06:00 IMP- hyponatremia hypokalemia mag and phos ok Trig elevated, dose postponed to after next labs TPN adjusted sbo- still on ngt suction, 400 cc reported aspirated anemia is less calcium low 2/2 albumin, corrected ca is good bacteriuria- no UTI- discussed dr Hudson ID, follow clinically for now pain management better continue fentanyl continue morphine Plan- continue low suction of ngt to decompress bowel
[2017-09-16 12:41] LABS: HEMATOCRIT 26.2 % (32.4-45.2); HEMOGLOBIN 8.8 GM/dL (10.7-15.3); MCH 30.5 pg (25.7-33.7); MCHC 33.7 g/dl (32.0-36.0); MEAN CELL VOLUME 90.5 fl (80-96); MEAN PLT VOLUME 7.5 fl (7.5-11.1); PLATELET COUNT 533 K/MM3 (134-434); RBC 2.89 M/mm3 (3.60-5.2); RDW 14.5 % (11.6-15.6); WHITE BLOOD COUNT 7.7 K/mm3 (4.0-10.0)
[2017-09-16] MEDS ORDERED: MAGNESIUM 1GM/D5W - 1 GM/100 ML IVPB IVPB ONE ×2 (12:45→13:15)
[2017-09-16] MEDS ORDERED: POTASSIUM CHLORIDE 10 MEQ in SODIUM CHLORIDE 100 ML IVPB SCH (13:30)
[2017-09-16] MEDS: PANTOPRAZOLE SODIUM 40 MG VIAL IVPUSH SCH (15:04)
[2017-09-16] MEDS ORDERED: POTASSIUM CHLORIDE 10 MEQ in SODIUM CHLORIDE 100 ML IVPB ONE (15:15)
[2017-09-16] MEDS ORDERED: SODIUM CHLORIDE IVPB SCH (16:00)
[2017-09-16] MEDS ORDERED: POTASSIUM CHLORIDE IVPB SCH (16:00)
[2017-09-16] MEDS ORDERED: [UNRECOGNIZED DRUG - OTHER] IVPB SCH (16:00)
[2017-09-16] MEDS ORDERED: MAGNESIUM SULFATE IVPB SCH (16:00)
[2017-09-16] MEDS: LIDOCAINE PATCH REMOVAL MC SCH (21:46)
[2017-09-17] MEDS: morphine SULFATE 4 MG/ML VIAL IVPUSH PRN ×4 (01:06→11:30)
[2017-09-17] MEDS: ONDANSETRON 4 MG/2 ML VIAL IVPB PRN ×3 (01:07→22:33)
[2017-09-17 08:08] LABS: ALBUMIN 2.3 g/dl (3.4-5.0); ANION GAP 8 (8-16); BLOOD UREA NITROGEN 27 mg/dL (7-18); CALCIUM 7.4 mg/dL (8.5-10.1); CHLORIDE 94 mmol/L (98-107); CO2 29 mmol/L (21-32); CREATININE 0.6 mg/dL (0.55-1.02); GLUCOSE,RANDOM 144 mg/dL (74-106); MAGNESIUM 1.4 mg/dL (1.8-2.4); PHOSPHOROUS 2.8 mg/dL (2.5-4.9); POTASSIUM 3.6 mmol/L (3.5-5.1); SGPT/ALT 51 U/L (12-78); SODIUM 131 mmol/L (136-145); TRIGLYCERIDES 208 mg/dL (35-160)
[2017-09-17 08:10] LABS: ALK PHOS 123 U/L (45-117); BILIRUBIN,TOTAL 0.5 mg/dL (0.2-1.0); SGOT/AST 38 U/L (15-37); TOT PROT 6.3 g/dl (6.4-8.2)
[2017-09-17] MEDS: LORATADINE 10 MG TABLET PO SCH (11:24)
[2017-09-17] MEDS: amLODIPine BESYLATE 5 MG TABLET (FP) PO SCH (11:24)
[2017-09-17] MEDS: LIDOCAINE 5% TOPICAL PATCH TP SCH (11:30)
[2017-09-17] MEDS: PANTOPRAZOLE SODIUM 40 MG VIAL IVPUSH SCH (11:30)
--- NOTE | 2017-09-17 13:57 | PN ---
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 colostomy ileaostomy recurrent vomiting now with NGT she cannot tolerate octreotide- unclear if it was helping she has generalized itching and underlying rhinitis cannot take her usual antihistamine-npo pain better controlled c/o pain, relief is poor when morphine is given too late she is on highr dose of fentanyl will try standing doses and monitor mental status no blood noted in NGT, also less drainage from suction maybe secondary to PPI started yesterday no tachycardia but still with prerenal azotemia i suspect she still has some volume depletion but since negative balance is less will continue 2 liter volume TPN and monitor vital signs and labs will a TPN orders adjusted today for increased Na, continued Mag replacement no edema Last Vital Signs Temp Pulse Resp BP Pulse Ox 98 F 98 H 18 120/80 98 09/17/17 10:00 09/17/17 10:00 09/17/17 10:00 09/17/17 10:00 09/17/17 09:00 CBC, BMP 09/16/17 12:35 09/17/17 06:00 CBC, BMP 09/15/17 08:00 09/16/17 06:00 IMP- hyponatremia hypokalemia mag and phos ok Trig elevated, dose postponed to after next labs TPN adjusted sbo- still on ngt suction, 400 cc reported aspirated anemia is less calcium low 2/2 albumin, corrected ca is good bacteriuria- no UTI- discussed dr Hudson ID, follow clinically for now pain management better continue fentanyl continue morphine Plan- continue low suction of ngt to decompress bowel
--- NOTE | 2017-09-17 14:39 | PN ---
Progress Note, Physician Chief Complaint: obstruction History of Present Illness: 52 yo female with metastatic cervical cancer s/p pelvic exenteration with colostomy, dormant ileal conduit, bilateral nephrostomies and recurrent SBO, thought more likely due to adhesions or stricture than malignancy from imaging 2m ago. Has an NGT and is on TPN. No complaints - Current Medication List Current Medications: Active Medications Amlodipine Besylate (Norvasc -) 5 mg PO DAILY [facility] Last Admin: 09/17/17 11:24 Dose: Not Given Diphenhydramine HCl (Benadryl Injection -) 25 mg IVPB Q4H PRN PRN Reason: FOR ITCHING Last Admin: 09/14/17 21:04 Dose: 25 mg Fentanyl (Duragesic 75mcg Patch -) 1 patch TD Q72H [facility] Last Admin: 09/15/17 23:20 Dose: 1 patch Heparin Sodium (Porcine) (Heparin -) 5,000 unit SQ BID [facility] Fat Emulsion Intravenous (Intralipid -) 250 mls @ 20.833 mls/hr IV DAILY@2200 [facility] Last Admin: 09/15/17 21:40 Dose: 20.833 mls/hr Potassium Chloride 50 meq/Magnesium Sulfate 2 gm/ Sodium Chloride 80 meq/ Multivitamins/Minerals 10 ml/Calcium Gluconate 1,000 mg/Sterile Water/ Dextrose / Amino Acids 2,000 mls @ 83.333 mls/hr IVPB DAILY@1600 [facility] Stop: 09/17/17 15:59 Last Admin: 09/16/17 18:19 Dose: 83.333 mls/hr Potassium Chloride 40 meq/Magnesium Sulfate 2 gm/ Sodium Chloride 100 meq/ Multivitamins/Minerals 10 ml/Calcium Gluconate 1,000 mg/Sodium Phosphate 15 mm/ Sterile Water/ Dextrose/ Amino Acids 2,000 mls @ 83.333 mls/hr IVPB DAILY@1600 [facility] Lidocaine (Lidoderm Patch -) 1 patch TP DAILY [facility] Last Admin: 09/17/17 11:30 Dose: 1 patch Loratadine (Claritin -) 10 mg PO DAILY [facility] Last Admin: 09/17/17 11:24 Dose: Not Given Miscellaneous (Duragesic Patch Waste) 1 each TD PRN PRN PRN Reason: MISC Miscellaneous (Lidoderm Patch Removal) 1 each MC DAILY@2200 [facility] Last Admin: 09/16/17 21:46 Dose: 1 each Morphine Sulfate (Morphine Sulfate) 4 mg IVPUSH Q3H [facility] Ondansetron HCl (Zofran Injection) 4 mg IVPB Q6H PRN PRN Reason: NAUSEA Last Admin: 09/17/17 01:07 Dose: 4 mg Pantoprazole Sodium (Protonix Iv) 40 mg IVPUSH DAILY [facility] Last Admin: 09/17/17 11:30 Dose: 40 mg - Objective Vital Signs: Vital Signs Temperature 98 F 09/17/17 10:00 Pulse Rate 98 H 09/17/17 10:00 Respiratory Rate 18 09/17/17 10:00 Blood Pressure 120/80 09/17/17 10:00 O2 Sat by Pulse Oximetry (%) 98 09/17/17 09:00 Constitutional: Yes: No Distress, Calm, Obese Eyes: Yes: Conjunctiva Clear, EOM Intact HENT: Yes: Atraumatic, Normocephalic, Other (NGT in place and fucntioning) Neck: Yes: Supple, Trachea Midline Cardiovascular: Yes: Regular Rate and Rhythm, S1, S2 Respiratory: Yes: Regular, CTA Bilaterally Gastrointestinal: Yes: Normal Bowel Sounds, Soft, Abdomen, Obese, Other (ostomy) ...Rectal Exam: Yes: Deferred Genitourinary: No: CVA Tenderness - Left, CVA Tenderness - Right Musculoskeletal: No: Muscle Pain, Muscle Weakness Extremities: No: Cool, Cyanosis Edema: No Peripheral Pulses WNL: Yes Neurological: Yes: Alert, Oriented Psychiatric: Yes: Alert, Oriented Labs: CBC, BMP 09/16/17 12:35 09/17/17 06:00 INR, PTT INR 1.11 (0.82-1.09) 09/09/17 17:45 Problem List - Problems (1) Small bowel obstruction due to adhesions Assessment/Plan: 52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 continue NPO/NGT continue TPN regimen replete electrolytes Dr. Vasquez, her surgeon at [facility], who will be away returning on 09/27 Will continye to follow peripherally Covering Dr. Hinojosa until 09/27/2017 Code(s): K56.50 - INTESTNL ADHESIONS, UNSP TO PARTIAL VERSUS COMPLETE OBST (2) Abdominal pain Code(s): R10.9 - UNSPECIFIED ABDOMINAL PAIN Qualifiers: Abdominal location: left lower quadrant Qualified Code(s): R10.32 - Left lower quadrant pain (3) Nephrostomy status Code(s): Z93.6 - OTHER ARTIFICIAL OPENINGS OF URINARY TRACT STATUS (4) Cervical adenocarcinoma Code(s): C53.9 - MALIGNANT NEOPLASM OF CERVIX UTERI, UNSPECIFIED (5) Obstructive uropathy Code(s): N13.9 - OBSTRUCTIVE AND REFLUX UROPATHY, UNSPECIFIED (6) Small bowel obstruction due to adhesions Code(s): K56.50 - INTESTNL ADHESIONS, UNSP TO PARTIAL VERSUS COMPLETE OBST
[2017-09-17] MEDS: morphine SULFATE 4 MG/ML VIAL IVPUSH SCH ×4 (14:43→22:34)
--- NOTE | 2017-09-17 14:43 | PN ---
GI Progress Note Subjective: GI NOte: Had transient blood in the NG tube. This has not recurred and the Hb has remained stable. This suggests a focal NG tube erosion. Discussed with Dr Parikh and agree with PPI therapy to protect against stress gastritis. No colostomy or ileal conduit output. - Objective Vital Signs: Vital Signs Temperature 98 F 09/17/17 10:00 Pulse Rate 98 H 09/17/17 10:00 Respiratory Rate 18 09/17/17 10:00 Blood Pressure 120/80 09/17/17 10:00 O2 Sat by Pulse Oximetry (%) 98 09/17/17 09:00 Laboratory Tests 09/15/17 09/16/17 09/17/17 08:00 12:35 06:00 Hgb 8.4 L 8.8 L Sodium 131 L Constitutional: Calm ...Auscultate: Yes: Hypoactive Bowel Sounds ...Palpate: Yes: Soft, Other (nontender) Labs: CBC, BMP 09/16/17 12:35 09/17/17 06:00 INR, PTT INR 1.11 (0.82-1.09) 09/09/17 17:45 Problem List - Problems (1) Small bowel obstruction due to adhesions Assessment/Plan: Continue with high grade SBO which may be due to adhesions, tumor or anastomotic stricture. Continues to need NG suctioning and TPN which is still being adjusted by Dr Parikh. Code(s): K56.50 - INTESTNL ADHESIONS, UNSP TO PARTIAL VERSUS COMPLETE OBST (2) Cervical adenocarcinoma Code(s): C53.9 - MALIGNANT NEOPLASM OF CERVIX UTERI, UNSPECIFIED
[2017-09-17] MEDS: POTASSIUM CHLORIDE IVPB SCH (18:19)
[2017-09-17] MEDS: [UNRECOGNIZED DRUG - OTHER] IVPB SCH (18:19)
[2017-09-17] MEDS: SODIUM CHLORIDE IVPB SCH (18:19)
[2017-09-17] MEDS: MAGNESIUM SULFATE IVPB SCH (18:19)
[2017-09-17] MEDS: HEPARIN NA (PORCINE) 5,000 UNITS/ML 1ML VIAL SQ SCH (22:33)
[2017-09-17] MEDS: FAT EMULSIONS 250 ML IV SCH (22:42)
[2017-09-17] MEDS: LIDOCAINE PATCH REMOVAL MC SCH (22:43)
[2017-09-18] MEDS: morphine SULFATE 4 MG/ML VIAL IVPUSH SCH ×8 (01:58→23:07)
[2017-09-18 08:30] LABS: HEMATOCRIT 18.2 % (32.4-45.2); MCH 31.2 pg (25.7-33.7); MCHC 34.1 g/dl (32.0-36.0); MEAN CELL VOLUME 91.5 fl (80-96); PLATELET COUNT 387 K/MM3 (134-434); RBC 1.99 M/mm3 (3.60-5.2); RDW 14.4 % (11.6-15.6); WHITE BLOOD COUNT 6.4 K/mm3 (4.0-10.0)
[2017-09-18 08:54] LABS: HEMOGLOBIN 6.2 GM/dL (10.7-15.3)
[2017-09-18 08:57] LABS: CALCIUM 8.3 mg/dL (8.5-10.1); CHLORIDE 94 mmol/L (98-107); POTASSIUM 3.8 mmol/L (3.5-5.1); SODIUM 132 mmol/L (136-145)
[2017-09-18 09:02] LABS: ALBUMIN 2.4 g/dl (3.4-5.0); ALK PHOS 153 U/L (45-117); ANION GAP 9 (8-16); BILIRUBIN,TOTAL 0.5 mg/dL (0.2-1.0); BLOOD UREA NITROGEN 25 mg/dL (7-18); CO2 29 mmol/L (21-32); CREATININE 0.6 mg/dL (0.55-1.02); GLUCOSE,RANDOM 136 mg/dL (74-106); MAGNESIUM 1.3 mg/dL (1.8-2.4); PHOSPHOROUS 3.1 mg/dL (2.5-4.9); SGOT/AST 53 U/L (15-37); SGPT/ALT 75 U/L (12-78); TOT PROT 6.7 g/dl (6.4-8.2)
[2017-09-18 09:41] LABS: INR 1.08 (0.82-1.09); PROTHROMBIN TIME (PATIENT) 12.2 SEC (9.7-13.0)
[2017-09-18 09:43] LABS: ACTIVATED PTT 43.1 SECONDS (26.9-34.4)
[2017-09-18] MEDS: LORATADINE 10 MG TABLET PO SCH ×2 (11:36→11:48)
[2017-09-18] MEDS: HEPARIN NA (PORCINE) 5,000 UNITS/ML 1ML VIAL SQ SCH ×2 (11:36→23:07)
[2017-09-18] MEDS: PANTOPRAZOLE SODIUM 40 MG VIAL IVPUSH SCH (11:36)
[2017-09-18] MEDS: LIDOCAINE 5% TOPICAL PATCH TP SCH (11:37)
[2017-09-18] MEDS: amLODIPine BESYLATE 5 MG TABLET (FP) PO SCH ×2 (11:37→13:28)
[2017-09-18] MEDS: ONDANSETRON 4 MG/2 ML VIAL IVPB PRN (16:35)
[2017-09-18] MEDS: SODIUM CHLORIDE IVPB SCH (19:20)
[2017-09-18] MEDS: POTASSIUM CHLORIDE IVPB SCH (19:20)
[2017-09-18] MEDS: MAGNESIUM SULFATE IVPB SCH (19:20)
[2017-09-18] MEDS: [UNRECOGNIZED DRUG - OTHER] IVPB SCH (19:20)
--- NOTE | 2017-09-18 20:39 | PN ---
Progress Note (short form) - Note Progress Note: Problems recurrent pelvic rn angiography malignancy sbo adhesive vs metastatic disease colostomy ileaostomy recurrent vomiting now with NGT she cannot tolerate octreotide- unclear if it was helping she has generalized itching and underlying rhinitis cannot take her usual antihistamine-npo pain better controlled Current Medications Amlodipine Besylate (Norvasc -) 5 mg PO DAILY [facility] Last Admin: 09/18/17 13:28 Dose: Not Given Diphenhydramine HCl (Benadryl Injection -) 25 mg IVPB Q4H PRN PRN Reason: FOR ITCHING Last Admin: 09/14/17 21:04 Dose: 25 mg Fentanyl (Duragesic 75mcg Patch -) 1 patch TD Q72H [facility] Last Admin: 09/15/17 23:20 Dose: 1 patch Heparin Sodium (Porcine) (Heparin -) 5,000 unit SQ BID [facility] Last Admin: 09/18/17 11:36 Dose: 5,000 unit Fat Emulsion Intravenous (Intralipid -) 250 mls @ 20.833 mls/hr IV DAILY@2200 [facility] Last Admin: 09/17/17 22:42 Dose: 20.833 mls/hr Potassium Chloride 40 meq/Magnesium Sulfate 2 gm/ Sodium Chloride 100 meq/ Multivitamins/Minerals 10 ml/Calcium Gluconate 1,000 mg/Sodium Phosphate 15 mm/ Sterile Water/ Dextrose/ Amino Acids 2,000 mls @ 83.333 mls/hr IVPB DAILY@1600 [facility] Last Admin: 09/18/17 19:20 Dose: 83.333 mls/hr Lidocaine (Lidoderm Patch -) 1 patch TP DAILY [facility] Last Admin: 09/18/17 11:37 Dose: 1 patch Loratadine (Claritin -) 10 mg PO DAILY [facility] Last Admin: 09/18/17 11:48 Dose: Not Given Miscellaneous (Duragesic Patch Waste) 1 each TD PRN PRN PRN Reason: MISC Miscellaneous (Lidoderm Patch Removal) 1 each MC DAILY@2200 [facility] Last Admin: 09/17/17 22:43 Dose: 1 each Morphine Sulfate (Morphine Sulfate) 4 mg IVPUSH Q3H [facility] Last Admin: 09/18/17 17:50 Dose: 4 mg Ondansetron HCl (Zofran Injection) 4 mg IVPB Q6H PRN PRN Reason: NAUSEA Last Admin: 09/18/17 16:35 Dose: 4 mg Pantoprazole Sodium (Protonix Iv) 40 mg IVPUSH DAILY [facility] Last Admin: 09/18/17 11:36 Dose: 40 mg c/o pain, relief is poor when morphine is given too late she is on highr dose of fentanyl will try standing doses and monitor mental status no blood noted in NGT, also less drainage from suction maybe secondary to PPI started yesterday no tachycardia but still with prerenal azotemia i suspect she still has some volume depletion but since negative balance is less will continue 2 liter volume TPN and monitor vital signs and labs will a TPN orders adjusted today for increased Na, continued Mag replacement no edema Last Vital Signs Temp Pulse Resp BP Pulse Ox 98 F 98 H 18 120/80 98 09/17/17 10:00 09/17/17 10:00 09/17/17 10:00 09/17/17 10:00 09/17/17 09:00 CBC, BMP 09/16/17 12:35 09/17/17 06:00 CBC, BMP 09/15/17 08:00 09/16/17 06:00 IMP- hyponatremia hypokalemia mag and phos ok Trig elevated, dose postponed to after next labs TPN adjusted sbo- still on ngt suction, 400 cc reported aspirated anemia is less calcium low 2/2 albumin, corrected ca is good bacteriuria- no UTI- discussed dr Hudson ID, follow clinically for now pain management better continue fentanyl continue morphine Plan- continue low suction of ngt to decompress bowel
[2017-09-18 20:58] LABS: BASO % 0.4 % (0-2.0); HEMATOCRIT 25.6 % (32.4-45.2); HEMOGLOBIN 8.9 GM/dL (10.7-15.3); LYMPH % 9.7 % (8-40); MCH 31.5 pg (25.7-33.7); MCHC 34.8 g/dl (32.0-36.0); MEAN CELL VOLUME 90.6 fl (80-96); MEAN PLT VOLUME 7.8 fl (7.5-11.1); MONO % 7.4 % (3.8-10.2); NEUT % 81.5 % (42.8-82.8); PLATELET COUNT 440 K/MM3 (134-434); RBC 2.83 M/mm3 (3.60-5.2); RDW 14.6 % (11.6-15.6); WHITE BLOOD COUNT 6.9 K/mm3 (4.0-10.0)
[2017-09-18] MEDS: FAT EMULSIONS 250 ML IV SCH (23:07)
[2017-09-18] MEDS: LIDOCAINE PATCH REMOVAL MC SCH (23:08)
[2017-09-18] MEDS: fentaNYL 75mcg/hr PATCH.TD72 TD SCH (23:08)
[2017-09-19] MEDS: morphine SULFATE 4 MG/ML VIAL IVPUSH SCH ×8 (01:49→22:36)
[2017-09-19] MEDS ORDERED: morphine SULFATE 4 MG/ML VIAL IVPUSH ONE (06:00)
[2017-09-19 08:06] LABS: HEMATOCRIT 28.6 % (32.4-45.2); MCH 31.8 pg (25.7-33.7); MEAN CELL VOLUME 90.8 fl (80-96); MEAN PLT VOLUME 8.3 fl (7.5-11.1); PLATELET COUNT 548 K/MM3 (134-434); RBC 3.15 M/mm3 (3.60-5.2); RDW 14.7 % (11.6-15.6); WHITE BLOOD COUNT 9.2 K/mm3 (4.0-10.0)
[2017-09-19 08:39] LABS: CHLORIDE 96 mmol/L (98-107); POTASSIUM 3.9 mmol/L (3.5-5.1); SODIUM 130 mmol/L (136-145)
[2017-09-19 08:54] LABS: ALBUMIN 2.4 g/dl (3.4-5.0); ALK PHOS 174 U/L (45-117); ANION GAP 8 (8-16); BILIRUBIN,TOTAL 0.8 mg/dL (0.2-1.0); BLOOD UREA NITROGEN 21 mg/dL (7-18); CALCIUM 7.6 mg/dL (8.5-10.1); CHOLESTEROL 129 mg/dL (50-200); CO2 26 mmol/L (21-32); CREATININE 0.6 mg/dL (0.55-1.02); GLUCOSE,RANDOM 163 mg/dL (74-106); HDL CHOLESTEROL 25 mg/dL (40-60); MAGNESIUM 1.3 mg/dL (1.8-2.4); PHOSPHOROUS 3.6 mg/dL (2.5-4.9); SGOT/AST 69 U/L (15-37); SGPT/ALT 90 U/L (12-78); TOT PROT 6.7 g/dl (6.4-8.2); TRIGLYCERIDES 308 mg/dL (35-160)
[2017-09-19] MEDS: LORATADINE 10 MG TABLET PO SCH (11:02)
[2017-09-19] MEDS: amLODIPine BESYLATE 5 MG TABLET (FP) PO SCH (11:03)
[2017-09-19] MEDS: LIDOCAINE 5% TOPICAL PATCH TP SCH (11:03)
[2017-09-19] MEDS: HEPARIN NA (PORCINE) 5,000 UNITS/ML 1ML VIAL SQ SCH ×2 (11:03→22:12)
[2017-09-19] MEDS: PANTOPRAZOLE SODIUM 40 MG VIAL IVPUSH SCH (11:03)
--- NOTE | 2017-09-19 11:07 | PN ---
GI Progress Note Subjective: GI NOte: Still having large NG output and no colostomy output indicative of persistent high grade obstruction. - Objective Vital Signs: Vital Signs Temperature 98.1 F 09/19/17 05:00 Pulse Rate 101 H 09/19/17 05:00 Respiratory Rate 18 09/19/17 05:00 Blood Pressure 136/90 09/19/17 05:00 O2 Sat by Pulse Oximetry (%) 95 09/18/17 21:00 Constitutional: Calm Gastrointestinal Inspection: Yes: Distention ...Auscultate: Yes: Hypoactive Bowel Sounds ...Palpate: Yes: Soft, Other (nontender) Labs: CBC, BMP 09/19/17 07:00 09/19/17 07:00 INR, PTT INR 1.08 (0.82-1.09) 09/18/17 06:20 Problem List - Problems (1) Small bowel obstruction due to adhesions Assessment/Plan: Persistent high grade SBO in need of NG suctioning and TPN. Code(s): K56.50 - INTESTNL ADHESIONS, UNSP TO PARTIAL VERSUS COMPLETE OBST (2) Cervical adenocarcinoma Code(s): C53.9 - MALIGNANT NEOPLASM OF CERVIX UTERI, UNSPECIFIED
--- NOTE | 2017-09-19 11:58 | PN ---
Progress Note, Physician Chief Complaint: obstruction History of Present Illness: 52 yo female with metastatic cervical cancer s/p pelvic exenteration with colostomy, dormant ileal conduit, bilateral nephrostomies and recurrent SBO, thought more likely due to adhesions or stricture than malignancy from imaging 2m ago. Has an NGT and is on TPN. No complaints - Current Medication List Current Medications: Active Medications Amlodipine Besylate (Norvasc -) 5 mg PO DAILY [facility] Last Admin: 09/19/17 11:03 Dose: Not Given Diphenhydramine HCl (Benadryl Injection -) 25 mg IVPB Q4H PRN PRN Reason: FOR ITCHING Last Admin: 09/14/17 21:04 Dose: 25 mg Fentanyl (Duragesic 75mcg Patch -) 1 patch TD Q72H [facility] Last Admin: 09/18/17 23:08 Dose: 1 patch Heparin Sodium (Porcine) (Heparin -) 5,000 unit SQ BID [facility] Last Admin: 09/19/17 11:03 Dose: 5,000 unit Fat Emulsion Intravenous (Intralipid -) 250 mls @ 20.833 mls/hr IV DAILY@2200 [facility] Last Admin: 09/18/17 23:07 Dose: 20.833 mls/hr Potassium Chloride 40 meq/Magnesium Sulfate 2 gm/ Sodium Chloride 100 meq/ Multivitamins/Minerals 10 ml/Calcium Gluconate 1,000 mg/Sodium Phosphate 15 mm/ Sterile Water/ Dextrose/ Amino Acids 2,000 mls @ 83.333 mls/hr IVPB DAILY@1600 [facility] Last Admin: 09/18/17 19:20 Dose: 83.333 mls/hr Lidocaine (Lidoderm Patch -) 1 patch TP DAILY [facility] Last Admin: 09/19/17 11:03 Dose: 1 patch Loratadine (Claritin -) 10 mg PO DAILY [facility] Last Admin: 09/19/17 11:02 Dose: Not Given Miscellaneous (Duragesic Patch Waste) 1 each TD PRN PRN PRN Reason: MISC Last Admin: 09/18/17 23:52 Dose: 1 each Miscellaneous (Lidoderm Patch Removal) 1 each MC DAILY@2200 [facility] Last Admin: 09/18/17 23:08 Dose: 1 each Morphine Sulfate (Morphine Sulfate) 4 mg IVPUSH Q3H [facility] Last Admin: 09/19/17 11:02 Dose: 4 mg Ondansetron HCl (Zofran Injection) 4 mg IVPB Q6H PRN PRN Reason: NAUSEA Last Admin: 09/18/17 16:35 Dose: 4 mg Pantoprazole Sodium (Protonix Iv) 40 mg IVPUSH DAILY [facility] Last Admin: 09/19/17 11:03 Dose: 40 mg - Objective Vital Signs: Vital Signs Temperature 98.5 F 09/19/17 11:11 Pulse Rate 100 H 09/19/17 11:11 Respiratory Rate 18 09/19/17 11:11 Blood Pressure 128/84 09/19/17 11:11 O2 Sat by Pulse Oximetry (%) 95 09/18/17 21:00 Vital Signs Period Temp Pulse Resp BP Sys/Rosa Pulse Ox Last 24 Hr 98 F-99.5 F 94-103 127-157/73-95 95 Intake & Output 09/18/17 09/19/17 09/19/17 23:59 07:59 15:59 Intake Total 682 Output Total 650 600 450 Balance 32 -600 -450 Weight 173 lb 1.6 oz Intake: IV 332 TPN 332 Packed Cells 350 Output: Drainage 250 250 ngt 250 250 Urine 400 600 200 Left Nephrostomy 200 300 100 Right Nephrostomy 200 300 100 Other: Voiding Method Toilet Indwelling Catheter Indwelling Catheter Weight Measurement Method Chair Scale Constitutional: Yes: Well Nourished, No Distress, Calm, Obese Eyes: Yes: Conjunctiva Clear, EOM Intact HENT: Yes: Atraumatic, Normocephalic Neck: Yes: Supple, Trachea Midline Cardiovascular: Yes: Regular Rate and Rhythm, S1, S2 Respiratory: Yes: Regular, CTA Bilaterally Gastrointestinal: Yes: Normal Bowel Sounds, Soft, Other (NGT to LCWS) ...Rectal Exam: Yes: Deferred Genitourinary: Yes: Other (bilateral nephrostomies). No: CVA Tenderness - Left , CVA Tenderness - Right Extremities: No: Cool, Cyanosis Edema: No Peripheral Pulses WNL: Yes Peripheral Pulses: Left Doralis Pedis: 2+, Right Dorsalis Pedis: 2+ Neurological: Yes: Alert, Oriented Psychiatric: Yes: Alert, Oriented Labs: CBC, BMP 09/19/17 07:00 09/19/17 07:00 INR, PTT INR 1.08 (0.82-1.09) 09/18/17 06:20 Problem List - Problems (1) Small bowel obstruction due to adhesions Assessment/Plan: 52yo MMP with high grade SBO secondary to adhesions, possibly with malignant recurrence, no emergency surgical intervention. She plans to follow up with Dr. Vasquez. continue NPO/NGT continue TPN regimen replete electrolytes Dr. Vasquez, her surgeon at [facility], who will be away returning on 09/27 Will continye to follow peripherally Covering Dr. Hinojosa until 09/27/2017 Code(s): K56.50 - INTESTNL ADHESIONS, UNSP TO PARTIAL VERSUS COMPLETE OBST (2) Abdominal pain Code(s): R10.9 - UNSPECIFIED ABDOMINAL PAIN Qualifiers: Abdominal location: left lower quadrant Qualified Code(s): R10.32 - Left lower quadrant pain (3) Nephrostomy status Code(s): Z93.6 - OTHER ARTIFICIAL OPENINGS OF URINARY TRACT STATUS (4) Cervical adenocarcinoma Code(s): C53.9 - MALIGNANT NEOPLASM OF CERVIX UTERI, UNSPECIFIED (5) Obstructive uropathy Code(s): N13.9 - OBSTRUCTIVE AND REFLUX UROPATHY, UNSPECIFIED (6) Small bowel obstruction due to adhesions Code(s): K56.50 - INTESTNL ADHESIONS, UNSP TO PARTIAL VERSUS COMPLETE OBST
[2017-09-19] MEDS ORDERED: MAGNESIUM 1GM/D5W - 1 GM/100 ML IVPB IVPB ONE (15:00)
[2017-09-19] MEDS: POTASSIUM CHLORIDE IVPB SCH (18:17)
[2017-09-19] MEDS: MAGNESIUM SULFATE IVPB SCH (18:17)
[2017-09-19] MEDS: [UNRECOGNIZED DRUG - OTHER] IVPB SCH (18:17)
[2017-09-19] MEDS: SODIUM CHLORIDE IVPB SCH (18:17)
--- NOTE | 2017-09-19 19:42 | PN ---
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 colostomy ileaostomy recurrent vomiting now with NGT she cannot tolerate octreotide- unclear if it was helping she has generalized itching and underlying rhinitis cannot take her usual antihistamine-npo pain better controlled Current Medications Amlodipine Besylate (Norvasc -) 5 mg PO DAILY [facility] Last Admin: 09/19/17 11:03 Dose: Not Given Diphenhydramine HCl (Benadryl Injection -) 25 mg IVPB Q4H PRN PRN Reason: FOR ITCHING Last Admin: 09/14/17 21:04 Dose: 25 mg Fentanyl (Duragesic 75mcg Patch -) 1 patch TD Q72H [facility] Last Admin: 09/18/17 23:08 Dose: 1 patch Heparin Sodium (Porcine) (Heparin -) 5,000 unit SQ BID [facility] Last Admin: 09/19/17 11:03 Dose: 5,000 unit Fat Emulsion Intravenous (Intralipid -) 250 mls @ 20.833 mls/hr IV DAILY@2200 [facility] Last Admin: 09/18/17 23:07 Dose: 20.833 mls/hr Potassium Chloride 40 meq/Magnesium Sulfate 2 gm/ Sodium Chloride 100 meq/ Multivitamins/Minerals 10 ml/Calcium Gluconate 1,000 mg/Sodium Phosphate 15 mm/ Sterile Water/ Dextrose/ Amino Acids 2,000 mls @ 83.333 mls/hr IVPB DAILY@1600 [facility] Last Admin: 09/19/17 18:17 Dose: 83.333 mls/hr Lidocaine (Lidoderm Patch -) 1 patch TP DAILY [facility] Last Admin: 09/19/17 11:03 Dose: 1 patch Loratadine (Claritin -) 10 mg PO DAILY [facility] Last Admin: 09/19/17 11:02 Dose: Not Given Miscellaneous (Duragesic Patch Waste) 1 each TD PRN PRN PRN Reason: MISC Last Admin: 09/18/17 23:52 Dose: 1 each Miscellaneous (Lidoderm Patch Removal) 1 each MC DAILY@2200 [facility] Last Admin: 09/18/17 23:08 Dose: 1 each Morphine Sulfate (Morphine Sulfate) 4 mg IVPUSH Q3H [facility] Last Admin: 09/19/17 16:50 Dose: 4 mg Ondansetron HCl (Zofran Injection) 4 mg IVPB Q6H PRN PRN Reason: NAUSEA Last Admin: 09/18/17 16:35 Dose: 4 mg Pantoprazole Sodium (Protonix Iv) 40 mg IVPUSH DAILY [facility] Last Admin: 09/19/17 11:03 Dose: 40 mg Last Vital Signs Temp Pulse Resp BP Pulse Ox 98.1 F 94 H 18 123/83 98 09/19/17 16:55 09/19/17 16:55 09/19/17 16:55 09/19/17 16:55 09/19/17 09:00 c/o pain, relief is poor when morphine is given too late she is on highr dose of fentanyl will try standing doses and monitor mental status no blood noted in NGT, also less drainage from suction maybe secondary to PPI started yesterday no tachycardia but still with prerenal azotemia i suspect she still has some volume depletion but since negative balance is less will continue 2 liter volume TPN and monitor vital signs and labs TPN orders adjusted today for increased Na, continued Mag replacement CBC, BMP 09/19/17 07:00 09/19/17 07:00 IMP- hyponatremia persists hypokalemia corrected mag and phos ok sbo- still on ngt suction, still high output anemia is less calcium low 2/2 albumin, corrected ca is good pain management better continue fentanyl continue morphine Plan- continue low suction of ngt to decompress bowel
[2017-09-19] MEDS: LIDOCAINE PATCH REMOVAL MC SCH (22:13)
[2017-09-19] MEDS: FAT EMULSIONS 250 ML IV SCH (22:13)
[2017-09-20] MEDS: morphine SULFATE 4 MG/ML VIAL IVPUSH SCH ×8 (01:36→22:43)
[2017-09-20 07:32] LABS: HEMATOCRIT 26.8 % (32.4-45.2); HEMOGLOBIN 9.3 GM/dL (10.7-15.3); MCH 31.6 pg (25.7-33.7); MCHC 34.6 g/dl (32.0-36.0); MEAN CELL VOLUME 91.1 fl (80-96); MEAN PLT VOLUME 8.2 fl (7.5-11.1); PLATELET COUNT 518 K/MM3 (134-434); RBC 2.94 M/mm3 (3.60-5.2); RDW 14.8 % (11.6-15.6); WHITE BLOOD COUNT 9.3 K/mm3 (4.0-10.0)
[2017-09-20 08:00] LABS: CHLORIDE 95 mmol/L (98-107); POTASSIUM 3.8 mmol/L (3.5-5.1); SODIUM 132 mmol/L (136-145)
[2017-09-20 08:06] LABS: ALBUMIN 2.3 g/dl (3.4-5.0); ALK PHOS 177 U/L (45-117); ANION GAP 10 (8-16); BILIRUBIN,TOTAL 0.6 mg/dL (0.2-1.0); BLOOD UREA NITROGEN 20 mg/dL (7-18); CO2 27 mmol/L (21-32); CREATININE 0.5 mg/dL (0.55-1.02); GLUCOSE,RANDOM 132 mg/dL (74-106); MAGNESIUM 1.4 mg/dL (1.8-2.4); SGOT/AST 64 U/L (15-37); SGPT/ALT 99 U/L (12-78); TOT PROT 6.4 g/dl (6.4-8.2); TRIGLYCERIDES 251 mg/dL (35-160)
[2017-09-20] MEDS: LORATADINE 10 MG TABLET PO SCH (09:46)
[2017-09-20] MEDS: amLODIPine BESYLATE 5 MG TABLET (FP) PO SCH (09:47)
[2017-09-20] MEDS: HEPARIN NA (PORCINE) 5,000 UNITS/ML 1ML VIAL SQ SCH ×2 (10:45→22:39)
[2017-09-20] MEDS: LIDOCAINE 5% TOPICAL PATCH TP SCH (11:00)
[2017-09-20] MEDS: PANTOPRAZOLE SODIUM 40 MG VIAL IVPUSH SCH (11:00)
[2017-09-20] MEDS: ONDANSETRON 4 MG/2 ML VIAL IVPB PRN ×2 (11:26→16:39)
--- NOTE | 2017-09-20 12:50 | PN ---
Progress Note, Physician Chief Complaint: obstruction History of Present Illness: 52 yo female with metastatic cervical cancer s/p pelvic exenteration with colostomy, dormant ileal conduit, bilateral nephrostomies and recurrent SBO, thought more likely due to adhesions or stricture than malignancy from imaging 2m ago. Has an NGT and is on TPN. No complaints - Current Medication List Current Medications: Active Medications Amlodipine Besylate (Norvasc -) 5 mg PO DAILY [facility] Last Admin: 09/20/17 09:47 Dose: Not Given Diphenhydramine HCl (Benadryl Injection -) 25 mg IVPB Q4H PRN PRN Reason: FOR ITCHING Last Admin: 09/14/17 21:04 Dose: 25 mg Fentanyl (Duragesic 75mcg Patch -) 1 patch TD Q72H [facility] Last Admin: 09/18/17 23:08 Dose: 1 patch Heparin Sodium (Porcine) (Heparin -) 5,000 unit SQ BID [facility] Last Admin: 09/20/17 10:45 Dose: 5,000 unit Fat Emulsion Intravenous (Intralipid -) 250 mls @ 20.833 mls/hr IV DAILY@2200 [facility] Last Admin: 09/19/17 22:13 Dose: 20.833 mls/hr Potassium Chloride 40 meq/Magnesium Sulfate 2 gm/ Sodium Chloride 100 meq/ Multivitamins/Minerals 10 ml/Calcium Gluconate 1,000 mg/Sodium Phosphate 15 mm/ Sterile Water/ Dextrose/ Amino Acids 2,000 mls @ 83.333 mls/hr IVPB DAILY@1600 [facility] Last Admin: 09/19/17 18:17 Dose: 83.333 mls/hr Lidocaine (Lidoderm Patch -) 1 patch TP DAILY [facility] Last Admin: 09/20/17 11:00 Dose: 1 patch Loratadine (Claritin -) 10 mg PO DAILY [facility] Last Admin: 09/20/17 09:46 Dose: Not Given Miscellaneous (Duragesic Patch Waste) 1 each TD PRN PRN PRN Reason: MISC Last Admin: 09/18/17 23:52 Dose: 1 each Miscellaneous (Lidoderm Patch Removal) 1 each MC DAILY@2200 [facility] Last Admin: 09/19/17 22:13 Dose: 1 each Morphine Sulfate (Morphine Sulfate) 4 mg IVPUSH Q3H [facility] Last Admin: 09/20/17 10:45 Dose: 4 mg Ondansetron HCl (Zofran Injection) 4 mg IVPB Q6H PRN PRN Reason: NAUSEA Last Admin: 09/20/17 11:26 Dose: 4 mg Pantoprazole Sodium (Protonix Iv) 40 mg IVPUSH DAILY [facility] Last Admin: 09/20/17 11:00 Dose: 40 mg - Objective Vital Signs: Vital Signs Temperature 98.2 F 09/20/17 10:00 Pulse Rate 90 09/20/17 10:00 Respiratory Rate 18 09/20/17 10:00 Blood Pressure 129/69 09/20/17 10:00 O2 Sat by Pulse Oximetry (%) 96 09/19/17 21:00 Constitutional: Yes: No Distress, Calm, Obese Eyes: Yes: Conjunctiva Clear, EOM Intact HENT: Yes: Atraumatic, Normocephalic, Other (NGT with feculant output) Neck: Yes: Supple, Trachea Midline Cardiovascular: Yes: Regular Rate and Rhythm, S1, S2 Respiratory: Yes: Regular, CTA Bilaterally Gastrointestinal: Yes: Normal Bowel Sounds, Soft, Abdomen, Obese, Other (non functioning ostomy). No: Tenderness, Tenderness, Epigastrium, Tenderness, Rebound ...Rectal Exam: No: Hemorrhoids/External Genitourinary: No: CVA Tenderness - Left, CVA Tenderness - Right Musculoskeletal: No: Muscle Pain, Muscle Weakness Extremities: No: Cool, Cyanosis Edema: No Peripheral Pulses WNL: Yes Peripheral Pulses: Left Doralis Pedis: 2+, Right Dorsalis Pedis: 2+ Neurological: Yes: Alert, Oriented Psychiatric: Yes: Alert, Oriented Labs: CBC, BMP 09/20/17 06:03 09/20/17 06:03 INR, PTT INR 1.08 (0.82-1.09) 09/18/17 06:20 Problem List - Problems (1) Small bowel obstruction due to adhesions Assessment/Plan: 52yo MMP with high grade SBO secondary to adhesions, possibly with malignant recurrence, no emergency surgical intervention. She plans to follow up with Dr. Vasquez. continue NPO/NGT continue TPN regimen replete electrolytes Dr. Vasquez, her surgeon at [facility], who will be away returning on 09/27 Will continue to follow peripherally Covering Dr. Hinojosa until 09/27/2017 Code(s): K56.50 - INTESTNL ADHESIONS, UNSP TO PARTIAL VERSUS COMPLETE OBST (2) Abdominal pain Code(s): R10.9 - UNSPECIFIED ABDOMINAL PAIN Qualifiers: Abdominal location: left lower quadrant Qualified Code(s): R10.32 - Left lower quadrant pain (3) Nephrostomy status Code(s): Z93.6 - OTHER ARTIFICIAL OPENINGS OF URINARY TRACT STATUS (4) Cervical adenocarcinoma Code(s): C53.9 - MALIGNANT NEOPLASM OF CERVIX UTERI, UNSPECIFIED (5) Obstructive uropathy Code(s): N13.9 - OBSTRUCTIVE AND REFLUX UROPATHY, UNSPECIFIED (6) Small bowel obstruction due to adhesions Code(s): K56.50 - INTESTNL ADHESIONS, UNSP TO PARTIAL VERSUS COMPLETE OBST
[2017-09-20] MEDS ORDERED: MAGNESIUM SULFATE IVPB SCH (16:00)
[2017-09-20] MEDS ORDERED: [UNRECOGNIZED DRUG - OTHER] IVPB SCH (16:00)
[2017-09-20] MEDS ORDERED: SODIUM CHLORIDE IVPB SCH (16:00)
[2017-09-20] MEDS ORDERED: POTASSIUM CHLORIDE IVPB SCH (16:00)
[2017-09-20] MEDS: FAT EMULSIONS 250 ML IV SCH (22:38)
[2017-09-20] MEDS: LIDOCAINE PATCH REMOVAL MC SCH (22:43)
[2017-09-21] MEDS: morphine SULFATE 4 MG/ML VIAL IVPUSH SCH ×8 (01:28→22:40)
[2017-09-21 08:25] LABS: ALBUMIN 2.2 g/dl (3.4-5.0); ANION GAP 5 (8-16); BILIRUBIN,TOTAL 0.7 mg/dL (0.2-1.0); BLOOD UREA NITROGEN 21 mg/dL (7-18); CALCIUM 7.6 mg/dL (8.5-10.1); CHLORIDE 98 mmol/L (98-107); CO2 28 mmol/L (21-32); CREATININE 0.6 mg/dL (0.55-1.02); GLUCOSE,RANDOM 139 mg/dL (74-106); MAGNESIUM 1.4 mg/dL (1.8-2.4); POTASSIUM 3.6 mmol/L (3.5-5.1); SGOT/AST 69 U/L (15-37); SGPT/ALT 111 U/L (12-78); SODIUM 131 mmol/L (136-145); TOT PROT 6.6 g/dl (6.4-8.2)
[2017-09-21 08:26] LABS: ALK PHOS 197 U/L (45-117)
[2017-09-21] MEDS: HEPARIN NA (PORCINE) 5,000 UNITS/ML 1ML VIAL SQ SCH ×2 (10:51→22:42)
[2017-09-21] MEDS: LIDOCAINE 5% TOPICAL PATCH TP SCH (10:51)
[2017-09-21] MEDS: amLODIPine BESYLATE 5 MG TABLET (FP) PO SCH (10:52)
[2017-09-21] MEDS: LORATADINE 10 MG TABLET PO SCH (10:52)
[2017-09-21] MEDS: PANTOPRAZOLE SODIUM 40 MG VIAL IVPUSH SCH (11:04)
--- NOTE | 2017-09-21 16:33 | PN ---
GI Progress Note Subjective: Gi NOte: Continues to need narcotic analgesia, NG suctioning and TPN for colicky abdominal pain due to high grade obstruction due to adhesion, anastomotic stricture or recurrent neoplasm. Hg not dropping significantly and weight has been steady. - Objective Vital Signs: Vital Signs Temperature 98.2 F 09/21/17 14:43 Pulse Rate 103 H 09/21/17 14:43 Respiratory Rate 18 09/21/17 14:43 Blood Pressure 131/85 09/21/17 14:43 O2 Sat by Pulse Oximetry (%) 98 09/21/17 09:00 Constitutional: Calm ...Auscultate: Yes: Hypoactive Bowel Sounds ...Palpate: Yes: Soft, Other (no focal tenderness) Labs: CBC, BMP 09/20/17 06:03 09/21/17 06:00 INR, PTT INR 1.08 (0.82-1.09) 09/18/17 06:20 Problem List - Problems (1) Small bowel obstruction due to adhesions Assessment/Plan: Persistent high grade SBO in need of narcotic analgesic, NG suctioning and TPN. Code(s): K56.50 - INTESTNL ADHESIONS, UNSP TO PARTIAL VERSUS COMPLETE OBST (2) Cervical adenocarcinoma Code(s): C53.9 - MALIGNANT NEOPLASM OF CERVIX UTERI, UNSPECIFIED
--- NOTE | 2017-09-21 18:12 | PN ---
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 colostomy ileaostomy recurrent vomiting now with NGT she cannot tolerate octreotide- unclear if it was helping h/o generalized itching and underlying rhinitis cannot take her usual antihistamine-npo, on benadryl iv prn pain management on narcotics on daily tpn high output gastric drainage s/p episode of h/h drop Current Medications Amlodipine Besylate (Norvasc -) 5 mg PO DAILY [facility] Last Admin: 09/21/17 10:52 Dose: Not Given Diphenhydramine HCl (Benadryl Injection -) 25 mg IVPB Q4H PRN PRN Reason: FOR ITCHING Last Admin: 09/14/17 21:04 Dose: 25 mg Fentanyl (Duragesic 75mcg Patch -) 1 patch TD Q72H [facility] Last Admin: 09/18/17 23:08 Dose: 1 patch Heparin Sodium (Porcine) (Heparin -) 5,000 unit SQ BID [facility] Last Admin: 09/21/17 10:51 Dose: 5,000 unit Fat Emulsion Intravenous (Intralipid -) 250 mls @ 20.833 mls/hr IV DAILY@2200 [facility] Last Admin: 09/20/17 22:38 Dose: 20.833 mls/hr Potassium Chloride 40 meq/Magnesium Sulfate 2 gm/ Sodium Chloride 140 meq/ Multivitamins/Minerals 10 ml/Calcium Gluconate 1,000 mg/Sodium Phosphate 10 mm/ Sterile Water/ Dextrose/ Amino Acids 2,000 mls @ 83.333 mls/hr IVPB DAILY@1600 [facility] Lidocaine (Lidoderm Patch -) 1 patch TP DAILY [facility] Last Admin: 09/21/17 10:51 Dose: 1 patch Loratadine (Claritin -) 10 mg PO DAILY [facility] Last Admin: 09/21/17 10:52 Dose: Not Given Miscellaneous (Duragesic Patch Waste) 1 each TD PRN PRN PRN Reason: MISC Last Admin: 09/18/17 23:52 Dose: 1 each Miscellaneous (Lidoderm Patch Removal) 1 each MC DAILY@2200 [facility] Last Admin: 09/20/17 22:43 Dose: 1 each Morphine Sulfate (Morphine Sulfate) 4 mg IVPUSH Q3H [facility] Last Admin: 09/21/17 16:59 Dose: 4 mg Ondansetron HCl (Zofran Injection) 4 mg IVPB Q6H PRN PRN Reason: NAUSEA Last Admin: 09/20/17 16:39 Dose: 4 mg Pantoprazole Sodium (Protonix Iv) 40 mg IVPUSH DAILY [facility] Last Admin: 09/21/17 11:04 Dose: 40 mg Vital Signs Temp 98.2 F 09/21/17 14:43 Pulse 103 H 09/21/17 14:43 Resp 18 09/21/17 14:43 BP 131/85 09/21/17 14:43 Pulse Ox 98 09/21/17 09:00 Intake & Output 09/20/17 09/21/17 09/21/17 23:59 11:59 23:59 Intake Total 1116 1140 913 Output Total 1700 950 300 Balance -584 190 613 Weight 172 lb 9.6 oz Intake: IV 996 940 TPN 996 940 Oral 120 TPN/PPN 913 Lipid 200 Output: Drainage 600 550 ngt 600 550 Urine 1100 400 300 Left Nephrostomy 550 200 150 Right Nephrostomy 550 200 150 Other: Voiding Method Indwelling Catheter Bowel Movement No No Weight Measurement Method Chair Scale c/o pain, relief is poor when morphine is given too late she is on higher dose of fentanyl on standing doses of morphine and unimpaired mental status no recurrence of blood noted in NGT, no clear improvement after ppi started recurrent tachycardia and still with prerenal azotemia, but less pronounced i suspect she still has some volume depletion but she's no longer in negative balance will continue 2 liter volume TPN and monitor vital signs and labs TPN orders adjusted today for increased Na, continued Mag replacement CBC, BMP 09/20/17 06:03 09/21/17 06:00 IMP-Plan hyponatremia persists, on higher sodium TPN hypokalemia corrected mag and phos ok elevated liver enzymes - ?effect of tpn? sbo- still on ngt suction, still high output anemia is less calcium low 2/2 albumin, corrected ca is good pain management better continue fentanyl continue morphine Plan- continue low suction of ngt to decompress bowel
[2017-09-21] MEDS: MAGNESIUM SULFATE IVPB SCH (20:13)
[2017-09-21] MEDS: SODIUM CHLORIDE IVPB SCH (20:13)
[2017-09-21] MEDS: [UNRECOGNIZED DRUG - OTHER] IVPB SCH (20:13)
[2017-09-21] MEDS: POTASSIUM CHLORIDE IVPB SCH (20:13)
[2017-09-21] MEDS ORDERED: PT OWN MED DRAWER 7, Y5N ONE (21:29)
[2017-09-21] MEDS: FAT EMULSIONS 250 ML IV SCH (22:41)
[2017-09-21] MEDS: fentaNYL 75mcg/hr PATCH.TD72 TD SCH (22:42)
[2017-09-21] MEDS: LIDOCAINE PATCH REMOVAL MC SCH (22:47)
[2017-09-22] MEDS: FENTANYL PATCH WASTE TD PRN (00:33)
[2017-09-22] MEDS: morphine SULFATE 4 MG/ML VIAL IVPUSH SCH ×8 (04:45→23:01)
[2017-09-22 07:48] LABS: HEMATOCRIT 25.8 % (32.4-45.2); MCH 31.8 pg (25.7-33.7); MCHC 34.8 g/dl (32.0-36.0); MEAN CELL VOLUME 91.6 fl (80-96); MEAN PLT VOLUME 8.1 fl (7.5-11.1); PLATELET COUNT 492 K/MM3 (134-434); RBC 2.81 M/mm3 (3.60-5.2); WHITE BLOOD COUNT 7.4 K/mm3 (4.0-10.0)
[2017-09-22 08:17] LABS: ALBUMIN 2.1 g/dl (3.4-5.0); BILIRUBIN,DIRECT 0.3 mg/dL (0.0-0.2)
[2017-09-22 08:19] LABS: BILIRUBIN,TOTAL 0.7 mg/dL (0.2-1.0); TOT PROT 6.2 g/dl (6.4-8.2)
[2017-09-22 08:26] LABS: ALBUMIN 2.1 g/dl (3.4-5.0); ANION GAP 8 (8-16); BLOOD UREA NITROGEN 21 mg/dL (7-18); CALCIUM 7.5 mg/dL (8.5-10.1); CHLORIDE 97 mmol/L (98-107); CO2 27 mmol/L (21-32); GLUCOSE,RANDOM 169 mg/dL (74-106); MAGNESIUM 1.4 mg/dL (1.8-2.4); PHOSPHOROUS 3.9 mg/dL (2.5-4.9); POTASSIUM 3.7 mmol/L (3.5-5.1); SGOT/AST 60 U/L (15-37); SODIUM 132 mmol/L (136-145)
[2017-09-22 08:28] LABS: ALK PHOS 179 U/L (45-117); BILIRUBIN,TOTAL 0.6 mg/dL (0.2-1.0); CREATININE 0.5 mg/dL (0.55-1.02); SGPT/ALT 106 U/L (12-78)
--- NOTE | 2017-09-22 08:31 | CON.CARD ---
Consult Consult Specialty:: cardiology Reason for Consultation:: tachycardia - History of Present Illness Chief Complaint: A&Ox3; weak; intermittent nausea; depressed History of Present Illness: The patient is a 52 year old female (latricia Iniguez) with a history of cervical Cancer s/o multiple pelvic surgeries, SBO, HTN, who presents for evaluation of abdominal pain, nausea, vomiting. The patient reports a 1 week history of worsening abdominal pain and distension associated with nausea and multiple episodes of bilious vomiting with 6 episodes of vomiting today prompting her presentation to the ED for evaluation. She states that she has not noted any stool in her colostomy bag for 1 week as well. She otherwise denies fevers, chills, SOB, or chest pain. - History Source History Provided By: Patient, Family Member, Medical Record Limitations to Obtaining History: No Limitations - Past Medical History [employer]: Yes: Peripheral Neuropathy (related to cisplatinum) Cardio/Vascular: Yes: HTN (no longer on meds - BP has been lower/normal) Gastrointestinal: Yes: Other (normal colonoscopy 11/15/07, LLQ colostomy 11/06 with pelvic exenteration that included the appendix) Hepatobiliary: Yes: Other (fatty liver) Renal/: Yes: Renal Inusuff (obstructive, has ileal conduit (no longer in use) -> bilateral perc nephrostomies this year), Other (urinary diversion. ) Reproductive: Yes: Other ...LMP: 06/14/14 ...: No Psych: Yes: Anxiety Musculoskeletal: Yes: Chronic low back pain ENT: Yes: Other (seasonal allergies) Dermatology: Yes: Other (chronic nonhealing lower midline surgical wound (since 11/06)) - Past Surgical History Past Surgical History: Yes: Appendectomy (during pelvic exenteration 11/06), Colectomy, Colonoscopy, Colostomy, , Cystectomy, Hysterectomy (TAHBSO 2014 revealing adenocarcinoma of cervix), Ileal Conduit, Oopherectomy, Upper Endoscopy Additional Surgical History: bilat perc nephrostomies - Alcohol/Substance Use Hx Alcohol Use: No History of Substance Use: reports: Marijuana (medical - uses 2-3x daily at home (both smoking and cannabis oil)) - Smoking History Smoking history: Never smoked Have you smoked in the past 12 months: No Aproximately how many cigarettes per day: 0 - Social History Usual Living Arrangement: With Spouse ADL: Family Assistance 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 History of Recent Travel: Yes ([place] 05/09) Home Medications - Allergies Allergies/Adverse Reactions: Allergies Allergy/AdvReac Type Severity Reaction Status Date / Time cisplatin Allergy Severe rash and Verified 09/09/17 16:21 chest pain trastuzumab [From Herceptin] AdvReac Severe Verified 09/10/17 14:21 - Home Medications Home Medications: Ambulatory Orders Amlodipine Besylate [Norvasc -] 5 mg PO DAILY 03/05/16 Cetirizine HCl [Zyrtec -] 10 mg PO DAILY 03/05/16 Cetirizine HCl [Zyrtec -] 10 mg PO DAILY 06/14/17 Family Disease History - Family Disease History Family Disease History: CA: Father ( colon cancer age 62), Mother (HPV cervical cancer survivor ), Sister (HPV cervical cancer survivor ) Review of Systems - Review of Systems Constitutional: reports: Loss of Appetite (on TPN since 05/2017), Weakness Eyes: reports: No Symptoms HENT: reports: No Symptoms Neck: reports: No Symptoms Cardiovascular: reports: No Symptoms Respiratory: reports: Exercise Intolerance Gastrointestinal: reports: Abdominal Pain, Other Genitourinary: reports: No Symptoms Breasts: reports: No Symptoms Reported Musculoskeletal: reports: Muscle Weakness Integumentary: reports: No Symptoms Neurological: reports: Weakness Psychiatric: reports: Altered Sleep Pattern, Anxiety, Depression - Risk Factors Known Risk Factors: Yes: Age, Hypertension, Physical Inactivity Vital Signs: Vital Signs Temperature 97.8 F 09/22/17 05:16 Pulse Rate 97 H 09/22/17 05:16 Respiratory Rate 20 09/22/17 05:16 Blood Pressure 123/81 09/22/17 05:16 O2 Sat by Pulse Oximetry (%) 96 09/21/17 21:00 Constitutional: Yes: Anxious, Mild Distress Eyes: Yes: WNL HENT: Yes: WNL Neck: Yes: WNL Respiratory: Yes: WNL Gastrointestinal: Yes: Soft, Other (ostomy sites) Renal/: No: Anuria Cardiovascular: Yes: Tachycardia Heart Sounds: Yes: S1, S2 Murmur: Yes: Systolic Murmur, Grade 1 Musculoskeletal: Yes: Muscle Weakness Extremities: Yes: WNL Edema: No Peripheral Pulses WNL: Yes Neurological: Yes: Alert, Oriented, Weakness Psychiatric: Yes: Other (anxiety/depression) - Other Data Labs, Other Data: CBC, BMP 09/22/17 06:00 INR, PTT INR 1.08 (0.82-1.09) 09/18/17 06:20 Ejection Fraction %: LVEF > or = 40 % Imaging - Results Chest X-ray: Image Reviewed (NGT; no acute pathology) EKG: Image Reviewed (sinus tachycardia) Problem List - Problems (1) Abdominal pain Code(s): R10.9 - UNSPECIFIED ABDOMINAL PAIN Qualifiers: Abdominal location: left lower quadrant Qualified Code(s): R10.32 - Left lower quadrant pain (2) Nephrostomy status Code(s): Z93.6 - OTHER ARTIFICIAL OPENINGS OF URINARY TRACT STATUS (3) Small bowel obstruction due to adhesions Code(s): K56.50 - INTESTNL ADHESIONS, UNSP TO PARTIAL VERSUS COMPLETE OBST (4) Anxiety and depression Code(s): F41.8 - OTHER SPECIFIED ANXIETY DISORDERS (5) Cervical adenocarcinoma Code(s): C53.9 - MALIGNANT NEOPLASM OF CERVIX UTERI, UNSPECIFIED (6) Colostomy in place Code(s): Z93.3 - COLOSTOMY STATUS (7) Constipation by delayed colonic transit Code(s): K59.01 - SLOW TRANSIT CONSTIPATION (8) Electrolyte abnormality Assessment/Plan: Keep K 4-4.5; Mg 2-2.3, and PO4 2.5-3.5. Code(s): E87.8 - OTH DISORDERS OF ELECTROLYTE AND FLUID BALANCE, NEC (9) History of ileal conduit Code(s): Z98.890 - OTHER SPECIFIED POSTPROCEDURAL STATES (10) Hypertension Code(s): I10 - ESSENTIAL (PRIMARY) HYPERTENSION (12) Sinus tachycardia Assessment/Plan: Pt has several factors contributing to sinus tachycardia, including CA with metastases, anemia, pain, anxiety, dehydration. Maintaining fluid balance is difficult, but crucial. Pain management. Code(s): R00.0 - TACHYCARDIA, UNSPECIFIED (13) Insomnia Code(s): G47.00 - INSOMNIA, UNSPECIFIED
[2017-09-22] MEDS: PANTOPRAZOLE SODIUM 40 MG VIAL IVPUSH SCH (09:31)
[2017-09-22] MEDS: HEPARIN NA (PORCINE) 5,000 UNITS/ML 1ML VIAL SQ SCH ×2 (09:31→22:59)
[2017-09-22] MEDS: LORATADINE 10 MG TABLET PO SCH (09:31)
[2017-09-22] MEDS: amLODIPine BESYLATE 5 MG TABLET (FP) PO SCH (09:32)
[2017-09-22] MEDS: LIDOCAINE 5% TOPICAL PATCH TP SCH (09:32)
[2017-09-22] MEDS: ONDANSETRON 4 MG/2 ML VIAL IVPB PRN ×2 (10:07→17:12)
--- NOTE | 2017-09-22 11:09 | PN ---
Progress Note, Physician History of Present Illness: The patient is a 52 year old female (latricia Iniguez) with a history of cervical Cancer s/o multiple pelvic surgeries, SBO, HTN, who presents for evaluation of abdominal pain, nausea, vomiting. The patient reports a 1 week history of worsening abdominal pain and distension associated with nausea and multiple episodes of bilious vomiting with 6 episodes of vomiting today prompting her presentation to the ED for evaluation. She states that she has not noted any stool in her colostomy bag for 1 week as well. She otherwise denies fevers, chills, SOB, or chest pain. - Current Medication List Current Medications: Active Medications Amlodipine Besylate (Norvasc -) 5 mg PO DAILY [facility] Last Admin: 09/22/17 09:32 Dose: Not Given Diphenhydramine HCl (Benadryl Injection -) 25 mg IVPB Q4H PRN PRN Reason: FOR ITCHING Last Admin: 09/14/17 21:04 Dose: 25 mg Fentanyl (Duragesic 75mcg Patch -) 1 patch TD Q72H [facility] Last Admin: 09/21/17 22:42 Dose: 1 patch Heparin Sodium (Porcine) (Heparin -) 5,000 unit SQ BID [facility] Last Admin: 09/22/17 09:31 Dose: 5,000 unit Fat Emulsion Intravenous (Intralipid -) 250 mls @ 20.833 mls/hr IV DAILY@2200 [facility] Last Admin: 09/21/17 22:41 Dose: 20.833 mls/hr Potassium Chloride 40 meq/Magnesium Sulfate 2 gm/ Sodium Chloride 140 meq/ Multivitamins/Minerals 10 ml/Calcium Gluconate 1,000 mg/Sodium Phosphate 10 mm/ Sterile Water/ Dextrose/ Amino Acids 2,000 mls @ 83.333 mls/hr IVPB DAILY@1600 [facility] Last Admin: 09/21/17 20:13 Dose: 83.333 mls/hr Lidocaine (Lidoderm Patch -) 1 patch TP DAILY [facility] Last Admin: 09/22/17 09:32 Dose: 1 patch Loratadine (Claritin -) 10 mg PO DAILY [facility] Last Admin: 09/22/17 09:31 Dose: Not Given Miscellaneous (Lidoderm Patch Removal) 1 each MC DAILY@2200 [facility] Last Admin: 09/21/17 22:47 Dose: 1 each Miscellaneous (Duragesic Patch Waste) 1 each TD PRN PRN PRN Reason: MISC Last Admin: 09/22/17 00:33 Dose: 1 each Morphine Sulfate (Morphine Sulfate) 4 mg IVPUSH Q3H [facility] Last Admin: 09/22/17 07:54 Dose: 4 mg Ondansetron HCl (Zofran Injection) 4 mg IVPB Q6H PRN PRN Reason: NAUSEA Last Admin: 09/22/17 10:07 Dose: 4 mg Pantoprazole Sodium (Protonix Iv) 40 mg IVPUSH DAILY [facility] Last Admin: 09/22/17 09:31 Dose: 40 mg - Objective Vital Signs: Vital Signs Temperature 97.8 F 09/22/17 09:53 Pulse Rate 108 H 09/22/17 09:53 Respiratory Rate 18 09/22/17 09:53 Blood Pressure 120/89 09/22/17 09:53 O2 Sat by Pulse Oximetry (%) 99 09/22/17 09:00 Eyes: Yes: WNL, Conjunctiva Clear, EOM Intact HENT: Yes: WNL, Atraumatic, Normocephalic Neck: Yes: WNL, Supple, Trachea Midline Cardiovascular: Yes: WNL, Regular Rate and Rhythm Respiratory: Yes: WNL, Regular, CTA Bilaterally Genitourinary: Yes: WNL Musculoskeletal: Yes: WNL Extremities: Yes: WNL Edema: No Integumentary: Yes: WNL Neurological: Yes: WNL, Alert, Oriented ...Motor Strength: WNL Psychiatric: Yes: WNL Labs: CBC, BMP 09/22/17 06:00 09/22/17 06:00 INR, PTT INR 1.08 (0.82-1.09) 09/18/17 06:20 Assessment/Plan - Problems (1) Abdominal pain Code(s): R10.9 - UNSPECIFIED ABDOMINAL PAIN Qualifiers: Abdominal location: left lower quadrant Qualified Code(s): R10.32 - Left lower quadrant pain (2) Nephrostomy status Code(s): Z93.6 - OTHER ARTIFICIAL OPENINGS OF URINARY TRACT STATUS (3) Small bowel obstruction due to adhesions Code(s): K56.50 - INTESTNL ADHESIONS, UNSP TO PARTIAL VERSUS COMPLETE OBST (4) Anxiety and depression Code(s): F41.8 - OTHER SPECIFIED ANXIETY DISORDERS (5) Cervical adenocarcinoma Code(s): C53.9 - MALIGNANT NEOPLASM OF CERVIX UTERI, UNSPECIFIED (6) Colostomy in place Code(s): Z93.3 - COLOSTOMY STATUS (7) Constipation by delayed colonic transit Code(s): K59.01 - SLOW TRANSIT CONSTIPATION (8) Electrolyte abnormality Code(s): E87.8 - OTH DISORDERS OF ELECTROLYTE AND FLUID BALANCE, NEC (9) History of ileal conduit Code(s): Z98.890 - OTHER SPECIFIED POSTPROCEDURAL STATES (10) Hypertension Code(s): I10 - ESSENTIAL (PRIMARY) HYPERTENSION (12) Sinus tachycardia Assessment/Plan: Pt has several factors contributing to sinus tachycardia, including CA with metastases, anemia, pain, anxiety, dehydration. Maintaining fuid bgalance is difficult, but crucial. Code(s): R00.0 - TACHYCARDIA, UNSPECIFIED
[2017-09-22] MEDS ORDERED: morphine SULFATE 4 MG/ML VIAL IVPUSH ONE (11:30)
--- NOTE | 2017-09-22 13:51 | PN ---
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 colostomy- no stool from ostomy x days ileaostomy recurrent vomiting now with NGT she cannot tolerate octreotide- unclear if it was helping h/o generalized itching and underlying rhinitis cannot take her usual antihistamine-npo, on benadryl iv prn pain management on narcotics on daily tpn high output gastric drainage s/p episode of h/h drop Current Medications Amlodipine Besylate (Norvasc -) 5 mg PO DAILY [facility] Last Admin: 09/22/17 09:32 Dose: Not Given Diphenhydramine HCl (Benadryl Injection -) 25 mg IVPB Q4H PRN PRN Reason: FOR ITCHING Last Admin: 09/14/17 21:04 Dose: 25 mg Fentanyl (Duragesic 75mcg Patch -) 1 patch TD Q72H [facility] Last Admin: 09/21/17 22:42 Dose: 1 patch Heparin Sodium (Porcine) (Heparin -) 5,000 unit SQ BID [facility] Last Admin: 09/22/17 09:31 Dose: 5,000 unit Fat Emulsion Intravenous (Intralipid -) 250 mls @ 20.833 mls/hr IV DAILY@2200 [facility] Last Admin: 09/21/17 22:41 Dose: 20.833 mls/hr Potassium Chloride 40 meq/Magnesium Sulfate 2 gm/ Sodium Chloride 140 meq/ Multivitamins/Minerals 10 ml/Calcium Gluconate 1,000 mg/Sodium Phosphate 10 mm/ Sterile Water/ Dextrose/ Amino Acids 2,000 mls @ 83.333 mls/hr IVPB DAILY@1600 [facility] Last Admin: 09/21/17 20:13 Dose: 83.333 mls/hr Magnesium Sulfate/Dextrose (Magnesium 1gm/D5w -) 1 gm in 100 mls @ 100 mls/hr IVPB ONCE ONE Stop: 09/22/17 14:59 Lidocaine (Lidoderm Patch -) 1 patch TP DAILY [facility] Last Admin: 09/22/17 09:32 Dose: 1 patch Loratadine (Claritin -) 10 mg PO DAILY [facility] Last Admin: 09/22/17 09:31 Dose: Not Given Miscellaneous (Lidoderm Patch Removal) 1 each MC DAILY@2200 [facility] Last Admin: 09/21/17 22:47 Dose: 1 each Miscellaneous (Duragesic Patch Waste) 1 each TD PRN PRN PRN Reason: MISC Last Admin: 09/22/17 00:33 Dose: 1 each Morphine Sulfate (Morphine Sulfate) 4 mg IVPUSH Q3H [facility] Last Admin: 09/22/17 11:12 Dose: 4 mg Ondansetron HCl (Zofran Injection) 4 mg IVPB Q6H PRN PRN Reason: NAUSEA Last Admin: 09/22/17 10:07 Dose: 4 mg Pantoprazole Sodium (Protonix Iv) 40 mg IVPUSH DAILY [facility] Last Admin: 09/22/17 09:31 Dose: 40 mg Last Vital Signs Temp Pulse Resp BP Pulse Ox 97.8 F 108 H 18 120/89 99 09/22/17 09:53 09/22/17 09:53 09/22/17 09:53 09/22/17 09:53 09/22/17 09:00 c/o pain, relief is poor when morphine is given too late she is on higher dose of fentanyl on standing doses of morphine and unimpaired mental status no recurrence of blood noted in NGT, no clear improvement after ppi started recurrent tachycardia and still with prerenal azotemia, but less pronounced i suspect she still has some volume depletion but she's no longer in negative balance will continue 2 liter volume TPN and monitor vital signs and labs TPN orders adjusted today for increased Na, continued Mag replacement CBC, BMP 09/22/17 06:00 09/22/17 06:00 IMP-Plan hyponatremia improving, on higher sodium TPN hypokalemia corrected mag and phos ok, adding extra dose mag today elevated liver enzymes - ?effect of tpn? sbo- still on ngt suction, still high output anemia is less calcium low 2/2 albumin, corrected ca is good pain management better continue fentanyl continue morphine Plan- continue low suction of ngt to decompress bowel
[2017-09-22] MEDS ORDERED: MAGNESIUM 1GM/D5W - 1 GM/100 ML IVPB IVPB ONE (14:00)
[2017-09-22] MEDS: MAGNESIUM SULFATE IVPB SCH (16:50)
[2017-09-22] MEDS: SODIUM CHLORIDE IVPB SCH (16:50)
[2017-09-22] MEDS: [UNRECOGNIZED DRUG - OTHER] IVPB SCH (16:50)
[2017-09-22] MEDS: POTASSIUM CHLORIDE IVPB SCH (16:50)
[2017-09-22] MEDS ORDERED: PT OWN MED DRAWER 7, Y5N ONE (21:18)
[2017-09-22] MEDS: FAT EMULSIONS 250 ML IV SCH (22:59)
[2017-09-22] MEDS: LIDOCAINE PATCH REMOVAL MC SCH (23:00)
[2017-09-23] MEDS: morphine SULFATE 4 MG/ML VIAL IVPUSH SCH ×8 (01:47→22:47)
[2017-09-23] MEDS: ONDANSETRON 4 MG/2 ML VIAL IVPB PRN ×2 (05:00→10:51)
[2017-09-23 07:59] LABS: HEMATOCRIT 28.2 % (32.4-45.2); HEMOGLOBIN 9.7 GM/dL (10.7-15.3); MCH 31.7 pg (25.7-33.7); MCHC 34.5 g/dl (32.0-36.0); MEAN CELL VOLUME 91.8 fl (80-96); MEAN PLT VOLUME 8.1 fl (7.5-11.1); PLATELET COUNT 562 K/MM3 (134-434); RBC 3.07 M/mm3 (3.60-5.2); RDW 14.9 % (11.6-15.6); WHITE BLOOD COUNT 8.2 K/mm3 (4.0-10.0)
[2017-09-23 08:01] LABS: ALBUMIN 2.3 g/dl (3.4-5.0); ANION GAP 8 (8-16); BILIRUBIN,TOTAL 0.7 mg/dL (0.2-1.0); BLOOD UREA NITROGEN 23 mg/dL (7-18); CHLORIDE 96 mmol/L (98-107); CO2 26 mmol/L (21-32); CREATININE 0.5 mg/dL (0.55-1.02); GLUCOSE,RANDOM 173 mg/dL (74-106); MAGNESIUM 1.7 mg/dL (1.8-2.4); PHOSPHOROUS 3.7 mg/dL (2.5-4.9); POTASSIUM 3.7 mmol/L (3.5-5.1); SGOT/AST 67 U/L (15-37); SGPT/ALT 124 U/L (12-78); SODIUM 130 mmol/L (136-145); TOT PROT 6.7 g/dl (6.4-8.2)
[2017-09-23 08:02] LABS: ALK PHOS 192 U/L (45-117)
[2017-09-23] MEDS: PANTOPRAZOLE SODIUM 40 MG VIAL IVPUSH SCH (10:51)
[2017-09-23] MEDS: LIDOCAINE 5% TOPICAL PATCH TP SCH (10:55)
[2017-09-23] MEDS: amLODIPine BESYLATE 5 MG TABLET (FP) PO SCH (10:55)
[2017-09-23] MEDS: HEPARIN NA (PORCINE) 5,000 UNITS/ML 1ML VIAL SQ SCH ×2 (10:55→21:59)
[2017-09-23] MEDS: LORATADINE 10 MG TABLET PO SCH (10:55)
--- NOTE | 2017-09-23 13:44 | PN ---
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 metastatic disease colostomy- no stool from ostomy x days ileaostomy recurrent vomiting now with NGT she cannot tolerate octreotide- unclear if it was helping h/o generalized itching and underlying rhinitis cannot take her usual antihistamine-npo, on benadryl iv prn pain management on narcotics on daily tpn high output gastric drainage s/p episode of h/h drop Current Medications Amlodipine Besylate (Norvasc -) 5 mg PO DAILY [facility] Last Admin: 09/23/17 10:55 Dose: Not Given Diphenhydramine HCl (Benadryl Injection -) 25 mg IVPB Q4H PRN PRN Reason: FOR ITCHING Last Admin: 09/14/17 21:04 Dose: 25 mg Fentanyl (Duragesic 75mcg Patch -) 1 patch TD Q72H [facility] Last Admin: 09/21/17 22:42 Dose: 1 patch Heparin Sodium (Porcine) (Heparin -) 5,000 unit SQ BID [facility] Last Admin: 09/23/17 10:55 Dose: 5,000 unit Fat Emulsion Intravenous (Intralipid -) 250 mls @ 20.833 mls/hr IV DAILY@2200 [facility] Last Admin: 09/22/17 22:59 Dose: 20.833 mls/hr Potassium Chloride 40 meq/Magnesium Sulfate 2 gm/ Sodium Chloride 140 meq/ Multivitamins/Minerals 10 ml/Calcium Gluconate 1,000 mg/Sodium Phosphate 10 mm/ Sterile Water/ Dextrose/ Amino Acids 2,000 mls @ 83.333 mls/hr IVPB DAILY@1600 [facility] Last Admin: 09/22/17 16:50 Dose: 83.333 mls/hr Dextrose/Sodium Chloride (D5-Ns -) 1,000 mls @ 75 mls/hr IV ASDIR [facility] Lidocaine (Lidoderm Patch -) 1 patch TP DAILY [facility] Last Admin: 09/23/17 10:55 Dose: 1 patch Loratadine (Claritin -) 10 mg PO DAILY [facility] Last Admin: 09/23/17 10:55 Dose: Not Given Miscellaneous (Lidoderm Patch Removal) 1 each MC DAILY@2200 [facility] Last Admin: 09/22/17 23:00 Dose: 1 each Miscellaneous (Duragesic Patch Waste) 1 each TD PRN PRN PRN Reason: MISC Last Admin: 09/22/17 00:33 Dose: 1 each Morphine Sulfate (Morphine Sulfate) 4 mg IVPUSH Q3H [facility] Last Admin: 09/23/17 10:51 Dose: 4 mg Ondansetron HCl (Zofran Injection) 4 mg IVPB Q6H PRN PRN Reason: NAUSEA Last Admin: 09/23/17 10:51 Dose: 4 mg Pantoprazole Sodium (Protonix Iv) 40 mg IVPUSH DAILY [facility] Last Admin: 09/23/17 10:51 Dose: 40 mg c/o pain, relief is poor when morphine is given too late she is on higher dose of fentanyl on standing doses of morphine and unimpaired mental status no recurrence of blood noted in NGT, no clear improvement after ppi started recurrent tachycardia and still with prerenal azotemia, but less pronounced i suspect she still has some volume depletion but she's no longer in negative balance will continue 2 liter volume TPN and monitor vital signs and labs TPN orders adjusted today for increased Na, continued Mag replacement Last Vital Signs Temp Pulse Resp BP Pulse Ox 97.9 F 95 H 20 116/76 98 09/23/17 05:11 09/23/17 05:11 09/23/17 05:11 09/23/17 05:11 09/23/17 09:[address] Heent no pallor CBC, BMP 09/23/17 06:00 09/23/17 06:00 09/22/17 09/22/17 09/23/17 06:00 06:00 06:00 Magnesium 1.4 L 1.7 L Direct Bilirubin 0.3 H AST 60 H 63 H 67 H ALT 106 H 109 H 124 H Alkaline Phosphatase 179 H 183 H 192 H Total Protein 6.0 L 6.2 L 6.7 Albumin 2.1 L 2.1 L 2.3 L Triglycerides 273 H IMP-Plan hyponatremia improving, on higher sodium TPN hypokalemia corrected mag and phos ok, adding extra dose mag today elevated liver enzymes - ?effect of tpn? sbo- still on ngt suction, still high output anemia is less calcium low 2/2 albumin, corrected ca is good pain management better continue fentanyl continue morphine Plan- continue low suction of ngt to decompress bowel *i HAVE CALLED DR ELVER CLAY'S OFFICE TO REQUEST A TRANSFER TO HIS HOSPITAL AND SERVICE HIS OFFICE PRACTICE NUMBER [phone] AND LEFT A MESSAGE /WAITING FOR A CALL BACK
--- NOTE | 2017-09-23 14:17 | PN ---
Progress Note, Physician Chief Complaint: Pt, with daughter at bedside, says she has trouble sleeping. She believes she is getting "tolerant" to medications, and wants to minimize them. Denies chest pain; intermittent abdominal pain. History of Present Illness: The patient is a 52 year old female (latricia Iniguez) with a history of cervical Cancer s/o multiple pelvic surgeries, SBO, HTN, who presents for evaluation of abdominal pain, nausea, vomiting. The patient reports a 1 week history of worsening abdominal pain and distension associated with nausea and multiple episodes of bilious vomiting with 6 episodes of vomiting today prompting her presentation to the ED for evaluation. She states that she has not noted any stool in her colostomy bag for 1 week as well. She otherwise denies fevers, chills, SOB, or chest pain. - Current Medication List Current Medications: Active Medications Amlodipine Besylate (Norvasc -) 5 mg PO DAILY [facility] Last Admin: 09/23/17 10:55 Dose: Not Given Diphenhydramine HCl (Benadryl Injection -) 25 mg IVPB Q4H PRN PRN Reason: FOR ITCHING Last Admin: 09/14/17 21:04 Dose: 25 mg Fentanyl (Duragesic 75mcg Patch -) 1 patch TD Q72H [facility] Last Admin: 09/21/17 22:42 Dose: 1 patch Heparin Sodium (Porcine) (Heparin -) 5,000 unit SQ BID [facility] Last Admin: 09/23/17 10:55 Dose: 5,000 unit Fat Emulsion Intravenous (Intralipid -) 250 mls @ 20.833 mls/hr IV DAILY@2200 [facility] Last Admin: 09/22/17 22:59 Dose: 20.833 mls/hr Potassium Chloride 40 meq/Magnesium Sulfate 2 gm/ Sodium Chloride 140 meq/ Multivitamins/Minerals 10 ml/Calcium Gluconate 1,000 mg/Sodium Phosphate 10 mm/ Sterile Water/ Dextrose/ Amino Acids 2,000 mls @ 83.333 mls/hr IVPB DAILY@1600 [facility] Last Admin: 09/22/17 16:50 Dose: 83.333 mls/hr Dextrose/Sodium Chloride (D5-Ns -) 1,000 mls @ 75 mls/hr IV ASDIR [facility] Lidocaine (Lidoderm Patch -) 1 patch TP DAILY [facility] Last Admin: 09/23/17 10:55 Dose: 1 patch Loratadine (Claritin -) 10 mg PO DAILY [facility] Last Admin: 09/23/17 10:55 Dose: Not Given Miscellaneous (Lidoderm Patch Removal) 1 each MC DAILY@2200 [facility] Last Admin: 09/22/17 23:00 Dose: 1 each Miscellaneous (Duragesic Patch Waste) 1 each TD PRN PRN PRN Reason: MISC Last Admin: 09/22/17 00:33 Dose: 1 each Morphine Sulfate (Morphine Sulfate) 4 mg IVPUSH Q3H [facility] Last Admin: 09/23/17 13:48 Dose: 4 mg Ondansetron HCl (Zofran Injection) 4 mg IVPB Q6H PRN PRN Reason: NAUSEA Last Admin: 09/23/17 10:51 Dose: 4 mg Pantoprazole Sodium (Protonix Iv) 40 mg IVPUSH DAILY [facility] Last Admin: 09/23/17 10:51 Dose: 40 mg - Objective Vital Signs: Vital Signs Temperature 97.9 F 09/23/17 05:11 Pulse Rate 95 H 09/23/17 05:11 Respiratory Rate 20 09/23/17 05:11 Blood Pressure 116/76 09/23/17 05:11 O2 Sat by Pulse Oximetry (%) 98 09/23/17 09:00 Constitutional: Yes: Anxious Eyes: Yes: WNL HENT: Yes: WNL Neck: Yes: WNL Cardiovascular: Yes: Tachycardia, S1, S2 Respiratory: Yes: WNL Gastrointestinal: Yes: Other ...Rectal Exam: Yes: Other Genitourinary: No: Anuria Breast(s): Yes: WNL Musculoskeletal: Yes: Muscle Weakness Extremities: Yes: WNL Edema: No Peripheral Pulses WNL: Yes Integumentary: Yes: Other (ostomy sites intact) Neurological: Yes: Alert, Oriented, Weakness Psychiatric: Yes: Other (anxiety/depression) Labs: CBC, BMP 09/23/17 06:00 09/23/17 06:00 INR, PTT INR 1.08 (0.82-1.09) 09/18/17 06:20 Problem List - Problems (1) Abdominal pain Assessment/Plan: Requires around-the clock opiate/Fentanyl to regulate pain. Code(s): R10.9 - UNSPECIFIED ABDOMINAL PAIN Qualifiers: Abdominal location: left lower quadrant Qualified Code(s): R10.32 - Left lower quadrant pain (2) Nephrostomy status Code(s): Z93.6 - OTHER ARTIFICIAL OPENINGS OF URINARY TRACT STATUS (3) Small bowel obstruction due to adhesions Code(s): K56.50 - INTESTNL ADHESIONS, UNSP TO PARTIAL VERSUS COMPLETE OBST (4) Anxiety and depression Code(s): F41.8 - OTHER SPECIFIED ANXIETY DISORDERS (5) Cervical adenocarcinoma Code(s): C53.9 - MALIGNANT NEOPLASM OF CERVIX UTERI, UNSPECIFIED (6) Colostomy in place Code(s): Z93.3 - COLOSTOMY STATUS (7) Constipation by delayed colonic transit Code(s): K59.01 - SLOW TRANSIT CONSTIPATION (8) Electrolyte abnormality Assessment/Plan: Keep K 4-4.5; Mg 2-2.3, and PO4 2.5-3.5. Code(s): E87.8 - OTH DISORDERS OF ELECTROLYTE AND FLUID BALANCE, NEC (9) History of ileal conduit Code(s): Z98.890 - OTHER SPECIFIED POSTPROCEDURAL STATES (10) Hypertension Code(s): I10 - ESSENTIAL (PRIMARY) HYPERTENSION (12) Sinus tachycardia Assessment/Plan: Pt has several factors contributing to sinus tachycardia, including CA with metastases, anemia, pain, anxiety, dehydration. Maintaining fluid balance is difficult, but crucial. Pain management. F/u Hb (no further transfusions have been given). Code(s): R00.0 - TACHYCARDIA, UNSPECIFIED
[2017-09-23] MEDS: MAGNESIUM SULFATE IVPB SCH (16:30)
[2017-09-23] MEDS: SODIUM CHLORIDE IVPB SCH (16:30)
[2017-09-23] MEDS: [UNRECOGNIZED DRUG - OTHER] IVPB SCH (16:30)
[2017-09-23] MEDS: POTASSIUM CHLORIDE IVPB SCH (16:30)
[2017-09-23] MEDS: DEXTROSE 5%-NORMAL SALINE 1,000 ML IV SCH (19:38)
[2017-09-23] MEDS: LIDOCAINE PATCH REMOVAL MC SCH (21:59)
[2017-09-23] MEDS: FAT EMULSIONS 250 ML IV SCH (21:59)
[2017-09-24] MEDS: morphine SULFATE 4 MG/ML VIAL IVPUSH SCH ×7 (01:09→22:59)
[2017-09-24 07:55] LABS: HEMATOCRIT 25.5 % (32.4-45.2); HEMOGLOBIN 8.8 GM/dL (10.7-15.3); MCH 31.2 pg (25.7-33.7); MCHC 34.4 g/dl (32.0-36.0); MEAN CELL VOLUME 90.6 fl (80-96); MEAN PLT VOLUME 8.1 fl (7.5-11.1); PLATELET COUNT 505 K/MM3 (134-434); RBC 2.82 M/mm3 (3.60-5.2); RDW 14.8 % (11.6-15.6); WHITE BLOOD COUNT 6.7 K/mm3 (4.0-10.0)
[2017-09-24 08:48] LABS: ALK PHOS 185 U/L (45-117); ANION GAP 8 (8-16); BILIRUBIN,TOTAL 0.6 mg/dL (0.2-1.0); BLOOD UREA NITROGEN 19 mg/dL (7-18); CALCIUM 7.6 mg/dL (8.5-10.1); CHLORIDE 97 mmol/L (98-107); CO2 26 mmol/L (21-32); CREATININE 0.5 mg/dL (0.55-1.02); GLUCOSE,RANDOM 130 mg/dL (74-106); MAGNESIUM 1.4 mg/dL (1.8-2.4); PHOSPHOROUS 3.6 mg/dL (2.5-4.9); POTASSIUM 3.6 mmol/L (3.5-5.1); SGOT/AST 77 U/L (15-37); SGPT/ALT 138 U/L (12-78); SODIUM 131 mmol/L (136-145); TOT PROT 6.2 g/dl (6.4-8.2); TRIGLYCERIDES 217 mg/dL (35-160)
[2017-09-24] MEDS: DEXTROSE 5%-NORMAL SALINE 1,000 ML IV SCH ×2 (09:04→13:23)
[2017-09-24] MEDS: LIDOCAINE 5% TOPICAL PATCH TP SCH (10:59)
[2017-09-24] MEDS: ONDANSETRON 4 MG/2 ML VIAL IVPB PRN (11:00)
[2017-09-24] MEDS: amLODIPine BESYLATE 5 MG TABLET (FP) PO SCH (11:01)
[2017-09-24] MEDS: PANTOPRAZOLE SODIUM 40 MG VIAL IVPUSH SCH (11:01)
[2017-09-24] MEDS: LORATADINE 10 MG TABLET PO SCH (11:01)
[2017-09-24] MEDS: HEPARIN NA (PORCINE) 5,000 UNITS/ML 1ML VIAL SQ SCH ×2 (11:01→23:00)
[2017-09-24] MEDS ORDERED: morphine SULFATE 4 MG/ML VIAL IVPUSH SCH (14:30)
--- NOTE | 2017-09-24 16:36 | PN ---
Progress Note, Physician Chief Complaint: Pt A&Ox3; anxious; awaits transfer for surgical evaluation. History of Present Illness: The patient is a 52 year old female (latricia Iniguez) with a history of cervical Cancer s/o multiple pelvic surgeries, SBO, HTN, who presents for evaluation of abdominal pain, nausea, vomiting. The patient reports a 1 week history of worsening abdominal pain and distension associated with nausea and multiple episodes of bilious vomiting with 6 episodes of vomiting today prompting her presentation to the ED for evaluation. She states that she has not noted any stool in her colostomy bag for 1 week as well. She otherwise denies fevers, chills, SOB, or chest pain. - Current Medication List Current Medications: Active Medications Amlodipine Besylate (Norvasc -) 5 mg PO DAILY [facility] Last Admin: 09/24/17 11:01 Dose: Not Given Diphenhydramine HCl (Benadryl Injection -) 25 mg IVPB Q4H PRN PRN Reason: FOR ITCHING Last Admin: 09/14/17 21:04 Dose: 25 mg Fentanyl (Duragesic 75mcg Patch -) 1 patch TD Q72H [facility] Last Admin: 09/21/17 22:42 Dose: 1 patch Heparin Sodium (Porcine) (Heparin -) 5,000 unit SQ BID [facility] Fat Emulsion Intravenous (Intralipid -) 250 mls @ 20.833 mls/hr IV DAILY@2200 [facility] Last Admin: 09/23/17 21:59 Dose: 20.833 mls/hr Dextrose/Sodium Chloride (D5-Ns -) 1,000 mls @ 75 mls/hr IV ASDIR [facility] Last Admin: 09/24/17 13:23 Dose: Not Given Potassium Chloride 40 meq/Magnesium Sulfate 2 gm/ Sodium Chloride 140 meq/ Multivitamins/Minerals 10 ml/Calcium Gluconate 1,000 mg/Sodium Phosphate 10 mm/ Sterile Water/ Dextrose/ Amino Acids 2,000 mls @ 111.111 mls/hr IVPB DAILY@ 1600 [facility] Last Admin: 09/23/17 16:30 Dose: 111.111 mls/hr Lidocaine (Lidoderm Patch -) 1 patch TP DAILY [facility] Last Admin: 09/24/17 10:59 Dose: 1 patch Loratadine (Claritin -) 10 mg PO DAILY [facility] Last Admin: 09/24/17 11:01 Dose: Not Given Miscellaneous (Lidoderm Patch Removal) 1 each MC DAILY@2200 [facility] Last Admin: 09/23/17 21:59 Dose: 1 each Miscellaneous (Duragesic Patch Waste) 1 each TD PRN PRN PRN Reason: MISC Last Admin: 09/22/17 00:33 Dose: 1 each Morphine Sulfate (Morphine Sulfate) 4 mg IVPUSH Q3H [facility] Ondansetron HCl (Zofran Injection) 4 mg IVPB Q6H PRN PRN Reason: NAUSEA Last Admin: 09/24/17 11:00 Dose: 4 mg Pantoprazole Sodium (Protonix Iv) 40 mg IVPUSH DAILY [facility] Last Admin: 09/24/17 11:01 Dose: 40 mg - Objective Vital Signs: Vital Signs Temperature 98.3 F 09/24/17 13:35 Pulse Rate 107 H 09/24/17 13:35 Respiratory Rate 18 09/24/17 13:35 Blood Pressure 119/77 09/24/17 13:35 O2 Sat by Pulse Oximetry (%) 97 09/23/17 21:00 Constitutional: Yes: Anxious Eyes: Yes: WNL HENT: Yes: WNL Neck: Yes: WNL Cardiovascular: Yes: Tachycardia, S1, S2 Respiratory: Yes: WNL Gastrointestinal: Yes: Soft, Other ...Rectal Exam: Yes: Deferred Genitourinary: No: Anuria Breast(s): Yes: WNL Musculoskeletal: Yes: Muscle Weakness Extremities: Yes: Cool Edema: No Peripheral Pulses WNL: Yes Integumentary: Yes: WNL Neurological: Yes: WNL Psychiatric: Yes: Other (anxious/depression) Labs: CBC, BMP 09/24/17 06:00 09/24/17 06:00 INR, PTT INR 1.08 (0.82-1.09) 09/18/17 06:20 Problem List - Problems (1) Abdominal pain Assessment/Plan: Requires around-the clock opiate/Fentanyl to regulate pain. Code(s): R10.9 - UNSPECIFIED ABDOMINAL PAIN Qualifiers: Abdominal location: left lower quadrant Qualified Code(s): R10.32 - Left lower quadrant pain (2) Nephrostomy status Code(s): Z93.6 - OTHER ARTIFICIAL OPENINGS OF URINARY TRACT STATUS (3) Small bowel obstruction due to adhesions Assessment/Plan: awaits transfer for surgery Code(s): K56.50 - INTESTNL ADHESIONS, UNSP TO PARTIAL VERSUS COMPLETE OBST (4) Anxiety and depression Code(s): F41.8 - OTHER SPECIFIED ANXIETY DISORDERS (5) Cervical adenocarcinoma Code(s): C53.9 - MALIGNANT NEOPLASM OF CERVIX UTERI, UNSPECIFIED (6) Colostomy in place Code(s): Z93.3 - COLOSTOMY STATUS (7) Constipation by delayed colonic transit Code(s): K59.01 - SLOW TRANSIT CONSTIPATION (8) Electrolyte abnormality Assessment/Plan: Keep K 4-4.5; Mg 2-2.3, and PO4 2.5-3.5. Code(s): E87.8 - OTH DISORDERS OF ELECTROLYTE AND FLUID BALANCE, NEC (9) History of ileal conduit Code(s): Z98.890 - OTHER SPECIFIED POSTPROCEDURAL STATES (10) Hypertension Code(s): I10 - ESSENTIAL (PRIMARY) HYPERTENSION (12) Sinus tachycardia Assessment/Plan: Pt has several factors contributing to sinus tachycardia, including CA with metastases, anemia, pain, anxiety, dehydration. Maintaining fluid balance is difficult, but crucial. PO and IV fluids; TPN. Pain management. F/u Hb (no further transfusions have been given). Code(s): R00.0 - TACHYCARDIA, UNSPECIFIED
--- NOTE | 2017-09-24 17:21 | PN ---
GI Progress Note Subjective: GI NOte: Still having colicky abdominal pain due to high grade SBO despite NG suctioning. She tells me that there is a bed for her at [facility] and a physician has accepted her to prep her for surgery with Dr Vasquez. Her LFTs have risen but I believe that this is TPN effect. - Objective Vital Signs: Vital Signs Temperature 98.3 F 09/24/17 13:35 Pulse Rate 107 H 09/24/17 13:35 Respiratory Rate 18 09/24/17 13:35 Blood Pressure 119/77 09/24/17 13:35 O2 Sat by Pulse Oximetry (%) 97 09/23/17 21:00 Constitutional: Anxious ...Auscultate: Yes: Hypoactive Bowel Sounds ...Palpate: Yes: Soft, Other (nonlocalizing tenderness to deep palpation but no peritoneal signs) Labs: CBC, BMP 09/24/17 06:00 09/24/17 06:00 INR, PTT INR 1.08 (0.82-1.09) 09/18/17 06:20 Problem List - Problems (1) Small bowel obstruction due to adhesions Assessment/Plan: Persistent high grade SBO in need of narcotic analgesic, NG suctioning and TPN. Awaiting transfer to [facility] as [place] had nothing to offer. Code(s): K56.50 - INTESTNL ADHESIONS, UNSP TO PARTIAL VERSUS COMPLETE OBST (2) Cervical adenocarcinoma Code(s): C53.9 - MALIGNANT NEOPLASM OF CERVIX UTERI, UNSPECIFIED
[2017-09-24] MEDS: [UNRECOGNIZED DRUG - OTHER] IVPB SCH (17:35)
[2017-09-24] MEDS: SODIUM CHLORIDE IVPB SCH (17:35)
[2017-09-24] MEDS: POTASSIUM CHLORIDE IVPB SCH (17:35)
[2017-09-24] MEDS: MAGNESIUM SULFATE IVPB SCH (17:35)
--- NOTE | 2017-09-24 22:57 | PN ---
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 colostomy- no stool from ostomy x days ileaostomy recurrent vomiting now with NGT she cannot tolerate octreotide- unclear if it was helping h/o generalized itching and underlying rhinitis cannot take her usual antihistamine-npo, on benadryl iv prn pain management on narcotics on daily tpn high output gastric drainage s/p episode of h/h drop Current Medications Amlodipine Besylate (Norvasc -) 5 mg PO DAILY [facility] Last Admin: 09/24/17 11:01 Dose: Not Given Diphenhydramine HCl (Benadryl Injection -) 25 mg IVPB Q4H PRN PRN Reason: FOR ITCHING Last Admin: 09/14/17 21:04 Dose: 25 mg Fentanyl (Duragesic 75mcg Patch -) 1 patch TD Q72H [facility] Last Admin: 09/21/17 22:42 Dose: 1 patch Heparin Sodium (Porcine) (Heparin -) 5,000 unit SQ BID [facility] Fat Emulsion Intravenous (Intralipid -) 250 mls @ 20.833 mls/hr IV DAILY@2200 [facility] Last Admin: 09/23/17 21:59 Dose: 20.833 mls/hr Dextrose/Sodium Chloride (D5-Ns -) 1,000 mls @ 75 mls/hr IV ASDIR [facility] Last Admin: 09/24/17 13:23 Dose: Not Given Potassium Chloride 40 meq/Magnesium Sulfate 2 gm/ Sodium Chloride 140 meq/ Multivitamins/Minerals 10 ml/Calcium Gluconate 1,000 mg/Sodium Phosphate 10 mm/ Sterile Water/ Dextrose/ Amino Acids 2,000 mls @ 111.111 mls/hr IVPB DAILY@ 1600 [facility] Last Admin: 09/24/17 17:35 Dose: 111.111 mls/hr Lidocaine (Lidoderm Patch -) 1 patch TP DAILY [facility] Last Admin: 09/24/17 10:59 Dose: 1 patch Loratadine (Claritin -) 10 mg PO DAILY [facility] Last Admin: 09/24/17 11:01 Dose: Not Given Lorazepam (Ativan Injection -) 1 mg IVPUSH BID PRN PRN Reason: ANXIETY Last Admin: 09/24/17 21:16 Dose: 1 mg Miscellaneous (Lidoderm Patch Removal) 1 each MC DAILY@2200 [facility] Last Admin: 09/23/17 21:59 Dose: 1 each Miscellaneous (Duragesic Patch Waste) 1 each TD PRN PRN PRN Reason: MISC Last Admin: 09/22/17 00:33 Dose: 1 each Morphine Sulfate (Morphine Sulfate) 4 mg IVPUSH Q3H [facility] Last Admin: 09/24/17 20:01 Dose: 4 mg Ondansetron HCl (Zofran Injection) 4 mg IVPB Q6H PRN PRN Reason: NAUSEA Last Admin: 09/24/17 11:00 Dose: 4 mg Pantoprazole Sodium (Protonix Iv) 40 mg IVPUSH DAILY [facility] Last Admin: 09/24/17 11:01 Dose: 40 mg c/o pain, relief is poor when morphine is given too late she is on higher dose of fentanyl on standing doses of morphine and unimpaired mental status no recurrence of blood noted in NGT, no clear improvement after ppi started recurrent tachycardia and still with prerenal azotemia, but less pronounced i suspect she still has some volume depletion but she's no longer in negative balance will continue 2 liter volume TPN and monitor vital signs and labs TPN orders adjusted today for increased Na, continued Mag replacement NGT in place Heent no pallor Last Vital Signs Temp Pulse Resp BP Pulse Ox 98.3 F 113 H 18 116/71 97 09/24/17 18:00 09/24/17 18:00 09/24/17 18:00 09/24/17 18:00 09/23/17 21:00 CBC, BMP 09/24/17 06:00 09/24/17 06:00 IMP-Plan hyponatremia improving, on higher sodium TPN hypokalemia corrected mag and phos ok, adding extra dose mag today elevated liver enzymes - ?effect of tpn? sbo- still on ngt suction, still high output anemia is less calcium low 2/2 albumin, corrected ca is good pain management better continue fentanyl continue morphine Plan- continue low suction of ngt to decompress bowel *i HAVE CALLED DR ELVER CLAY'S OFFICE TO REQUEST A TRANSFER TO HIS HOSPITAL AND SERVICE HIS OFFICE PRACTICE NUMBER [phone] AND LEFT A MESSAGE /WAITING FOR A CALL BACK
[2017-09-24] MEDS ORDERED: MAGNESIUM 1GM/D5W - 1 GM/100 ML IVPB IVPB ONE (22:59)
[2017-09-24] MEDS: fentaNYL 75mcg/hr PATCH.TD72 TD SCH (23:00)
[2017-09-24] MEDS: FAT EMULSIONS 250 ML IV SCH (23:00)
[2017-09-24] MEDS: LIDOCAINE PATCH REMOVAL MC SCH (23:01)
[2017-09-25] MEDS: morphine SULFATE 4 MG/ML VIAL IVPUSH SCH ×8 (01:41→23:01)
[2017-09-25] MEDS: FENTANYL PATCH WASTE TD PRN (04:14)
[2017-09-25 07:57] LABS: HEMATOCRIT 25.5 % (32.4-45.2); HEMOGLOBIN 8.9 GM/dL (10.7-15.3); MCH 31.7 pg (25.7-33.7); MCHC 34.7 g/dl (32.0-36.0); MEAN CELL VOLUME 91.5 fl (80-96); MEAN PLT VOLUME 8.1 fl (7.5-11.1); PLATELET COUNT 541 K/MM3 (134-434); RBC 2.79 M/mm3 (3.60-5.2); RDW 14.8 % (11.6-15.6); WHITE BLOOD COUNT 5.6 K/mm3 (4.0-10.0)
[2017-09-25 08:01] LABS: BILIRUBIN,TOTAL 0.7 mg/dL (0.2-1.0); BLOOD UREA NITROGEN 21 mg/dL (7-18); CHLORIDE 99 mmol/L (98-107); CREATININE 0.6 mg/dL (0.55-1.02); PHOSPHOROUS 3.7 mg/dL (2.5-4.9); POTASSIUM 3.7 mmol/L (3.5-5.1); SGOT/AST 72 U/L (15-37); SGPT/ALT 144 U/L (12-78); SODIUM 132 mmol/L (136-145); TOT PROT 6.4 g/dl (6.4-8.2)
[2017-09-25 08:03] LABS: ALK PHOS 196 U/L (45-117); ANION GAP 7 (8-16); CALCIUM 7.3 mg/dL (8.5-10.1); CO2 26 mmol/L (21-32); GLUCOSE,RANDOM 148 mg/dL (74-106); MAGNESIUM 1.7 mg/dL (1.8-2.4)
[2017-09-25] MEDS: HEPARIN NA (PORCINE) 5,000 UNITS/ML 1ML VIAL SQ SCH ×2 (10:59→21:20)
[2017-09-25] MEDS: PANTOPRAZOLE SODIUM 40 MG VIAL IVPUSH SCH (10:59)
[2017-09-25] MEDS: LORATADINE 10 MG TABLET PO SCH (11:09)
[2017-09-25] MEDS: LIDOCAINE 5% TOPICAL PATCH TP SCH (11:09)
[2017-09-25] MEDS: amLODIPine BESYLATE 5 MG TABLET (FP) PO SCH (11:12)
[2017-09-25] MEDS: DEXTROSE 5%-NORMAL SALINE 1,000 ML IV SCH (12:00)
[2017-09-25] MEDS ORDERED: MAGNESIUM 1GM/D5W - 1 GM/100 ML IVPB IVPB ONE (17:15)
[2017-09-25] MEDS: POTASSIUM CHLORIDE IVPB SCH (17:25)
[2017-09-25] MEDS: MAGNESIUM SULFATE IVPB SCH (17:25)
[2017-09-25] MEDS: [UNRECOGNIZED DRUG - OTHER] IVPB SCH (17:25)
[2017-09-25] MEDS: SODIUM CHLORIDE IVPB SCH (17:25)
--- NOTE | 2017-09-25 18:53 | PN ---
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 colostomy- no stool from ostomy x days ileaostomy recurrent vomiting now with NGT she cannot tolerate octreotide- unclear if it was helping h/o generalized itching and underlying rhinitis cannot take her usual antihistamine-npo, on benadryl iv prn pain management on narcotics on daily tpn high output gastric drainage s/p episode of h/h drop Current Medications Amlodipine Besylate (Norvasc -) 5 mg PO DAILY [facility] Last Admin: 09/25/17 11:12 Dose: Not Given Diphenhydramine HCl (Benadryl Injection -) 25 mg IVPB Q4H PRN PRN Reason: FOR ITCHING Last Admin: 09/25/17 04:34 Dose: 25 mg Fentanyl (Duragesic 75mcg Patch -) 1 patch TD Q72H [facility] Last Admin: 09/24/17 23:00 Dose: 1 patch Heparin Sodium (Porcine) (Heparin -) 5,000 unit SQ BID [facility] Last Admin: 09/25/17 10:59 Dose: 5,000 unit Fat Emulsion Intravenous (Intralipid -) 250 mls @ 20.833 mls/hr IV DAILY@2200 [facility] Last Admin: 09/24/17 23:00 Dose: 20.833 mls/hr Dextrose/Sodium Chloride (D5-Ns -) 1,000 mls @ 75 mls/hr IV ASDIR [facility] Last Admin: 09/25/17 12:00 Dose: 75 mls/hr Potassium Chloride 40 meq/Magnesium Sulfate 2 gm/ Sodium Chloride 140 meq/ Multivitamins/Minerals 10 ml/Calcium Gluconate 1,000 mg/Sodium Phosphate 10 mm/ Sterile Water/ Dextrose/ Amino Acids 2,000 mls @ 111.111 mls/hr IVPB DAILY@ 1600 [facility] Last Admin: 09/25/17 17:25 Dose: 111.111 mls/hr Lidocaine (Lidoderm Patch -) 1 patch TP DAILY [facility] Last Admin: 09/25/17 11:09 Dose: 1 patch Loratadine (Claritin -) 10 mg PO DAILY [facility] Last Admin: 09/25/17 11:09 Dose: Not Given Lorazepam (Ativan Injection -) 1 mg IVPUSH BID PRN PRN Reason: ANXIETY Last Admin: 09/25/17 15:59 Dose: 1 mg Miscellaneous (Lidoderm Patch Removal) 1 each MC DAILY@2200 [facility] Last Admin: 09/24/17 23:01 Dose: 1 each Miscellaneous (Duragesic Patch Waste) 1 each TD PRN PRN PRN Reason: MISC Last Admin: 09/25/17 04:14 Dose: 1 each Morphine Sulfate (Morphine Sulfate) 4 mg IVPUSH Q3H [facility] Last Admin: 09/25/17 17:06 Dose: 4 mg Ondansetron HCl (Zofran Injection) 4 mg IVPB Q6H PRN PRN Reason: NAUSEA Last Admin: 09/24/17 11:00 Dose: 4 mg Pantoprazole Sodium (Protonix Iv) 40 mg IVPUSH DAILY [facility] Last Admin: 09/25/17 10:59 Dose: 40 mg c/o pain, relief is poor when morphine is given too late she is on higher dose of fentanyl on standing doses of morphine and unimpaired mental status no recurrence of blood noted in NGT, no clear improvement after ppi started recurrent tachycardia and still with prerenal azotemia, but less pronounced i suspect she still has some volume depletion but she's no longer in negative balance will continue 2 liter volume TPN and monitor vital signs and labs TPN orders adjusted today for increased Na, continued Mag replacement Vital Signs Temperature 98.1 F 09/25/17 17:34 Pulse Rate 113 H 09/25/17 17:34 Respiratory Rate 20 09/25/17 17:34 Blood Pressure 134/81 09/25/17 17:34 O2 Sat by Pulse Oximetry (%) 96 09/25/17 09:[address] Heent no pallor CBC, BMP 09/25/17 06:00 09/25/17 06:00 IMP-Plan hyponatremia improving further on sodium 140 in TPN hypokalemia correcting on 30mEq in TPN mag and phos ok, adding extra dose mag 1 gm rider and 2 gm in TPN today elevated liver enzymes - ?effect of tpn? now allowed 6 hours fasting period in hope of decreasing lfts sbo- still on ngt suction, still high output no bm via colostomy anemia - h/h holding after PRBC 7 days ago calcium low 2/2 albumin, corrected ca is good pain management - tolerable continue fentanyl continue morphine added ativan since last night for anxiety Plan- continue low suction of ngt to decompress bowel waiting for transfer to hospital in [place] on dr Vasquez's service, her surgeon my information is that there is to be a peer to peer conversation between her health plan and the accepting physician
[2017-09-25] MEDS: FAT EMULSIONS 250 ML IV SCH (21:20)
[2017-09-25] MEDS: LIDOCAINE PATCH REMOVAL MC SCH (21:29)
[2017-09-26] MEDS: morphine SULFATE 4 MG/ML VIAL IVPUSH SCH ×8 (01:57→22:48)
[2017-09-26 08:02] LABS: CHLORIDE 98 mmol/L (98-107); SODIUM 133 mmol/L (136-145)
[2017-09-26 08:09] LABS: ALK PHOS 191 U/L (45-117); ANION GAP 10 (8-16); BILIRUBIN,TOTAL 0.7 mg/dL (0.2-1.0); BLOOD UREA NITROGEN 27 mg/dL (7-18); CALCIUM 7.9 mg/dL (8.5-10.1); CO2 25 mmol/L (21-32); CREATININE 0.6 mg/dL (0.55-1.02); GLUCOSE,RANDOM 164 mg/dL (74-106); MAGNESIUM 1.7 mg/dL (1.8-2.4); PHOSPHOROUS 3.9 mg/dL (2.5-4.9); SGOT/AST 66 U/L (15-37); SGPT/ALT 136 U/L (12-78); TOT PROT 6.1 g/dl (6.4-8.2)
[2017-09-26] MEDS: LORATADINE 10 MG TABLET PO SCH (10:00)
[2017-09-26] MEDS: amLODIPine BESYLATE 5 MG TABLET (FP) PO SCH (10:00)
[2017-09-26] MEDS: PANTOPRAZOLE SODIUM 40 MG VIAL IVPUSH SCH (10:55)
[2017-09-26] MEDS: LIDOCAINE 5% TOPICAL PATCH TP SCH (10:56)
[2017-09-26] MEDS: HEPARIN NA (PORCINE) 5,000 UNITS/ML 1ML VIAL SQ SCH ×2 (10:56→21:12)
[2017-09-26] MEDS: DEXTROSE 5%-NORMAL SALINE 1,000 ML IV SCH (11:30)
[2017-09-26] MEDS: [UNRECOGNIZED DRUG - OTHER] IVPB SCH (16:56)
[2017-09-26] MEDS: POTASSIUM CHLORIDE IVPB SCH (16:56)
[2017-09-26] MEDS: SODIUM CHLORIDE IVPB SCH (16:56)
[2017-09-26] MEDS: MAGNESIUM SULFATE IVPB SCH (16:56)
[2017-09-26] MEDS: ONDANSETRON 4 MG/2 ML VIAL IVPB PRN (19:59)
--- NOTE | 2017-09-26 20:43 | PN ---
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 colostomy- no stool from ostomy x days ileaostomy recurrent vomiting now with NGT she cannot tolerate octreotide- unclear if it was helping h/o generalized itching and underlying rhinitis cannot take her usual antihistamine-npo, on benadryl iv prn pain management on narcotics on daily tpn high output gastric drainage s/p episode of h/h drop Current Medications Amlodipine Besylate (Norvasc -) 5 mg PO DAILY [facility] Last Admin: 09/26/17 10:00 Dose: Not Given Diphenhydramine HCl (Benadryl Injection -) 25 mg IVPB Q4H PRN PRN Reason: FOR ITCHING Last Admin: 09/25/17 04:34 Dose: 25 mg Fentanyl (Duragesic 75mcg Patch -) 1 patch TD Q72H [facility] Last Admin: 09/24/17 23:00 Dose: 1 patch Heparin Sodium (Porcine) (Heparin -) 5,000 unit SQ BID [facility] Last Admin: 09/26/17 10:56 Dose: 5,000 unit Fat Emulsion Intravenous (Intralipid -) 250 mls @ 20.833 mls/hr IV DAILY@2200 [facility] Last Admin: 09/25/17 21:20 Dose: 20.833 mls/hr Dextrose/Sodium Chloride (D5-Ns -) 1,000 mls @ 75 mls/hr IV ASDIR [facility] Last Admin: 09/26/17 11:30 Dose: 75 mls/hr Potassium Chloride 40 meq/Magnesium Sulfate 2 gm/ Sodium Chloride 140 meq/ Multivitamins/Minerals 10 ml/Calcium Gluconate 1,000 mg/Sodium Phosphate 10 mm/ Sterile Water/ Dextrose/ Amino Acids 2,000 mls @ 111.111 mls/hr IVPB DAILY@ 1600 [facility] Last Admin: 09/26/17 16:56 Dose: 111.111 mls/hr Lidocaine (Lidoderm Patch -) 1 patch TP DAILY [facility] Last Admin: 09/26/17 10:56 Dose: 1 patch Loratadine (Claritin -) 10 mg PO DAILY [facility] Last Admin: 09/26/17 10:00 Dose: Not Given Lorazepam (Ativan Injection -) 1 mg IVPUSH BID PRN PRN Reason: ANXIETY Last Admin: 09/26/17 16:08 Dose: 1 mg Miscellaneous (Lidoderm Patch Removal) 1 each MC DAILY@2200 [facility] Last Admin: 09/25/17 21:29 Dose: 1 each Miscellaneous (Duragesic Patch Waste) 1 each TD PRN PRN PRN Reason: MISC Last Admin: 09/25/17 04:14 Dose: 1 each Morphine Sulfate (Morphine Sulfate) 4 mg IVPUSH Q3H [facility] Last Admin: 09/26/17 19:58 Dose: 4 mg Ondansetron HCl (Zofran Injection) 4 mg IVPB Q6H PRN PRN Reason: NAUSEA Last Admin: 09/26/17 19:59 Dose: 4 mg Pantoprazole Sodium (Protonix Iv) 40 mg IVPUSH DAILY [facility] Last Admin: 09/26/17 10:55 Dose: 40 mg Last Vital Signs Temp Pulse Resp BP Pulse Ox 98.9 F 117 H 20 128/78 97 09/26/17 17:27 09/26/17 17:27 09/26/17 17:27 09/26/17 17:27 09/26/17 09:00 c/o pain, relief is poor when morphine is given too late she is on higher dose of fentanyl on standing doses of morphine and unimpaired mental status no recurrence of blood noted in NGT, no clear improvement after ppi started recurrent tachycardia and still with prerenal azotemia, but less pronounced i suspect she still has some volume depletion but she's no longer in negative balance will continue 2 liter volume TPN and monitor vital signs and labs TPN orders adjusted today for increased Na, continued Mag replacement Vital Signs Temperature 98.1 F 09/25/17 17:34 Pulse Rate 113 H 09/25/17 17:34 Respiratory Rate 20 09/25/17 17:34 Blood Pressure 134/81 09/25/17 17:34 O2 Sat by Pulse Oximetry (%) 96 09/25/17 09:[address] Heent no pallor CBC, BMP 09/25/17 06:00 09/26/17 06:00 CBC, BMP 09/25/17 06:00 09/25/17 06:00 IMP-Plan hyponatremia improving further on sodium 140 in TPN hypokalemia correcting on 30mEq in TPN mag and phos ok, adding extra dose mag 1 gm rider and 2 gm in TPN today elevated liver enzymes - ?effect of tpn? now allowed 6 hours fasting period in hope of decreasing lfts sbo- still on ngt suction, still high output no bm via colostomy anemia - h/h holding after PRBC 7 days ago calcium low 2/2 albumin, corrected ca is good pain management - tolerable continue fentanyl continue morphine added ativan since last night for anxiety Plan- continue low suction of ngt to decompress bowel waiting for transfer to hospital in [place] on dr Vasquez's service, her surgeon my information is that there is to be a peer to peer conversation between her health plan and the accepting physician she is medically stable for transfer
[2017-09-26] MEDS: FAT EMULSIONS 250 ML IV SCH (21:11)
[2017-09-26] MEDS: LIDOCAINE PATCH REMOVAL MC SCH (21:12)
[2017-09-27] MEDS: morphine SULFATE 4 MG/ML VIAL IVPUSH SCH ×8 (01:46→22:54)
[2017-09-27 08:29] LABS: ALBUMIN 1.9 g/dl (3.4-5.0); ANION GAP 9 (8-16); BILIRUBIN,TOTAL 0.5 mg/dL (0.2-1.0); BLOOD UREA NITROGEN 23 mg/dL (7-18); CALCIUM 7.5 mg/dL (8.5-10.1); CHLORIDE 100 mmol/L (98-107); CO2 26 mmol/L (21-32); CREATININE 0.5 mg/dL (0.55-1.02); GLUCOSE,RANDOM 164 mg/dL (74-106); MAGNESIUM 1.4 mg/dL (1.8-2.4); PHOSPHOROUS 3.7 mg/dL (2.5-4.9); POTASSIUM 3.7 mmol/L (3.5-5.1); SGOT/AST 54 U/L (15-37); SGPT/ALT 116 U/L (12-78); SODIUM 135 mmol/L (136-145); TOT PROT 5.8 g/dl (6.4-8.2); TRIGLYCERIDES 238 mg/dL (35-160)
[2017-09-27 08:30] LABS: ALK PHOS 179 U/L (45-117)
[2017-09-27] MEDS: LORATADINE 10 MG TABLET PO SCH (09:28)
[2017-09-27] MEDS: amLODIPine BESYLATE 5 MG TABLET (FP) PO SCH (09:28)
[2017-09-27] MEDS: LIDOCAINE 5% TOPICAL PATCH TP SCH (09:29)
[2017-09-27] MEDS: HEPARIN NA (PORCINE) 5,000 UNITS/ML 1ML VIAL SQ SCH ×2 (09:29→21:52)
[2017-09-27] MEDS: PANTOPRAZOLE SODIUM 40 MG VIAL IVPUSH SCH (09:29)
[2017-09-27] MEDS: DEXTROSE 5%-NORMAL SALINE 1,000 ML IV SCH (13:10)
--- NOTE | 2017-09-27 13:25 | PN ---
Progress Note, Physician History of Present Illness: The patient is a 52 year old female (latricia Iniguez) with a history of cervical Cancer s/o multiple pelvic surgeries, SBO, HTN, who presents for evaluation of abdominal pain, nausea, vomiting. The patient reports a 1 week history of worsening abdominal pain and distension associated with nausea and multiple episodes of bilious vomiting with 6 episodes of vomiting today prompting her presentation to the ED for evaluation. She states that she has not noted any stool in her colostomy bag for 1 week as well. She otherwise denies fevers, chills, SOB, or chest pain. - Current Medication List Current Medications: Active Medications Amlodipine Besylate (Norvasc -) 5 mg PO DAILY [facility] Last Admin: 09/27/17 09:28 Dose: Not Given Diphenhydramine HCl (Benadryl Injection -) 25 mg IVPB Q4H PRN PRN Reason: FOR ITCHING Last Admin: 09/27/17 08:25 Dose: 25 mg Fentanyl (Duragesic 75mcg Patch -) 1 patch TD Q72H [facility] Last Admin: 09/24/17 23:00 Dose: 1 patch Heparin Sodium (Porcine) (Heparin -) 5,000 unit SQ BID [facility] Last Admin: 09/27/17 09:29 Dose: 5,000 unit IV Flush (Shelley-Cath Flush) 10 ml IVPUSH PRN PRN PRN Reason: Heparin Fat Emulsion Intravenous (Intralipid -) 250 mls @ 20.833 mls/hr IV DAILY@2200 [facility] Last Admin: 09/26/17 21:11 Dose: 20.833 mls/hr Dextrose/Sodium Chloride (D5-Ns -) 1,000 mls @ 75 mls/hr IV ASDIR [facility] Last Admin: 09/27/17 13:10 Dose: 75 mls/hr Potassium Chloride 40 meq/Magnesium Sulfate 2 gm/ Sodium Chloride 140 meq/ Multivitamins/Minerals 10 ml/Calcium Gluconate 1,000 mg/Sodium Phosphate 10 mm/ Sterile Water/ Dextrose/ Amino Acids 2,000 mls @ 111.111 mls/hr IVPB DAILY@ 1600 [facility] Last Admin: 09/26/17 16:56 Dose: 111.111 mls/hr Lidocaine (Lidoderm Patch -) 1 patch TP DAILY [facility] Last Admin: 09/27/17 09:29 Dose: 1 patch Loratadine (Claritin -) 10 mg PO DAILY [facility] Last Admin: 09/27/17 09:28 Dose: Not Given Lorazepam (Ativan Injection -) 1 mg IVPUSH Q8H PRN PRN Reason: ANXIETY Miscellaneous (Lidoderm Patch Removal) 1 each MC DAILY@2200 [facility] Last Admin: 09/26/17 21:12 Dose: 1 each Miscellaneous (Duragesic Patch Waste) 1 each TD PRN PRN PRN Reason: MISC Last Admin: 09/25/17 04:14 Dose: 1 each Morphine Sulfate (Morphine Sulfate) 4 mg IVPUSH Q3H [facility] Last Admin: 09/27/17 10:53 Dose: 4 mg Ondansetron HCl (Zofran Injection) 4 mg IVPB Q6H PRN PRN Reason: NAUSEA Last Admin: 09/26/17 19:59 Dose: 4 mg Pantoprazole Sodium (Protonix Iv) 40 mg IVPUSH DAILY [facility] Last Admin: 09/27/17 09:29 Dose: 40 mg - Objective Vital Signs: Vital Signs Temperature 98.2 F 09/27/17 09:00 Pulse Rate 106 H 09/27/17 09:00 Respiratory Rate 20 09/27/17 09:00 Blood Pressure 122/79 09/27/17 09:00 O2 Sat by Pulse Oximetry (%) 98 09/27/17 09:00 Eyes: Yes: WNL, Conjunctiva Clear, EOM Intact HENT: Yes: WNL, Atraumatic, Normocephalic Neck: Yes: WNL, Supple, Trachea Midline Cardiovascular: Yes: WNL, Regular Rate and Rhythm Respiratory: Yes: WNL, Regular, CTA Bilaterally Genitourinary: Yes: WNL Musculoskeletal: Yes: WNL Extremities: Yes: WNL Edema: No Integumentary: Yes: WNL Neurological: Yes: WNL, Alert, Oriented ...Motor Strength: WNL Psychiatric: Yes: WNL Labs: CBC, BMP 09/25/17 06:00 09/27/17 06:00 INR, PTT INR 1.08 (0.82-1.09) 09/18/17 06:20 Assessment/Plan - Problems (1) Abdominal pain Assessment/Plan: Requires around-the clock opiate/Fentanyl to regulate pain. Code(s): R10.9 - UNSPECIFIED ABDOMINAL PAIN Qualifiers: Abdominal location: left lower quadrant Qualified Code(s): R10.32 - Left lower quadrant pain (2) Nephrostomy status Code(s): Z93.6 - OTHER ARTIFICIAL OPENINGS OF URINARY TRACT STATUS (3) Small bowel obstruction due to adhesions Code(s): K56.50 - INTESTNL ADHESIONS, UNSP TO PARTIAL VERSUS COMPLETE OBST (4) Anxiety and depression Code(s): F41.8 - OTHER SPECIFIED ANXIETY DISORDERS (5) Cervical adenocarcinoma Code(s): C53.9 - MALIGNANT NEOPLASM OF CERVIX UTERI, UNSPECIFIED (6) Colostomy in place Code(s): Z93.3 - COLOSTOMY STATUS (7) Constipation by delayed colonic transit Code(s): K59.01 - SLOW TRANSIT CONSTIPATION (8) Electrolyte abnormality Assessment/Plan: Keep K 4-4.5; Mg 2-2.3, and PO4 2.5-3.5. Code(s): E87.8 - OTH DISORDERS OF ELECTROLYTE AND FLUID BALANCE, NEC (9) History of ileal conduit Code(s): Z98.890 - OTHER SPECIFIED POSTPROCEDURAL STATES (10) Hypertension Code(s): I10 - ESSENTIAL (PRIMARY) HYPERTENSION (12) Sinus tachycardia Assessment/Plan: Pt has several factors contributing to sinus tachycardia, including CA with metastases, anemia, pain, anxiety, dehydration. Maintaining fluid balance is difficult, but crucial. Pain management. F/u Hb (no further transfusions have been given). Code(s): R00.0 - TACHYCARDIA, UNSPECIFIED
[2017-09-27] MEDS: ONDANSETRON 4 MG/2 ML VIAL IVPB PRN (13:45)
[2017-09-27] MEDS ORDERED: PT OWN MED DRAWER 7, Y5N ONE (16:36)
[2017-09-27] MEDS: POTASSIUM CHLORIDE IVPB SCH (17:19)
[2017-09-27] MEDS: SODIUM CHLORIDE IVPB SCH (17:19)
[2017-09-27] MEDS: [UNRECOGNIZED DRUG - OTHER] IVPB SCH (17:19)
[2017-09-27] MEDS: MAGNESIUM SULFATE IVPB SCH (17:19)
--- NOTE | 2017-09-27 20:26 | PN ---
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 colostomy- no stool from ostomy x days ileaostomy recurrent vomiting now with NGT she cannot tolerate octreotide- unclear if it was helping h/o generalized itching and underlying rhinitis cannot take her usual antihistamine-npo, on benadryl iv prn pain management on narcotics on daily tpn high output gastric drainage s/p episode of h/h drop- transfused Current Medications Amlodipine Besylate (Norvasc -) 5 mg PO DAILY [facility] Last Admin: 09/27/17 09:28 Dose: Not Given Diphenhydramine HCl (Benadryl Injection -) 25 mg IVPB Q4H PRN PRN Reason: FOR ITCHING Last Admin: 09/27/17 08:25 Dose: 25 mg Fentanyl (Duragesic 75mcg Patch -) 1 patch TD Q72H [facility] Last Admin: 09/24/17 23:00 Dose: 1 patch Heparin Sodium (Porcine) (Heparin -) 5,000 unit SQ BID [facility] Last Admin: 09/27/17 09:29 Dose: 5,000 unit IV Flush (Shelley-Cath Flush) 10 ml IVPUSH PRN PRN PRN Reason: Heparin Fat Emulsion Intravenous (Intralipid -) 250 mls @ 20.833 mls/hr IV DAILY@2200 [facility] Last Admin: 09/26/17 21:11 Dose: 20.833 mls/hr Dextrose/Sodium Chloride (D5-Ns -) 1,000 mls @ 75 mls/hr IV ASDIR [facility] Last Admin: 09/27/17 13:10 Dose: 75 mls/hr Potassium Chloride 40 meq/Magnesium Sulfate 2 gm/ Sodium Chloride 140 meq/ Multivitamins/Minerals 10 ml/Calcium Gluconate 1,000 mg/Sodium Phosphate 10 mm/ Sterile Water/ Dextrose/ Amino Acids 2,000 mls @ 111.111 mls/hr IVPB DAILY@ 1600 [facility] Last Admin: 09/27/17 17:19 Dose: 111.111 mls/hr Magnesium Sulfate/Dextrose 1 (gm/ Miscellaneous) 100 mls @ 100 mls/hr IVPB ONCE ONE Stop: 09/27/17 21:14 Lidocaine (Lidoderm Patch -) 1 patch TP DAILY [facility] Last Admin: 05/07/18 09:29 Dose: 1 patch Loratadine (Claritin -) 10 mg PO DAILY [facility] Last Admin: 09/27/17 09:28 Dose: Not Given Lorazepam (Ativan Injection -) 2 mg IVPUSH Q8H PRN PRN Reason: ANXIETY Last Admin: 09/27/17 14:56 Dose: 2 mg Miscellaneous (Lidoderm Patch Removal) 1 each MC DAILY@2200 [facility] Last Admin: 09/26/17 21:12 Dose: 1 each Miscellaneous (Duragesic Patch Waste) 1 each TD PRN PRN PRN Reason: MISC Last Admin: 09/25/17 04:14 Dose: 1 each Morphine Sulfate (Morphine Sulfate) 4 mg IVPUSH Q3H [facility] Last Admin: 09/27/17 20:10 Dose: 4 mg Ondansetron HCl (Zofran Injection) 4 mg IVPB Q6H PRN PRN Reason: NAUSEA Last Admin: 09/27/17 13:45 Dose: 4 mg Pantoprazole Sodium (Protonix Iv) 40 mg IVPUSH DAILY [facility] Last Admin: 09/27/17 09:29 Dose: 40 mg Last Vital Signs Temp Pulse Resp BP Pulse Ox 98.8 F 114 H 18 121/78 98 09/27/17 17:44 09/27/17 17:44 09/27/17 17:44 09/27/17 17:44 09/27/17 09:00 Intake & Output 09/27/17 09/27/17 09/27/17 07:59 15:59 23:59 Intake Total 1542 0 Output Total 750 750 400 Balance 792 -750 -400 Weight 178 lb 5 oz c/o pain, relief is poor when morphine is given too late she is on higher dose of fentanyl on standing doses of morphine and unimpaired mental status no recurrence of blood noted in NGT, no clear improvement after ppi started recurrent tachycardia and still with prerenal azotemia, but less pronounced i suspect she still has some volume depletion but she's no longer in negative balance will continue 2 liter volume TPN and monitor vital signs and labs TPN orders adjusted today for increased Na, continued Mag replacement NGT in place Heent no pallor CBC, BMP 09/25/17 06:00 09/27/17 06:00 IMP- hyponatremia improving further on sodium 140 in TPN hypokalemia correcting on 30mEq in TPN mag and phos ok, adding extra dose mag 1 gm rider and 2 gm in TPN today elevated liver enzymes - ?effect of tpn? now allowed 6 hours fasting period in hope of decreasing lfts sbo- still on ngt suction, still high output no bm via colostomy anemia - h/h holding after PRBC 7 days ago calcium low 2/2 albumin, corrected ca is good pain management - tolerable continue fentanyl continue morphine added ativan since last night for anxiety Plan- I spoke with the territory sales manager medical at [facility] (Dr Paulino) regarding pts need for safe transport to [place] the case was discussed including persistent need for IVF, TPN, Dr Paulino stated she would discuss this situation with her senior adults director and to expect a call back on 09/28 continue low suction of ngt to decompress bowel waiting for transfer to hospital in [place] on dr Vasquez's service, her surgeon my information is that there is to be a peer to peer conversation between her health plan and the accepting physician she is medically stable for transfer
[2017-09-27] MEDS ORDERED: MAGNESIUM 1GM/D5W - 1 GM/100 ML IVPB IVPB ONE (20:30)
[2017-09-27] MEDS: fentaNYL 75mcg/hr PATCH.TD72 TD SCH (21:51)
[2017-09-27] MEDS: FAT EMULSIONS 250 ML IV SCH (21:53)
[2017-09-27] MEDS: LIDOCAINE PATCH REMOVAL MC SCH (22:00)
[2017-09-28] MEDS: morphine SULFATE 4 MG/ML VIAL IVPUSH SCH ×7 (01:54→21:40)
[2017-09-28 07:55] LABS: CHLORIDE 101 mmol/L (98-107); POTASSIUM 3.7 mmol/L (3.5-5.1); SODIUM 134 mmol/L (136-145)
[2017-09-28 08:01] LABS: ALBUMIN 1.9 g/dl (3.4-5.0); ALK PHOS 201 U/L (45-117); ANION GAP 7 (8-16); BILIRUBIN,TOTAL 0.6 mg/dL (0.2-1.0); BLOOD UREA NITROGEN 20 mg/dL (7-18); CALCIUM 7.5 mg/dL (8.5-10.1); CO2 26 mmol/L (21-32); CREATININE 0.5 mg/dL (0.55-1.02); GLUCOSE,RANDOM 98 mg/dL (74-106); MAGNESIUM 1.6 mg/dL (1.8-2.4); PHOSPHOROUS 3.9 mg/dL (2.5-4.9); SGOT/AST 57 U/L (15-37); SGPT/ALT 115 U/L (12-78); TOT PROT 6.1 g/dl (6.4-8.2)
[2017-09-28] MEDS: LIDOCAINE 5% TOPICAL PATCH TP SCH (10:42)
[2017-09-28] MEDS: HEPARIN NA (PORCINE) 5,000 UNITS/ML 1ML VIAL SQ SCH ×2 (10:42→21:58)
[2017-09-28] MEDS: amLODIPine BESYLATE 5 MG TABLET (FP) PO SCH (10:42)
[2017-09-28] MEDS: LORATADINE 10 MG TABLET PO SCH (10:42)
[2017-09-28] MEDS: PANTOPRAZOLE SODIUM 40 MG VIAL IVPUSH SCH (10:42)
--- NOTE | 2017-09-28 12:44 | PN ---
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 colostomy- no stool from ostomy x days ileaostomy recurrent vomiting now with NGT she cannot tolerate octreotide- unclear if it was helping h/o generalized itching and underlying rhinitis cannot take her usual antihistamine-npo, on benadryl iv prn pain management on narcotics on daily tpn high output gastric drainage s/p episode of h/h drop- transfused c/o pain, relief is poor when morphine is given too late she is on higher dose of fentanyl on standing doses of morphine and unimpaired mental status no recurrence of blood noted in NGT, no clear improvement after ppi started recurrent tachycardia and still with prerenal azotemia, but less pronounced i suspect she still has some volume depletion but she's no longer in negative balance will continue 2 liter volume TPN and monitor vital signs and labs TPN orders adjusted today for increased Na, continued Mag replacement NGT in place Heent pale CBC, BMP 09/25/17 06:00 09/27/17 06:00 IMP- hyponatremia improving further on sodium 140 in TPN hypokalemia correcting on 30mEq in TPN mag and phos ok, adding extra dose mag 1 gm rider and 2 gm in TPN today elevated liver enzymes - ?effect of tpn? now allowed 6 hours fasting period in hope of decreasing lfts sbo- still on ngt suction, still high output no bm via colostomy anemia - h/h holding after PRBC 7 days ago calcium low 2/2 albumin, corrected ca is good pain management - tolerable continue fentanyl continue morphine added ativan since last night for anxiety Plan- I spoke with the lpn medical assistant at [facility] (Dr Paulino) regarding pts need for safe transport to [place] the case was discussed including persistent need for IVF, TPN, Dr Paulino stated she would discuss this situation with her senior examiner and to expect a call back on 09/28 continue low suction of ngt to decompress bowel waiting for transfer to hospital in [place] on dr Vasquez's service, her surgeon my information is that there is to be a peer to peer conversation between her health plan and the accepting physician she is medically stable for transfer
[2017-09-28] MEDS: DEXTROSE 5%-NORMAL SALINE 1,000 ML IV SCH (12:52)
[2017-09-28] MEDS ORDERED: MAGNESIUM 1GM/D5W - 1 GM/100 ML IVPB IVPB ONE (13:45)
[2017-09-28] MEDS: ONDANSETRON 4 MG/2 ML VIAL IVPB PRN (15:04)
[2017-09-28] MEDS: POTASSIUM CHLORIDE IVPB SCH (16:59)
[2017-09-28] MEDS: SODIUM CHLORIDE IVPB SCH (16:59)
[2017-09-28] MEDS: [UNRECOGNIZED DRUG - OTHER] IVPB SCH (16:59)
[2017-09-28] MEDS: MAGNESIUM SULFATE IVPB SCH (16:59)
[2017-09-28] MEDS: FAT EMULSIONS 250 ML IV SCH (21:58)
[2017-09-28] MEDS: LIDOCAINE PATCH REMOVAL MC SCH (21:59)
--- NOTE | 2017-09-29 01:47 | PN ---
Progress Note, Physician Chief Complaint: Pt A&Ox3; increasingly anxious and depressed; cries several times, worried she will not be transferred for evaluation for further surgery by her MD in [place]. Periods of abdominal discomfort and nausea. History of Present Illness: The patient is a 52 year old female (latricia Iniguez) with a history of cervical Cancer s/o multiple pelvic surgeries, SBO, HTN, who presents for evaluation of abdominal pain, nausea, vomiting. The patient reports a 1 week history of worsening abdominal pain and distension associated with nausea and multiple episodes of bilious vomiting with 6 episodes of vomiting today prompting her presentation to the ED for evaluation. She states that she has not noted any stool in her colostomy bag for 1 week as well. She otherwise denies fevers, chills, SOB, or chest pain. - Current Medication List Current Medications: Active Medications Amlodipine Besylate (Norvasc -) 5 mg PO DAILY [facility] Last Admin: 09/28/17 10:42 Dose: Not Given Diphenhydramine HCl (Benadryl Injection -) 25 mg IVPB Q4H PRN PRN Reason: FOR ITCHING Last Admin: 09/28/17 18:57 Dose: 25 mg Heparin Sodium (Porcine) (Heparin -) 5,000 unit SQ BID [facility] Last Admin: 09/28/17 21:58 Dose: 5,000 unit IV Flush (Shelley-Cath Flush) 10 ml IVPUSH PRN PRN PRN Reason: Heparin Fat Emulsion Intravenous (Intralipid -) 250 mls @ 20.833 mls/hr IV DAILY@2200 [facility] Last Admin: 09/28/17 21:58 Dose: 20.833 mls/hr Dextrose/Sodium Chloride (D5-Ns -) 1,000 mls @ 75 mls/hr IV ASDIR [facility] Last Admin: 09/28/17 12:52 Dose: 75 mls/hr Potassium Chloride 40 meq/Magnesium Sulfate 2 gm/ Sodium Chloride 140 meq/ Multivitamins/Minerals 10 ml/Calcium Gluconate 1,000 mg/Sodium Phosphate 10 mm/ Sterile Water/ Dextrose/ Amino Acids 2,000 mls @ 111.111 mls/hr IVPB DAILY@ 1600 [facility] Last Admin: 09/28/17 16:59 Dose: 111.111 mls/hr Lidocaine (Lidoderm Patch -) 1 patch TP DAILY [facility] Last Admin: 09/28/17 10:42 Dose: 1 patch Loratadine (Claritin -) 10 mg PO DAILY [facility] Last Admin: 09/28/17 10:42 Dose: Not Given Lorazepam (Ativan Injection -) 2 mg IVPUSH Q8H PRN PRN Reason: ANXIETY Last Admin: 09/28/17 22:37 Dose: 2 mg Miscellaneous (Lidoderm Patch Removal) 1 each MC DAILY@2200 [facility] Last Admin: 09/28/17 21:59 Dose: 1 each Miscellaneous (Duragesic Patch Waste) 1 each TD PRN PRN PRN Reason: MISC Last Admin: 09/25/17 04:14 Dose: 1 each Morphine Sulfate (Morphine Sulfate) 4 mg IVPUSH Q3H [facility] Last Admin: 09/28/17 21:40 Dose: 4 mg Ondansetron HCl (Zofran Injection) 4 mg IVPB Q6H PRN PRN Reason: NAUSEA Last Admin: 09/28/17 15:04 Dose: 4 mg Pantoprazole Sodium (Protonix Iv) 40 mg IVPUSH DAILY [facility] Last Admin: 09/28/17 10:42 Dose: 40 mg - Objective Vital Signs: Vital Signs Temperature 98.4 F 09/28/17 22:00 Pulse Rate 107 H 09/28/17 22:00 Respiratory Rate 20 09/28/17 22:00 Blood Pressure 119/83 09/28/17 22:00 O2 Sat by Pulse Oximetry (%) 96 09/28/17 20:18 Constitutional: Yes: Anxious Eyes: Yes: WNL HENT: Yes: WNL Neck: Yes: WNL Cardiovascular: Yes: Regular Rate and Rhythm Respiratory: Yes: Regular Gastrointestinal: Yes: Other (ostomy site nontender) ...Rectal Exam: Yes: Deferred Genitourinary: No: Anuria Breast(s): Yes: WNL Musculoskeletal: Yes: Back Pain, Muscle Pain, Muscle Weakness Extremities: Yes: Cool Edema: Yes Edema: LLE: 1+, RLE: 1+ Peripheral Pulses WNL: Yes Integumentary: Yes: WNL Wound/Incision: Yes: Clean/Dry Neurological: Yes: Weakness Psychiatric: Yes: Other (anxeity/depression) Labs: CBC, BMP 09/25/17 06:00 09/28/17 06:00 INR, PTT INR 1.08 (0.82-1.09) 09/18/17 06:20 Problem List - Problems (1) Abdominal pain Assessment/Plan: On [id number] pain management. Code(s): R10.9 - UNSPECIFIED ABDOMINAL PAIN Qualifiers: Abdominal location: left lower quadrant Qualified Code(s): R10.32 - Left lower quadrant pain (2) Nephrostomy status Code(s): Z93.6 - OTHER ARTIFICIAL OPENINGS OF URINARY TRACT STATUS (3) Small bowel obstruction due to adhesions Assessment/Plan: awaits transfer to [place] for surgical reevaluation: SBO due to adhesions, ? CA recurrence. Code(s): K56.50 - INTESTNL ADHESIONS, UNSP TO PARTIAL VERSUS COMPLETE OBST (4) Anxiety and depression Assessment/Plan: Now on ativan. Code(s): F41.8 - OTHER SPECIFIED ANXIETY DISORDERS (5) Cervical adenocarcinoma Code(s): C53.9 - MALIGNANT NEOPLASM OF CERVIX UTERI, UNSPECIFIED (6) Colostomy in place Code(s): Z93.3 - COLOSTOMY STATUS (7) Constipation by delayed colonic transit Code(s): K59.01 - SLOW TRANSIT CONSTIPATION (8) Electrolyte abnormality Assessment/Plan: Keep K 4-4.5; Mg 2-2.3, and PO4 2.5-3.5. Code(s): E87.8 - OTH DISORDERS OF ELECTROLYTE AND FLUID BALANCE, NEC (9) History of ileal conduit Code(s): Z98.890 - OTHER SPECIFIED POSTPROCEDURAL STATES (10) Hypertension Code(s): I10 - ESSENTIAL (PRIMARY) HYPERTENSION (12) Sinus tachycardia Code(s): R00.0 - TACHYCARDIA, UNSPECIFIED
[2017-09-29] MEDS: morphine SULFATE 4 MG/ML VIAL IVPUSH SCH ×9 (01:55→22:28)
[2017-09-29] MEDS: PORTA CATH FLUSH 10 ML IVPUSH PRN (06:58)
[2017-09-29 09:09] LABS: HEMATOCRIT 23.3 % (32.4-45.2); HEMOGLOBIN 8.1 GM/dL (10.7-15.3); MCH 31.8 pg (25.7-33.7); MCHC 34.6 g/dl (32.0-36.0); MEAN PLT VOLUME 8.6 fl (7.5-11.1); PLATELET COUNT 485 K/MM3 (134-434); RBC 2.53 M/mm3 (3.60-5.2); RDW 14.7 % (11.6-15.6); WHITE BLOOD COUNT 5.7 K/mm3 (4.0-10.0)
[2017-09-29 09:51] LABS: ALBUMIN 1.8 g/dl (3.4-5.0); ANION GAP 8 (8-16); BILIRUBIN,TOTAL 0.5 mg/dL (0.2-1.0); BLOOD UREA NITROGEN 25 mg/dL (7-18); CALCIUM 7.5 mg/dL (8.5-10.1); CHLORIDE 102 mmol/L (98-107); CO2 25 mmol/L (21-32); CREATININE 0.6 mg/dL (0.55-1.02); GLUCOSE,RANDOM 124 mg/dL (74-106); MAGNESIUM 1.5 mg/dL (1.8-2.4); PHOSPHOROUS 3.7 mg/dL (2.5-4.9); POTASSIUM 3.6 mmol/L (3.5-5.1); SGOT/AST 49 U/L (15-37); SGPT/ALT 103 U/L (12-78); SODIUM 135 mmol/L (136-145); TOT PROT 5.8 g/dl (6.4-8.2); TRIGLYCERIDES 222 mg/dL (35-160)
[2017-09-29 09:52] LABS: ALK PHOS 204 U/L (45-117)
[2017-09-29] MEDS: LIDOCAINE 5% TOPICAL PATCH TP SCH (10:43)
[2017-09-29] MEDS: PANTOPRAZOLE SODIUM 40 MG VIAL IVPUSH SCH (10:43)
[2017-09-29] MEDS: HEPARIN NA (PORCINE) 5,000 UNITS/ML 1ML VIAL SQ SCH ×2 (10:43→22:32)
[2017-09-29] MEDS: LORATADINE 10 MG TABLET PO SCH (10:44)
[2017-09-29] MEDS: amLODIPine BESYLATE 5 MG TABLET (FP) PO SCH (11:05)
--- NOTE | 2017-09-29 11:51 | PN ---
Progress Note, Physician History of Present Illness: The patient is a 52 year old female (latricia Iniguez) with a history of cervical Cancer s/o multiple pelvic surgeries, SBO, HTN, who presents for evaluation of abdominal pain, nausea, vomiting. The patient reports a 1 week history of worsening abdominal pain and distension associated with nausea and multiple episodes of bilious vomiting with 6 episodes of vomiting today prompting her presentation to the ED for evaluation. She states that she has not noted any stool in her colostomy bag for 1 week as well. She otherwise denies fevers, chills, SOB, or chest pain. - Current Medication List Current Medications: Active Medications Amlodipine Besylate (Norvasc -) 5 mg PO DAILY [facility] Last Admin: 09/29/17 11:05 Dose: Not Given Diphenhydramine HCl (Benadryl Injection -) 25 mg IVPB Q4H PRN PRN Reason: FOR ITCHING Last Admin: 09/29/17 05:50 Dose: 25 mg Heparin Sodium (Porcine) (Heparin -) 5,000 unit SQ BID [facility] Last Admin: 09/29/17 10:43 Dose: 5,000 unit IV Flush (Shelley-Cath Flush) 10 ml IVPUSH PRN PRN PRN Reason: Heparin Last Admin: 09/29/17 06:58 Dose: 10 ml Fat Emulsion Intravenous (Intralipid -) 250 mls @ 20.833 mls/hr IV DAILY@2200 [facility] Last Admin: 09/28/17 21:58 Dose: 20.833 mls/hr Dextrose/Sodium Chloride (D5-Ns -) 1,000 mls @ 75 mls/hr IV ASDIR [facility] Last Admin: 09/28/17 12:52 Dose: 75 mls/hr Potassium Chloride 40 meq/Magnesium Sulfate 2 gm/ Sodium Chloride 140 meq/ Multivitamins/Minerals 10 ml/Calcium Gluconate 1,000 mg/Sodium Phosphate 10 mm/ Sterile Water/ Dextrose/ Amino Acids 2,000 mls @ 111.111 mls/hr IVPB DAILY@ 1600 [facility] Last Admin: 09/28/17 16:59 Dose: 111.111 mls/hr Lidocaine (Lidoderm Patch -) 1 patch TP DAILY [facility] Last Admin: 09/29/17 10:43 Dose: 1 patch Loratadine (Claritin -) 10 mg PO DAILY [facility] Last Admin: 09/29/17 10:44 Dose: Not Given Lorazepam (Ativan Injection -) 2 mg IVPUSH Q8H PRN PRN Reason: ANXIETY Last Admin: 09/28/17 22:37 Dose: 2 mg Miscellaneous (Lidoderm Patch Removal) 1 each MC DAILY@2200 [facility] Last Admin: 09/28/17 21:59 Dose: 1 each Miscellaneous (Duragesic Patch Waste) 1 each TD PRN PRN PRN Reason: MISC Last Admin: 09/25/17 04:14 Dose: 1 each Morphine Sulfate (Morphine Sulfate) 4 mg IVPUSH Q3H [facility] Last Admin: 09/29/17 10:43 Dose: 4 mg Ondansetron HCl (Zofran Injection) 4 mg IVPB Q6H PRN PRN Reason: NAUSEA Last Admin: 09/28/17 15:04 Dose: 4 mg Pantoprazole Sodium (Protonix Iv) 40 mg IVPUSH DAILY [facility] Last Admin: 09/29/17 10:43 Dose: 40 mg - Objective Vital Signs: Vital Signs Temperature 98.1 F 09/29/17 10:00 Pulse Rate 105 H 09/29/17 10:00 Respiratory Rate 20 09/29/17 10:00 Blood Pressure 109/78 09/29/17 10:00 O2 Sat by Pulse Oximetry (%) 95 09/29/17 09:00 Eyes: Yes: WNL, Conjunctiva Clear, EOM Intact HENT: Yes: WNL, Atraumatic, Normocephalic Neck: Yes: WNL, Supple, Trachea Midline Cardiovascular: Yes: WNL, Regular Rate and Rhythm Respiratory: Yes: WNL, Regular, CTA Bilaterally Genitourinary: Yes: WNL Musculoskeletal: Yes: WNL Extremities: Yes: WNL Edema: No Integumentary: Yes: WNL Neurological: Yes: WNL, Alert, Oriented ...Motor Strength: WNL Psychiatric: Yes: WNL Labs: CBC, BMP 09/29/17 06:00 09/29/17 06:00 INR, PTT INR 1.08 (0.82-1.09) 09/18/17 06:20 Assessment/Plan - Problems (1) Abdominal pain Assessment/Plan: Requires around-the clock opiate/Fentanyl to regulate pain. Code(s): R10.9 - UNSPECIFIED ABDOMINAL PAIN Qualifiers: Abdominal location: left lower quadrant Qualified Code(s): R10.32 - Left lower quadrant pain (2) Nephrostomy status Code(s): Z93.6 - OTHER ARTIFICIAL OPENINGS OF URINARY TRACT STATUS (3) Small bowel obstruction due to adhesions Assessment/Plan: awaits transfer for surgery Code(s): K56.50 - INTESTNL ADHESIONS, UNSP TO PARTIAL VERSUS COMPLETE OBST (4) Anxiety and depression Assessment/Plan: Now on ativan. Code(s): F41.8 - OTHER SPECIFIED ANXIETY DISORDERS (5) Cervical adenocarcinoma Code(s): C53.9 - MALIGNANT NEOPLASM OF CERVIX UTERI, UNSPECIFIED (6) Colostomy in place Code(s): Z93.3 - COLOSTOMY STATUS (7) Constipation by delayed colonic transit Code(s): K59.01 - SLOW TRANSIT CONSTIPATION (8) Electrolyte abnormality Assessment/Plan: Again hypomagnesemic. Keep K 4-4.5; Mg 2-2.3, and PO4 2.5-3.5. Code(s): E87.8 - OTH DISORDERS OF ELECTROLYTE AND FLUID BALANCE, NEC (9) History of ileal conduit Code(s): Z98.890 - OTHER SPECIFIED POSTPROCEDURAL STATES (10) Hypertension Code(s): I10 - ESSENTIAL (PRIMARY) HYPERTENSION (12) Sinus tachycardia Code(s): R00.0 - TACHYCARDIA, UNSPECIFIED
--- NOTE | 2017-09-29 12:19 | PN ---
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 colostomy- no stool from ostomy x days ileaostomy recurrent vomiting now with NGT she cannot tolerate octreotide- unclear if it was helping h/o generalized itching and underlying rhinitis cannot take her usual antihistamine-npo, on benadryl iv prn pain management on narcotics on daily tpn high output gastric drainage s/p episode of h/h drop- transfused Current Medications Amlodipine Besylate (Norvasc -) 5 mg PO DAILY [facility] Last Admin: 09/29/17 11:05 Dose: Not Given Diphenhydramine HCl (Benadryl Injection -) 25 mg IVPB Q4H PRN PRN Reason: FOR ITCHING Last Admin: 09/29/17 05:50 Dose: 25 mg Heparin Sodium (Porcine) (Heparin -) 5,000 unit SQ BID [facility] Last Admin: 09/29/17 10:43 Dose: 5,000 unit IV Flush (Shelley-Cath Flush) 10 ml IVPUSH PRN PRN PRN Reason: Heparin Last Admin: 09/29/17 06:58 Dose: 10 ml Fat Emulsion Intravenous (Intralipid -) 250 mls @ 20.833 mls/hr IV DAILY@2200 [facility] Last Admin: 09/28/17 21:58 Dose: 20.833 mls/hr Dextrose/Sodium Chloride (D5-Ns -) 1,000 mls @ 75 mls/hr IV ASDIR [facility] Last Admin: 09/28/17 12:52 Dose: 75 mls/hr Potassium Chloride 40 meq/Magnesium Sulfate 2 gm/ Sodium Chloride 140 meq/ Multivitamins/Minerals 10 ml/Calcium Gluconate 1,000 mg/Sodium Phosphate 10 mm/ Sterile Water/ Dextrose/ Amino Acids 2,000 mls @ 111.111 mls/hr IVPB DAILY@ 1600 [facility] Last Admin: 09/28/17 16:59 Dose: 111.111 mls/hr Lidocaine (Lidoderm Patch -) 1 patch TP DAILY [facility] Last Admin: 09/29/17 10:43 Dose: 1 patch Loratadine (Claritin -) 10 mg PO DAILY [facility] Last Admin: 09/29/17 10:44 Dose: Not Given Lorazepam (Ativan Injection -) 2 mg IVPUSH Q8H PRN PRN Reason: ANXIETY Last Admin: 09/29/17 12:01 Dose: 2 mg Miscellaneous (Lidoderm Patch Removal) 1 each MC DAILY@2200 [facility] Last Admin: 09/28/17 21:59 Dose: 1 each Miscellaneous (Duragesic Patch Waste) 1 each TD PRN PRN PRN Reason: MISC Last Admin: 09/25/17 04:14 Dose: 1 each Morphine Sulfate (Morphine Sulfate) 4 mg IVPUSH Q3H [facility] Last Admin: 09/29/17 10:43 Dose: 4 mg Ondansetron HCl (Zofran Injection) 4 mg IVPB Q6H PRN PRN Reason: NAUSEA Last Admin: 09/28/17 15:04 Dose: 4 mg Pantoprazole Sodium (Protonix Iv) 40 mg IVPUSH DAILY [facility] Last Admin: 09/29/17 10:43 Dose: 40 mg c/o pain, relief is poor when morphine is given too late she is on higher dose of fentanyl on standing doses of morphine and unimpaired mental status no recurrence of blood noted in NGT, no clear improvement after ppi started recurrent tachycardia and still with prerenal azotemia, but less pronounced i suspect she still has some volume depletion but she's no longer in negative balance will continue 2 liter volume TPN and monitor vital signs and labs TPN orders adjusted today for increased Na, continued Mag replacement Last Vital Signs Temp Pulse Resp BP Pulse Ox 98.1 F 105 H 20 109/78 95 09/29/17 10:00 09/29/17 10:00 09/29/17 10:00 09/29/17 10:00 09/29/17 09:[address] Heent pale ext 2 plus edema CBC, BMP 09/29/17 06:00 09/29/17 06:00 CBC, BMP 09/25/17 06:00 09/27/17 06:00 IMP- new edema 2/2 iv NS and low albumin hyponatremia improving further on sodium 140 in TPN hypokalemia correcting on 30mEq in TPN mag and phos ok, adding extra dose mag 1 gm rider and 2 gm in TPN today elevated liver enzymes - ?effect of tpn? now allowed 6 hours fasting period in hope of decreasing lfts sbo- still on ngt suction, still high output no bm via colostomy anemia - h/h holding after PRBC 7 days ago calcium low 2/2 albumin, corrected ca is good pain management - tolerable continue fentanyl continue morphine added ativan since last night for anxiety Plan- I WAS NOTIFIED BY DR CATES [employer] AT [facility] THAT [facility] WILL NOT COVER THE TRANSPORTATION OF MS LOZANO TO [facility]. I CONTACTED DR VASQUEZ'S OFFICE IN [place]. THEY ARE STILL PLANNING TO ACCEPT THE PATIENT. A BED WILL BE HELD WHEN WE NOTIFY THEM THAT WE HAVE TRANSPORTATION AVAILABLE. DR VASQUEZ'S PRACTICE NUMBER IS [phone] (BETWEEN 7:30A-5PM, ) THE MAIN AND GENERAL NUMBER IS [phone] continue low suction of ngt to decompress bowel waiting for transfer to hospital in [place] on dr Vasquez's service, her surgeon my information is that there is to be a peer to peer conversation between her health plan and the accepting physician she is medically stable for transfer
[2017-09-29] MEDS ORDERED: MAGNESIUM 1GM/D5W - 1 GM/100 ML IVPB IVPB ONE (12:45)
[2017-09-29] MEDS: DEXTROSE 5%-NORMAL SALINE 1,000 ML IV SCH (12:50)
[2017-09-29] MEDS: POTASSIUM CHLORIDE IVPB SCH (18:42)
[2017-09-29] MEDS: [UNRECOGNIZED DRUG - OTHER] IVPB SCH (18:42)
[2017-09-29] MEDS: SODIUM CHLORIDE IVPB SCH (18:42)
[2017-09-29] MEDS: MAGNESIUM SULFATE IVPB SCH (18:42)
[2017-09-29] MEDS ORDERED: FUROSEMIDE 40 MG/4 ML INJECTABLE VIAL IVPUSH ONE (20:15)
[2017-09-29 21:09] LABS: ALBUMIN 1.9 g/dl (3.4-5.0); BILIRUBIN,DIRECT 0.2 mg/dL (0.0-0.2); BILIRUBIN,TOTAL 0.4 mg/dL (0.2-1.0); TOT PROT 6.1 g/dl (6.4-8.2)
[2017-09-29] MEDS: FAT EMULSIONS 250 ML IV SCH (22:31)
[2017-09-29] MEDS: LIDOCAINE PATCH REMOVAL MC SCH (22:33)
[2017-09-30] MEDS: morphine SULFATE 4 MG/ML VIAL IVPUSH SCH ×8 (01:41→22:47)
[2017-09-30] MEDS: PORTA CATH FLUSH 10 ML IVPUSH PRN (06:30)
[2017-09-30 06:51] LABS: ALBUMIN 3.9 g/dl (3.4-5.0); ANION GAP 5 (8-16); BILIRUBIN,TOTAL 0.3 mg/dL (0.2-1.0); BLOOD UREA NITROGEN 10 mg/dL (7-18); CALCIUM 8.9 mg/dL (8.5-10.1); CHLORIDE 108 mmol/L (98-107); CO2 29 mmol/L (21-32); CREATININE 1.1 mg/dL (0.55-1.02); GLUCOSE,RANDOM 103 mg/dL (74-106); MAGNESIUM 2.1 mg/dL (1.8-2.4); POTASSIUM 4.5 mmol/L (3.5-5.1); SGOT/AST 18 U/L (15-37); SGPT/ALT 16 U/L (12-78); SODIUM 142 mmol/L (136-145); TOT PROT 7.1 g/dl (6.4-8.2)
[2017-09-30 06:52] LABS: ALK PHOS 95 U/L (45-117)
[2017-09-30 07:57] LABS: HEMOGLOBIN 9.6 GM/dL (10.7-15.3); MCH 31.4 pg (25.7-33.7); MCHC 34.4 g/dl (32.0-36.0); MEAN PLT VOLUME 8.4 fl (7.5-11.1); PLATELET COUNT 523 K/MM3 (134-434); RBC 3.07 M/mm3 (3.60-5.2); RDW 14.5 % (11.6-15.6); WHITE BLOOD COUNT 6.6 K/mm3 (4.0-10.0)
[2017-09-30] MEDS: HEPARIN NA (PORCINE) 5,000 UNITS/ML 1ML VIAL SQ SCH ×2 (09:10→21:01)
[2017-09-30] MEDS: LIDOCAINE 5% TOPICAL PATCH TP SCH (09:10)
[2017-09-30] MEDS: PANTOPRAZOLE SODIUM 40 MG VIAL IVPUSH SCH (09:10)
[2017-09-30 09:13] LABS: PHOSPHOROUS 4.4 mg/dL (2.5-4.9)
[2017-09-30] MEDS: LORATADINE 10 MG TABLET PO SCH (10:36)
[2017-09-30] MEDS: amLODIPine BESYLATE 5 MG TABLET (FP) PO SCH (10:36)
[2017-09-30] MEDS ORDERED: FENTANYL PATCH WASTE MC PRN (10:38)
[2017-09-30] MEDS ORDERED: FUROSEMIDE 40 MG/4 ML INJECTABLE VIAL IVPUSH ONE (10:39)
[2017-09-30] MEDS ORDERED: fentaNYL 100mcg/hr PATCH.TD72 TD SCH (10:45)
--- NOTE | 2017-09-30 11:02 | PN ---
Physical Exam: Medicine coverage for Dr. Bosch SUBJECTIVE: Patient seen and examined. She is feeling anxious, weak and has pain. She denies vomiting, nausea. OBJECTIVE: Vital Signs Period Temp Pulse Resp BP Sys/Rosa Pulse Ox Last 24 Hr 98.2 F-98.9 F 109-114 20-20 108-142/64-89 97-97 PE Neuro: alert, awake, cn 2-12intact HEENT: NGT + brown drainage Pulm: CTA anteriorly CV: s1 s2 tachycardia RCW port Abd: RLQ illeal condiut covered, LLQ colostomy stoma pink- no drainage, mild- mod abd edema : b/l nephrostomy +dark yellow urine Ext: trace le edema Laboratory Results - last 24 hr 09/30/17 09/30/17 09/30/17 06:00 06:00 06:48 WBC 6.6 RBC 3.07 L D Hgb 9.6 L D Hct 28.0 L D MCV 91.0 MCH 31.4 MCHC 34.4 RDW 14.5 Plt Count 523 H MPV 8.4 Sodium 142 Potassium 4.5 Chloride 108 H Carbon Dioxide 29 Anion Gap 5 L BUN 10 Creatinine 1.1 H Creat Clearance w eGFR 52.58 POC Glucometer 109 Random Glucose 103 Calcium 8.9 Phosphorus 4.4 Magnesium 2.1 Total Bilirubin 0.3 D Direct Bilirubin AST 18 ALT 16 Alkaline Phosphatase 95 Total Protein 7.1 Albumin 3.9 Blood Type Antibody Screen Crossmatch Active Medications Generic Name Dose Route Start Last Admin Trade Name Freq PRN Reason Stop Dose Admin Amlodipine Besylate 5 mg 09/10/17 10:00 09/30/17 10:36 Norvasc - PO Not Given DAILY [facility] Diphenhydramine HCl 25 mg 09/11/17 21:35 09/30/17 03:02 Benadryl Injection - IVPB 25 mg Q4H PRN Administration FOR ITCHING Fentanyl 1 patch 09/30/17 10:45 Duragesic 100mcg Patch - TD 10/07/17 10:38 Q72H [facility] Heparin Sodium (Porcine) 5,000 unit 09/24/17 22:00 09/30/17 09:10 Heparin - SQ 5,000 unit BID [facility] Administration IV Flush 10 ml 09/27/17 11:18 09/29/17 06:58 Shelley-Cath Flush IVPUSH 10 ml PRN PRN Administration Heparin Fat Emulsion Intravenous 250 mls @ 20.833 mls/hr 09/13/17 22:00 09/29/17 22: 31 Intralipid - IV 20.833 mls/hr DAILY@2200 [facility] Administration Dextrose/Sodium Chloride 1,000 mls @ 75 mls/hr 09/23/17 13:15 09/29/17 12:50 D5-Ns - IV 75 mls/hr ASDIR [facility] Administration Potassium Chloride 40 meq/ 2,000 mls @ 111.111 mls/hr 09/25/17 16:00 18:42 Magnesium Sulfate 2 gm/ Sodium IVPB 111.111 mls/hr Chloride 140 meq/ DAILY@1600 [facility] Administration Multivitamins/Minerals 10 ml/ Calcium Gluconate 1,000 mg/ Sodium Phosphate 10 mm/ Sterile Water/ Dextrose/ Amino Acids Lidocaine 1 patch 09/16/17 10:00 09/30/17 09:10 Lidoderm Patch - TP 1 patch DAILY [facility] Administration Loratadine 10 mg 09/10/17 10:00 09/30/17 10:36 Claritin - PO Not Given DAILY [facility] Lorazepam 2 mg 09/27/17 13:30 09/30/17 09:10 Ativan Injection - IVPUSH 2 mg Q8H PRN Administration ANXIETY Miscellaneous 1 each 09/15/17 22:00 09/29/17 22:33 Lidoderm Patch Removal MC 1 each DAILY@2200 [facility] Administration Miscellaneous 1 each 09/30/17 10:38 Duragesic Patch Waste MC PRN PRN PAIN Morphine Sulfate 4 mg 09/24/17 16:45 09/30/17 10:35 Morphine Sulfate IVPUSH 4 mg Q3H [facility] Administration Ondansetron HCl 4 mg 09/09/17 23:22 09/28/17 15:04 Zofran Injection IVPB 4 mg Q6H PRN Administration NAUSEA Pantoprazole Sodium 40 mg 09/16/17 13:15 09/30/17 09:10 Protonix Iv IVPUSH 40 mg DAILY [facility] Administration Microbiology 09/09/17 17:45 Blood - Peripheral Venous Blood Culture - Final NO GROWTH AFTER 5 DAYS INCUBATION 09/09/17 17:45 Blood - Peripheral Venous Blood Culture - Final NO GROWTH AFTER 5 DAYS INCUBATION 09/09/17 18:20 Urine - Urine Clean Catch Urine Culture - Final Klebsiella Pneumoniae Enterococcus Faecalis Assessment: 52 year old female with extensive PMH significant for 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 Plan: 1. SBO - Thought to be due to adhesions vs metastatic disease - Maintain NGT - Reported: colostomy does not fill w/o enema - Daily TPN - Abdon BROWN, [facility] service, her surgeon placed, trying to get back back to [place] - PPI 2. Recurrent adenoCA of cevix, pain - s/p Herceptin - Mgmt per Dr. Bosch - Increase fent patch 100mcg - Pt does not want to increase morphine - Renew ativan 3. Anemia - s/p transfusion 8 days ago, hgb stable 4. Hyponatremia/Hyperkalemia - Resolved, on TPN 5. UTI - Cx with klebsiella - ID call back for input Dispo: - Transfer per Dr. Bosch Visit type - Emergency Visit Emergency Visit: Yes ED Registration Date: 09/10/17 Care time: The patient presented to the Emergency Department on the above date and was hospitalized for further evaluation of their emergent condition. - New Patient This patient is new to me today: Yes Date on this admission: 09/30/17 - Critical Care Critical Care patient: No
--- NOTE | 2017-09-30 14:34 | PN ---
Progress Note, Physician Chief Complaint: Pt A&Ox3;uncomfortable, with pain and swelling in flanks, abdomen. History of Present Illness: The patient is a 52 year old female (latricia Iniguez) with a history of cervical Cancer s/o multiple pelvic surgeries, SBO, HTN, who presents for evaluation of abdominal pain, nausea, vomiting. The patient reports a 1 week history of worsening abdominal pain and distension associated with nausea and multiple episodes of bilious vomiting with 6 episodes of vomiting today prompting her presentation to the ED for evaluation. She states that she has not noted any stool in her colostomy bag for 1 week as well. She otherwise denies fevers, chills, SOB, or chest pain. - Current Medication List Current Medications: Active Medications Amlodipine Besylate (Norvasc -) 5 mg PO DAILY [facility] Last Admin: 09/30/17 10:36 Dose: Not Given Diphenhydramine HCl (Benadryl Injection -) 25 mg IVPB Q4H PRN PRN Reason: FOR ITCHING Last Admin: 09/30/17 12:14 Dose: 25 mg Fentanyl (Duragesic 100mcg Patch -) 1 patch TD Q72H [facility] Stop: 10/07/17 10:38 Last Admin: 09/30/17 11:55 Dose: 1 patch Heparin Sodium (Porcine) (Heparin -) 5,000 unit SQ BID [facility] Last Admin: 09/30/17 09:10 Dose: 5,000 unit IV Flush (Shelley-Cath Flush) 10 ml IVPUSH PRN PRN PRN Reason: Heparin Last Admin: 09/29/17 06:58 Dose: 10 ml Fat Emulsion Intravenous (Intralipid -) 250 mls @ 20.833 mls/hr IV DAILY@2200 [facility] Last Admin: 09/29/17 22:31 Dose: 20.833 mls/hr Dextrose/Sodium Chloride (D5-Ns -) 1,000 mls @ 75 mls/hr IV ASDIR [facility] Last Admin: 09/29/17 12:50 Dose: 75 mls/hr Potassium Chloride 40 meq/Magnesium Sulfate 2 gm/ Sodium Chloride 140 meq/ Multivitamins/Minerals 10 ml/Calcium Gluconate 1,000 mg/Sodium Phosphate 10 mm/ Sterile Water/ Dextrose/ Amino Acids 2,000 mls @ 111.111 mls/hr IVPB DAILY@ 1600 [facility] Stop: 09/30/17 15:59 Last Admin: 09/29/17 18:42 Dose: 111.111 mls/hr Potassium Chloride 40 meq/Magnesium Sulfate 2 gm/ Sodium Chloride 75 meq/ Multivitamins/Minerals 10 ml/Calcium Gluconate 1,000 mg/Sodium Phosphate 10 mm/ Sterile Water/ Dextrose/ Amino Acids 2,000 mls @ 111.111 mls/hr IVPB DAILY@ 1600 [facility] Lidocaine (Lidoderm Patch -) 1 patch TP DAILY [facility] Last Admin: 09/30/17 09:10 Dose: 1 patch Loratadine (Claritin -) 10 mg PO DAILY [facility] Last Admin: 09/30/17 10:36 Dose: Not Given Lorazepam (Ativan Injection -) 2 mg IVPUSH Q8H PRN PRN Reason: ANXIETY Last Admin: 09/30/17 09:10 Dose: 2 mg Miscellaneous (Lidoderm Patch Removal) 1 each MC DAILY@2200 [facility] Last Admin: 09/29/17 22:33 Dose: 1 each Miscellaneous (Duragesic Patch Waste) 1 each MC PRN PRN PRN Reason: PAIN Last Admin: 09/30/17 12:10 Dose: 1 each Morphine Sulfate (Morphine Sulfate) 4 mg IVPUSH Q3H [facility] Last Admin: 09/30/17 13:37 Dose: 4 mg Ondansetron HCl (Zofran Injection) 4 mg IVPB Q6H PRN PRN Reason: NAUSEA Last Admin: 09/28/17 15:04 Dose: 4 mg Pantoprazole Sodium (Protonix Iv) 40 mg IVPUSH DAILY [facility] Last Admin: 09/30/17 09:10 Dose: 40 mg - Objective Vital Signs: Vital Signs Temperature 98.1 F 09/30/17 14:15 Pulse Rate 108 H 09/30/17 14:15 Respiratory Rate 20 09/30/17 14:15 Blood Pressure 103/67 09/30/17 14:15 O2 Sat by Pulse Oximetry (%) 97 09/30/17 10:00 Constitutional: Yes: Anxious, Moderate Distress Eyes: Yes: WNL HENT: Yes: WNL Neck: Yes: WNL Cardiovascular: Yes: Tachycardia Respiratory: Yes: Diminished Gastrointestinal: Yes: Soft, Ascites ...Rectal Exam: Yes: Deferred Genitourinary: No: Anuria Musculoskeletal: Yes: Back Pain, Muscle Pain, Muscle Weakness Extremities: Yes: Cool Edema: Yes Edema: LLE: Trace, RLE: Trace Peripheral Pulses WNL: Yes Integumentary: Yes: WNL Wound/Incision: Yes: Other (ostomies) Neurological: Yes: Alert, Oriented, Weakness Psychiatric: Yes: Alert, Oriented Labs: CBC, BMP 09/30/17 06:00 09/30/17 06:00 INR, PTT INR 1.08 (0.82-1.09) 09/18/17 06:20 Problem List - Problems (1) Abdominal pain Assessment/Plan: On [id number] pain management. Will diurese. For transfer to [place] for surgical f/u re SBO, CA. Code(s): R10.9 - UNSPECIFIED ABDOMINAL PAIN Qualifiers: Abdominal location: left lower quadrant Qualified Code(s): R10.32 - Left lower quadrant pain (2) Nephrostomy status Code(s): Z93.6 - OTHER ARTIFICIAL OPENINGS OF URINARY TRACT STATUS (3) Small bowel obstruction due to adhesions Assessment/Plan: awaits transfer to [place] for surgical reevaluation: SBO due to adhesions, ? CA recurrence. Code(s): K56.50 - INTESTNL ADHESIONS, UNSP TO PARTIAL VERSUS COMPLETE OBST (4) Anxiety and depression Assessment/Plan: Now on ativan. Code(s): F41.8 - OTHER SPECIFIED ANXIETY DISORDERS (5) Cervical adenocarcinoma Code(s): C53.9 - MALIGNANT NEOPLASM OF CERVIX UTERI, UNSPECIFIED (6) Colostomy in place Code(s): Z93.3 - COLOSTOMY STATUS (7) Constipation by delayed colonic transit Code(s): K59.01 - SLOW TRANSIT CONSTIPATION (8) Electrolyte abnormality Assessment/Plan: Keep K 4-4.5; Mg 2-2.3, and PO4 2.5-3.5. Code(s): E87.8 - OTH DISORDERS OF ELECTROLYTE AND FLUID BALANCE, NEC (9) History of ileal conduit Code(s): Z98.890 - OTHER SPECIFIED POSTPROCEDURAL STATES (10) Hypertension Code(s): I10 - ESSENTIAL (PRIMARY) HYPERTENSION (12) Sinus tachycardia Assessment/Plan: Pt has several factors contributing to sinus tachycardia, including CA with metastases, anemia, pain, anxiety, dehydration. Maintaining fluid balance is difficult, but crucial. PO and IV fluids; TPN. Pain management. F/u Hb post-PRBCs. Code(s): R00.0 - TACHYCARDIA, UNSPECIFIED
--- NOTE | 2017-09-30 15:42 | PN ---
Progress Note (short form) - Note Progress Note: Coverage for Dr. Parikh Renal follow up for TPN Pt seen and examined at the bedside awake and alert has abd distension, no overt pain on TPN making urina via nephrostomy no sob at this time Vital Signs Temperature 98.1 F 09/30/17 14:15 Pulse Rate 108 H 09/30/17 14:15 Respiratory Rate 20 09/30/17 14:15 Blood Pressure 103/67 09/30/17 14:15 O2 Sat by Pulse Oximetry (%) 97 09/30/17 10:00 Intake & Output 09/27/17 09/28/17 09/29/17 09/30/17 23:59 23:59 23:59 23:59 Intake Total 1542 1126 2563 1425 Output Total 2200 4749 4415 2835 Balance -825 -037 -6960 -4480 Weight 80.881 kg 80.995 kg 82.27 kg 80.966 kg NAD awake and alert RRR CTA distended Abd, + colostmy (dry bag) Trace LE edema CBC, BMP 09/30/17 06:00 09/30/17 06:00 Laboratory Tests 09/30/17 06:00 Calcium 8.9 Phosphorus 4.4 Magnesium 2.1 Albumin 3.9 Current Medications Amlodipine Besylate (Norvasc -) 5 mg PO DAILY [facility] Last Admin: 09/30/17 10:36 Dose: Not Given Diphenhydramine HCl (Benadryl Injection -) 25 mg IVPB Q4H PRN PRN Reason: FOR ITCHING Last Admin: 09/30/17 12:14 Dose: 25 mg Fentanyl (Duragesic 100mcg Patch -) 1 patch TD Q72H [facility] Stop: 10/07/17 10:38 Last Admin: 09/30/17 11:55 Dose: 1 patch Heparin Sodium (Porcine) (Heparin -) 5,000 unit SQ BID [facility] Last Admin: 09/30/17 09:10 Dose: 5,000 unit IV Flush (Shelley-Cath Flush) 10 ml IVPUSH PRN PRN PRN Reason: Heparin Last Admin: 09/29/17 06:58 Dose: 10 ml Fat Emulsion Intravenous (Intralipid -) 250 mls @ 20.833 mls/hr IV DAILY@2200 [facility] Last Admin: 09/29/17 22:31 Dose: 20.833 mls/hr Potassium Chloride 40 meq/Magnesium Sulfate 2 gm/ Sodium Chloride 140 meq/ Multivitamins/Minerals 10 ml/Calcium Gluconate 1,000 mg/Sodium Phosphate 10 mm/ Sterile Water/ Dextrose/ Amino Acids 2,000 mls @ 111.111 mls/hr IVPB DAILY@ 1600 [facility] Stop: 09/30/17 15:59 Last Admin: 09/29/17 18:42 Dose: 111.111 mls/hr Potassium Chloride 40 meq/Magnesium Sulfate 2 gm/ Sodium Chloride 75 meq/ Multivitamins/Minerals 10 ml/Calcium Gluconate 1,000 mg/Sodium Phosphate 10 mm/ Sterile Water/ Dextrose/ Amino Acids 2,000 mls @ 111.111 mls/hr IVPB DAILY@ 1600 [facility] Dextrose (D10w -) 1,000 mls @ 42 mls/hr IV ASDIR [facility] Lidocaine (Lidoderm Patch -) 1 patch TP DAILY [facility] Last Admin: 09/30/17 09:10 Dose: 1 patch Loratadine (Claritin -) 10 mg PO DAILY [facility] Last Admin: 09/30/17 10:36 Dose: Not Given Lorazepam (Ativan Injection -) 2 mg IVPUSH Q8H PRN PRN Reason: ANXIETY Last Admin: 09/30/17 09:10 Dose: 2 mg Miscellaneous (Lidoderm Patch Removal) 1 each MC DAILY@2200 [facility] Last Admin: 09/29/17 22:33 Dose: 1 each Miscellaneous (Duragesic Patch Waste) 1 each MC PRN PRN PRN Reason: PAIN Last Admin: 09/30/17 12:10 Dose: 1 each Morphine Sulfate (Morphine Sulfate) 4 mg IVPUSH Q3H [facility] Last Admin: 09/30/17 13:37 Dose: 4 mg Ondansetron HCl (Zofran Injection) 4 mg IVPB Q6H PRN PRN Reason: NAUSEA Last Admin: 09/28/17 15:04 Dose: 4 mg Pantoprazole Sodium (Protonix Iv) 40 mg IVPUSH DAILY [facility] Last Admin: 09/30/17 09:10 Dose: 40 mg 52 year old woman with PMhx of Mucinous Adenocarcinoma of Cervix s/p resection with diverting colostomy, b/l nephrostomy tubes presented with Abd pain and distension and found to have SBO. #SBO with prolong NPO requiring TPN #SALVADOR (Cr rise from 0.6 to 1.1) #Obstructive Nephropathy requiring nephrostomy tubes Will continue TPN, decrease NaCl to 75meq and continue over 18 hours Will change IVF to D10W at 42cc per hours while not on TPN to minimize salt infusion unclear why the Cr herb (BUN actually went down), may be related to lasix and diuresis Trend BUN/Cr and electrolytes for now Will follow Chase Meeks DO 52 year old female with extensive PMH significant for 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
[2017-09-30] MEDS ORDERED: SODIUM CHLORIDE IVPB SCH (16:00)
[2017-09-30] MEDS ORDERED: MAGNESIUM SULFATE IVPB SCH (16:00)
[2017-09-30] MEDS ORDERED: [UNRECOGNIZED DRUG - OTHER] IVPB SCH (16:00)
[2017-09-30] MEDS ORDERED: POTASSIUM CHLORIDE IVPB SCH (16:00)
[2017-09-30] MEDS: DEXTROSE 10%-WATER - 1,000 ML IV SCH (16:01)
[2017-09-30] MEDS: FAT EMULSIONS 250 ML IV SCH (21:01)
[2017-09-30] MEDS: LIDOCAINE PATCH REMOVAL MC SCH (21:02)
[2017-10-01] MEDS: morphine SULFATE 4 MG/ML VIAL IVPUSH SCH ×8 (01:34→23:15)
[2017-10-01] MEDS: PORTA CATH FLUSH 10 ML IVPUSH PRN (06:25)
[2017-10-01 07:07] LABS: BASO % 0.5 % (0-2.0); EOS % 3.2 % (0-4.5); HEMATOCRIT 30.3 % (32.4-45.2); HEMOGLOBIN 10.7 GM/dL (10.7-15.3); LYMPH % 10.3 % (8-40); MCHC 35.2 g/dl (32.0-36.0); MEAN CELL VOLUME 90.9 fl (80-96); MEAN PLT VOLUME 8.2 fl (7.5-11.1); MONO % 7.1 % (3.8-10.2); NEUT % 78.9 % (42.8-82.8); PLATELET COUNT 517 K/MM3 (134-434); RBC 3.34 M/mm3 (3.60-5.2); RDW 14.5 % (11.6-15.6); WHITE BLOOD COUNT 6.8 K/mm3 (4.0-10.0)
[2017-10-01 07:16] LABS: ALBUMIN 1.9 g/dl (3.4-5.0); ANION GAP 10 (8-16); BILIRUBIN,TOTAL 0.7 mg/dL (0.2-1.0); BLOOD UREA NITROGEN 31 mg/dL (7-18); CALCIUM 7.6 mg/dL (8.5-10.1); CHLORIDE 100 mmol/L (98-107); CO2 24 mmol/L (21-32); CREATININE 0.7 mg/dL (0.55-1.02); GLUCOSE,RANDOM 131 mg/dL (74-106); MAGNESIUM 1.6 mg/dL (1.8-2.4); PHOSPHOROUS 4.6 mg/dL (2.5-4.9); POTASSIUM 3.8 mmol/L (3.5-5.1); SGOT/AST 49 U/L (15-37); SGPT/ALT 90 U/L (12-78); SODIUM 134 mmol/L (136-145); TRIGLYCERIDES 254 mg/dL (35-160)
[2017-10-01 07:18] LABS: ALK PHOS 203 U/L (45-117); TOT PROT 6.3 g/dl (6.4-8.2)
[2017-10-01] MEDS: HEPARIN NA (PORCINE) 5,000 UNITS/ML 1ML VIAL SQ SCH ×2 (10:22→22:05)
[2017-10-01] MEDS: LORATADINE 10 MG TABLET PO SCH (10:22)
[2017-10-01] MEDS: amLODIPine BESYLATE 5 MG TABLET (FP) PO SCH (10:22)
[2017-10-01] MEDS: PANTOPRAZOLE SODIUM 40 MG VIAL IVPUSH SCH (10:34)
[2017-10-01] MEDS: LIDOCAINE 5% TOPICAL PATCH TP SCH (10:52)
--- NOTE | 2017-10-01 12:59 | PN ---
Progress Note (short form) - Note Progress Note: Coverage for Dr. Parikh Renal follow up for TPN Pt seen and examined at the bedside no acute complaints abd distension slighy improved NGT in place on wall suction making urine via nephrostomy tubes no sob, chest pain Vital Signs Temperature 99 F 10/01/17 10:00 Pulse Rate 101 H 10/01/17 10:00 Respiratory Rate 20 10/01/17 10:00 Blood Pressure 109/77 10/01/17 10:00 O2 Sat by Pulse Oximetry (%) 97 10/01/17 09:00 Intake & Output 09/28/17 09/29/17 09/30/17 10/01/17 23:59 23:59 23:59 23:59 Intake Total 1126 2563 2467 1365 Output Total 1500 4415 3660 500 Balance -374 -4512 -1193 865 Weight 80.995 kg 82.27 kg 80.966 kg 80.995 kg NAD awake and alert RRR CTA distended Abd, + colostmy (dry bag) Trace LE edema CBC, BMP 10/01/17 06:00 10/01/17 06:00 Current Medications Amlodipine Besylate (Norvasc -) 5 mg PO DAILY [facility] Last Admin: 10/01/17 10:22 Dose: Not Given Diphenhydramine HCl (Benadryl Injection -) 25 mg IVPB Q4H PRN PRN Reason: FOR ITCHING Last Admin: 09/30/17 12:14 Dose: 25 mg Fentanyl (Duragesic 100mcg Patch -) 1 patch TD Q72H [facility] Stop: 10/07/17 10:38 Last Admin: 09/30/17 11:55 Dose: 1 patch Heparin Sodium (Porcine) (Heparin -) 5,000 unit SQ BID [facility] Last Admin: 10/01/17 10:22 Dose: 5,000 unit IV Flush (Shelley-Cath Flush) 10 ml IVPUSH PRN PRN PRN Reason: Heparin Last Admin: 10/01/17 06:25 Dose: 10 ml Fat Emulsion Intravenous (Intralipid -) 250 mls @ 20.833 mls/hr IV DAILY@2200 [facility] Last Admin: 09/30/17 21:01 Dose: 20.833 mls/hr Potassium Chloride 40 meq/Magnesium Sulfate 2 gm/ Sodium Chloride 75 meq/ Multivitamins/Minerals 10 ml/Calcium Gluconate 1,000 mg/Sodium Phosphate 10 mm/ Sterile Water/ Dextrose/ Amino Acids 2,000 mls @ 111.111 mls/hr IVPB DAILY@ 1600 [facility] Last Admin: 09/30/17 18:30 Dose: 111.111 mls/hr Dextrose (D10w -) 1,000 mls @ 42 mls/hr IV ASDIR [facility] Last Admin: 09/30/17 16:01 Dose: 42 mls/hr Lidocaine (Lidoderm Patch -) 1 patch TP DAILY [facility] Last Admin: 10/01/17 10:52 Dose: 1 patch Loratadine (Claritin -) 10 mg PO DAILY [facility] Last Admin: 10/01/17 10:22 Dose: Not Given Lorazepam (Ativan Injection -) 2 mg IVPUSH Q8H PRN PRN Reason: ANXIETY Last Admin: 10/01/17 11:33 Dose: 2 mg Miscellaneous (Lidoderm Patch Removal) 1 each MC DAILY@2200 [facility] Last Admin: 09/30/17 21:02 Dose: 1 each Miscellaneous (Duragesic Patch Waste) 1 each MC PRN PRN PRN Reason: PAIN Last Admin: 09/30/17 12:10 Dose: 1 each Morphine Sulfate (Morphine Sulfate) 4 mg IVPUSH Q3H [facility] Last Admin: 10/01/17 10:51 Dose: 4 mg Ondansetron HCl (Zofran Injection) 4 mg IVPB Q6H PRN PRN Reason: NAUSEA Last Admin: 09/28/17 15:04 Dose: 4 mg Pantoprazole Sodium (Protonix Iv) 40 mg IVPUSH DAILY [facility] Last Admin: 10/01/17 10:34 Dose: 40 mg 52 year old woman with PMhx of Mucinous Adenocarcinoma of Cervix s/p resection with diverting colostomy, b/l nephrostomy tubes presented with Abd pain and distension and found to have SBO. #SBO with prolong NPO requiring TPN #SALVADOR (Cr rise from 0.6 to 1.1) #Obstructive Nephropathy requiring nephrostomy tubes Will continue TPN (with KCL, Kphos, Mg sulfate, Calcium Gluconate, Folic acid, MVI) Will discontinue Insulin in TPN Cr appears to have normalized today (possible that yesterdays labs were erroneous) BUN high but getting volume infusion Urine output is good pending transfer for surgical management Will follow Chase Meeks DO
--- NOTE | 2017-10-01 13:56 | PN ---
GI Progress Note Subjective: GI Note: Continues to have high NG outputs and nothing reaching her ostomy indicative of persistent high grade obstruction. Still requiring narcotic analgesia. Developing peripheral edema as expected with nitrogen imbalance recovery on TPN. Alk phos is no longer rising. Mica tells me that Dr Vasquez has returned to [place] and is willing to do her surgery. [place] did not offer this option. - Objective Vital Signs: Vital Signs Temperature 99 F 10/01/17 10:00 Pulse Rate 101 H 10/01/17 10:00 Respiratory Rate 20 10/01/17 10:00 Blood Pressure 109/77 10/01/17 10:00 O2 Sat by Pulse Oximetry (%) 97 10/01/17 09:00 Constitutional: Anxious ...Auscultate: Yes: Hyperactive Bowel Sounds ...Palpate: Yes: Soft, Other (nontender) Labs: CBC, BMP 10/01/17 06:00 10/01/17 06:00 INR, PTT INR 1.08 (0.82-1.09) 09/18/17 06:20 Problem List - Problems (1) Small bowel obstruction due to adhesions Assessment/Plan: Persistent high grade SBO in need of narcotic analgesic, NG suctioning and TPN. Awaiting transfer to [facility] as [place] had nothing to offer. Code(s): K56.50 - INTESTNL ADHESIONS, UNSP TO PARTIAL VERSUS COMPLETE OBST (2) Cervical adenocarcinoma Code(s): C53.9 - MALIGNANT NEOPLASM OF CERVIX UTERI, UNSPECIFIED
[2017-10-01] MEDS: DEXTROSE 10%-WATER - 1,000 ML IV SCH (14:05)
[2017-10-01] MEDS: INSULIN SLIDING SCALE (NOVOLOG) 1 VIAL SQ SCH ×3 (14:37→22:00)
[2017-10-01] MEDS ORDERED: MAGNESIUM SULFATE IVPB SCH (16:00)
[2017-10-01] MEDS ORDERED: SODIUM CHLORIDE IVPB SCH (16:00)
[2017-10-01] MEDS ORDERED: POTASSIUM CHLORIDE IVPB SCH (16:00)
[2017-10-01] MEDS ORDERED: [UNRECOGNIZED DRUG - OTHER] IVPB SCH (16:00)
[2017-10-01] MEDS: ONDANSETRON 4 MG/2 ML VIAL IVPB PRN (16:02)
--- NOTE | 2017-10-01 18:52 | PN ---
Progress Note (short form) - Note Progress Note: Subjective: The patient was seen and examined at the bedside, the patient has no complaints at this time For transfer tomorrow morning Current Medications Generic Name Dose Route Start Last Admin Trade Name Frehazel PRN Reason Stop Dose Admin Amlodipine Besylate 5 mg 09/10/17 10:00 10/01/17 10:22 Norvasc - PO Not Given DAILY [facility] Diphenhydramine HCl 25 mg 09/11/17 21:35 10/01/17 18:20 Benadryl Injection - IVPB 25 mg Q4H PRN Administration FOR ITCHING Fentanyl 1 patch 09/30/17 10:45 09/30/17 11:55 Duragesic 100mcg Patch - TD 10/07/17 10:38 1 patch Q72H [facility] Administration Heparin Sodium (Porcine) 5,000 unit 09/24/17 22:00 10/01/17 10:22 Heparin - SQ 5,000 unit BID [facility] Administration IV Flush 10 ml 09/27/17 11:18 10/01/17 06:25 Shelley-Cath Flush IVPUSH 10 ml PRN PRN Administration Heparin Fat Emulsion Intravenous 250 mls @ 20.833 mls/hr 09/13/17 22:00 09/30/17 21: 01 Intralipid - IV 20.833 mls/hr DAILY@2200 [facility] Administration Dextrose 1,000 mls @ 42 mls/hr 09/30/17 15:00 10/01/17 14:05 D10w - IV 42 mls/hr ASDIR [facility] Administration Potassium Chloride 40 meq/ 2,000 mls @ 111.111 mls/hr 10/01/17 16:00 18:20 Magnesium Sulfate 2 gm/ Sodium IVPB 111.111 mls/hr Chloride 75 meq/ DAILY@1600 [facility] Administration Multivitamins/Minerals 10 ml/ Potassium Phosphate 15 mm/ Sterile Water/ Dextrose/ Amino Acids Insulin Aspart 1 vial 10/01/17 14:00 10/01/17 18:32 Novolog Vial Sliding Scale - SQ Not Given Q4HPO [facility] Protocol Lidocaine 1 patch 09/16/17 10:00 10/01/17 10:52 Lidoderm Patch - TP 1 patch DAILY [facility] Administration Loratadine 10 mg 09/10/17 10:00 10/01/17 10:22 Claritin - PO Not Given DAILY [facility] Lorazepam 2 mg 09/27/17 13:30 10/01/17 11:33 Ativan Injection - IVPUSH 2 mg Q8H PRN Administration ANXIETY Miscellaneous 1 each 09/15/17 22:00 09/30/17 21:02 Lidoderm Patch Removal MC 1 each DAILY@2200 [facility] Administration Miscellaneous 1 each 09/30/17 10:38 09/30/17 12:10 Duragesic Patch Waste MC 1 each PRN PRN Administration PAIN Morphine Sulfate 4 mg 09/24/17 16:45 10/01/17 16:48 Morphine Sulfate IVPUSH 4 mg Q3H [facility] Administration Ondansetron HCl 4 mg 09/09/17 23:22 10/01/17 16:02 Zofran Injection IVPB 4 mg Q6H PRN Administration NAUSEA Pantoprazole Sodium 40 mg 09/16/17 13:15 10/01/17 10:34 Protonix Iv IVPUSH 40 mg DAILY [facility] Administration Objective: Vital Signs Period Temp Pulse Resp BP Sys/Rosa Pulse Ox Last 24 Hr 98.1 F-99 F 101-115 20-20 109-124/70-77 97-97 Physical Exam: Patient refused stating she was nauseous CBCD WBC 6.8 K/mm3 (4.0-10.0) 10/01/17 06:00 RBC 3.34 M/mm3 (3.60-5.2) L 10/01/17 06:00 Hgb 10.7 GM/dL (10.7-15.3) D 10/01/17 06:00 Hct 30.3 % (32.4-45.2) L 10/01/17 06:00 MCV 90.9 fl (80-96) 10/01/17 06:00 MCHC 35.2 g/dl (32.0-36.0) 10/01/17 06:00 RDW 14.5 % (11.6-15.6) 10/01/17 06:00 Plt Count 517 K/MM3 (134-434) H 10/01/17 06:00 MPV 8.2 fl (7.5-11.1) 10/01/17 06:00 CMP Sodium 134 mmol/L (136-145) L 10/01/17 06:00 Potassium 3.8 mmol/L (3.5-5.1) 10/01/17 06:00 Chloride 100 mmol/L (98-107) 10/01/17 06:00 Carbon Dioxide 24 mmol/L (21-32) 10/01/17 06:00 Anion Gap 10 (8-16) 10/01/17 06:00 BUN 31 mg/dL (7-18) H 10/01/17 06:00 Creatinine 0.7 mg/dL (0.55-1.02) 10/01/17 06:00 Creat Clearance w eGFR > 60 (>60) 10/01/17 06:00 Random Glucose 131 mg/dL (74-106) H 10/01/17 06:00 Calcium 7.6 mg/dL (8.5-10.1) L 10/01/17 06:00 Total Bilirubin 0.7 mg/dL (0.2-1.0) D 10/01/17 06:00 AST 49 U/L (15-37) H 10/01/17 06:00 ALT 90 U/L (12-78) H 10/01/17 06:00 Alkaline Phosphatase 203 U/L (45-117) H 10/01/17 06:00 Total Protein 6.3 g/dl (6.4-8.2) L 10/01/17 06:00 Albumin 1.9 g/dl (3.4-5.0) L 10/01/17 06:00 Microbiology 09/09/17 17:45 Blood - Peripheral Venous Blood Culture - Final NO GROWTH AFTER 5 DAYS INCUBATION 09/09/17 17:45 Blood - Peripheral Venous Blood Culture - Final NO GROWTH AFTER 5 DAYS INCUBATION 09/09/17 18:20 Urine - Urine Clean Catch Urine Culture - Final Klebsiella Pneumoniae Enterococcus Faecalis Assessment: This is a 52 year old female with PMHx of mucinous adenoCA of cervix s/p resection in 2015 s/p chemo/xrt with extensive abdominal surgeries including diverting colostomy, b/l nephrostomy tubes (pt does not urinate), Right chest chemoport admitted with of nausea, vomiting, and abdominal pain. Plan: 1) SBO - Persistent high grade SBO - Continue NGT: 575 ml output on 09/30 - Continue TPN per nephrology - Pain control with Fentanyl patch, Lidocaine patch, Morphine - Appreciate GI consult - Appreciate nephrology consult 2) Recurrent adenocarcinoma of the cervix - Pain control - B/l nephrostomy - Colostomy care - Management per Dr. Parikh 3) Anemia - S/p transfusion - Hgb stable 4) UTI - Culture from 09/09 with klebsiella pneumoniae and enterococcus faecalis - Repeat UA and urine culture now as the patient was not treated - Reconsult ID 5) F/E/N: - Monitor electrolytes - TPN per nephrology 6) Prophylaxis: - Heparin 5,000u sq tid for DVT prophylaxis 7) Dispo: - Transfer per Dr. Parikh CODE STATUS: FULL CODE Visit type - Emergency Visit Emergency Visit: Yes ED Registration Date: 09/10/17 Care time: The patient presented to the Emergency Department on the above date and was hospitalized for further evaluation of their emergent condition. - New Patient This patient is new to me today: Yes Date on this admission: 10/01/17 - Critical Care Critical Care patient: No
[2017-10-01] MEDS ORDERED: INSULIN (NOVOLOG) ASPART 100 UNITS/ML 10ML VIAL ONE (21:00)
[2017-10-01 21:39] LABS: URINE APPEARANCE CLOUDY; URINE BILIRUBIN NEGATIVE (<2.0 mg/dL); URINE BLOOD 3+ (NEGATIVE); URINE COLOR AMBER; URINE GLUCOSE (UA) NEGATIVE (NEGATIVE); URINE KETONE NEGATIVE (NEGATIVE); URINE NITRITE NEGATIVE (NEGATIVE)
[2017-10-01 21:43] LABS: URINE LEUK ESTERASE 3+ (NEGATIVE); URINE PROTEIN 2+ (NEGATIVE)
[2017-10-01 21:47] LABS: URINE BACTERIA MANY /hpf (NONE SEEN); URINE MUCUS FEW
[2017-10-01] MEDS: LIDOCAINE PATCH REMOVAL MC SCH (22:00)
[2017-10-01] MEDS: FAT EMULSIONS 250 ML IV SCH (23:16)
--- NOTE | 2017-10-01 23:47 | PN ---
Progress Note, Physician Chief Complaint: Pt A&Ox3;anxious; [id number]; not dyspneic. Daughter at bedside. History of Present Illness: The patient is a 52 year old female (latricia Iniguez) with a history of cervical Cancer s/o multiple pelvic surgeries, SBO, HTN, who presents for evaluation of abdominal pain, nausea, vomiting. The patient reports a 1 week history of worsening abdominal pain and distension associated with nausea and multiple episodes of bilious vomiting with 6 episodes of vomiting today prompting her presentation to the ED for evaluation. She states that she has not noted any stool in her colostomy bag for 1 week as well. She otherwise denies fevers, chills, SOB, or chest pain. - Current Medication List Current Medications: Active Medications Amlodipine Besylate (Norvasc -) 5 mg PO DAILY [facility] Last Admin: 10/01/17 10:22 Dose: Not Given Diphenhydramine HCl (Benadryl Injection -) 25 mg IVPB Q4H PRN PRN Reason: FOR ITCHING Last Admin: 10/01/17 18:20 Dose: 25 mg Fentanyl (Duragesic 100mcg Patch -) 1 patch TD Q72H [facility] Stop: 10/07/17 10:38 Last Admin: 09/30/17 11:55 Dose: 1 patch Heparin Sodium (Porcine) (Heparin -) 5,000 unit SQ TID [facility] Last Admin: 10/01/17 22:05 Dose: 5,000 unit IV Flush (Shelley-Cath Flush) 10 ml IVPUSH PRN PRN PRN Reason: Heparin Last Admin: 10/01/17 06:25 Dose: 10 ml Fat Emulsion Intravenous (Intralipid -) 250 mls @ 20.833 mls/hr IV DAILY@2200 [facility] Last Admin: 10/01/17 23:16 Dose: 20.833 mls/hr Dextrose (D10w -) 1,000 mls @ 42 mls/hr IV ASDIR [facility] Last Admin: 10/01/17 14:05 Dose: 42 mls/hr Potassium Chloride 40 meq/Magnesium Sulfate 2 gm/ Sodium Chloride 75 meq/ Multivitamins/Minerals 10 ml/Potassium Phosphate 15 mm/Sterile Water/ Dextrose/ Amino Acids 2,000 mls @ 111.111 mls/hr IVPB DAILY@1600 [facility] Last Admin: 10/01/17 18:20 Dose: 111.111 mls/hr Insulin Aspart (Novolog Vial Sliding Scale -) 1 vial SQ Q4HPO [facility] PRN Reason: Protocol Last Admin: 10/01/17 22:00 Dose: Not Given Lidocaine (Lidoderm Patch -) 1 patch TP DAILY [facility] Last Admin: 10/01/17 10:52 Dose: 1 patch Loratadine (Claritin -) 10 mg PO DAILY [facility] Last Admin: 10/01/17 10:22 Dose: Not Given Lorazepam (Ativan Injection -) 2 mg IVPUSH Q8H PRN PRN Reason: ANXIETY Last Admin: 10/01/17 22:00 Dose: 2 mg Miscellaneous (Lidoderm Patch Removal) 1 each MC DAILY@2200 [facility] Last Admin: 10/01/17 22:00 Dose: 1 each Miscellaneous (Duragesic Patch Waste) 1 each MC PRN PRN PRN Reason: PAIN Last Admin: 09/30/17 12:10 Dose: 1 each Morphine Sulfate (Morphine Sulfate) 4 mg IVPUSH Q3H [facility] Last Admin: 10/01/17 23:15 Dose: 4 mg Ondansetron HCl (Zofran Injection) 4 mg IVPB Q6H PRN PRN Reason: NAUSEA Last Admin: 10/01/17 16:02 Dose: 4 mg Pantoprazole Sodium (Protonix Iv) 40 mg IVPUSH DAILY [facility] Last Admin: 10/01/17 10:34 Dose: 40 mg - Objective Vital Signs: Vital Signs Temperature 98.2 F 10/01/17 18:42 Pulse Rate 104 H 10/01/17 18:42 Respiratory Rate 20 10/01/17 18:42 Blood Pressure 124/75 10/01/17 18:42 O2 Sat by Pulse Oximetry (%) 97 10/01/17 09:00 Constitutional: Yes: Anxious Eyes: Yes: WNL HENT: Yes: WNL Neck: Yes: WNL Cardiovascular: Yes: Tachycardia, S1, S2 Respiratory: Yes: Regular Gastrointestinal: Yes: Distention, Tenderness ...Rectal Exam: Yes: Deferred Genitourinary: No: Anuria Musculoskeletal: Yes: Back Pain, Muscle Pain, Muscle Weakness Extremities: Yes: Cool Edema: No Peripheral Pulses WNL: Yes Integumentary: Yes: Other Neurological: Yes: Alert, Oriented, Weakness Psychiatric: Yes: Alert, Oriented Labs: CBC, BMP 10/01/17 06:00 10/01/17 06:00 INR, PTT INR 1.08 (0.82-1.09) 09/18/17 06:20 Problem List - Problems (1) Abdominal pain Assessment/Plan: On [id number] pain management with multi-drug regimen. For transfer to [place] for surgical f/u re SBO, CA. Code(s): R10.9 - UNSPECIFIED ABDOMINAL PAIN Qualifiers: Abdominal location: left lower quadrant Qualified Code(s): R10.32 - Left lower quadrant pain (2) Nephrostomy status Code(s): Z93.6 - OTHER ARTIFICIAL OPENINGS OF URINARY TRACT STATUS (3) Small bowel obstruction due to adhesions Assessment/Plan: On TPN. Pain remains strong, frequently present. awaits transfer to [place] for surgical reevaluation: SBO due to adhesions, ? CA recurrence. Code(s): K56.50 - INTESTNL ADHESIONS, UNSP TO PARTIAL VERSUS COMPLETE OBST (4) Anxiety and depression Assessment/Plan: Now on ativan. Code(s): F41.8 - OTHER SPECIFIED ANXIETY DISORDERS (5) Cervical adenocarcinoma Code(s): C53.9 - MALIGNANT NEOPLASM OF CERVIX UTERI, UNSPECIFIED (6) Colostomy in place Code(s): Z93.3 - COLOSTOMY STATUS (7) Constipation by delayed colonic transit Code(s): K59.01 - SLOW TRANSIT CONSTIPATION (8) Electrolyte abnormality Assessment/Plan: Hypomagnesemic today; will supplement (and receiving Mg in TPN). Keep K 4-4.5; Mg 2-2.3, and PO4 2.5-3.5. Code(s): E87.8 - OTH DISORDERS OF ELECTROLYTE AND FLUID BALANCE, NEC (9) History of ileal conduit Code(s): Z98.890 - OTHER SPECIFIED POSTPROCEDURAL STATES (10) Hypertension Code(s): I10 - ESSENTIAL (PRIMARY) HYPERTENSION (12) Sinus tachycardia Assessment/Plan: Pt has several factors contributing to sinus tachycardia, including CA with metastases, anemia, pain, anxiety, dehydration. Normal LVEF and LV size. Maintaining fluid balance is difficult, but crucial. PO and IV fluids; TPN. Pain management. F/u Hb post-PRBCs. Code(s): R00.0 - TACHYCARDIA, UNSPECIFIED
[2017-10-02] MEDS: INSULIN SLIDING SCALE (NOVOLOG) 1 VIAL SQ SCH ×2 (01:50→05:52)
[2017-10-02] MEDS: morphine SULFATE 4 MG/ML VIAL IVPUSH SCH ×3 (01:51→07:59)
[2017-10-02] MEDS: HEPARIN NA (PORCINE) 5,000 UNITS/ML 1ML VIAL SQ SCH (05:54)
[2017-10-02 07:14] VITALS: BP 116/65; PULSE 100; TEMP 98.4
--- NOTE | 2017-10-02 08:09 | DS ---
Physical Examination Vital Signs: Vital Signs Temperature 98.4 F 10/02/17 06:00 Pulse Rate 100 H 10/02/17 06:00 Respiratory Rate 18 10/02/17 06:00 Blood Pressure 116/65 10/02/17 06:00 O2 Sat by Pulse Oximetry (%) 98 10/01/17 21:00 Findings/Remarks: General: NAD, A&Ox3 HEENT: NGT with brown drainage Lungs: CTA bilaterally Heart: Tachycardia, S1S2 Abd: Soft, non-tender. Hypoactive bowel sounds. RLQ ostomy with no output. B/l nephrostomies with dark yellow urine Ext: Warm, well-perfused. 2+ DP/PT bilaterally Neuro: No focal deficits Labs: CBC, BMP 10/01/17 06:00 10/01/17 06:00 Discharge Summary Reason For Visit: ABDOMINAL PAIN; SMALL BOWEL OBSTRUCTION Current Active Problems Abdominal pain (Acute) Insomnia (Acute) Nephrostomy status (Acute) Sinus tachycardia (Acute) Small bowel obstruction due to adhesions (Acute) Hospital Course: This is a 52 year old female with PMHx of mucinous adenoCA of cervix s/p resection in 2014 s/p chemo/xrt with extensive abdominal surgeries including diverting colostomy, b/l nephrostomy tubes (pt does not urinate), Right chest mediport admitted with of nausea, vomiting, and abdominal pain. Plan: 1) SBO - Persistent high grade SBO - Still with high output through NGT - Continue TPN per nephrology - Pain control with Fentanyl patch, Lidocaine patch, Morphine - Appreciate GI consult - Appreciate nephrology consult 2) UTI - Culture from 09/09 with klebsiella pneumoniae and enterococcus faecalis, patient was not treated - Repeat UA and urine culture ordered yesterday. UA with 3+ leuks, 210 WBC - Urine culture pending - Patient is being transferred now to [place]. Awaiting call back from Dr. Reyes (covering for accepting physician at [facility]) to inform of UA findings and to instruct they will need to give abx when the patient arrives in [place]. 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 Parikh 4) Anemia - S/p transfusion - Hgb stable 5) F/E/N: - TPN per nephrology 6) Prophylaxis: - Heparin 5,000u sq tid for DVT prophylaxis 7) Dispo: Transfer to [facility] in [place], [place] This discharge took 55 minutes to complete. - Instructions Referrals: Cipriano Parikh MD [Primary Care Provider] - - Home Medications Comprehensive Discharge Medication List: Ambulatory Orders Amlodipine Besylate [Norvasc -] 5 mg PO DAILY 03/05/16 Cetirizine HCl [Zyrtec -] 10 mg PO DAILY 03/05/16 Cetirizine HCl [Zyrtec -] 10 mg PO DAILY 06/14/17 This patient is new to me today: No Emergency Visit: Yes ED Registration Date: 09/10/17 Care time: The patient presented to the Emergency Department on the above date and was hospitalized for further evaluation of their emergent condition. Critical Care patient: No - Discharge Referral Referred to [facility] Med P.C.: No
[2017-10-02] MEDS: DEXTROSE 10%-WATER - 1,000 ML IV SCH (08:38)
--- NOTE | 2017-10-02 08:39 | DS ---
Physical Examination Vital Signs: Vital Signs Temperature 98.4 F 10/02/17 06:00 Pulse Rate 100 H 10/02/17 06:00 Respiratory Rate 18 10/02/17 06:00 Blood Pressure 116/65 10/02/17 06:00 O2 Sat by Pulse Oximetry (%) 98 10/01/17 21:00 Labs: CBC, BMP 10/01/17 06:00 10/01/17 06:00 Discharge Summary Reason For Visit: ABDOMINAL PAIN; SMALL BOWEL OBSTRUCTION Current Active Problems Abdominal pain (Acute) Insomnia (Acute) Nephrostomy status (Acute) Sinus tachycardia (Acute) Small bowel obstruction due to adhesions (Acute) - Instructions Referrals: Cipriano Parikh MD [Primary Care Provider] - - Home Medications Comprehensive Discharge Medication List: Ambulatory Orders Amlodipine Besylate [Norvasc -] 5 mg PO DAILY 03/05/16 Cetirizine HCl [Zyrtec -] 10 mg PO DAILY 03/05/16 Cetirizine HCl [Zyrtec -] 10 mg PO DAILY 06/14/17
--- NOTE | 2017-10-02 09:05 | PN ---
Progress Note, Physician History of Present Illness: The patient is a 52 year old female (latricia Iniguez) with a history of cervical Cancer s/o multiple pelvic surgeries, SBO, HTN, who presents for evaluation of abdominal pain, nausea, vomiting. The patient reports a 1 week history of worsening abdominal pain and distension associated with nausea and multiple episodes of bilious vomiting with 6 episodes of vomiting today prompting her presentation to the ED for evaluation. She states that she has not noted any stool in her colostomy bag for 1 week as well. She otherwise denies fevers, chills, SOB, or chest pain. - Current Medication List Current Medications: Active Medications Amlodipine Besylate (Norvasc -) 5 mg PO DAILY [facility] Last Admin: 10/01/17 10:22 Dose: Not Given Diphenhydramine HCl (Benadryl Injection -) 25 mg IVPB Q4H PRN PRN Reason: FOR ITCHING Last Admin: 10/01/17 18:20 Dose: 25 mg Fentanyl (Duragesic 100mcg Patch -) 1 patch TD Q72H [facility] Stop: 10/07/17 10:38 Last Admin: 09/30/17 11:55 Dose: 1 patch Heparin Sodium (Porcine) (Heparin -) 5,000 unit SQ TID [facility] Last Admin: 10/02/17 05:54 Dose: 5,000 unit IV Flush (Shelley-Cath Flush) 10 ml IVPUSH PRN PRN PRN Reason: Heparin Last Admin: 10/01/17 06:25 Dose: 10 ml Fat Emulsion Intravenous (Intralipid -) 250 mls @ 20.833 mls/hr IV DAILY@2200 [facility] Last Admin: 10/01/17 23:16 Dose: 20.833 mls/hr Dextrose (D10w -) 1,000 mls @ 42 mls/hr IV ASDIR [facility] Last Admin: 10/02/17 08:38 Dose: 42 mls/hr Potassium Chloride 40 meq/Magnesium Sulfate 2 gm/ Sodium Chloride 75 meq/ Multivitamins/Minerals 10 ml/Potassium Phosphate 15 mm/Sterile Water/ Dextrose/ Amino Acids 2,000 mls @ 111.111 mls/hr IVPB DAILY@1600 [facility] Last Admin: 10/01/17 18:20 Dose: 111.111 mls/hr Insulin Aspart (Novolog Vial Sliding Scale -) 1 vial SQ Q4HPO LINNETTE PRN Reason: Protocol Last Admin: 10/02/17 05:52 Dose: Not Given Lidocaine (Lidoderm Patch -) 1 patch TP DAILY [facility] Last Admin: 10/01/17 10:52 Dose: 1 patch Loratadine (Claritin -) 10 mg PO DAILY [facility] Last Admin: 10/01/17 10:22 Dose: Not Given Lorazepam (Ativan Injection -) 2 mg IVPUSH Q8H PRN PRN Reason: ANXIETY Last Admin: 10/02/17 05:54 Dose: 2 mg Miscellaneous (Lidoderm Patch Removal) 1 each MC DAILY@2200 [facility] Last Admin: 10/01/17 22:00 Dose: 1 each Miscellaneous (Duragesic Patch Waste) 1 each MC PRN PRN PRN Reason: PAIN Last Admin: 09/30/17 12:10 Dose: 1 each Morphine Sulfate (Morphine Sulfate) 4 mg IVPUSH Q3H [facility] Last Admin: 10/02/17 07:59 Dose: 4 mg Ondansetron HCl (Zofran Injection) 4 mg IVPB Q6H PRN PRN Reason: NAUSEA Last Admin: 10/01/17 16:02 Dose: 4 mg Pantoprazole Sodium (Protonix Iv) 40 mg IVPUSH DAILY [facility] Last Admin: 10/01/17 10:34 Dose: 40 mg - Objective Vital Signs: Vital Signs Temperature 98.4 F 10/02/17 06:00 Pulse Rate 100 H 10/02/17 06:00 Respiratory Rate 18 10/02/17 06:00 Blood Pressure 116/65 10/02/17 06:00 O2 Sat by Pulse Oximetry (%) 98 10/01/17 21:00 Eyes: Yes: WNL, Conjunctiva Clear, EOM Intact HENT: Yes: WNL, Atraumatic, Normocephalic Neck: Yes: WNL, Supple, Trachea Midline Cardiovascular: Yes: WNL, Regular Rate and Rhythm Respiratory: Yes: WNL, Regular, CTA Bilaterally Genitourinary: Yes: WNL Musculoskeletal: Yes: WNL Extremities: Yes: WNL Edema: No Integumentary: Yes: WNL Neurological: Yes: WNL, Alert, Oriented ...Motor Strength: WNL Psychiatric: Yes: WNL Labs: CBC, BMP 10/01/17 06:00 10/01/17 06:00 INR, PTT INR 1.08 (0.82-1.09) 09/18/17 06:20 Assessment/Plan - Problems (1) Abdominal pain Assessment/Plan: On [id number] pain management with multi-drug regimen. For transfer to [place] for surgical f/u re SBO, CA. Code(s): R10.9 - UNSPECIFIED ABDOMINAL PAIN Qualifiers: Abdominal location: left lower quadrant Qualified Code(s): R10.32 - Left lower quadrant pain (2) Nephrostomy status Code(s): Z93.6 - OTHER ARTIFICIAL OPENINGS OF URINARY TRACT STATUS (3) Small bowel obstruction due to adhesions Assessment/Plan: On TPN. Pain remains strong, frequently present. awaits transfer to [place] for surgical reevaluation: SBO due to adhesions, ? CA recurrence. Code(s): K56.50 - INTESTNL ADHESIONS, UNSP TO PARTIAL VERSUS COMPLETE OBST (4) Anxiety and depression Assessment/Plan: Now on ativan. Code(s): F41.8 - OTHER SPECIFIED ANXIETY DISORDERS (5) Cervical adenocarcinoma Code(s): C53.9 - MALIGNANT NEOPLASM OF CERVIX UTERI, UNSPECIFIED (6) Colostomy in place Code(s): Z93.3 - COLOSTOMY STATUS (7) Constipation by delayed colonic transit Code(s): K59.01 - SLOW TRANSIT CONSTIPATION (8) Electrolyte abnormality Assessment/Plan: Hypomagnesemic today; will supplement (and receiving Mg in TPN). Keep K 4-4.5; Mg 2-2.3, and PO4 2.5-3.5. Code(s): E87.8 - OTH DISORDERS OF ELECTROLYTE AND FLUID BALANCE, NEC (9) History of ileal conduit Code(s): Z98.890 - OTHER SPECIFIED POSTPROCEDURAL STATES (10) Hypertension Code(s): I10 - ESSENTIAL (PRIMARY) HYPERTENSION (12) Sinus tachycardia Assessment/Plan: Pt has several factors contributing to sinus tachycardia, including CA with metastases, anemia, pain, anxiety, dehydration. Normal LVEF and LV size. Maintaining fluid balance is difficult, but crucial. PO and IV fluids; TPN. Pain management. F/u Hb post-PRBCs. Code(s): R00.0 - TACHYCARDIA, UNSPECIFIED
== END 2017-10-02 10:00 | disposition short-term general hospital (02) | DRG 388 ==
LOC: JER 16:10 → JERBED 19:07 → INTOOBSV 19:07 → J8W 21:38 → J7W 23:43 → OBSVTOIN 09-10 13:42 → J7W 09-14 12:58
PROVIDERS: ADMIT Internal Medicine Nephrology; ATTEND Registered Nurse
PROC: 3E0336Z Introduction of Nutritional Substance into Peripheral Vein, Percutaneous Approach (ICD-10-PCS; principal; 2017-09-10)
PROC: 30233H1 Transfusion of Nonautologous Whole Blood into Peripheral Vein, Percutaneous Approach (ICD-10-PCS; 2017-09-18)
DX: K56.50 Intestinal adhesions [bands], unspecified as to partial versus complete obstruction (principal); E43 Unspecified severe protein-calorie malnutrition; E87.1 Hypo-osmolality and hyponatremia; N39.0 Urinary tract infection, site not specified; N17.9 Acute kidney failure, unspecified; C53.9 Malignant neoplasm of cervix uteri, unspecified; E87.6 Hypokalemia; E83.42 Hypomagnesemia; E87.8 Other disorders of electrolyte and fluid balance, not elsewhere classified; D64.9 Anemia, unspecified; I10 Essential (primary) hypertension; K76.0 Fatty (change of) liver, not elsewhere classified; Z90.710 Acquired absence of both cervix and uterus; Z93.3 Colostomy status; F41.9 Anxiety disorder, unspecified; E86.0 Dehydration; R11.10 Vomiting, unspecified; G62.0 Drug-induced polyneuropathy; T45.1X5A Adverse effect of antineoplastic and immunosuppressive drugs, initial encounter; E66.9 Obesity, unspecified; Z68.32 Body mass index [BMI] 32.0-32.9, adult; R82.71 Bacteriuria; K59.01 Slow transit constipation; G47.00 Insomnia, unspecified; R00.0 Tachycardia, unspecified; B96.1 Klebsiella pneumoniae [K. pneumoniae] as the cause of diseases classified elsewhere; B95.2 Enterococcus as the cause of diseases classified elsewhere
CPT/HCPCS: 36415; 36430; 71045-TC-FY; 74019-TC-FY; 74176-TC; 80053; 80061; 80076; 81003; 81015; 82271; 82746; 82747; 82962; 83605; 83690; 83721; 83735; 83935; 84100; 84300; 84478; 84630; 85014; 85025; 85027; 85610; 85730; 86850; 86900; 86901; 86922; 87040; 87086; 87186; 93005; 93010; 99282-25; G0378; J1644; J7030; P9038; P9058